=== PATIENT | female | born 1950 | race Caucasian/White ===

== ENCOUNTER → 2019-08-14 09:34 | Outpatient (BNVA) | payer MEDICARE, OTHER, SELFPAY | PROVIDERS: Family Provider Family Medicine; PCP Family Medicine; Visit Provider Internal Medicine Rheumatology | DX: M06.4 Inflammatory polyarthropathy (principal); M19.90 Unspecified osteoarthritis, unspecified site; Z79.899 Other long term (current) drug therapy; Z87.891 Personal history of nicotine dependence; M79.7 Fibromyalgia; J44.9 Chronic obstructive pulmonary disease, unspecified; I10 Essential (primary) hypertension | CPT/HCPCS: 36415; 80053; 85007; 85027; 85651; 86140; 99214 ==

== ENCOUNTER → 2019-11-14 11:09 | Outpatient (BNVA) | payer MEDICARE, OTHER, SELFPAY | PROVIDERS: Family Provider Family Medicine; PCP Family Medicine; Visit Provider Internal Medicine Rheumatology | DX: Z79.899 Other long term (current) drug therapy (principal); M06.4 Inflammatory polyarthropathy; Z11.1 Encounter for screening for respiratory tuberculosis; M79.7 Fibromyalgia; J44.9 Chronic obstructive pulmonary disease, unspecified; Z87.891 Personal history of nicotine dependence; Z90.2 Acquired absence of lung [part of]; Z85.118 Personal history of other malignant neoplasm of bronchus and lung | CPT/HCPCS: 36415; 80076; 82306; 82565; 85025; 85651; 86140; 86431; 86480; 99215; G0463 ==

== ENCOUNTER 2019-12-03 13:24 | Outpatient (CLI) | payer MEDICARE, OTHER, SELFPAY ==
--- NOTE | 2019-12-03 13:40 | XR_ITS ---
WS: [id number] XR chest 2V* [id number] REASON FOR EXAM: Inflammatory arthritis FINDINGS: Interstitial reaction throughout the right lung with decreased widening of the right lung a nd scattered calcification along the right upper lung. There is thickening of the pleura in the right apex. No masses are identified. There is marked elevation of the right hemidiaphragm. The left lung is hyper aerated. There is postop changes off the right hilum. XR/XR chest 2V* [id number] IMPRESSION: Postop changes and decreased volume of the right lung Calcification throughout the right upper lung with thickening of the pleura in the apex. Chronic obstructive pulmonary disease of the left lung.
--- NOTE | 2019-12-03 13:40 | XR_ITS ---
WS: [id number] XR hand LT min 3V* [id number] REASON FOR EXAM: Inflammatory arthritis FINDINGS: Soft tissue swelling of the interphalangeal joints of the second, third and fourth phalange s. Mild soft tissue swelling of the hand. There is no fractures of the phalanges, metacarpals, or carpals. XR/XR hand LT min 3V* [id number] IMPRESSION: Soft tissue swelling of the second, third, fourth intraphalangeal joints.
--- NOTE | 2019-12-03 13:40 | XR_ITS ---
WS: [id number] XR foot RT min 3V* [id number] REASON FOR EXAM: Inflammatory arthritis FINDINGS: Hammertoe changes of the third, fourth, fifth phalanges. The remaining phalanges, metatarsals, tarsals were normal. The calcaneal spur is seen. XR/XR foot RT min 3V* [id number] IMPRESSION: Calcaneal spur. Hammertoe changes third, fourth, fifth distal phalangeal joints.
--- NOTE | 2019-12-03 13:40 | XR_ITS ---
WS: [id number] XR foot LT min 3V* [id number] REASON FOR EXAM: Inflammatory arthritis FINDINGS: There is evidence of reabsorptive and destructive changes across Lisfranc joint. This was n ot noted on October 21, 2015. These are consistent with hammertoe deformities. Deformity of the distal interphalangeal joints. Calcaneal spur is seen. There is spurring off the cuneiforms. XR/XR foot LT min 3V* [id number] IMPRESSION: Inflammatory arthritis across Lisfranc's joint. Hammertoe changes of the phalanges. Calcaneal spur.
--- NOTE | 2019-12-03 13:40 | XR_ITS ---
WS: [id number] XR hand RT min 3V* [id number] REASON FOR EXAM: Inflammatory arthritis FINDINGS: There is evidence of swelling of the middle interphalangeal joints. The remaining phalanges metacarpals and carpals were normal. No fractures or other dyscrasias. XR/XR hand RT min 3V* [id number] IMPRESSION: Joint inflammatory changes middle interphalangeal joints second through fourth phalanx.
== END 2019-12-03 13:25 | disposition home or self-care (01) ==
LOC: RAD 13:32
PROVIDERS: PCP Family Medicine; Visit Provider Internal Medicine Rheumatology
DX: M19.90 Unspecified osteoarthritis, unspecified site (principal); M19.072 Primary osteoarthritis, left ankle and foot; M20.42 Other hammer toe(s) (acquired), left foot; M20.41 Other hammer toe(s) (acquired), right foot; M77.32 Calcaneal spur, left foot; M77.31 Calcaneal spur, right foot; J44.9 Chronic obstructive pulmonary disease, unspecified
CPT/HCPCS: 71046; 73130; 73630

== ENCOUNTER → 2020-02-14 09:23 | Outpatient (BNVA) | payer MEDICARE, OTHER, SELFPAY | PROVIDERS: Family Provider Family Medicine; PCP Family Medicine; Visit Provider Internal Medicine Rheumatology | DX: M06.041 Rheumatoid arthritis without rheumatoid factor, right hand (principal); Z79.899 Other long term (current) drug therapy; M06.042 Rheumatoid arthritis without rheumatoid factor, left hand; C34.91 Malignant neoplasm of unspecified part of right bronchus or lung; J44.9 Chronic obstructive pulmonary disease, unspecified; Z87.891 Personal history of nicotine dependence; Z79.52 Long term (current) use of systemic steroids | CPT/HCPCS: 36415; 80076; 82565; 85025; 85651; 86140; 99214 ==

== ENCOUNTER 2020-05-08 15:36 | Outpatient (CLI) | payer MEDICARE, OTHER, SELFPAY ==
--- NOTE | 2020-05-08 15:45 | USCV_ITS ---
Zoya Cunningham Age: 70 Gender: F : 1950 Exam Date: 05/08/2020 16:10 Ordering Phys: Jericho Steel MD ([email or web address]) Technologist: Judi Avila Exam Location: [facility] – [place] Indication: / SOB BP: 138 / 74 HR: 72 Rhythm: Sinus Technical Quality: Technically difficult study MEASUREMENTS (Male / Female) Normal Values 2D ECHO LV Diastolic Diameter PLAX 4.0 cm 4.2 - 5.9 / 3.9 - 5.3 cm LV Systolic Diameter PLAX 3.1 cm LV Chamber Size 3.4 cm IVS Diastolic Thickness 1.1 cm 0.6 - 1.0 / 0.6 - 0.9 cm IVS Systolic Thickness 1.5 cm LVPW Diastolic Thickness 0.9 cm 0.6 - 1.0 / 0.6 - 0.9 cm LVPW Systolic Thickness 1.4 cm RV Chamber Size 2.4 cm LVOT Diameter 2.0 cm LV Ejection Fraction 2D Teich 48.5 % LV Ejection Fraction MOD 2C 57.5 % LV Ejection Fraction 2C AL 57.1 % LA Diameter 2.7 cm LA Width 2.3 cm LA Height 3.6 cm RA Width 2.5 cm RA Height 3.2 cm Aorta at Sinotubular Diameter 2.1 cm M-MODE LV Diastolic Diameter MM 5.3 cm 4.2 - 5.9 / 3.9 - 5.3 cm LV Systolic Diameter MM 4.0 cm LV Ejection Fraction MM Teich 47.8 % IVS Diastolic Thickness MM 1.3 cm 0.6 - 1.0 / 0.6 - 0.9 cm IVS Systolic Thickness MM 1.3 cm LVPW Diastolic Thickness MM 1.5 cm 0.6 - 1.0 / 0.6 - 0.9 cm LVPW Systolic Thickness MM 1.6 cm Aortic Annulus Diameter 2.9 cm LA Ao Ratio MM 1.2 MV E Point Septal Separation 0.7 cm DOPPLER AV Peak Velocity 254.3 cm/s LVOT Peak Velocity 113.0 cm/s AV Area Cont Eq vti 1.5 cm squared AV Area Cont Eq pk 1.4 cm squared MV Area PHT 5.0 cm squared Mitral E to A Ratio 0.8 MV E' Velocity 49.5 cm/s Mitral E to MV E' Ratio 7.7 Mitral E to LV E' Lateral Ratio 7.1 Mitral E to LV E' Septal Ratio 8.3 TV Peak E Velocity 41.0 cm/s Right Atrial Pressure 15.0 mmHg FINDINGS Left Ventricle Normal left ventricular cavity size. Normal left ventricular systolic function. No regional wall motion abnormalities. Left ventricular ejection fraction is estimated at 55 %. Grade I/IV diastolic dysfunction (abnormal relaxation filling pattern), normal to mildly elevated filling pressures. Right Ventricle The right ventricle is normal in size and function. RVSP could not be calculated due to incomplete tricuspid regurgitation velocity profile. Right Atrium The right atrium is normal in size. Left Atrium The left atrium is normal in size. Mitral Valve Moderately thickened mitral valve. Moderate mitral annular calcification. No mitral valve stenosis. Mild mitral valve regurgitation. Aortic Valve Moderate aortic valve calcification. Moderate aortic valve stenosis, mean gradient 13.7 mmHg, HORTENSIA 1.5 cm squared. Tricuspid Valve Structurally normal tricuspid valve without significant stenosis or regurgitation. Pulmonic Valve Structurally normal pulmonic valve without significant stenosis. There is no pulmonic regurgitation. Pericardium Normal pericardium without effusion. Aorta Normal ascending aorta dimension. CONCLUSIONS 1-Normal left ventricular cavity size. Normal left ventricular systolic function. No regional wall motion abnormalities. Left ventricular ejection fraction is estimated at 55 %. Grade I/IV diastolic dysfunction (abnormal relaxation filling pattern), normal to mildly elevated filling pressures. 2-Moderately thickened mitral valve. Moderate mitral annular calcification. No mitral valve stenosis. Mild mitral valve regurgitation. 3-Moderate aortic valve calcification. Moderate aortic valve stenosis, mean gradient 13.7 mmHg, HORTENSIA 1.5 cm squared. 4-There is no pericardial effusion. 5-The right ventricle is normal in size and function. RVSP could not be calculated due to incomplete tricuspid regurgitation velocity profile. 6-There is no pericardial effusion. 7-Right atrial pressure is around 5 mm of mercury. 8-When compared to the prior echocardiogram dated January 24, 2019 there is no significant change. Gisela Golden MD (Electronically Signed) Final Date: 08 May 2020 20:17 S
== END 2020-05-08 15:37 | disposition home or self-care (01) ==
LOC: RAD 15:38
PROVIDERS: PCP Family Medicine; Visit Provider Internal Medicine Cardiovascular Disease
DX: R06.02 Shortness of breath (principal); I08.0 Rheumatic disorders of both mitral and aortic valves
CPT/HCPCS: 93306

== ENCOUNTER → 2020-05-21 08:55 | Outpatient (BNVA) | payer MEDICARE, OTHER, SELFPAY | PROVIDERS: PCP Family Medicine; Visit Provider Internal Medicine Rheumatology | DX: M06.041 Rheumatoid arthritis without rheumatoid factor, right hand (principal); M06.042 Rheumatoid arthritis without rheumatoid factor, left hand; M06.4 Inflammatory polyarthropathy; M79.7 Fibromyalgia; I10 Essential (primary) hypertension; J44.9 Chronic obstructive pulmonary disease, unspecified; E03.9 Hypothyroidism, unspecified; Z87.891 Personal history of nicotine dependence; Z79.899 Other long term (current) drug therapy | CPT/HCPCS: 99214 ==

== ENCOUNTER → 2020-07-09 08:52 | Outpatient (BNVA) | payer MEDICARE, OTHER, SELFPAY | PROVIDERS: PCP Family Medicine; Visit Provider Podiatrist Foot & Ankle Surgery | DX: M21.962 Unspecified acquired deformity of left lower leg (principal); M19.072 Primary osteoarthritis, left ankle and foot; M20.42 Other hammer toe(s) (acquired), left foot; M21.42 Flat foot [pes planus] (acquired), left foot | CPT/HCPCS: 73630 ==

== ENCOUNTER → 2020-09-16 08:49 | Outpatient (BNVA) | payer MEDICARE, OTHER, SELFPAY | PROVIDERS: PCP Family Medicine; Visit Provider Internal Medicine Rheumatology | DX: M06.4 Inflammatory polyarthropathy (principal); M06.041 Rheumatoid arthritis without rheumatoid factor, right hand; M06.042 Rheumatoid arthritis without rheumatoid factor, left hand; M79.7 Fibromyalgia; J43.9 Emphysema, unspecified; Z79.899 Other long term (current) drug therapy; Z85.118 Personal history of other malignant neoplasm of bronchus and lung; Z90.2 Acquired absence of lung [part of]; Z87.891 Personal history of nicotine dependence | CPT/HCPCS: 99214 ==

== ENCOUNTER → 2020-10-21 11:05 | Outpatient (BNVA) | payer MEDICARE, OTHER, SELFPAY | PROVIDERS: PCP Family Medicine; Visit Provider Internal Medicine Cardiovascular Disease | DX: R07.89 Other chest pain (principal); I77.9 Disorder of arteries and arterioles, unspecified; R09.89 Other specified symptoms and signs involving the circulatory and respiratory systems; I35.0 Nonrheumatic aortic (valve) stenosis; J43.9 Emphysema, unspecified; C34.91 Malignant neoplasm of unspecified part of right bronchus or lung; I48.11 Longstanding persistent atrial fibrillation; I05.9 Rheumatic mitral valve disease, unspecified; E78.2 Mixed hyperlipidemia | CPT/HCPCS: 80162 ==

== ENCOUNTER 2020-11-19 14:38 | Outpatient (CLI) | payer MEDICARE, OTHER, SELFPAY ==
--- NOTE | 2020-11-19 15:00 | USCV_ITS ---
Zoya Cunningham Age: 70 Gender: F : 1950 Exam Date: 11/19/2020 14:57 Ordering Phys: Jericho Steel MD ([email or web address]) Technologist: Georgie Pablo Exam Location: [facility] – [place] Indication: DISORDER OF ARTERIES AND ARTERIOLES Risk Factors: Previous Vascular Surgery: Right Brachial BP: / Left Brachial BP: / Right Left Velocity (cm/s) Spectral Plaque Velocity (cm/s) Spectral Plaque Syst/Diast Broadening Syst/Diast Broadening 71.70/ 20.90 Prox CCA 74.70 / 19.20 53.70/ 17.00 Mid CCA 70.10 / 18.80 43.50/ 11.70 Distal CCA 58.10 / 20.50 37.30/ 11.70 Prox ICA 47.50 / 18.70 33.40/ 14.00 Mid ICA 73.70 / 29.00 49.00/ 21.50 Distal ICA 39.80 / 16.90 55.20 ECA 41.70 0.91 ICA/CCA 1.05 Antegrade Vertebral Antegrade 35.70/ 14.00 cm/s 31.80/ 11.40 cm/s Tri Subclavian Tri 92.40 82.70 FINDINGS Mmild to moderate scattered plaques bilaterally at the bifurcations and proximal internal carotid arteries. Intimal thickening in the common carotid arteries bilaterally. Antegrade flow in the vertebral arteries bilaterally. Normal Doppler flow velocities in the external carotid arteries bilaterally. CONCLUSIONS Mild to moderate scattered plaques bilaterally at the bifurcations and proximal internal carotid arteries causing less than 50% stenosis. Minimal intimal thickening in the common carotid arteries bilaterally. No significant stenosis, based on the above findings Dr Jericho Steel MD [facility] (Electronically Signed) Final Date: 20 Nov 2020 16:52 S
== END 2020-11-19 14:39 | disposition home or self-care (01) ==
LOC: US 14:42
PROVIDERS: PCP Family Medicine; Visit Provider Internal Medicine Cardiovascular Disease
DX: I65.23 Occlusion and stenosis of bilateral carotid arteries (principal); I77.9 Disorder of arteries and arterioles, unspecified; R09.89 Other specified symptoms and signs involving the circulatory and respiratory systems
CPT/HCPCS: 93880

== ENCOUNTER → 2020-12-17 13:14 | Outpatient (BNVA) | payer MEDICARE, OTHER, SELFPAY | PROVIDERS: PCP Family Medicine; Visit Provider Internal Medicine Cardiovascular Disease | DX: Z79.899 Other long term (current) drug therapy (principal); Z79.01 Long term (current) use of anticoagulants | CPT/HCPCS: 85610 ==

== ENCOUNTER → 2020-12-24 08:59 | Outpatient (BNVA) | payer MEDICARE, OTHER, SELFPAY | PROVIDERS: PCP Family Medicine; Visit Provider Internal Medicine Cardiovascular Disease | DX: I48.11 Longstanding persistent atrial fibrillation (principal) | CPT/HCPCS: 85610 ==

== ENCOUNTER → 2021-01-02 08:50 | Outpatient (BNVA) | payer MEDICARE, OTHER, SELFPAY | PROVIDERS: PCP Family Medicine; Visit Provider Internal Medicine Cardiovascular Disease | DX: I48.11 Longstanding persistent atrial fibrillation (principal); I49.9 Cardiac arrhythmia, unspecified | CPT/HCPCS: 85610 ==

== ENCOUNTER → 2021-01-06 13:08 | Outpatient (BNVA) | payer MEDICARE, OTHER, SELFPAY | PROVIDERS: PCP Family Medicine; Visit Provider Internal Medicine Cardiovascular Disease | DX: I35.0 Nonrheumatic aortic (valve) stenosis (principal) | CPT/HCPCS: 85610 ==

== ENCOUNTER → 2021-01-26 10:45 | Outpatient (BNVA) | payer MEDICARE, OTHER, SELFPAY | PROVIDERS: PCP Family Medicine; Visit Provider Internal Medicine Cardiovascular Disease | DX: Z79.899 Other long term (current) drug therapy (principal) | CPT/HCPCS: 85610 ==

== ENCOUNTER → 2021-02-02 10:51 | Outpatient (BNVA) | payer MEDICARE, OTHER, SELFPAY | PROVIDERS: PCP Family Medicine; Visit Provider Internal Medicine Cardiovascular Disease | DX: I48.11 Longstanding persistent atrial fibrillation (principal); Z79.899 Other long term (current) drug therapy; Z79.01 Long term (current) use of anticoagulants | CPT/HCPCS: 80076; 85610 ==

== ENCOUNTER → 2021-02-09 11:58 | Outpatient (BNVA) | payer MEDICARE, OTHER, SELFPAY | PROVIDERS: PCP Family Medicine; Visit Provider Internal Medicine Cardiovascular Disease | DX: Z79.899 Other long term (current) drug therapy (principal) | CPT/HCPCS: 85610 ==

== ENCOUNTER → 2021-02-16 10:30 | Outpatient (BNVA) | payer MEDICARE, OTHER, SELFPAY | PROVIDERS: PCP Family Medicine; Visit Provider Internal Medicine Cardiovascular Disease | DX: Z79.899 Other long term (current) drug therapy (principal); I48.11 Longstanding persistent atrial fibrillation | CPT/HCPCS: 85610 ==

== ENCOUNTER → 2021-03-02 10:27 | Outpatient (BNVA) | payer MEDICARE, OTHER, SELFPAY | PROVIDERS: PCP Family Medicine; Visit Provider Internal Medicine Cardiovascular Disease | DX: I35.0 Nonrheumatic aortic (valve) stenosis (principal) | CPT/HCPCS: 85610 ==

== ENCOUNTER → 2021-03-10 10:52 | Outpatient (BNVA) | payer MEDICARE, OTHER, SELFPAY | PROVIDERS: PCP Family Medicine; Visit Provider Internal Medicine Cardiovascular Disease | DX: Z79.899 Other long term (current) drug therapy (principal); I48.11 Longstanding persistent atrial fibrillation | CPT/HCPCS: 85610 ==

== ENCOUNTER → 2021-03-16 11:33 | Outpatient (BNVA) | payer MEDICARE, OTHER, SELFPAY | PROVIDERS: PCP Family Medicine; Visit Provider Internal Medicine Cardiovascular Disease | DX: I35.0 Nonrheumatic aortic (valve) stenosis (principal) | CPT/HCPCS: 85610 ==

== ENCOUNTER → 2021-03-25 10:05 | Outpatient (BNVA) | payer MEDICARE, OTHER, SELFPAY | PROVIDERS: PCP Family Medicine; Visit Provider Internal Medicine Cardiovascular Disease | DX: Z79.899 Other long term (current) drug therapy (principal); I48.11 Longstanding persistent atrial fibrillation | CPT/HCPCS: 85610 ==

== ENCOUNTER → 2021-04-20 09:35 | Outpatient (BNVA) | payer MEDICARE, OTHER, SELFPAY | PROVIDERS: PCP Family Medicine; Visit Provider Internal Medicine Cardiovascular Disease | DX: I35.0 Nonrheumatic aortic (valve) stenosis (principal) | CPT/HCPCS: 85610 ==

== ENCOUNTER → 2021-04-22 13:02 | Outpatient (BNVA) | payer MEDICARE, OTHER, SELFPAY | PROVIDERS: PCP Family Medicine; Visit Provider Internal Medicine Rheumatology | DX: M15.9 Polyosteoarthritis, unspecified (principal); Z79.899 Other long term (current) drug therapy; J44.9 Chronic obstructive pulmonary disease, unspecified; I35.0 Nonrheumatic aortic (valve) stenosis; I34.1 Nonrheumatic mitral (valve) prolapse; M79.7 Fibromyalgia; G47.33 Obstructive sleep apnea (adult) (pediatric); F31.9 Bipolar disorder, unspecified; I48.0 Paroxysmal atrial fibrillation; Z79.01 Long term (current) use of anticoagulants; Z85.118 Personal history of other malignant neoplasm of bronchus and lung; Z90.2 Acquired absence of lung [part of]; Z92.21 Personal history of antineoplastic chemotherapy; Z71.89 Other specified counseling; Z87.891 Personal history of nicotine dependence | CPT/HCPCS: 99214 ==

== ENCOUNTER → 2021-07-16 13:31 | Outpatient (BNVA) | payer MEDICARE, OTHER, SELFPAY | PROVIDERS: PCP Family Medicine; Visit Provider Internal Medicine Cardiovascular Disease | DX: I35.0 Nonrheumatic aortic (valve) stenosis (principal) | CPT/HCPCS: 85610 ==

== ENCOUNTER → 2021-07-21 10:26 | Outpatient (BNVA) | payer MEDICARE, OTHER, SELFPAY | PROVIDERS: PCP Family Medicine; Visit Provider Internal Medicine Rheumatology | DX: M06.041 Rheumatoid arthritis without rheumatoid factor, right hand (principal); M06.042 Rheumatoid arthritis without rheumatoid factor, left hand; Z79.899 Other long term (current) drug therapy; J43.9 Emphysema, unspecified | CPT/HCPCS: 80076; 82565; 85025; 86140 ==

== ENCOUNTER → 2021-08-20 12:43 | Outpatient (BNVA) | payer MEDICARE, OTHER, SELFPAY | PROVIDERS: PCP Family Medicine; Visit Provider Internal Medicine Rheumatology | DX: M06.041 Rheumatoid arthritis without rheumatoid factor, right hand (principal); M06.042 Rheumatoid arthritis without rheumatoid factor, left hand; Z79.899 Other long term (current) drug therapy; M79.7 Fibromyalgia; F31.9 Bipolar disorder, unspecified; G47.33 Obstructive sleep apnea (adult) (pediatric); C34.91 Malignant neoplasm of unspecified part of right bronchus or lung; J44.9 Chronic obstructive pulmonary disease, unspecified; Z71.89 Other specified counseling | CPT/HCPCS: 99214 ==

== ENCOUNTER 2021-11-11 11:23 | Outpatient (CLI) | payer MEDICARE, OTHER, SELFPAY ==
[2021-11-11 13:20] LABS: INR 1.25 (0.8-1.2)
== END 2021-11-11 11:24 | disposition home or self-care (01) ==
LOC: LAB 11:33
PROVIDERS: PCP Family Medicine; Visit Provider Internal Medicine Cardiovascular Disease
DX: I48.11 Longstanding persistent atrial fibrillation (principal)
CPT/HCPCS: 36415; 85610

== ENCOUNTER → 2021-11-13 13:43 | Outpatient (BNVA) | payer MEDICARE, OTHER, SELFPAY | PROVIDERS: PCP Family Medicine; Visit Provider Internal Medicine Cardiovascular Disease | DX: Z79.01 Long term (current) use of anticoagulants (principal) ==

== ENCOUNTER 2021-11-16 10:40 | Outpatient (CLI) | payer MEDICARE, OTHER, SELFPAY | END 2021-11-16 10:41 | disposition home or self-care (01) | LOC: LAB 10:43 | PROVIDERS: PCP Family Medicine; Visit Provider Internal Medicine Cardiovascular Disease | DX: I48.11 Longstanding persistent atrial fibrillation (principal) | CPT/HCPCS: 36415; 85610 ==

== ENCOUNTER 2021-11-25 11:26 | Outpatient (CLI) | payer MEDICARE, OTHER, SELFPAY ==
[2021-11-25 13:06] LABS: INR 1.67 (0.8-1.2)
== END 2021-11-25 11:27 | disposition home or self-care (01) ==
LOC: LAB 11:31
PROVIDERS: PCP Family Medicine; Visit Provider Internal Medicine Cardiovascular Disease
DX: I48.11 Longstanding persistent atrial fibrillation (principal); I10 Essential (primary) hypertension; Z79.01 Long term (current) use of anticoagulants
CPT/HCPCS: 85610

== ENCOUNTER → 2021-11-27 13:07 | Outpatient (BNVA) | payer MEDICARE, OTHER, SELFPAY | PROVIDERS: PCP Family Medicine; Visit Provider Internal Medicine | DX: Z79.01 Long term (current) use of anticoagulants (principal) ==

== ENCOUNTER 2021-12-02 10:15 | Outpatient (CLI) | payer MEDICARE, OTHER, SELFPAY ==
[2021-12-02 11:32] LABS: INR 1.78 (0.83-1.21); Prothrombin Time (Patient) 21.1 Seconds (12.0-15.1)
== END 2021-12-02 10:16 | disposition home or self-care (01) ==
LOC: LAB 10:17
PROVIDERS: PCP Family Medicine; Visit Provider Internal Medicine Cardiovascular Disease
DX: I48.11 Longstanding persistent atrial fibrillation (principal); R58 Hemorrhage, not elsewhere classified
CPT/HCPCS: 85610

== ENCOUNTER → 2021-12-04 10:08 | Outpatient (BNVA) | payer MEDICARE, OTHER, SELFPAY | PROVIDERS: PCP Family Medicine; Visit Provider Internal Medicine Cardiovascular Disease | DX: Z79.01 Long term (current) use of anticoagulants (principal) ==

== ENCOUNTER 2021-12-09 09:36 | Outpatient (CLI) | payer MEDICARE, OTHER, SELFPAY ==
[2021-12-09 12:39] LABS: INR 1.88 (0.8-1.2)
== END 2021-12-09 09:37 | disposition home or self-care (01) ==
LOC: LAB 09:38
PROVIDERS: PCP Family Medicine; Visit Provider Internal Medicine Cardiovascular Disease
DX: I48.11 Longstanding persistent atrial fibrillation (principal)
CPT/HCPCS: 85610

== ENCOUNTER → 2021-12-11 09:10 | Outpatient (BNVA) | payer MEDICARE, OTHER, SELFPAY | PROVIDERS: PCP Family Medicine; Visit Provider Internal Medicine Cardiovascular Disease | DX: Z79.01 Long term (current) use of anticoagulants (principal) ==

== ENCOUNTER 2021-12-16 09:31 | Outpatient (CLI) | payer MEDICARE, OTHER, SELFPAY | END 2021-12-16 09:32 | disposition home or self-care (01) | PROVIDERS: PCP Family Medicine; Visit Provider Internal Medicine Cardiovascular Disease | DX: I48.11 Longstanding persistent atrial fibrillation (principal) | CPT/HCPCS: 36415; 85610 ==

== ENCOUNTER → 2021-12-22 10:36 | Outpatient (BNVA) | payer MEDICARE, OTHER, SELFPAY | PROVIDERS: PCP Family Medicine; Visit Provider Internal Medicine Cardiovascular Disease | DX: I35.0 Nonrheumatic aortic (valve) stenosis (principal); R09.89 Other specified symptoms and signs involving the circulatory and respiratory systems; I48.11 Longstanding persistent atrial fibrillation; Z79.01 Long term (current) use of anticoagulants; E78.2 Mixed hyperlipidemia; I10 Essential (primary) hypertension; J43.9 Emphysema, unspecified | CPT/HCPCS: 99214 ==

== ENCOUNTER → 2021-12-29 10:21 | Outpatient (BNVA) | payer MEDICARE, OTHER, SELFPAY | PROVIDERS: PCP Family Medicine | DX: Z79.01 Long term (current) use of anticoagulants (principal) | CPT/HCPCS: 85610 ==

== ENCOUNTER → 2022-01-05 10:32 | Outpatient (BNVA) | payer MEDICARE, OTHER, SELFPAY | PROVIDERS: PCP Family Medicine; Visit Provider Internal Medicine Cardiovascular Disease | DX: Z79.01 Long term (current) use of anticoagulants (principal) | CPT/HCPCS: 85610 ==

== ENCOUNTER → 2022-01-25 12:51 | Outpatient (BNVA) | payer MEDICARE, OTHER, SELFPAY | PROVIDERS: PCP Family Medicine; Visit Provider Internal Medicine Rheumatology | DX: M15.9 Polyosteoarthritis, unspecified (principal); C34.91 Malignant neoplasm of unspecified part of right bronchus or lung; Z79.899 Other long term (current) drug therapy; M79.7 Fibromyalgia; F31.9 Bipolar disorder, unspecified; G47.33 Obstructive sleep apnea (adult) (pediatric); J44.9 Chronic obstructive pulmonary disease, unspecified; E03.9 Hypothyroidism, unspecified; G62.9 Polyneuropathy, unspecified; I10 Essential (primary) hypertension; I34.1 Nonrheumatic mitral (valve) prolapse; I35.0 Nonrheumatic aortic (valve) stenosis; I48.0 Paroxysmal atrial fibrillation; Z79.01 Long term (current) use of anticoagulants; Z90.2 Acquired absence of lung [part of]; Z87.891 Personal history of nicotine dependence; Z71.89 Other specified counseling | CPT/HCPCS: 80076; 82565; 85025; 86140; 99214 ==

== ENCOUNTER 2022-02-07 12:13 | Emergency (ER) | payer MEDICARE, OTHER, SELFPAY ==
[2022-02-07] VITALS (7 sets, daily range): BP systolic 95–141; BP diastolic 60–86; PULSE 75–85; RESP 14–21; TEMP 36.9; O2SAT 95–98; BMI 24.6
--- NOTE | 2022-02-07 12:25 | W.ED.GENADLT ---
HPI - General Adult General: Chief complaint: General Medical Stated complaint: WEAKNESS Time Seen by Provider: 02/07/22 12:14 History of Present Illness: Patient is a 72-year-old female with a history of atrial fibrillation on digoxin, aortic stenosis, COPD on 2 L oxygen at home fibromyalgia hypertension, GERD lipidemia presenting to the emergency room with concerns of lightheadedness and near syncope for the last 2 days. Earlier today around 11:00, patient was slowing standing up when she suddenly felt very lightheaded and almost passed out. EMS was called, patient was brought to the emergency room. Patient denies any associated chest pain, shortness breath or palpitation prior to the episode and lightheadedness. Patient has had similar episodes yesterday. At home. Patient reports ongoing nonproductive cough. Patient denies any fever/chills, diarrhea, melena/hematochezia. Patient has no complaints. She denies any melena or hematochezia. Patient denies any recent dehydration, decreased p.o. intake, or exposure to the sun. Onset:2 days ago Duration:2 days Location:home Severity:moderate Associated symptoms: Deny chest pain, dyspnea, nausea, rash, palpitations or vomiting Review of Systems Const: Denies: fever(s) or chills Eyes: Denies: change in vision ENMT: Denies: mouth pain Card: Denies: chest pain or palpitations Resp: Denies: dyspnea or non-productive cough GI: Denies: abdominal pain, nausea, vomiting or diarrhea : Denies: dysuria Musc: Denies: extremity pain Skin/Breast: Denies: rash or new lesions Neuro: Reports: other (+light-headedness); Denies: weakness in extremities Psych: Reports: other (Normal mood) Michel/Lymph: Denies: easy bruising PFSH ED PFSH: Medical History Adenocarcinoma of right lung, 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, status post right middle and upper lobectomy in April 2008, -treated with adjuvant chemotherapy, four cycles of carboplatin and Taxol completed in August 2008 Aortic valve stenosis Arrhythmia Atrial fibrillation Bipolar 2 disorder Chronic steroid use COPD (chronic obstructive pulmonary disease) COPD (chronic obstructive pulmonary disease) Dementia in other diseases classified elsewhere without behavioral disturbance Encounter for immunization Fibromyalgia Generalized anxiety disorder Greater trochanteric bursitis of both hips High risk medication use Hyperlipemia Hypertension Immunization counseling Inflammatory arthritis Insomnia Mitral valve disease Near syncope Osteoarthritis of knees, bilateral Peripheral neuropathy Psychiatric care Pulmonary fibrosis Seronegative rheumatoid arthritis of both hands Valvular heart disease Surgical History H/O breast biopsy H/O: hysterectomy History of lung surgery Family History Mother CAD (coronary artery disease) Cancer Stroke Sister Diabetes Father Lung disease Denies family history of Clotting disorder Dementia Chronic kidney disease (CKD) Suicide Anesthesia complication Bleeding disorder Social History Smoking and tobacco status: former smoker Alcohol intake: current History of recent travel: No Physical Exam Const: COMMON NORMALS: alert HENMT: COMMON NORMALS: atraumatic HEAD & SCALP: atraumatic MOUTH: moist mucous membranes not abnormal Eye: COMMON NORMALS: EOMs intact bilaterally and conjunctivae normal CONJUNCTIVA: Yes conjunctivae normal Neck/C-Spine: COMMON NORMALS: full ROM and supple Resp: COMMON NORMALS: normal respiratory effort and clear to auscultation bilaterally AUSCULTATION: clear to auscultation bilaterally Cardio: COMMON NORMALS: regular rate RATE: regular rate OTHER: 2+ radial pulses b/l GI: COMMON NORMALS: Soft to palpation and non-tender PALPATION: Yes Soft to palpation OTHER: No focal TTP. NO guarding rebound, guarding, rigidity. No CVA tenderness to percussion. Neg Courteny/Neg McBurney's point tenderness, no suprabupic tenderness to palpation. Extremity: COMMON NORMALS: full ROM Neuro: SENSORIUM/ORIENTATION: Yes alert MOTOR EXAM: No Abnormal motor strength present and Other motor observations present (no focal motor deficits) OTHER: Mental status? Awake, alert, and oriented to self, year, month, location, and situation.? Following simple axial and appendicular commands.? Has appropriate fund of knowledge, comprehension, and insight.? Able to recall and understands pertinent aspects of medical history and current treatment status.? ? Language? Speech is fluent without word-finding difficulties.? Intact naming, expression, bilingual receptionist, and repetition.? ? Cranial nerves? 2,3,4,6: PERRL, EOMI with no nystagmus. 5: Intact sensation to light touch, symmetric? 7: Smile symmetrical, no facial droop.? 8: Hearing grossly intact.? 9,10: Normal palate movement.? 11: Normal strength in trapezius bilaterally 12: Tongue protrudes midline.? ? Motor examination? Normal bulk & tone. Strength as follows (R/L): Delts (5/5), Biceps (5/5), Triceps (5/5), Wrist ext (5/5), hip flexors (5/5), plantarflexors (5/5), dorsiflexors (5/5). Sensation? Light Touch: Grossly intact and equal in upper and lower extremities bilaterally? Romberg: Negative.? Distal joint position sense intact ? Coordination? Bnrcwo-lk-zjkg-finger movements intact without dysmetria or past-pointing.? Rapid fingertaps: preserved amplitude without decriment.? No tremor, myoclonus or truncal ataxia.? ? Gait/stance? Steady, normal narrow base gait with appropriate arm swing and turning.? Tandem gait without hesitation or loss of balance. Psych: COMMON NORMALS: speech normal SPEECH: Yes normal speech MOOD & AFFECT: Yes euthymic mood Course Vital Signs: Vital signs: Vital Signs Temperature 98.5 F 02/07/22 12:19 Pulse Rate 75 02/07/22 16:54 Respiratory Rate 21 H 02/07/22 16:54 Blood Pressure 135/75 02/07/22 16:54 Pulse Oximetry 95 02/07/22 16:54 Oxygen Delivery Me thod 02/07/22 15:49 Oxygen Flow Rate 1 02/07/22 15:49 [facility] - General Adult Medical Decision Making Patient is a 72-year-old female with a history of atrial fibrillation on digoxin, aortic stenosis, COPD on 2 L oxygen at home fibromyalgia hypertension, GERD lipidemia presenting to the emergency room with concerns of lightheadedness and near syncope for the last 2 days. On physical exam, patient is hemodynamically stable. Neuro exam is intact. Troponin x2 with delta less than 5. EKG is nonischemic. Patient no complaints of chest pain. Patient received IVF reports feeling proved. Patient has positive orthostatics today. Patient is able to ambulate and tolerate p.o. Because patient has an echo that is due tomorrow, we will order the echo in the emergency room. We reviewed the echo with Dr. Steel as well as blood work. Dr. Steel does not think that this is ACS related at this time. CT head negative for any acute findings. On reassessment, patient denies any syncope or near syncope episodes in the ER. Telemetry without any dysrhythmia. Patient has been able to tolerate PO and ambulate in the ER without issues. Delta in troponins <5. I performed shared decision-making with patient regarding admission versus discharge today, and patient prefers to be discharged. I have discussed given patient's risk factors that she would better off admitted to the hospital. However, patient tells me she to go home with close follow up with Dr. Steel. I explained the risks of leaving the hospital today including lethal arrythemia, VT, strokes and even . Patient verbalizes understanding of these discussed risk and elect for the alternative of following up earlier next week for evaluation by Cardiology. Patient verbalizes understanding to return for any worsening symptoms including chest pain, dyspnea, fatigue, arm pain/jaw pain/back pain or any new or concerning issues. Hemoglobin of 9.1 which is consistent with baseline. Patient is currently HDS, ambulated without any difficulties I have given patient follow up with our case management social worker to be seen by our outpatient by Dr Steel for recent echo and light-headedness. Patient aware of a call from our case management social worker to schedule for appointment(s) and verbalizes understanding of the importance of following up. Disposition: Discharge. Patient counseled regarding diagnostic impression, treatment plan. Patient given ED strict return precautions to return for continuation, worsening, or development of new symptoms. Instructed to f/u w/ PCP and Cardiology regarding symptoms today. Patient verbalized understanding. Lab Data : 02/07/22 12:50 02/07/22 12:50 Radiology Impressions Chest X-Ray 02/07/22 12:24 IMPRESSION: Chronic scarring in the right lung which is hypoaerated in relation to the left associated with a mild rightward mediastinal shift. These findings are unchanged from the prior CT scan. Head CT 02/07/22 12:24 IMPRESSION: No acute intracranial abnormality. Laboratory Results WBC 5.4 10^3/uL (4.0-10.0) 02/07/22 12:50 RBC 3.97 10^6/uL (4.1-5.3) L 02/07/22 12:50 Hgb 13.5 g/dL (11.5-15.3) 02/07/22 12:50 Hct 42.9 % (37.0-47.0) 02/07/22 12:50 MCV 108.1 fl (81-99) H 02/07/22 12:50 MCH 34.0 pg (28.0-34.0) 02/07/22 12:50 MCHC 31.5 g/dL (30.0-36.0) 02/07/22 12:50 RDW 12.7 % (12.1-15.1) 02/07/22 12:50 Plt Count 183 10^3/cmm (130-400) 02/07/22 12:50 MPV 10.2 fL (7.4-10.4) 02/07/22 12:50 Neut % (Auto) 56.3 % 02/07/22 12:50 Lymph % (Auto) 27.8 % 02/07/22 12:50 Jerauld % (Auto) 13.2 % 02/07/22 12:50 Eos % (Auto) 1.9 % 02/07/22 12:50 Baso % (Auto) 0.4 % 02/07/22 12:50 Neut # (Auto) 3.04 10^3/uL (1.8-7.7) 02/07/22 12:50 Lymph # (Auto) 1.5 10^3/uL (0.8-4.8) 02/07/22 12:50 Jerauld # (Auto) 0.7 10^3/uL (0.2-0.9) 02/07/22 12:50 Eos # (Auto) 0.1 10^3/uL (0.0-0.8) 02/07/22 12:50 Baso # (Auto) 0.0 10^3/uL (0.0-0.1) 02/07/22 12:50 Nucleated RBC % (auto) 0 % 02/07/22 12:50 Nucleated RBCs # 0.0 /100WBC 02/07/22 12:50 D-Dimer <= 0.27 ug/mIFEU (0-0.59) 02/07/22 12:50 Sodium 143 mmol/L (136-145) 02/07/22 12:50 Potassium 4.6 mmol/L (3.5-5.1) 02/07/22 12:50 Chloride 102 mmol/L (98-107) 02/07/22 12:50 Carbon Dioxide 33 mmol/L (22-29) H 02/07/22 12:50 Anion Gap 12.6 (5-19) 02/07/22 12:50 BUN 12 mg/dL (8-23) 02/07/22 12:50 Creatinine 0.7 mg/dL (0.5-0.9) 02/07/22 12:50 GFR Calculation Not Reportable 02/07/22 12:50 Glucose 92 mg/dL (65-115) 02/07/22 12:50 POC Glucose 93 mg/dL (70-110) 02/07/22 12:45 Calculated Osmolality 295 mOsm/kg (285-295) 02/07/22 12:50 Calcium 9.3 mg/dL (8.5-10.5) 02/07/22 12:50 Total Bilirubin 0.2 mg/dL (0.15-1.2) 02/07/22 12:50 AST 16 U/L (0-32) 02/07/22 12:50 ALT 26 U/L (0-33) 02/07/22 12:50 Alkaline Phosphatase 86 IU/L (35-105) 02/07/22 12:50 Troponin T Baseline 8 ng/L (0-10) 02/07/22 12:50 Troponin T 120 Minute 7.27 ng/L (0-10) 02/07/22 15:00 Delta Troponin T -0.73 ABS# (0-10) L 02/07/22 15:00 NT-Pro-B Natriuret Pep 604 pg/mL (0-125) H 02/07/22 12:50 Total Protein 6.0 g/dL (6.6-8.7) L 02/07/22 12:50 Albumin 3.8 g/dL (3.5-5.2) 02/07/22 12:50 Globulin 2.2 g/dL (1.3-4.6) 02/07/22 12:50 Lipase 32 U/L (13-60) 02/07/22 12:50 TSH 1.94 uIU/mL (0.27-4.20) 02/07/22 12:50 Free T4 1.39 ng/dL (0.82-1.77) 02/07/22 12:50 Urine Color Yellow (Yellow) 02/07/22 14:30 Urine Appearance Clear (CLEAR) 02/07/22 14:30 Urine pH 6 (5-7) 02/07/22 14:30 Ur Specific [place] 1.010 (1.005-1.030) 02/07/22 14:30 Urine Protein Neg (Negative) 02/07/22 14:30 Urine Glucose (UA) Norm (Normal) 02/07/22 14:30 Urine Ketones Negative (Negative) 02/07/22 14:30 Urine Blood Neg (Negative) 02/07/22 14:30 Urine Nitrate Negative (Negative) 02/07/22 14:30 Urine Bilirubin Neg (Negative) 02/07/22 14:30 Urine Urobilinogen Norm mg/dL (Negative) 02/07/22 14:30 Ur Leukocyte Esterase Negative (Negative) 02/07/22 14:30 Coronavirus 229E (PCR) Not detected (NOT DETECT) 02/07/22 12:50 SARS-CoV-2 (PCR) Not detected (NOT DETECT) 02/07/22 12:50 Imaging Data Other Imaging: Radiologist's impression: [place] [address] CT Scan Report Signed Patient: Zoya Cunningham Unit #: [id number] : 1950 Age/Sex: 72 / F ADM Date: 02/07/22 Loc: ER Room/Bed: Attending Dr: Ordering Provider/Ordering MD: Mauri Delcid MD Date of Service: 02/07/22 Procedure(s): CT head wo con* [id number] Accession Number(s): [id number] Report Number: [id number] PROCEDURE INFORMATION: Exam: CT Head Without Contrast Exam date and time: 02/07/2022 12:57 PM Age: 72 years old Clinical indication: Dizziness; Additional info: Light-headedness TECHNIQUE: Imaging protocol: Computed tomography of the head without contrast. Radiation optimization: All CT scans at this facility use at least one of these dose optimization techniques: automated exposure control; mA and/or kV adjustment per patient size (includes targeted exams where dose is matched to clinical indication); or iterative reconstruction. COMPARISON: No relevant prior studies available. RADIATION DOSE METRICS: Total DLP (mGy-cm): 944.98 FINDINGS: Brain: Normal. No hemorrhage. Unremarkable white matter. No mass effect. Cerebral ventricles: No ventriculomegaly. Paranasal sinuses: Visualized sinuses are unremarkable. No fluid levels. Mastoid air cells: Visualized mastoid air cells are well aerated. Bones/joints: Unremarkable. No acute fracture. Soft tissues: Unremarkable. CT/CT head wo con* [id number] IMPRESSION: No acute intracranial abnormality. ? Dictated By: Chel Roblero MD Signed By: Chel Roblero MD Signed Date/Time: 02/07/22 1330 DD/ [address] [address] XRay Report Signed Patient: Zoya Cunningham Unit #: [id number] : 1950 Age/Sex: 72 / F ADM Date: 02/07/22 Loc: ER Room/Bed: Attending Dr: Ordering Provider/Ordering MD: Mauri Delcid MD Date of Service: 02/07/22 Procedure(s): XR chest 1V portable [id number] Accession Number(s): [id number] Report Number: [id number] PROCEDURE INFORMATION: Exam: XR Chest Exam date and time: 02/07/2022 1:12 PM Age: 72 years old Clinical indication: Pain; Chest pressure; Additional info: Chest pain TECHNIQUE: Imaging protocol: Radiologic exam of the chest. Views: 1 view. COMPARISON: CT chest wo con [id number] 05/09/2020 9:48 AM FINDINGS: Lungs: Chronic scarring in the right lung which is hypoaerated in relation to the left associated with a mild rightward mediastinal shift. These findings are unchanged from the prior CT scan. Pleural spaces: Costophrenic angles are somewhat obscured and small pleural effusions cannot be excluded. Heart/Mediastinum: There are calcified mediastinal and perihilar lymph nodes consistent with prior granulomatous exposure. Diaphragm: Mild elevation of the right hemidiaphragm. Bones/joints: Unremarkable. XR/XR chest 1V portable [id number] IMPRESSION: Chronic scarring in the right lung which is hypoaerated in relation to the left associated with a mild rightward mediastinal shift. These findings are unchanged from the prior CT scan. ? Dictated By: Chel Roblero MD Signed By: Chel Roblero MD Signed Date/Time: 02/07/22 1455 DD/ 1312 Discharge Plan Discharge Patient Disposition: Home Clinical Impression: Light headedness, Near syncope Condition: Stable Prescriptions: No Action cyanocobalamin (vitamin B-12) 2,500 mcg tablet 2,500 mcg PO DAILY fluticasone propion-salmeterol [Advair Diskus] 250-50 mcg/dose blister with device 1 inh INHALATION BID ferrous sulfate 324 mg (65 mg iron) tablet,delayed release (DR/EC) 324 mg PO DAILY ascorbic acid (vitamin C) 1,000 mg tablet 1,000 mg PO DAILY (DME) oxygen-air delivery systems Device See Rx Instructions .ROUTE .MEDSUPPLY Qty: 1 Rx Instructions: As directed 3 liters (DME) Articulating AFO See Rx Instructions .Route .MEDSUPPLY Qty: 1 0RF Rx Instructions: As directed tramadol 50 mg tablet 50 mg PO BID PRN (Reason: pain, moderate-severe) Qty: 60 2RF methocarbamol 500 mg tablet 500 mg PO TID PRN (Reason: muscle pain) fexofenadine 180 mg tablet 180 mg PO DAILY montelukast 10 mg tablet 10 mg PO DAILY gabapentin 600 mg tablet 600 mg PO TID Qty: 90 3RF omeprazole 40 mg capsule,delayed release(DR/EC) 40 mg PO DAILY Qty: 90 1RF sulfasalazine 500 mg tablet 1 g PO BID Qty: 120 3RF bmbtejilxi-hjwchblrvznwe-ppnm 50-325-40 mg tablet 1 tab PO Q4H PRN (Reason: migraine) cholecalciferol (vitamin D3) 250 mcg (10,000 unit) capsule 250 mcg PO DAILY donepezil 10 mg tablet 10 mg PO DAILY Qty: 90 1RF Rx Instructions: at bedtime memantine [Namenda XR] 28 mg capsule,sprinkle,ER 24hr 28 mg PO DAILY Qty: 90 1RF warfarin 7.5 mg tablet 7 mg PO DAILY Protocol: Dose Management Condition: Tuesday Dose/Route: 6 mg Instruction: 1 x 6 mg tablet Condition: Tuesday Dose/Route: 6 mg Instruction: 1 x 6 mg tablet Condition: Tuesday Dose/Route: 6 mg Instruction: 1 x 6 mg tablet Condition: Tuesday Dose/Route: 6 mg Instruction: 1 x 6 mg tablet Condition: Dose/Route: 6 mg Instruction: 1 x 6 mg tablet Condition: Tuesday Dose/Route: 6 mg Instruction: 1 x 6 mg tablet Condition: Tuesday Dose/Route: 6 mg Instruction: 1 x 6 mg tablet Protocol Text: Adjustment Start Date: Tuesday01/05/22 INR Value: 23.8 Seconds INR Date: 01/05/22 Recheck Date: 02/02/22 warfarin 2 mg tablet 2 mg PO DAILY Qty: 90 2RF Protocol: Dose Management Condition: Tuesday Dose/Route: 6 mg Instruction: 1 x 6 mg tablet Condition: Tuesday Dose/Route: 6 mg Instruction: 1 x 6 mg tablet Condition: Tuesday Dose/Route: 6 mg Instruction: 1 x 6 mg tablet Condition: Tuesday Dose/Route: 6 mg Instruction: 1 x 6 mg tablet Condition: Dose/Route: 6 mg Instruction: 1 x 6 mg tablet Condition: Tuesday Dose/Route: 6 mg Instruction: 1 x 6 mg tablet Condition: Tuesday Dose/Route: 6 mg Instruction: 1 x 6 mg tablet Protocol Text: Adjustment Start Date: Tuesday01/05/22 INR Value: 23.8 Seconds INR Date: 01/05/22 Recheck Date: 02/02/22 Rx Instructions: per protocol prazosin 1 mg capsule See Rx Instructions .ROUTE .COMPLEX Qty: 180 0RF Dose Instruction: TAKE 1 TO 2 CAPSULES AT BEDTIME MAY INCREASE TO 2 CAPSULES IF NEEDED AFTER 3 DAYS Rx Instructions: TAKE 1 TO 2 CAPSULES AT BEDTIME MAY INCREASE TO 2 CAPSULES IF NEEDED AFTER 3 DAYS warfarin 6 mg tablet 6 mg PO DAILY Qty: 90 0RF Protocol: Dose Management Condition: Tuesday Dose/Route: 6 mg Instruction: 1 x 6 mg tablet Condition: Tuesday Dose/Route: 6 mg Instruction: 1 x 6 mg tablet Condition: Tuesday Dose/Route: 6 mg Instruction: 1 x 6 mg tablet Condition: Tuesday Dose/Route: 6 mg Instruction: 1 x 6 mg tablet Condition: Dose/Route: 6 mg Instruction: 1 x 6 mg tablet Condition: Tuesday Dose/Route: 6 mg Instruction: 1 x 6 mg tablet Condition: Tuesday Dose/Route: 6 mg Instruction: 1 x 6 mg tablet Protocol Text: Adjustment Start Date: Tuesday01/05/22 INR Value: 23.8 Seconds INR Date: 01/05/22 Recheck Date: 02/02/22 lorazepam 1 mg tablet 1 mg PO TID PRN (Reason: anxiety and insomnia) Qty: 90 2RF Rx Instructions: 1 tab during day and 1-2 at bedtime prednisone 20 mg tablet See Rx Instructions PO .COMPLEX PRN (Reason: joint pain flare) Qty: 30 1RF Rx Instructions: take 1 tab daily for 5-7 days as needed for arthritis flare PO PRN; warfarin 4 mg tablet See Rx Instructions .ROUTE .COMPLEX Qty: 90 6RF Protocol: Dose Management Condition: Tuesday Dose/Route: 6 mg Instruction: 1 x 6 mg tablet Condition: Tuesday Dose/Route: 6 mg Instruction: 1 x 6 mg tablet Condition: Tuesday Dose/Route: 6 mg Instruction: 1 x 6 mg tablet Condition: Tuesday Dose/Route: 6 mg Instruction: 1 x 6 mg tablet Condition: Dose/Route: 6 mg Instruction: 1 x 6 mg tablet Condition: Tuesday Dose/Route: 6 mg Instruction: 1 x 6 mg tablet Condition: Tuesday Dose/Route: 6 mg Instruction: 1 x 6 mg tablet Protocol Text: Adjustment Start Date: Tuesday01/05/22 INR Value: 23.8 Seconds INR Date: 01/05/22 Recheck Date: 02/02/22 Dose Instruction: TAKE 1 TABLET BY MOUTH DAILY DIRECTED Rx Instructions: TAKE 1 TABLET BY MOUTH DAILY DIRECTED Humira Pen 40 mg/0.8 mL pen injector kit 40 mg SUBCUT Q14D Qty: 2 3RF lamotrigine 200 mg tablet See Rx Instructions .ROUTE .COMPLEX Qty: 180 0RF Dose Instruction: TAKE 1 TABLET BY MOUTH TWICE DAILY Rx Instructions: TAKE 1 TABLET BY MOUTH TWICE DAILY levothyroxine 50 mcg tablet 50 mcg PO DAILY Rx Instructions: take with 200 mcg once daily levothyroxine 200 mcg tablet 200 mcg PO DAILY albuterol sulfate 90 mcg/actuation Hfa Aerosol Inhaler 2 puff INHALATION QID PRN (Reason: Shortness Of Breath) simvastatin 80 mg tablet 40 mg PO BEDTIME trazodone 150 mg tablet 300 mg PO BEDTIME Rx Instructions: 2 caps at bedtime digoxin 125 mcg (0.125 mg) tablet 0.125 mcg PO DAILY duloxetine 60 mg capsule,delayed release(DR/EC) 60 mg PO DAILY Lunesta 3 mg tablet 3 mg PO BEDTIME PRN (Reason: insomnia) Discharge Orders: Discharge ED (Routine); Ordered 02/07/22 Ordered By: Mauri Delcid Referrals: Willie Mahmood [Primary Care Provider] - Discharge Diet: Advance as tolerated Discharge Activity: Increase activity as tolerated Patient Instructions: Lightheadedness (ED) Activity Restrictions/Additional Instructions: Please come back to the emergency room for any more breakthrough episodes of passing out. Come back if any weakness in her arms, drooling, difficulty speaking, any neurological symptoms, chest pain/shortness of breath/palpitation or any new or concerning issues. Please do not swim, bathe, operate heavy machinery or drive a vehicle unattended. Our case management social worker will have you follow-up with Dr. Steel in the next few days. You would be expected to have a phone call with our case management social worker who will put you on the schedule. You can expect a call from us in the next 2-3 days. If you don't hear from us, call us back in the emergency room at [phone]. Coding Level of Care Code ED Pony Edger for Sofy Meng Exam Comprehensive
--- NOTE | 2022-02-07 12:39 | ECG_ITS ---
[facility] Test Date: 2022-02-07 Pat Name: Zoya Cunningham Department: Room: Gender: Female [employer]: : 1950 Requested By: Mauri Delcid Order Number: [id number] Manisha MD: Jericho Steel M.D. Measurements Intervals [place] Rate: 76 P: 35 MA: 203 QRS: 13 QRSD: 95 T: 45 QT: 348 QTc: 392 Interpretive Statements SINUS RHYTHM POSSIBLE LEFT ATRIAL ENLARGEMENT [-0.1mV P WAVE IN V1/V2] NONSPECIFIC T-WAVE ABNORMALITY INTERPRETATION BASED ON A DEFAULT AGE OF 40 YEARS Compared to ECG 10/06/2017 18:28:28 Sinus arrhythmia no longer present T-wave abnormality still present Electronically Signed On 02-07-2022 19:04:36 CDT by Jericho Steel M.D. [id number]
[2022-02-07 12:47] LABS: Glucose Point of Care 93 mg/dL (70-110)
[2022-02-07] MEDS: sodium chloride 0.9% 1,000 ML 999 ML IV (12:49)
[2022-02-07 13:01] LABS: Basophils % 0.4 %; Eosinophils # 0.1 10^3/uL (0.0-0.8); Eosinophils % 1.9 %; Hematocrit 42.9 % (37.0-47.0); Hemoglobin 13.5 g/dL (11.5-15.3); Lymphocytes # 1.5 10^3/uL (0.8-4.8); Lymphocytes % 27.8 %; Mean Corpuscular HGB Conc 31.5 g/dL (30.0-36.0); Mean Corpuscular Volume 108.1 fl (81-99); Mean Platelet Volume 10.2 fL (7.4-10.4); Monocytes # 0.7 10^3/uL (0.2-0.9); Monocytes % 13.2 %; Neutrophils # 3.04 10^3/uL (1.8-7.7); Neutrophils % 56.3 %; Nucleated Red Blood Cells % 0 %; Platelet Count 183 10^3/cmm (130-400); Red Blood Count 3.97 10^6/uL (4.1-5.3); Red Cell Distribution Width 12.7 % (12.1-15.1); White Blood Count 5.4 10^3/uL (4.0-10.0)
[2022-02-07 13:27] LABS: D Dimer <= 0.27 ug/mIFEU (0-0.59)
[2022-02-07 13:39] LABS: Troponin(5th) Baseline 8 ng/L (0-10)
[2022-02-07 13:43] LABS: Alanine Aminotransferase 26 U/L (0-33); Albumin Level 3.8 g/dL (3.5-5.2); Alkaline Phosphatase 86 IU/L (35-105); Anion Gap 12.6 (5-19); Aspartate Amino Transferase 16 U/L (0-32); Blood Urea Nitrogen 12 mg/dL (8-23); Calcium 9.3 mg/dL (8.5-10.5); Carbon Dioxide 33 mmol/L (22-29); Chloride 102 mmol/L (98-107); Free T4 Free Thyroxine 1.39 ng/dL (0.82-1.77); Globulin 2.2 g/dL (1.3-4.6); Glucose 92 mg/dL (65-115); Lipase 32 U/L (13-60); NT Pro B Type Natriuretic Pept 604 pg/mL (0-125); Osmolality Calculated 295 mOsm/kg (285-295); Potassium 4.6 mmol/L (3.5-5.1); Sodium 143 mmol/L (136-145); Thyroid Stimulating Hormone 1.94 uIU/mL (0.27-4.20); Total Bilirubin 0.2 mg/dL (0.15-1.2)
--- NOTE | 2022-02-07 13:51 | USCV_ITS ---
Zoya Cunningham Age: 72 Gender: F : 1950 Exam Date: 02/07/2022 13:57 Ordering Phys: Mauri Delcid MD Technologist: Nathaly Braga Exam Location: [facility] [place] Indication: Aortic Stenosis BP: 128 / 77 HR: 80 Rhythm: Sinus Technical Quality: Adequate MEASUREMENTS (Male / Female) Normal Values 2D ECHO LV Diastolic Diameter PLAX 3.7 cm 4.2 - 5.9 / 3.9 - 5.3 cm LV Systolic Diameter PLAX 2.1 cm LV Chamber Size 3.2 cm IVS Diastolic Thickness 1.0 cm 0.6 - 1.0 / 0.6 - 0.9 cm IVS Systolic Thickness 1.6 cm LVPW Diastolic Thickness 1.3 cm 0.6 - 1.0 / 0.6 - 0.9 cm LVPW Systolic Thickness 1.8 cm RV Chamber Size 2.1 cm LVOT Diameter 2.0 cm LV Ejection Fraction 2D Teich 75.9 % LV Ejection Fraction MOD 2C 36.6 % LV Ejection Fraction 2C AL 36.6 % LA Diameter 3.0 cm LA Width 3.5 cm LA Height 4.7 cm RA Width 3.6 cm RA Height 3.6 cm IVC Diameter 2.1 cm M-MODE Aortic Annulus Diameter 3.4 cm LA Ao Ratio MM 0.8 MV E Point Septal Separation 0.6 cm DOPPLER AV Peak Velocity 241.3 cm/s LVOT Peak Velocity 83.7 cm/s AV Area Cont Eq vti 1.1 cm squared AV Area Cont Eq pk 1.1 cm squared MV Area PHT 5.5 cm squared Mitral E to A Ratio 0.9 MV E' Velocity 39.0 cm/s Mitral E to MV E' Ratio 7.2 Mitral E to LV E' Lateral Ratio 7.2 Mitral E to LV E' Septal Ratio 7.3 TR Peak Velocity 196.2 cm/s TR Peak Gradient 15.4 mmHg TR Mean Velocity 139.9 cm/s TR Mean Gradient 9.3 mmHg TR Velocity Time Integral 60.2 cm TV Peak E Velocity 82.0 cm/s Right Atrial Pressure 3.0 mmHg Pulmonary Artery Systolic Pressu 18.4 mmHg PV Peak Velocity 79.7 cm/s RV Acceleration Time 0.2 s RV Ejection Time 0.4 s RV AcT/ET 0.6 FINDINGS Left Ventricle Normal left ventricular size and systolic function, EF 55%. Mild left ventricular hypertrophy. Relative hypokinesia of the septum. Grade I/IV diastolic dysfunction (abnormal relaxation filling pattern), normal to mildly elevated filling pressures. Right Ventricle The right ventricle is normal in size and function. Right Atrium The right atrium is normal in size. Left Atrium Mildly increased left atrial size. Mitral Valve Mild mitral valve regurgitation. Aortic Valve Thickened aortic valve.[id number] aortic valve regurgitation. Moderate aortic valve stenosis, mean gradient 12.9 mmHg, HORTENSIA 1.1 cm squared. Tricuspid Valve Trace tricuspid valve regurgitation. Pulmonic Valve No gross abnormalities noted Pericardium Normal pericardium without effusion. Aorta Normal ascending aorta dimension. IVC upper limit of normal size CONCLUSIONS Normal left ventricular size and systolic function, EF 55%. Mild left ventricular hypertrophy. Relative hypokinesia of the septum. Grade I/IV diastolic dysfunction (abnormal relaxation filling pattern), normal to mildly elevated filling pressures. Mildly increased left atrial size. Moderate aortic valve stenosis, mean gradient 12.9 mmHg, HORTENSIA 1.1 cm squared. [id number] aortic valve regurgitation. Mild mitral valve regurgitation. Trace tricuspid valve regurgitation. Mildly increased left atrial size. There is no pericardial effusion. There are no intracardiac masses. No previous study is available for comparison. IVC of normal size Compared to the study from 05/08/2020, there may not be significant change Dr Jericho Steel MD FAC (Electronically Signed) Final Date: 07 February 2022 15:37 S
[2022-02-07 14:45] LABS: Add Urine Microscopic? NO; Charge for UA Resulting for Rev
[2022-02-07 15:08] LABS: Bilirubin Urine Neg (Negative); Blood Urine Neg (Negative); Glucose Urine UA Norm (Normal); Ketones Urine Negative (Negative); Leukocyte Esterase Urine Negative (Negative); Nitrate Urine Negative (Negative); Protein Urine Neg (Negative); Urine Appearance Clear (CLEAR); Urine Color Yellow (Yellow); Urobilinogen Urine Norm (Negative); pH Urine 6 (5-7)
[2022-02-07 15:28] LABS: Troponin 5 2HR 7.27 ng/L (0-10)
[2022-02-07 15:32] LABS: Troponin 5 2HR Delta -0.73 ABS# (0-10)
--- NOTE | 2022-02-07 15:45 | ECG_ITS ---
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 Measurements Intervals [place] Rate: 73 P: 48 ID: [id number] QRS: 18 QRSD: 97 T: 31 QT: 369 QTc: 409 Interpretive Statements SINUS RHYTHM WITH FIRST DEGREE AV BLOCK POSSIBLE LEFT ATRIAL ENLARGEMENT [-0.1mV P-WAVE IN V1/V2] NONSPECIFIC T-WAVE ABNORMALITY Compared to ECG 02/07/2022 12:39:26 First degree AV block now present T-wave abnormality still present Electronically Signed On 02-07-2022 19:10:45 CDT by Jericho Steel M.D. [id number]
[2022-02-07 16:35] LABS: Adenovirus Not Detected (NOT DETECT); Chlamydia Pneumoniae Not Detected (NOT DETECT); Coronavirus 229E,HKU1,NL63,OC4 Not Detected (NOT DETECT); Human Metapneumovirus Not Detected (NOT DETECT); Human Rhinovirus/Enterovirus Not Detected (NOT DETECT); Influenza A Not Detected (NOT DETECT); Influenza A H1 Not Detected (NOT DETECT); Influenza A H1-2009 Not Detected (NOT DETECT); Influenza A H3 Not Detected (NOT DETECT); Influenza B Not Detected (NOT DETECT); Mycoplasma Pneumoniae Not Detected (NOT DETECT); Parainfluenza Virus Type 1 Not Detected (NOT DETECT); Parainfluenza Virus Type 2 Not Detected (NOT DETECT); Parainfluenza Virus Type 3 Not Detected (NOT DETECT); Parainfluenza Virus Type 4 Not Detected (NOT DETECT); Respiratory Syncytial Virus A Not Detected (NOT DETECT); Respiratory Syncytial Virus B Not Detected (NOT DETECT); SARS-COV-2 Not Detected (NOT DETECT)
--- NOTE | 2022-02-10 08:30 | DCPLANNER ---
Addendum entered by Abril Varghese 02/26/22 10:10: Patient had a follow up appointment scheduled for 02.25.[address] Maceky at [facility] - patient did attend appointment. Addendum entered by Abril Varghese 02/12/22 13:18: Patient has a follow up appointment scheduled for February at 12:[address] Mackey at [facility]. Clinic will call patient with appointment information. Original Note: secondary market manager had message to schedule a follow up appointment for patient with cardiology. secondary market manager sent patients information to the front office staff at [facility]. Patients information will be printed and reviewed. Clinic will call patient with appointment information.
== END 2022-02-07 16:56 | disposition home or self-care (01) ==
PROVIDERS: Emergency Provider Emergency Medicine; PCP Family Medicine
DX: R42 Dizziness and giddiness (principal); R55 Syncope and collapse; Z79.01 Long term (current) use of anticoagulants; Z87.891 Personal history of nicotine dependence; Z85.118 Personal history of other malignant neoplasm of bronchus and lung; J44.9 Chronic obstructive pulmonary disease, unspecified; F03.90 Unspecified dementia, unspecified severity, without behavioral disturbance, psychotic disturbance, mood disturbance, and anxiety; E78.5 Hyperlipidemia, unspecified; Z99.81 Dependence on supplemental oxygen; Z20.822 Contact with and (suspected) exposure to COVID-19
CPT/HCPCS: 36416; 70450; 71045; 80053; 81003; 82962; 83690; 83880; 84439; 84443; 84484; 85025; 85378; 87635; 93005; 93306; 96360; 99285; J7030

== ENCOUNTER → 2022-02-25 12:35 | Outpatient (BNVA) | payer MEDICARE, OTHER, SELFPAY | PROVIDERS: PCP Family Medicine; Visit Provider Internal Medicine Cardiovascular Disease | DX: R09.89 Other specified symptoms and signs involving the circulatory and respiratory systems (principal); F41.1 Generalized anxiety disorder; I35.0 Nonrheumatic aortic (valve) stenosis; J43.9 Emphysema, unspecified; C34.91 Malignant neoplasm of unspecified part of right bronchus or lung; F02.80 Dementia in other diseases classified elsewhere, unspecified severity, without behavioral disturbance, psychotic disturbance, mood disturbance, and anxiety; F31.81 Bipolar II disorder; I48.11 Longstanding persistent atrial fibrillation; E78.2 Mixed hyperlipidemia; I10 Essential (primary) hypertension; Z79.01 Long term (current) use of anticoagulants; Z87.891 Personal history of nicotine dependence | CPT/HCPCS: 85610; 99213; 99214 ==

== ENCOUNTER → 2022-03-04 14:41 | Outpatient (BNVA) | payer MEDICARE, OTHER, SELFPAY | PROVIDERS: PCP Family Medicine; Visit Provider Internal Medicine Cardiovascular Disease | DX: I48.11 Longstanding persistent atrial fibrillation (principal) | CPT/HCPCS: 85610 ==

== ENCOUNTER → 2022-03-09 12:31 | Outpatient (BNVA) | payer MEDICARE, OTHER, SELFPAY | PROVIDERS: PCP Family Medicine; Visit Provider Student in an Organized Health Care Education/Training Program | DX: S92.351A Displaced fracture of fifth metatarsal bone, right foot, initial encounter for closed fracture (principal); W23.0XXA Caught, crushed, jammed, or pinched between moving objects, initial encounter | CPT/HCPCS: 73630; 99203 ==

== ENCOUNTER → 2022-03-11 13:57 | Outpatient (BNVA) | payer MEDICARE, OTHER, SELFPAY | PROVIDERS: PCP Family Medicine; Visit Provider Internal Medicine Cardiovascular Disease | DX: I48.11 Longstanding persistent atrial fibrillation (principal) | CPT/HCPCS: 85610 ==

== ENCOUNTER → 2022-04-06 09:38 | Outpatient (BNVA) | payer MEDICARE, OTHER, SELFPAY | PROVIDERS: PCP Family Medicine; Visit Provider Student in an Organized Health Care Education/Training Program | DX: X58.XXXA Exposure to other specified factors, initial encounter (principal); S92.351A Displaced fracture of fifth metatarsal bone, right foot, initial encounter for closed fracture; I48.11 Longstanding persistent atrial fibrillation | CPT/HCPCS: 73630; 85610; 99213 ==

== ENCOUNTER → 2022-05-04 10:16 | Outpatient (BNVA) | payer MEDICARE, OTHER, SELFPAY | PROVIDERS: PCP Family Medicine; Visit Provider Internal Medicine Cardiovascular Disease | DX: I48.91 Unspecified atrial fibrillation (principal); Z79.01 Long term (current) use of anticoagulants | CPT/HCPCS: 85610 ==

== ENCOUNTER 2022-05-11 05:42 | Emergency (ER) | payer MEDICARE, OTHER, SELFPAY ==
[2022-05-11 05:48] VITALS: BP 128/87; PULSE 119; RESP 19; TEMP 36.7; O2SAT 96; BMI 24.0
--- NOTE | 2022-05-11 05:55 | ECG_ITS ---
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 Measurements Intervals [place] Rate: 124 P: 54 IA: 175 QRS: 46 QRSD: 92 T: 58 QT: 417 QTc: 600 Interpretive Statements SINUS TACHYCARDIA WITH OCCASIONAL VENTRICULAR PREMATURE COMPLEXES NONSPECIFIC ST & T-WAVE ABNORMALITY ABNORMAL RHYTHM ECG INTERPRETATION BASED ON A DEFAULT AGE OF 40 YEARS Compared to ECG 02/07/2022 15:45:28 Ventricular premature complex(es) now present Sinus rhythm no longer present First degree AV block no longer present T-wave abnormality still present Electronically Signed On 05-11-2022 20:57:49 SALES COACH by Jericho Steel M.D. [id number]
--- NOTE | 2022-05-11 05:55 | XRR_ITS ---
PROCEDURE INFORMATION: Exam: XR Chest Exam date and time: 05/11/2022 7:11 AM Age: 72 years old Clinical indication: Shortness of breath; Additional info: SOB TECHNIQUE: Imaging protocol: Radiologic exam of the chest. Views: 1 view. COMPARISON: CR (CHEST, ) 02/07/2022 1:12 PM FINDINGS: Lungs: Unchanged small right lung volumes with right apical pleural thickening and right superior hilar retraction. Unchanged elevated right hemidiaphragm. Unchanged coarse right lung interstitial opacities. Unchanged hyperinflation of the left lung. Age-related interstitial prominence is seen in the left lung. No left lung confluent interstitial airspace opacities. Pleural spaces: Unchanged blunting of the costophrenic angles. Small chronic pleural effusions cannot be excluded. No pneumothorax. Heart/Mediastinum: The heart size is normal. Unchanged shift of the mediastinum towards the right with right word tracheal deviation. Unchanged calcified right suprahilar lymph nodes. Unchanged surgical clips are seen in the right hilar region. Recommend correlation with clinical history. Bones/joints: No acute osseous abnormalities seen. XR/XR chest 1V portable [id number] IMPRESSION: No significant change in correlation with the prior chest radiograph dated February 07, 2022 - as noted above.
[2022-05-11 06:03] LABS: Basophils # 0.1 10^3/uL (0.0-0.1); Basophils % 0.6 %; Eosinophils # 0.2 10^3/uL (0.0-0.8); Eosinophils % 1.8 %; Hemoglobin 13.1 g/dL (11.5-15.3); Lymphocytes # 1.2 10^3/uL (0.8-4.8); Lymphocytes % 13.9 %; Mean Corpuscular Hemoglobin 32.8 pg (28.0-34.0); Mean Corpuscular Volume 102.5 fl (81-99); Mean Platelet Volume 9.8 fL (7.4-10.4); Monocytes % 10.8 %; Neutrophils # 6.46 10^3/uL (1.8-7.7); Neutrophils % 72.7 %; Nucleated Red Blood Cells % 0 %; Platelet Count 239 10^3/cmm (130-400); Red Cell Distribution Width 12.5 % (12.1-15.1); White Blood Count 8.9 10^3/uL (4.0-10.0)
--- NOTE | 2022-05-11 06:03 | ED_ITS ---
Documented by User: Dilip Molina MD 05/11/22 06:09 HPI - General Adult General: Chief complaint: General Medical Stated complaint: Heart Racing Time Seen by Provider: 05/11/22 05:45 Source: patient Mode of arrival: ambulatory Limitations: no limitations History of Present Illness: 72-year-old states that over the last 4 days she has been having a cough along with increasing shortness of breath she states she is also been having palpitations with a heart rate in the 1 teens she states she went and saw [facility] yesterday she is also had eye redness she states that they really only evaluated her eye she states it did not evaluate her shortness of breath states that overnight that her palpitations had worsened along with her dyspnea states her dyspnea is much worse with exertion she denies any cough or fever Associated symptoms: Reports dyspnea and palpitations; Deny headache(s), nausea, rash or vomiting Review of Systems Const: Denies: fever(s), chills, body aches or change in appetite Eyes: Denies: blurry vision or eye discomfort ENMT: Denies: throat pain or dental pain Card: Reports: palpitations Resp: Reports: dyspnea GI: Denies: abdominal pain, nausea, vomiting or diarrhea : Denies: dysuria Musc: Denies: neck pain or back pain Skin/Breast: Denies: rash Neuro: Denies: headache(s) Psych: Denies: depression Michel/Lymph: Denies: easy bruising All/Imm: Denies: urticaria PFSH ED PFSH: Medical History Adenocarcinoma of right lung, 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, s tatus post right middle and upper lobectomy in April 2008, -treated with adjuvant chemotherapy, four cycles of carboplatin and Taxol completed in August 2008 Aortic valve stenosis Arrhythmia Atrial fibrillation Bipolar 2 disorder Chronic steroid use Chronic use of benzodiazepine for therapeutic purpose COPD (chronic obstructive pulmonary disease) COPD (chronic obstructive pulmonary disease) Dementia in other diseases classified elsewhere without behavioral disturbance Encounter for immunization Fibromyalgia Fracture of fifth metatarsal bone of right foot Generalized anxiety disorder Greater trochanteric bursitis of both hips High risk medication use Hyperlipemia Hypertension Immunization counseling Inflammatory arthritis Insomnia Mitral valve disease Near syncope Osteoarthritis of knees, bilateral Peripheral neuropathy Psychiatric care Pulmonary fibrosis Seronegative rheumatoid arthritis of both hands Valvular heart disease Warfarin anticoagulation Surgical History H/O breast biopsy H/O: hysterectomy History of lung surgery Family History Mother CAD (coronary artery disease) Cancer Stroke Sister Diabetes Father Lung disease Denies family history of Clotting disorder Dementia Chronic kidney disease (CKD) Suicide Anesthesia complication Bleeding disorder Social History Smoking and tobacco status: former smoker Alcohol intake: current History of recent travel: No Physical Exam Const: COMMON NORMALS: patient oriented x3 and healthy appearing HENMT: COMMON NORMALS: normocephalic and atraumatic HEAD & SCALP: normocephalic and atraumatic Eye: COMMON NORMALS: Equal, round and reactive pupils present and EOMs intact bilaterally PUPIL: Yes Equal, round and reactive pupils present OTHER: Conjunctivitis to right eye Neck/C-Spine: COMMON NORMALS: full ROM and supple Chest: COMMONS NORMALS: normal inspection of the chest and normal palpation of entire chest wall Resp: COMMON NORMALS: No retractions, No use of accessory muscles and clear to auscultation bilaterally AUSCULTATION: clear to auscultation bilaterally Cardio: COMMON NORMALS: regular rhythm and No murmurs present (Cardio) RATE: tachycardic RHYTHM: regular rhythm GI: COMMON NORMALS: Normal to inspection, nondistended, normoactive bowel sounds present, Soft to palpation, non-tender and no masses PALPATION: Yes Soft to palpation Extremity: COMMON NORMALS: normal to inspection and full ROM Neuro: COMMON NORMALS: patient oriented x3, moves all extremities and no focal motor deficits Psych: COMMON NORMALS: mental status grossly normal, Normal thought process present and cooperative THOUGHT PROCESS: Normal thought process present Skin: COMMON NORMALS: no rashes or lesions noted and no wounds GENERAL SKIN EXAM: no rashes or lesions noted Course Vital Signs: Vital signs: Vital Signs Temperature 98.1 F 05/11/22 05:48 Pulse Rate 79 05/11/22 07:33 Respiratory Rate 16 05/11/22 06:47 Blood Pressure 118/73 05/11/22 07:33 Pulse Oximetry 89 L 05/11/22 07:49 Oxygen Delivery Me thod 11/08/22 07:33 Oxygen Flow Rate 4 05/11/22 07:49 MDM - General Adult Lab Data : 05/11/22 05:56 05/11/22 05:56 Radiology Impressions Chest X-Ray 05/11/22 05:55 IMPRESSION: No significant change in correlation with the prior chest radiograph dated February 07, 2022 - as noted above. Laboratory Results WBC 8.9 10^3/uL (4.0-10.0) 05/11/22 05:56 RBC 4.00 10^6/uL (4.1-5.3) L 05/11/22 05:56 Hgb 13.1 g/dL (11.5-15.3) 05/11/22 05:56 Hct 41.0 % (37.0-47.0) 05/11/22 05:56 MCV 102.5 fl (81-99) H 05/11/22 05:56 MCH 32.8 pg (28.0-34.0) 05/11/22 05:56 MCHC 32.0 g/dL (30.0-36.0) 05/11/22 05:56 RDW 12.5 % (12.1-15.1) 05/11/22 05:56 Plt Count 239 10^3/cmm (130-400) 05/11/22 05:56 MPV 9.8 fL (7.4-10.4) 05/11/22 05:56 Neut % (Auto) 72.7 % 05/11/22 05:56 Lymph % (Auto) 13.9 % 05/11/22 05:56 [place] % (Auto) 10.8 % 05/11/22 05:56 Eos % (Auto) 1.8 % 05/11/22 05:56 Baso % (Auto) 0.6 % 05/11/22 05:56 Neut # (Auto) 6.46 10^3/uL (1.8-7.7) 05/11/22 05:56 Lymph # (Auto) 1.2 10^3/uL (0.8-4.8) 05/11/22 05:56 [place] # (Auto) 1.0 10^3/uL (0.2-0.9) H 05/11/22 05:56 Eos # (Auto) 0.2 10^3/uL (0.0-0.8) 05/11/22 05:56 Baso # (Auto) 0.1 10^3/uL (0.0-0.1) 05/11/22 05:56 Nucleated RBC % (auto) 0 % 05/11/22 05:56 Nucleated RBCs # 0.0 /100WBC 05/11/22 05:56 PT 24.00 SECONDS (12.1-14.9) H 05/11/22 05:56 INR 2.12 (0.8-1.2) H 05/11/22 05:56 D-Dimer 0.43 ug/mIFEU (0-0.59) 05/11/22 05:56 Sodium 134 mmol/L (136-145) L 05/11/22 05:56 Potassium 3.6 mmol/L (3.5-5.1) 05/11/22 05:56 Chloride 95 mmol/L (98-107) L 05/11/22 05:56 Carbon Dioxide 27 mmol/L (22-29) 05/11/22 05:56 Anion Gap 15.6 (5-19) 05/11/22 05:56 BUN 7 mg/dL (8-23) L 05/11/22 05:56 Creatinine 0.6 mg/dL (0.5-0.9) 05/11/22 05:56 GFR Calculation Not Reportable 05/11/22 05:56 Glucose 130 mg/dL (65-115) H 05/11/22 05:56 Calculated Osmolality 278 mOsm/kg (285-295) L 05/11/22 05:56 Calcium 9.7 mg/dL (8.5-10.5) 05/11/22 05:56 Total Bilirubin 0.2 mg/dL (0.15-1.2) 05/11/22 05:56 AST 11 U/L (0-32) 05/11/22 05:56 ALT 18 U/L (0-33) 05/11/22 05:56 Alkaline Phosphatase 109 U/L (35-105) H 05/11/22 05:56 Troponin T Baseline 8 ng/L (0-10) 05/11/22 05:56 NT-Pro-B Natriuret Pep 808 pg/mL (0-125) H 05/11/22 05:56 Total Protein 7.3 g/dL (6.6-8.7) 05/11/22 05:56 Albumin 3.6 g/dL (3.5-5.2) 05/11/22 05:56 Globulin 3.7 g/dL (1.3-4.6) 05/11/22 05:56 Digoxin 0.3 ng/mL (0.6-1.2) L 05/11/22 05:56 Influenza Type A Ag negative (Negative) 05/11/22 06:09 Influenza Type B Ag negative (Negative) 05/11/22 06:09 SARS-CoV-2 Ag (Rapid) negative (Negative) 05/11/22 06:09 EKG Data EKG 1: I personally reviewed and interpreted this EKG as follows: EKG interpretation date: 05/11/22 EKG interpretation time: 05:50 Computer generated interpretation: Chest X-Ray 05/11/22 05:55 IMPRESSION: No significant change in correlation with the prior chest radiograph dated February 07, 2022 - as noted above. Discharge Plan Discharge Patient Disposition: Home Clinical Impression: Hx of cancer of lung, Atrial fibrillation, COPD (chronic obstructive pulmonary disease), Aortic valve stenosis, Warfarin anticoagulation Condition: Stable Prescriptions: New prednisone 20 mg tablet 20 mg PO TID Qty: 15 0RF Rx Instructions: 1 p.o. 3 times daily x3 days, 1 p.o. twice daily x2 days, 1 p.o. daily x2 days Advair Diskus 500-50 mcg/dose blister with device 1 inh inhalation BID Qty: 60 0RF No Action cyanocobalamin (vitamin B-12) 2,500 mcg tablet 2,500 mcg PO DAILY fluticasone propion-salmeterol [Advair Diskus] 250-50 mcg/dose blister with device 1 inh INHALATION BID ferrous sulfate 324 mg (65 mg iron) tablet,delayed release (DR/EC) 324 mg PO DAILY ascorbic acid (vitamin C) 1,000 mg tablet 1,000 mg PO DAILY (DME) oxygen-air delivery systems Device See Rx Instructions .ROUTE .MEDSUPPLY Qty: 1 Rx Instructions: As directed 3 liters (DME) Articulating AFO See Rx Instructions .Route .MEDSUPPLY Qty: 1 0RF Rx Instructions: As directed methocarbamol 500 mg tablet 500 mg PO TID PRN (Reason: muscle pain) fexofenadine 180 mg tablet 180 mg PO DAILY montelukast 10 mg tablet 10 mg PO DAILY gabapentin 600 mg tablet 600 mg PO TID Qty: 90 3RF omeprazole 40 mg capsule,delayed release(DR/EC) 40 mg PO DAILY Qty: 90 1RF sulfasalazine 500 mg tablet 1 g PO BID Qty: 120 3RF [id number]-ljrg 50-325-40 mg tablet 1 tab PO Q4H PRN (Reason: migraine) cholecalciferol (vitamin D3) 250 mcg (10,000 unit) capsule 250 mcg PO DAILY warfarin 7.5 mg tablet 7 mg PO DAILY Protocol: Dose Management Condition: Tuesday Dose/Route: 5 mg Instruction: 2.5 x 2 mg tablets Condition: Tuesday Dose/Route: 5 mg Instruction: 2.5 x 2 mg tablets Condition: Tuesday Dose/Route: 5 mg Instruction: 2.5 x 2 mg tablets Condition: Tuesday Dose/Route: 5 mg Instruction: 2.5 x 2 mg tablets Condition: Dose/Route: 5 mg Instruction: 2.5 x 2 mg tablets Condition: Tuesday Dose/Route: 5 mg Instruction: 2.5 x 2 mg tablets Condition: Tuesday Dose/Route: 5 mg Instruction: 2.5 x 2 mg tablets Protocol Text: Adjustment Start Date: Tuesday05/04/22 INR Value: 18.4 Seconds INR Date: 05/04/22 Recheck Date: 05/11/22 prazosin 1 mg capsule 1 mg PO .at bedtime PRN (Reason: nightmares) Qty: 90 0RF memantine [Namenda XR] 28 mg capsule,sprinkle,ER 24hr 28 mg PO DAILY Qty: 90 1RF eszopiclone [Lunesta] 3 mg tablet 3 mg PO BEDTIME PRN (Reason: insomnia) Qty: 30 3RF trazodone 150 mg tablet 300 mg PO BEDTIME Qty: 180 0RF Rx Instructions: 2 caps at bedtime lorazepam 1 mg tablet 1 mg PO TID PRN (Reason: anxiety and insomnia) Qty: 90 2RF Rx Instructions: 1 tab during day and 1-2 at bedtime donepezil 10 mg tablet 10 mg PO DAILY Qty: 90 1RF Rx Instructions: at bedtime duloxetine [Cymbalta] 30 mg capsule,delayed release(DR/EC) 30 mg PO .every AM 90 Days Qty: 90 0RF warfarin 2 mg tablet 2 mg PO DAILY Qty: 90 2RF Protocol: Dose Management Condition: Tuesday Dose/Route: 5 mg Instruction: 2.5 x 2 mg tablets Condition: Tuesday Dose/Route: 5 mg Instruction: 2.5 x 2 mg tablets Condition: Tuesday Dose/Route: 5 mg Instruction: 2.5 x 2 mg tablets Condition: Tuesday Dose/Route: 5 mg Instruction: 2.5 x 2 mg tablets Condition: Dose/Route: 5 mg Instruction: 2.5 x 2 mg tablets Condition: Tuesday Dose/Route: 5 mg Instruction: 2.5 x 2 mg tablets Condition: Tuesday Dose/Route: 5 mg Instruction: 2.5 x 2 mg tablets Protocol Text: Adjustment Start Date: Tuesday05/04/22 INR Value: 18.4 Seconds INR Date: 05/04/22 Recheck Date: 05/11/22 Rx Instructions: per protocol warfarin 6 mg tablet 6 mg PO DAILY Qty: 90 0RF Protocol: Dose Management Condition: Tuesday Dose/Route: 5 mg Instruction: 2.5 x 2 mg tablets Condition: Tuesday Dose/Route: 5 mg Instruction: 2.5 x 2 mg tablets Condition: Tuesday Dose/Route: 5 mg Instruction: 2.5 x 2 mg tablets Condition: Tuesday Dose/Route: 5 mg Instruction: 2.5 x 2 mg tablets Condition: Dose/Route: 5 mg Instruction: 2.5 x 2 mg tablets Condition: Tuesday Dose/Route: 5 mg Instruction: 2.5 x 2 mg tablets Condition: Tuesday Dose/Route: 5 mg Instruction: 2.5 x 2 mg tablets Protocol Text: Adjustment Start Date: Tuesday05/04/22 INR Value: 18.4 Seconds INR Date: 05/04/22 Recheck Date: 05/11/22 warfarin 4 mg tablet See Rx Instructions .ROUTE .COMPLEX Qty: 90 6RF Protocol: Dose Management Condition: Tuesday Dose/Route: 5 mg Instruction: 2.5 x 2 mg tablets Condition: Tuesday Dose/Route: 5 mg Instruction: 2.5 x 2 mg tablets Condition: Tuesday Dose/Route: 5 mg Instruction: 2.5 x 2 mg tablets Condition: Tuesday Dose/Route: 5 mg Instruction: 2.5 x 2 mg tablets Condition: Dose/Route: 5 mg Instruction: 2.5 x 2 mg tablets Condition: Tuesday Dose/Route: 5 mg Instruction: 2.5 x 2 mg tablets Condition: Tuesday Dose/Route: 5 mg Instruction: 2.5 x 2 mg tablets Protocol Text: Adjustment Start Date: Tuesday05/04/22 INR Value: 18.4 Seconds INR Date: 05/04/22 Recheck Date: 05/11/22 Dose Instruction: TAKE 1 TABLET BY MOUTH DAILY DIRECTED Rx Instructions: TAKE 1 TABLET BY MOUTH DAILY DIRECTED tramadol 50 mg tablet 50 mg PO BID PRN (Reason: pain, moderate-severe) Qty: 60 2RF metoprolol tartrate 25 mg tablet 12.5 mg PO BID Qty: 90 3RF prednisone 20 mg tablet See Rx Instructions PO .COMPLEX PRN (Reason: joint pain flare) Qty: 30 1RF Rx Instructions: take 1 tab daily for 5-7 days as needed for arthritis flare PO PRN; Humira Pen 40 mg/0.8 mL pen injector kit See Rx Instructions .ROUTE .COMPLEX Qty: 2 3RF Dose Instruction: inject 40mg (0.8ml) SUBCUTANEOUSLY every 14 DAYS Rx Instructions: inject 40mg (0.8ml) SUBCUTANEOUSLY every 14 DAYS lamotrigine 200 mg tablet See Rx Instructions .ROUTE .COMPLEX Qty: 180 0RF Dose Instruction: TAKE 1 TABLET BY MOUTH TWICE DAILY Rx Instructions: TAKE 1 TABLET BY MOUTH TWICE DAILY levothyroxine 50 mcg tablet 50 mcg PO DAILY Rx Instructions: take with 200 mcg once daily levothyroxine 200 mcg tablet 200 mcg PO DAILY albuterol sulfate 90 mcg/actuation Hfa Aerosol Inhaler 2 puff INHALATION QID PRN (Reason: Shortness Of Breath) simvastatin 80 mg tablet 40 mg PO BEDTIME digoxin 125 mcg (0.125 mg) tablet 0.125 mcg PO DAILY Discharge Orders: Discharge ED (Routine); Ordered 05/11/22 Ordered By: Jd Chandler Referrals: Willie Mahmood [Primary Care Provider] - Discharge Diet: Usual diet Discharge Activity: Increase activity as tolerated Patient Instructions: Opioid Safety, Pain Management Activity Restrictions/Additional Instructions: Follow-up with your senior maintenance mechanic as soon as you are able. Increase your oxygen to 4 L/min when active and keep at 2 L/min when resting. 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, status post right middle and upper lobectomy in April 2008, -treated with adjuvant chemotherapy, four cycles of carboplatin and Taxol completed in August 2008 Aortic valve stenosis Arrhythmia Atrial fibrillation Bipolar 2 disorder Chronic steroid use Chronic use of benzodiazepine for therapeutic purpose COPD (chronic obstructive pulmonary disease) COPD (chronic obstructive pulmonary disease) Dementia in other diseases classified elsewhere without behavioral disturbance Encounter for immunization Fibromyalgia Fracture of fifth metatarsal bone of right foot Generalized anxiety disorder Greater trochanteric bursitis of both hips High risk medication use Hyperlipemia Hypertension Immunization counseling Inflammatory arthritis Insomnia Mitral valve disease Near syncope Osteoarthritis of knees, bilateral Peripheral neuropathy Psychiatric care Pulmonary fibrosis Seronegative rheumatoid arthritis of both hands Valvular heart disease Warfarin anticoagulation Surgical History H/O breast biopsy H/O: hysterectomy History of lung surgery Family History Mother CAD (coronary artery disease) Cancer Stroke Sister Diabetes Father Lung disease Denies family history of Clotting disorder Dementia Chronic kidney disease (CKD) Suicide Anesthesia complication Bleeding disorder Social History Smoking and tobacco status: former smoker Alcohol intake: current History of recent travel: No Course Vital Signs: Vital signs: Vital Signs Temperature 98.1 F 05/11/22 05:48 Pulse Rate 79 05/11/22 07:33 Respiratory Rate 16 05/11/22 06:47 Blood Pressure 118/73 05/11/22 07:33 Pulse Oximetry 89 L 05/11/22 07:49 Oxygen Delivery Me thod 05/11/22 07:33 Oxygen Flow Rate 4 05/11/22 07:49 MDM - General Adult Medical Decision Making Care assumed at change of shift from Dr. Molina. Chest x-ray appears to have increased fibrosis on the right lung compared to the left. We will put the patient on prednisone taper orally increase her oxygen to 4 L/min when active as indicated by her home O2 eval in the emergency room today. Her dig levels a little bit low we will have her increase her digoxin to 0.25 on Wednesdays and Fridays. Finally increase her Advair to 251 puff twice daily follow-up with a senior maintenance mechanic as soon as she is able. Medical Records I reviewed the patient's medical records. Lab Data I reviewed the patient's lab results. : 05/11/22 05:56 05/11/22 05:56 Radiology Impressions Chest X-Ray 05/11/22 05:55 IMPRESSION: No significant change in correlation with the prior chest radiograph dated February 07, 2022 - as noted above. Laboratory Results WBC 8.9 10^3/uL (4.0-10.0) 05/11/22 05:56 RBC 4.00 10^6/uL (4.1-5.3) L 05/11/22 05:56 Hgb 13.1 g/dL (11.5-15.3) 05/11/22 05:56 Hct 41.0 % (37.0-47.0) 05/11/22 05:56 MCV 102.5 fl (81-99) H 05/11/22 05:56 MCH 32.8 pg (28.0-34.0) 05/11/22 05:56 MCHC 32.0 g/dL (30.0-36.0) 05/11/22 05:56 RDW 12.5 % (12.1-15.1) 05/11/22 05:56 Plt Count 239 10^3/cmm (130-400) 05/11/22 05:56 MPV 9.8 fL (7.4-10.4) 05/11/22 05:56 Neut % (Auto) 72.7 % 05/11/22 05:56 Lymph % (Auto) 13.9 % 05/11/22 05:56 [place] % (Auto) 10.8 % 05/11/22 05:56 Eos % (Auto) 1.8 % 05/11/22 05:56 Baso % (Auto) 0.6 % 05/11/22 05:56 Neut # (Auto) 6.46 10^3/uL (1.8-7.7) 05/11/22 05:56 Lymph # (Auto) 1.2 10^3/uL (0.8-4.8) 05/11/22 05:56 [place] # (Auto) 1.0 10^3/uL (0.2-0.9) H 05/11/22 05:56 Eos # (Auto) 0.2 10^3/uL (0.0-0.8) 05/11/22 05:56 Baso # (Auto) 0.1 10^3/uL (0.0-0.1) 05/11/22 05:56 Nucleated RBC % (auto) 0 % 05/11/22 05:56 Nucleated RBCs # 0.0 /100WBC 05/11/22 05:56 PT 24.00 SECONDS (12.1-14.9) H 05/11/22 05:56 INR 2.12 (0.8-1.2) H 05/11/22 05:56 D-Dimer 0.43 ug/mIFEU (0-0.59) 05/11/22 05:56 Sodium 134 mmol/L (136-145) L 05/11/22 05:56 Potassium 3.6 mmol/L (3.5-5.1) 05/11/22 05:56 Chloride 95 mmol/L (98-107) L 05/11/22 05:56 Carbon Dioxide 27 mmol/L (22-29) 05/11/22 05:56 Anion Gap 15.6 (5-19) 05/11/22 05:56 BUN 7 mg/dL (8-23) L 05/11/22 05:56 Creatinine 0.6 mg/dL (0.5-0.9) 05/11/22 05:56 GFR Calculation Not Reportable 05/11/22 05:56 Glucose 130 mg/dL (65-115) H 05/11/22 05:56 Calculated Osmolality 278 mOsm/kg (285-295) L 05/11/22 05:56 Calcium 9.7 mg/dL (8.5-10.5) 05/11/22 05:56 Total Bilirubin 0.2 mg/dL (0.15-1.2) 05/11/22 05:56 AST 11 U/L (0-32) 05/11/22 05:56 ALT 18 U/L (0-33) 05/11/22 05:56 Alkaline Phosphatase 109 U/L (35-105) H 05/11/22 05:56 Troponin T Baseline 8 ng/L (0-10) 05/11/22 05:56 NT-Pro-B Natriuret Pep 808 pg/mL (0-125) H 05/11/22 05:56 Total Protein 7.3 g/dL (6.6-8.7) 05/11/22 05:56 Albumin 3.6 g/dL (3.5-5.2) 05/11/22 05:56 Globulin 3.7 g/dL (1.3-4.6) 05/11/22 05:56 Digoxin 0.3 ng/mL (0.6-1.2) L 05/11/22 05:56 Influenza Type A Ag negative (Negative) 05/11/22 06:09 Influenza Type B Ag negative (Negative) 05/11/22 06:09 SARS-CoV-2 Ag (Rapid) negative (Negative) 05/11/22 06:09 EKG Data EKG 1: Computer generated interpretation: Chest X-Ray 05/11/22 05:55 IMPRESSION: No significant change in correlation with the prior chest radiograph dated February 07, 2022 - as noted above. Discharge Plan Discharge Patient Disposition: Home Clinical Impression: Hx of cancer of lung, Atrial fibrillation, COPD (chronic obstructive pulmonary disease), Aortic valve stenosis, Warfarin anticoagulation Condition: Stable Prescriptions: New prednisone 20 mg tablet 20 mg PO TID Qty: 15 0RF Rx Instructions: 1 p.o. 3 times daily x3 days, 1 p.o. twice daily x2 days, 1 p.o. daily x2 days Advair Diskus 500-50 mcg/dose blister with device 1 inh inhalation BID Qty: 60 0RF No Action cyanocobalamin (vitamin B-12) 2,500 mcg tablet 2,500 mcg PO DAILY fluticasone propion-salmeterol [Advair Diskus] 250-50 mcg/dose blister with device 1 inh INHALATION BID ferrous sulfate 324 mg (65 mg iron) tablet,delayed release (DR/EC) 324 mg PO DAILY ascorbic acid (vitamin C) 1,000 mg tablet 1,000 mg PO DAILY (DME) oxygen-air delivery systems Device See Rx Instructions .ROUTE .MEDSUPPLY Qty: 1 Rx Instructions: As directed 3 liters (DME) Articulating AFO See Rx Instructions .Route .MEDSUPPLY Qty: 1 0RF Rx Instructions: As directed methocarbamol 500 mg tablet 500 mg PO TID PRN (Reason: muscle pain) fexofenadine 180 mg tablet 180 mg PO DAILY montelukast 10 mg tablet 10 mg PO DAILY gabapentin 600 mg tablet 600 mg PO TID Qty: 90 3RF omeprazole 40 mg capsule,delayed release(DR/EC) 40 mg PO DAILY Qty: 90 1RF sulfasalazine 500 mg tablet 1 g PO BID Qty: 120 3RF [id number]-ygcr 50-325-40 mg tablet 1 tab PO Q4H PRN (Reason: migraine) cholecalciferol (vitamin D3) 250 mcg (10,000 unit) capsule 250 mcg PO DAILY warfarin 7.5 mg tablet 7 mg PO DAILY Protocol: Dose Management Condition: Tuesday Dose/Route: 5 mg Instruction: 2.5 x 2 mg tablets Condition: Tuesday Dose/Route: 5 mg Instruction: 2.5 x 2 mg tablets Condition: Tuesday Dose/Route: 5 mg Instruction: 2.5 x 2 mg tablets Condition: Tuesday Dose/Route: 5 mg Instruction: 2.5 x 2 mg tablets Condition: Dose/Route: 5 mg Instruction: 2.5 x 2 mg tablets Condition: Tuesday Dose/Route: 5 mg Instruction: 2.5 x 2 mg tablets Condition: Tuesday Dose/Route: 5 mg Instruction: 2.5 x 2 mg tablets Protocol Text: Adjustment Start Date: Tuesday05/04/22 INR Value: 18.4 Seconds INR Date: 05/04/22 Recheck Date: 05/11/22 prazosin 1 mg capsule 1 mg PO .at bedtime PRN (Reason: nightmares) Qty: 90 0RF memantine [Namenda XR] 28 mg capsule,sprinkle,ER 24hr 28 mg PO DAILY Qty: 90 1RF eszopiclone [Lunesta] 3 mg tablet 3 mg PO BEDTIME PRN (Reason: insomnia) Qty: 30 3RF trazodone 150 mg tablet 300 mg PO BEDTIME Qty: 180 0RF Rx Instructions: 2 caps at bedtime lorazepam 1 mg tablet 1 mg PO TID PRN (Reason: anxiety and insomnia) Qty: 90 2RF Rx Instructions: 1 tab during day and 1-2 at bedtime donepezil 10 mg tablet 10 mg PO DAILY Qty: 90 1RF Rx Instructions: at bedtime duloxetine [Cymbalta] 30 mg capsule,delayed release(DR/EC) 30 mg PO .every AM 90 Days Qty: 90 0RF warfarin 2 mg tablet 2 mg PO DAILY Qty: 90 2RF Protocol: Dose Management Condition: Tuesday Dose/Route: 5 mg Instruction: 2.5 x 2 mg tablets Condition: Tuesday Dose/Route: 5 mg Instruction: 2.5 x 2 mg tablets Condition: Tuesday Dose/Route: 5 mg Instruction: 2.5 x 2 mg tablets Condition: Tuesday Dose/Route: 5 mg Instruction: 2.5 x 2 mg tablets Condition: Dose/Route: 5 mg Instruction: 2.5 x 2 mg tablets Condition: Tuesday Dose/Route: 5 mg Instruction: 2.5 x 2 mg tablets Condition: Tuesday Dose/Route: 5 mg Instruction: 2.5 x 2 mg tablets Protocol Text: Adjustment Start Date: Tuesday05/04/22 INR Value: 18.4 Seconds INR Date: 05/04/22 Recheck Date: 05/11/22 Rx Instructions: per protocol warfarin 6 mg tablet 6 mg PO DAILY Qty: 90 0RF Protocol: Dose Management Condition: Tuesday Dose/Route: 5 mg Instruction: 2.5 x 2 mg tablets Condition: Tuesday Dose/Route: 5 mg Instruction: 2.5 x 2 mg tablets Condition: Tuesday Dose/Route: 5 mg Instruction: 2.5 x 2 mg tablets Condition: Tuesday Dose/Route: 5 mg Instruction: 2.5 x 2 mg tablets Condition: Dose/Route: 5 mg Instruction: 2.5 x 2 mg tablets Condition: Tuesday Dose/Route: 5 mg Instruction: 2.5 x 2 mg tablets Condition: Tuesday Dose/Route: 5 mg Instruction: 2.5 x 2 mg tablets Protocol Text: Adjustment Start Date: Tuesday05/04/22 INR Value: 18.4 Seconds INR Date: 05/04/22 Recheck Date: 05/11/22 warfarin 4 mg tablet See Rx Instructions .ROUTE .COMPLEX Qty: 90 6RF Protocol: Dose Management Condition: Tuesday Dose/Route: 5 mg Instruction: 2.5 x 2 mg tablets Condition: Tuesday Dose/Route: 5 mg Instruction: 2.5 x 2 mg tablets Condition: Tuesday Dose/Route: 5 mg Instruction: 2.5 x 2 mg tablets Condition: Tuesday Dose/Route: 5 mg Instruction: 2.5 x 2 mg tablets Condition: Dose/Route: 5 mg Instruction: 2.5 x 2 mg tablets Condition: Tuesday Dose/Route: 5 mg Instruction: 2.5 x 2 mg tablets Condition: Tuesday Dose/Route: 5 mg Instruction: 2.5 x 2 mg tablets Protocol Text: Adjustment Start Date: Tuesday05/04/22 INR Value: 18.4 Seconds INR Date: 05/04/22 Recheck Date: 05/11/22 Dose Instruction: TAKE 1 TABLET BY MOUTH DAILY DIRECTED Rx Instructions: TAKE 1 TABLET BY MOUTH DAILY DIRECTED tramadol 50 mg tablet 50 mg PO BID PRN (Reason: pain, moderate-severe) Qty: 60 2RF metoprolol tartrate 25 mg tablet 12.5 mg PO BID Qty: 90 3RF prednisone 20 mg tablet See Rx Instructions PO .COMPLEX PRN (Reason: joint pain flare) Qty: 30 1RF Rx Instructions: take 1 tab daily for 5-7 days as needed for arthritis flare PO PRN; Humira Pen 40 mg/0.8 mL pen injector kit See Rx Instructions .ROUTE .COMPLEX Qty: 2 3RF Dose Instruction: inject 40mg (0.8ml) SUBCUTANEOUSLY every 14 DAYS Rx Instructions: inject 40mg (0.8ml) SUBCUTANEOUSLY every 14 DAYS lamotrigine 200 mg tablet See Rx Instructions .ROUTE .COMPLEX Qty: 180 0RF Dose Instruction: TAKE 1 TABLET BY MOUTH TWICE DAILY Rx Instructions: TAKE 1 TABLET BY MOUTH TWICE DAILY levothyroxine 50 mcg tablet 50 mcg PO DAILY Rx Instructions: take with 200 mcg once daily levothyroxine 200 mcg tablet 200 mcg PO DAILY albuterol sulfate 90 mcg/actuation Hfa Aerosol Inhaler 2 puff INHALATION QID PRN (Reason: Shortness Of Breath) simvastatin 80 mg tablet 40 mg PO BEDTIME digoxin 125 mcg (0.125 mg) tablet 0.125 mcg PO DAILY Discharge Orders: Discharge ED (Routine); Ordered 05/11/22 Ordered By: Jd Chandler Referrals: Willie Mahmood [Primary Care Provider] - Discharge Diet: Usual diet Discharge Activity: Increase activity as tolerated Patient Instructions: Opioid Safety, Pain Management Activity Restrictions/Additional Instructions: Follow-up with your senior maintenance mechanic as soon as you are able. Increase your oxygen to 4 L/min when active and keep at 2 L/min when resting. 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
[2022-05-11 06:22] LABS: Troponin(5th) Baseline 8 ng/L (0-10)
[2022-05-11 06:28] VITALS: BP 99/74; PULSE 110; RESP 16; O2SAT 94
[2022-05-11 06:29] LABS: Alanine Aminotransferase 18 U/L (0-33); Albumin Level 3.6 g/dL (3.5-5.2); Alkaline Phosphatase 109 U/L (35-105); Anion Gap 15.6 (5-19); Aspartate Amino Transferase 11 U/L (0-32); Blood Urea Nitrogen 7 mg/dL (8-23); Calcium 9.7 mg/dL (8.5-10.5); Carbon Dioxide 27 mmol/L (22-29); Chloride 95 mmol/L (98-107); Globulin 3.7 g/dL (1.3-4.6); Glucose 130 mg/dL (65-115); Osmolality Calculated 278 mOsm/kg (285-295); Potassium 3.6 mmol/L (3.5-5.1); Sodium 134 mmol/L (136-145); Total Bilirubin 0.2 mg/dL (0.15-1.2); Total Protein 7.3 g/dL (6.6-8.7)
[2022-05-11 06:30] LABS: Influenza A by IFA negative (Negative); Influenza B by IFA negative (Negative); SARS Covid-2 Antigen negative (Negative)
[2022-05-11 06:30] LABS: NT Pro B Type Natriuretic Pept 808 pg/mL (0-125)
[2022-05-11 06:31] LABS: INR 2.12 (0.8-1.2)
[2022-05-11 06:34] LABS: D Dimer 0.43 ug/mIFEU (0-0.59)
[2022-05-11 06:47] VITALS: BP 99/67; PULSE 77; RESP 16; O2SAT 94
[2022-05-11 07:29] LABS: Digoxin 0.3 ng/mL (0.6-1.2)
[2022-05-11 07:33] VITALS: BP 118/73; PULSE 79; O2SAT 95
[2022-05-11 07:49] VITALS: O2SAT 89
[2022-05-11 08:15] VITALS: BP 106/74; PULSE 80; O2SAT 97
[2022-05-11 08:26] LABS: Troponin 5 2HR 6.57 ng/L (0-10)
[2022-05-11 08:37] LABS: Troponin 5 2HR Delta -1.43 ABS# (0-10)
== END 2022-05-11 08:16 | disposition home or self-care (01) ==
PROVIDERS: Emergency Medicine; Emergency Provider Family Medicine; PCP Family Medicine
DX: J44.9 Chronic obstructive pulmonary disease, unspecified (principal); I48.91 Unspecified atrial fibrillation; I35.0 Nonrheumatic aortic (valve) stenosis; Z85.118 Personal history of other malignant neoplasm of bronchus and lung; Z79.01 Long term (current) use of anticoagulants; Z20.822 Contact with and (suspected) exposure to COVID-19; Z87.891 Personal history of nicotine dependence; F03.90 Unspecified dementia, unspecified severity, without behavioral disturbance, psychotic disturbance, mood disturbance, and anxiety; E78.5 Hyperlipidemia, unspecified; I10 Essential (primary) hypertension
CPT/HCPCS: 71045; 80053; 80162; 83880; 84484; 85025; 85378; 85610; 87426; 87804; 93005; 99285

== ENCOUNTER → 2022-05-19 12:38 | Outpatient (BNVA) | payer MEDICARE, OTHER, SELFPAY | PROVIDERS: PCP Family Medicine; Visit Provider Internal Medicine Rheumatology | DX: I48.91 Unspecified atrial fibrillation (principal); Z79.01 Long term (current) use of anticoagulants; Z92.21 Personal history of antineoplastic chemotherapy; Z90.2 Acquired absence of lung [part of]; Z85.118 Personal history of other malignant neoplasm of bronchus and lung; M79.7 Fibromyalgia; J44.9 Chronic obstructive pulmonary disease, unspecified; I48.0 Paroxysmal atrial fibrillation; I35.0 Nonrheumatic aortic (valve) stenosis; I34.1 Nonrheumatic mitral (valve) prolapse; I10 Essential (primary) hypertension; G62.9 Polyneuropathy, unspecified; G47.33 Obstructive sleep apnea (adult) (pediatric); F31.9 Bipolar disorder, unspecified; E03.9 Hypothyroidism, unspecified | CPT/HCPCS: 85610; 99214 ==

== ENCOUNTER → 2022-05-31 09:48 | Outpatient (BNVA) | payer MEDICARE, OTHER, SELFPAY | PROVIDERS: PCP Family Medicine; Visit Provider Internal Medicine Cardiovascular Disease | DX: I48.91 Unspecified atrial fibrillation (principal); Z79.01 Long term (current) use of anticoagulants | CPT/HCPCS: 85610 ==

== ENCOUNTER → 2022-06-15 11:21 | Outpatient (BNVA) | payer MEDICARE, OTHER, SELFPAY | PROVIDERS: PCP Family Medicine | DX: I48.91 Unspecified atrial fibrillation (principal); Z79.01 Long term (current) use of anticoagulants | CPT/HCPCS: 85610 ==

== ENCOUNTER → 2022-06-29 11:01 | Outpatient (BNVA) | payer MEDICARE, OTHER, SELFPAY | PROVIDERS: PCP Family Medicine; Visit Provider Internal Medicine Cardiovascular Disease | DX: I48.91 Unspecified atrial fibrillation (principal); Z79.01 Long term (current) use of anticoagulants; I35.0 Nonrheumatic aortic (valve) stenosis; J44.9 Chronic obstructive pulmonary disease, unspecified; E78.2 Mixed hyperlipidemia; I05.9 Rheumatic mitral valve disease, unspecified; Z87.891 Personal history of nicotine dependence | CPT/HCPCS: 85610; 99214 ==

== ENCOUNTER → 2022-07-27 12:45 | Outpatient (BNVA) | payer MEDICARE, OTHER, SELFPAY | PROVIDERS: PCP Family Medicine; Visit Provider Internal Medicine Cardiovascular Disease | DX: I48.91 Unspecified atrial fibrillation (principal) | CPT/HCPCS: 85610 ==

== ENCOUNTER → 2022-08-26 11:52 | Outpatient (BNVA) | payer MEDICARE, OTHER, SELFPAY | PROVIDERS: PCP Family Medicine; Visit Provider Internal Medicine Rheumatology | DX: M06.041 Rheumatoid arthritis without rheumatoid factor, right hand (principal); M06.042 Rheumatoid arthritis without rheumatoid factor, left hand; Z79.899 Other long term (current) drug therapy; M54.2 Cervicalgia; Z71.89 Other specified counseling; M79.7 Fibromyalgia; J44.9 Chronic obstructive pulmonary disease, unspecified | CPT/HCPCS: 80076; 82565; 85025; 85651; 86140; 99214 ==

== ENCOUNTER → 2022-11-23 10:40 | Outpatient (BNVA) | payer MEDICARE, OTHER, SELFPAY | PROVIDERS: PCP Family Medicine; Visit Provider Podiatrist Foot & Ankle Surgery | DX: M20.42 Other hammer toe(s) (acquired), left foot (principal); M19.072 Primary osteoarthritis, left ankle and foot; M76.822 Posterior tibial tendinitis, left leg; M76.821 Posterior tibial tendinitis, right leg | CPT/HCPCS: 99214 ==

== ENCOUNTER → 2022-11-25 12:46 | Outpatient (BNVA) | payer MEDICARE, OTHER, SELFPAY | PROVIDERS: PCP Family Medicine; Visit Provider Internal Medicine Rheumatology | DX: Z71.89 Other specified counseling (principal); Z79.899 Other long term (current) drug therapy; M06.041 Rheumatoid arthritis without rheumatoid factor, right hand; M06.042 Rheumatoid arthritis without rheumatoid factor, left hand | CPT/HCPCS: 99214 ==

== ENCOUNTER → 2023-01-05 09:41 | Outpatient (BNVA) | payer MEDICARE, OTHER, SELFPAY | PROVIDERS: PCP Family Medicine; Visit Provider Internal Medicine Cardiovascular Disease | DX: I48.91 Unspecified atrial fibrillation (principal); J44.9 Chronic obstructive pulmonary disease, unspecified; I35.0 Nonrheumatic aortic (valve) stenosis; E78.2 Mixed hyperlipidemia; I49.9 Cardiac arrhythmia, unspecified; R07.89 Other chest pain; Z87.891 Personal history of nicotine dependence; Z79.01 Long term (current) use of anticoagulants | CPT/HCPCS: 99214 ==

== ENCOUNTER 2023-01-28 09:22 | Outpatient (CLI) | payer MEDICARE, OTHER, SELFPAY ==
--- NOTE | 2023-01-28 | ECG_ITS ---
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 Interpretive Statements NAME OF STUDY: LEXISCAN SESTAMIBI STRESS TEST INDICATION: Chest Pain, PROCEDURE: At the baseline, the EKG revealed normal sinus rhythm with nonspecific IVCD. Nonspecific ST changes.. The baseline heart was 70 bpm with a blood pressue of 129/94 mm of Hg Lexiscan was infused over a period of 20 seconds. A total of 0.4 milligrams of Lexiscan was infused. The stress phase was continued for a total of 5 minutes. Heart rate at the end of the stress phase was 79 bpm with a blood pressure 152/82 mm of Hg. The EKG at the peak infusion revealed no significant changes. Sestamibi was injected 20 seconds after the Lexiscan infusion. Heart rate at the end of the recovery phase was 70 bpm with a blood pressure of 149/84 mm of Hg. CONCLUSION: 1. No significant EKG changes with the LexiScan infusion 2. No LexiScan induced chest pain or cardiac arrhythmia 3. Normal blood pressure and heart rate response 4. Sestamibi/sestamibi perfusion scan pending; see separate report. Electronically Signed On 01-28-2023 18:46:51 CDT by Jericho Steel M.D. [email or web address]
[2023-01-28 09:39] VITALS: BMI 24.3
--- NOTE | 2023-01-28 09:39 | NMCV_ITS ---
NM jose luis perf SPECT r/s* [id number] Zoya Cunningham Age: 73 Gender: F : 1950 Exam Date: 01/28/2023 10:17 Ordering Phys: Jericho Steel MD ([email or web address]) Technologist: CINDI Houser Exam Location: [facility] Indications: CORONARY ANGIOPLASTY STATUS STRESS TEST Please see separate stress test report in [facility] for full findings IMAGE PROTOCOL Rest/Stress 1 Lexiscan Day Radiopharmaceutical Dose (mCi) Administration Site Administered by Rest: Tc-99m 10.8 IV CINDI Mckeon Sestamibi Stress:Tc-99m 32.4 IV CINDI Mckeon Sestamibi Rest: 28-Jan-2023 60 Discovery 630 Stress: 28-Jan-2023 30 Discovery 630 0.4mg Lexiscan. Images obtained in supine and prone position. SPECT RESULTS Technical Quality: Excellent Raw Data Analysis: Normal Image Corrections: No attenuation or motion correction applied Summed Stress Score: 2 Summed Rest Score: 3 Summed Difference Score: 1 PERFUSION FINDINGS Small area of slightly decreased tracer uptake was noted in the mid inferolateral and mid inferior wall regions. Some reversibility was noted in the mid inferolateral region FUNCTIONAL RESULTS (calculated via Gated SPECT) Stress Image LV EF (%): 56 Stress EDV (mL):114 TID: 1.2 Stress ESV (mL):50 FUNCTIONAL FINDINGS: Segmental wall motion analysis revealing no gross wall motion abnormalities. IMPRESSIONS 1. Myocardial perfusion imaging revealing small area of slightly decreased in uptake in the inferior and inferolateral region with some reversibility in the inferolateral region suggesting myocardial scarring with ischemia in the distribution of the the right coronary artery/circumflex artery. The elevated transient ischemic dilatation ratio may suggest endocardial ischemia. 2. Normal LV ejection fraction of 56%. 3. LV wall motion analysis revealing no gross wall motion abnormalities.. 4. Normal LV volume Compared to the study from 10/07/2017, the overall ischemic burden remains unchanged Dr Jericho Steel MD FAC (Electronically Signed) Final Date: 28 January 2023 14:39 S
[2023-01-28 11:04] VITALS: BP 149/84; PULSE 77
[2023-01-28] MEDS: regadenoson 0.4 Mg/5 ml Syringe IVP (11:05)
== END 2023-01-28 09:23 | disposition home or self-care (01) ==
LOC: CDL 09:23
PROVIDERS: PCP Family Medicine; Visit Provider Internal Medicine Cardiovascular Disease
DX: Z98.61 Coronary angioplasty status (principal); R07.9 Chest pain, unspecified
CPT/HCPCS: 36415; 78452; 93017; 96374; A9500; J2785

== ENCOUNTER → 2023-02-23 10:30 | Outpatient (BNVA) | payer MEDICARE, OTHER, SELFPAY | PROVIDERS: PCP Family Medicine; Visit Provider Podiatrist Foot & Ankle Surgery | DX: M20.42 Other hammer toe(s) (acquired), left foot; M19.072 Primary osteoarthritis, left ankle and foot; M76.822 Posterior tibial tendinitis, left leg; M76.821 Posterior tibial tendinitis, right leg | CPT/HCPCS: 99213 ==

== ENCOUNTER → 2023-03-03 12:45 | Outpatient (BNVA) | payer MEDICARE, OTHER, SELFPAY | PROVIDERS: PCP Family Medicine; Visit Provider Internal Medicine Rheumatology | DX: M06.041 Rheumatoid arthritis without rheumatoid factor, right hand (principal); M06.042 Rheumatoid arthritis without rheumatoid factor, left hand; Z79.899 Other long term (current) drug therapy; M19.90 Unspecified osteoarthritis, unspecified site | CPT/HCPCS: 20600; 36415; 80076; 82565; 85025; 86140; 99214; J1030 ==

== ENCOUNTER 2023-05-03 07:37 | Oncology outpatient (recurring) (ONCR) | payer MEDICARE, OTHER, SELFPAY ==
[2023-05-03 08:23] LABS: Basophils % 0.5 %; Eosinophils # 0.2 10^3/uL (0.0-0.8); Eosinophils % 3.2 %; Hematocrit 39.8 % (36-47); Lymphocytes # 1.3 10^3/uL (0.8-4.8); Lymphocytes % 21.6 %; Mean Corpuscular HGB Conc 31.9 g/dL (30-55); Mean Corpuscular Hemoglobin 32.8 pg (27-33); Mean Corpuscular Volume 102.8 fl (85-98); Mean Platelet Volume 11.5 fL (7.4-10.4); Monocytes # 0.7 10^3/uL (0.2-0.9); Monocytes % 11.8 %; Neutrophils # 3.71 10^3/uL (1.8-7.7); Neutrophils % 62.7 %; Nucleated Red Blood Cells % 0 %; Platelet Count 171 10^3/cmm (157-399); Red Blood Count 3.87 10^6/uL (3.85-5.65); Red Cell Distribution Width 13.6 % (12.1-15.1); White Blood Count 5.92 10^3/uL (3.29-11.43)
[2023-05-03 08:35] LABS: Erythrocyte Sedimentation Rate 18 mm/hr (0-15)
[2023-05-03] MEDS: acetaminophen 325 mg Tablet 650 MG PO (09:11)
[2023-05-03] MEDS: sodium chloride 0.9% 250 ML 75 ML IV (09:11)
[2023-05-03] MEDS: diphenhydrAMINE 50 mg/mL SDV 1mL 25 MG IVP (09:14)
[2023-05-03] MEDS: methylPREDNISolone sod succ 40 mg SDV IVP (09:17)
[2023-05-03 09:23] LABS: Alanine Aminotransferase 20 U/L (0-33); Albumin Level 3.8 g/dL (3.5-5.2); Alkaline Phosphatase 94 U/L (35-105); Aspartate Amino Transferase 17 U/L (0-32); Total Bilirubin 0.2 mg/dL (0.15-1.2); Total Protein 6.8 g/dL (6.6-8.7)
[2023-05-03 10:15] VITALS: BP 133/83; PULSE 69; TEMP 36.8; O2SAT 99
[2023-05-03 10:59] VITALS: BP 138/85; PULSE 75; TEMP 36.8; O2SAT 98
== END 2023-05-03 23:59 | disposition home or self-care (01) ==
PROVIDERS: PCP Family Medicine; Visit Provider Internal Medicine Rheumatology
DX: M06.041 Rheumatoid arthritis without rheumatoid factor, right hand (principal); M06.042 Rheumatoid arthritis without rheumatoid factor, left hand
CPT/HCPCS: 80076; 82565; 85025; 85651; 96375; 96413; J1200; J2920; J3262; J7050

== ENCOUNTER 2023-05-31 09:12 | Oncology outpatient (recurring) (ONCR) | payer MEDICARE, OTHER, SELFPAY ==
[2023-05-31 09:40] VITALS: BP 140/93; PULSE 66; RESP 16; TEMP 36.5; O2SAT 95
[2023-05-31] MEDS: sodium chloride 0.9% 250 ML 75 ML IV (09:53)
[2023-05-31] MEDS: diphenhydrAMINE 50 mg/mL SDV 1mL 25 MG IVP (09:53)
[2023-05-31] MEDS: methylPREDNISolone sod succ 40 mg/mL INJ IVP (09:54)
[2023-05-31] MEDS: acetaminophen 325 mg Tablet 650 MG PO (09:54)
[2023-05-31] MEDS: TOCILIZUMAB IV (10:27)
[2023-05-31] MEDS: SODIUM CHLORIDE 0.9% IV (10:27)
== END 2023-06-02 23:59 | disposition home or self-care (01) ==
LOC: ONCMED 09:12
PROVIDERS: PCP Family Medicine; Visit Provider Internal Medicine Rheumatology
DX: M06.9 Rheumatoid arthritis, unspecified (principal)
CPT/HCPCS: 96375; 96413; J1200; J2920; J3262; J7050

== ENCOUNTER 2023-06-28 09:20 | Oncology outpatient (recurring) (ONCR) | payer MEDICARE, OTHER, SELFPAY ==
[2023-06-28 10:02] LABS: Basophils % 0.4 %; Eosinophils # 0.1 10^3/uL (0.0-0.8); Eosinophils % 1.3 %; Hematocrit 38.8 % (36-47); Lymphocytes # 0.9 10^3/uL (0.8-4.8); Lymphocytes % 16.5 %; Mean Corpuscular Volume 102.9 fl (85-98); Mean Platelet Volume 11.6 fL (7.4-10.4); Monocytes # 0.6 10^3/uL (0.2-0.9); Monocytes % 10.1 %; Neutrophils # 3.96 10^3/uL (1.8-7.7); Neutrophils % 71.5 %; Nucleated Red Blood Cells % 0 %; Platelet Count 104 10^3/cmm (157-399); Red Blood Count 3.77 10^6/uL (3.85-5.65); Red Cell Distribution Width 13.3 % (12.1-15.1); White Blood Count 5.53 10^3/uL (3.29-11.43)
[2023-06-28 10:15] VITALS: BP 122/75; PULSE 68; RESP 18; TEMP 36.6; O2SAT 97
[2023-06-28 10:20] VITALS: BMI 26.7
[2023-06-28] MEDS: diphenhydrAMINE 50 mg/mL SDV 1mL 25 MG IVP (10:26)
[2023-06-28] MEDS: sodium chloride 0.9% 250 ML 75 ML IV (10:27)
[2023-06-28] MEDS: methylPREDNISolone sod succ 40 mg/mL INJ IVP (10:27)
[2023-06-28] MEDS: SODIUM CHLORIDE 0.9% IV (10:32)
[2023-06-28] MEDS: TOCILIZUMAB IV (10:32)
[2023-06-28] MEDS: acetaminophen 325 mg Tablet 650 MG PO (10:35)
[2023-06-28 10:37] LABS: Erythrocyte Sedimentation Rate 40 mm/hr (0-15)
[2023-06-28 11:27] LABS: Alanine Aminotransferase 33 U/L (0-33); Albumin Level 3.6 g/dL (3.5-5.2); Alkaline Phosphatase 83 U/L (35-105); Aspartate Amino Transferase 20 U/L (0-32); Globulin 2.9 g/dL (1.3-4.6); Total Bilirubin 0.3 mg/dL (0.15-1.2); Total Protein 6.5 g/dL (6.6-8.7)
[2023-06-28 11:30] VITALS: BP 154/81; PULSE 75; RESP 18; TEMP 36.6; O2SAT 98
== END 2023-07-03 23:59 | disposition home or self-care (01) ==
PROVIDERS: PCP Family Medicine; Visit Provider Internal Medicine Rheumatology
DX: M19.90 Unspecified osteoarthritis, unspecified site (principal)
CPT/HCPCS: 80076; 82565; 85025; 85651; 96365; 96375; J1200; J2920; J3262; J7050

== ENCOUNTER 2023-07-12 10:24 | Outpatient (CLI) | payer MEDICARE, OTHER, SELFPAY ==
[2023-07-12 10:57] LABS: Basophils % 0.5 %; Eosinophils # 0.1 10^3/uL (0.0-0.8); Eosinophils % 2.1 %; Hematocrit 42.8 % (36-47); Lymphocytes # 1.3 10^3/uL (0.8-4.8); Lymphocytes % 30.7 %; Mean Corpuscular HGB Conc 32.2 g/dL (30-55); Mean Corpuscular Hemoglobin 34.3 pg (27-33); Mean Corpuscular Volume 106.5 fl (85-98); Mean Platelet Volume 10.4 fL (7.4-10.4); Monocytes # 0.5 10^3/uL (0.2-0.9); Monocytes % 12.5 %; Neutrophils # 2.27 10^3/uL (1.8-7.7); Neutrophils % 53.7 %; Nucleated Red Blood Cells % 0 %; Platelet Count 177 10^3/cmm (157-399); Red Blood Count 4.02 10^6/uL (3.85-5.65); Red Cell Distribution Width 13.1 % (12.1-15.1); White Blood Count 4.23 10^3/uL (3.29-11.43)
== END 2023-07-12 10:25 | disposition home or self-care (01) ==
LOC: LAB 10:25
PROVIDERS: PCP Family Medicine; Visit Provider Internal Medicine Rheumatology
DX: Z79.899 Other long term (current) drug therapy (principal)
CPT/HCPCS: 36415; 85025

== ENCOUNTER → 2023-07-14 14:48 | Outpatient (BNVA) | payer MEDICARE, OTHER, SELFPAY | PROVIDERS: PCP Family Medicine; Visit Provider Internal Medicine Cardiovascular Disease | DX: I48.21 Permanent atrial fibrillation (principal); I10 Essential (primary) hypertension; I05.9 Rheumatic mitral valve disease, unspecified; E78.2 Mixed hyperlipidemia; I35.0 Nonrheumatic aortic (valve) stenosis; Z87.891 Personal history of nicotine dependence; Z79.01 Long term (current) use of anticoagulants | CPT/HCPCS: 99214 ==

== ENCOUNTER 2023-07-19 10:54 | Outpatient (CLI) | payer MEDICARE, OTHER, SELFPAY ==
[2023-07-19 11:19] LABS: Basophils % 0.3 %; Eosinophils # 0.1 10^3/uL (0.0-0.8); Eosinophils % 2.6 %; Hematocrit 40.5 % (36-47); Lymphocytes # 1.2 10^3/uL (0.8-4.8); Lymphocytes % 29.7 %; Mean Corpuscular HGB Conc 32.1 g/dL (30-55); Mean Corpuscular Hemoglobin 33.7 pg (27-33); Mean Corpuscular Volume 104.9 fl (85-98); Mean Platelet Volume 11.7 fL (7.4-10.4); Monocytes # 0.5 10^3/uL (0.2-0.9); Monocytes % 11.6 %; Neutrophils # 2.15 10^3/uL (1.8-7.7); Neutrophils % 55.5 %; Nucleated Red Blood Cells % 0 %; Platelet Count 118 10^3/cmm (157-399); Red Blood Count 3.86 10^6/uL (3.85-5.65); Red Cell Distribution Width 12.6 % (12.1-15.1); White Blood Count 3.87 10^3/uL (3.29-11.43)
== END 2023-07-19 10:55 | disposition home or self-care (01) ==
PROVIDERS: PCP Family Medicine; Visit Provider Internal Medicine Rheumatology
DX: Z79.899 Other long term (current) drug therapy (principal); M06.041 Rheumatoid arthritis without rheumatoid factor, right hand; M06.042 Rheumatoid arthritis without rheumatoid factor, left hand
CPT/HCPCS: 36415; 85025

== ENCOUNTER 2023-08-09 12:47 | Outpatient (CLI) | payer MEDICARE, OTHER, SELFPAY ==
[2023-08-09 13:20] LABS: Basophils % 0.8 %; Eosinophils # 0.1 10^3/uL (0.0-0.8); Eosinophils % 2.8 %; Hematocrit 40.7 % (36-47); Lymphocytes # 1.4 10^3/uL (0.8-4.8); Lymphocytes % 28.5 %; Mean Corpuscular HGB Conc 32.2 g/dL (30-55); Mean Corpuscular Hemoglobin 33.9 pg (27-33); Mean Corpuscular Volume 105.2 fl (85-98); Mean Platelet Volume 11.3 fL (7.4-10.4); Monocytes # 0.5 10^3/uL (0.2-0.9); Monocytes % 10.6 %; Neutrophils # 2.86 10^3/uL (1.8-7.7); Neutrophils % 57.1 %; Nucleated Red Blood Cells % 0 %; Platelet Count 165 10^3/cmm (157-399); Red Blood Count 3.87 10^6/uL (3.85-5.65); Red Cell Distribution Width 12.3 % (12.1-15.1); White Blood Count 5.01 10^3/uL (3.29-11.43)
== END 2023-08-09 12:48 | disposition home or self-care (01) ==
LOC: LAB 12:50
PROVIDERS: PCP Family Medicine; Visit Provider Internal Medicine Rheumatology
DX: D69.6 Thrombocytopenia, unspecified (principal)
CPT/HCPCS: 36415; 85025

== ENCOUNTER → 2023-09-01 09:13 | Outpatient (BNVA) | payer MEDICARE, OTHER, SELFPAY | PROVIDERS: PCP Family Medicine; Visit Provider Internal Medicine Rheumatology | DX: M06.041 Rheumatoid arthritis without rheumatoid factor, right hand (principal); M06.042 Rheumatoid arthritis without rheumatoid factor, left hand; Z79.899 Other long term (current) drug therapy; Z71.89 Other specified counseling | CPT/HCPCS: 99214 ==

== ENCOUNTER 2023-11-01 13:30 | Oncology outpatient (recurring) (ONCR) | payer MEDICARE, OTHER, SELFPAY ==
[2023-10-04] MEDS: acetaminophen 325 mg Tablet 650 MG PO (10:21)
[2023-10-04] MEDS: diphenhydrAMINE 50 mg/mL SDV 1mL 25 MG IVP (10:24)
[2023-10-04] MEDS: sodium chloride 0.9% 250 ML 75 ML IV (10:24)
[2023-10-04] MEDS: methylPREDNISolone sod succ 40 mg/mL INJ IVP (10:25)
[2023-10-04] MEDS: SODIUM CHLORIDE 0.9% IV (11:01)
[2023-10-04] MEDS: TOCILIZUMAB IV (11:01)
[2023-10-04 11:59] VITALS: BP 167/86; PULSE 81; RESP 16; TEMP 36.7; O2SAT 98
[2023-11-01 13:12] LABS: Basophils % 0.2 %; Eosinophils # 0.1 10^3/uL (0.0-0.8); Eosinophils % 0.8 %; Lymphocytes % 5.9 %; Mean Corpuscular HGB Conc 31.8 g/dL (30-55); Mean Corpuscular Hemoglobin 33.5 pg (27-33); Mean Corpuscular Volume 105.5 fl (85-98); Mean Platelet Volume 11.3 fL (7.4-10.4); Monocytes # 0.9 10^3/uL (0.2-0.9); Monocytes % 5.4 %; Neutrophils # 14.72 10^3/uL (1.8-7.7); Neutrophils % 87.2 %; Nucleated Red Blood Cells % 0 %; Platelet Count 141 10^3/cmm (157-399); Red Blood Count 3.79 10^6/uL (3.85-5.65); Red Cell Distribution Width 14.6 % (12.1-15.1); White Blood Count 16.87 10^3/uL (3.29-11.43)
[2023-11-01 13:13] VITALS: BP 130/84; PULSE 72; RESP 18; TEMP 36.6; O2SAT 92
[2023-11-01 13:26] LABS: Erythrocyte Sedimentation Rate 2 mm/hr (0-15)
[2023-11-01] MEDS: sodium chloride 0.9% 250 ML 75 ML IV (13:29)
[2023-11-01 13:30] LABS: Alanine Aminotransferase 17 U/L (0-33); Albumin Level 3.6 g/dL (3.5-5.2); Alkaline Phosphatase 90 U/L (35-105); Aspartate Amino Transferase 17 U/L (0-32); Globulin 2.4 g/dL (1.3-4.6); Total Bilirubin 0.2 mg/dL (0.15-1.2)
[2023-11-01] MEDS: methylPREDNISolone sod succ 40 mg/mL INJ IVP (13:31)
[2023-11-01] MEDS: acetaminophen 325 mg Tablet 650 MG PO (13:32)
[2023-11-01] MEDS: diphenhydrAMINE 50 mg/mL SDV 1mL 25 MG IVP (13:34)
[2023-11-01] MEDS: SODIUM CHLORIDE 0.9% IV (13:44)
[2023-11-01] MEDS: TOCILIZUMAB IV (13:44)
[2023-11-01 14:22] VITALS: BP 122/84; PULSE 109; RESP 17; TEMP 36.6
== END 2023-11-01 23:59 | disposition home or self-care (01) ==
PROVIDERS: PCP Family Medicine; Visit Provider Internal Medicine Rheumatology
DX: Z53.9 Procedure and treatment not carried out, unspecified reason (principal); M13.80 Other specified arthritis, unspecified site
CPT/HCPCS: 80076; 82565; 85025; 85651; 96365; 96375; J1200; J2919; J3262; J7050

== ENCOUNTER 2023-11-29 13:08 | Oncology outpatient (recurring) (ONCR) | payer MEDICARE, OTHER, SELFPAY ==
[2023-11-29 13:30] VITALS: BP 120/83; PULSE 92; RESP 16; TEMP 36.8; O2SAT 97
[2023-11-29] MEDS: sodium chloride 0.9% 250 ML 75 ML IV (13:41)
[2023-11-29] MEDS: acetaminophen 325 mg Tablet 650 MG PO (13:42)
[2023-11-29] MEDS: diphenhydrAMINE 50 mg/mL SDV 1mL 25 MG IVP (13:42)
[2023-11-29] MEDS: methylPREDNISolone sod succ 40 mg/mL INJ IVP (13:43)
[2023-11-29] MEDS: TOCILIZUMAB IV (14:09)
[2023-11-29] MEDS: SODIUM CHLORIDE 0.9% IV (14:09)
[2023-11-29 15:04] VITALS: BP 138/93; PULSE 105; RESP 17; TEMP 36.8; O2SAT 97
== END 2023-12-02 23:59 | disposition home or self-care (01) ==
PROVIDERS: PCP Family Medicine; Visit Provider Internal Medicine Rheumatology
DX: M13.80 Other specified arthritis, unspecified site (principal); Z79.899 Other long term (current) drug therapy; Z79.620 Long term (current) use of immunosuppressive biologic
CPT/HCPCS: 96375; 96413; J1200; J2919; J3262; J7050

== ENCOUNTER 2023-12-05 09:42 | Outpatient (CLI) | payer MEDICARE, OTHER, SELFPAY ==
--- NOTE | 2023-12-05 10:15 | USCV_ITS ---
Zoya Cunningham Age: 73 Gender: F : 1950 Exam Date: 12/05/2023 10:21 Ordering Phys: Jericho Steel MD ([email or web address]) Technologist: EMMA Exam Location: [facility] [place] Indication: AORTIC STENOSIS BP: 117 / 60 HR: 95 Rhythm: Atrial fibrillation Technical Quality: Suboptimal MEASUREMENTS (Male / Female) Normal Values 2D ECHO LV Diastolic Diameter PLAX 4.0 cm 4.2 - 5.9 / 3.9 - 5.3 cm IVS Diastolic Thickness 1.5 cm 0.6 - 1.0 / 0.6 - 0.9 cm IVS Systolic Thickness 1.7 cm LVPW Diastolic Thickness 2.2 cm 0.6 - 1.0 / 0.6 - 0.9 cm LVPW Systolic Thickness 2.7 cm LVOT Diameter 2.0 cm LV Ejection Fraction 2D Teich 66.3 % LV Ejection Fraction MOD 2C 69.9 % LV Ejection Fraction 2C AL 71.2 % LA Diameter 2.9 cm RA Systolic Volume 4C AL 12.5 ml RA Systolic Volume 4C MOD 11.6 ml LA Sys Volume AL 30.4 cm cubed LA Sys Volume Index AL 15.6 cm cubed/m squared Aorta at Sinotubular Diameter 1.9 cm IVC Diameter 1.6 cm DOPPLER AV Peak Velocity 224.3 cm/s LVOT Peak Velocity 91.0 cm/s AV Area Cont Eq vti 1.3 cm squared AV Area Cont Eq pk 1.2 cm squared MV Peak Velocity 143.0 cm/s MV Area PHT 7.0 cm squared Mitral E to A Ratio 76.6 TR Peak Velocity 208.0 cm/s TR Peak Gradient 17.3 mmHg TR Mean Velocity 164.0 cm/s TR Mean Gradient 11.5 mmHg TR Velocity Time Integral 66.5 cm TV Peak E Velocity 67.0 cm/s Right Atrial Pressure 3.0 mmHg Pulmonary Artery Systolic Pressu 20.3 mmHg FINDINGS Left Ventricle Normal left ventricular size and systolic function, EF 69%. Mild concentric left ventricular hypertrophy.abnormal septal motion consistent with conduction abnormality. Right Ventricle The right ventricle is normal in size and function. Right Atrium The right atrium is normal in size. Left Atrium Mildly increased left atrial size. Mitral Valve No gross abnormalities noted Aortic Valve Moderate aortic valve stenosis with a valve area of 1.28 cm squared.trace to mild aortic valve regurgitation. Tricuspid Valve Trace tricuspid valve regurgitation. Pulmonic Valve Pulmonic valve not well visualized. Pericardium Normal pericardium without effusion. Aorta Normal aortic annulus size. IVC The inferior vena cava appears normal. CONCLUSIONS Normal left ventricular size and systolic function, EF 69%. Mild concentric left ventricular hypertrophy. Abnormal septal motion consistent with conduction abnormality. Mildly increased left atrial size. Moderate aortic valve stenosis with a valve area of 1.28 cm squared. Trace to mild aortic valve regurgitation. Trace tricuspid valve regurgitation. Estimated pulmonary artery peak systolic pressure within normal limits There is no pericardial effusion. There are no intracardiac masses. Compared to the study from 02/07/2022, there may not be a significant change Dr Jericho Steel MD FACC (Electronically Signed) Final Date: 05 December 2023 20:10 S
== END 2023-12-05 09:43 | disposition home or self-care (01) ==
LOC: RAD 09:42
PROVIDERS: PCP Family Medicine; Visit Provider Internal Medicine Cardiovascular Disease
DX: R06.09 Other forms of dyspnea (principal); I35.0 Nonrheumatic aortic (valve) stenosis
CPT/HCPCS: 93306

== ENCOUNTER 2023-12-27 12:58 | Oncology outpatient (recurring) (ONCR) | payer MEDICARE, OTHER, SELFPAY ==
[2023-12-27 13:32] VITALS: BP 124/82; PULSE 76; RESP 16; TEMP 36.3; O2SAT 96
[2023-12-27] MEDS: acetaminophen 325 mg Tablet 650 MG PO (13:58)
[2023-12-27] MEDS: sodium chloride 0.9% 250 ML 75 ML IV (13:58)
[2023-12-27] MEDS: diphenhydrAMINE 50 mg/mL SDV 1mL 25 MG IVP (14:03)
[2023-12-27] MEDS: methylPREDNISolone sod succ 40 mg/mL INJ IVP (14:11)
[2023-12-27] MEDS: SODIUM CHLORIDE 0.9% IV (14:24)
[2023-12-27] MEDS: TOCILIZUMAB IV (14:24)
[2023-12-27 15:43] VITALS: BP 165/93; PULSE 65; RESP 17; TEMP 36.8; O2SAT 96
== END 2024-01-01 23:59 | disposition home or self-care (01) ==
PROVIDERS: PCP Family Medicine; Visit Provider Internal Medicine Rheumatology
DX: M06.9 Rheumatoid arthritis, unspecified (principal); Z79.69 Long term (current) use of other immunomodulators and immunosuppressants
CPT/HCPCS: 96375; 96413; J1200; J2919; J3262; J7050

== ENCOUNTER → 2024-01-16 15:28 | Outpatient (BNVA) | payer MEDICARE, OTHER, SELFPAY | PROVIDERS: PCP Family Medicine; Visit Provider Internal Medicine Cardiovascular Disease | DX: I48.21 Permanent atrial fibrillation (principal); I35.0 Nonrheumatic aortic (valve) stenosis; I10 Essential (primary) hypertension; E78.2 Mixed hyperlipidemia; Z79.01 Long term (current) use of anticoagulants | CPT/HCPCS: 99214 ==

== ENCOUNTER 2024-01-24 13:22 | Oncology outpatient (recurring) (ONCR) | payer MEDICARE, OTHER, SELFPAY ==
[2024-01-24 13:31] VITALS: BP 143/75; PULSE 74; RESP 18; TEMP 36.5; O2SAT 94
[2024-01-24] MEDS: sodium chloride 0.9% 250 ML 75 ML IV (14:04)
[2024-01-24] MEDS: acetaminophen 325 mg Tablet 650 MG PO (14:05)
[2024-01-24] MEDS: diphenhydrAMINE 50 mg/mL SDV 1mL 25 MG IVP (14:05)
[2024-01-24 14:06] LABS: Basophils % 0.4 %; Eosinophils # 0.3 10^3/uL (0.0-0.8); Eosinophils % 4.2 %; Hematocrit 36.9 % (36-47); Lymphocytes # 1.2 10^3/uL (0.8-4.8); Lymphocytes % 17.9 %; Mean Corpuscular HGB Conc 32.5 g/dL (30-55); Mean Corpuscular Volume 104.5 fl (85-98); Mean Platelet Volume 11.8 fL (7.4-10.4); Monocytes # 0.6 10^3/uL (0.2-0.9); Monocytes % 9.3 %; Neutrophils # 4.67 10^3/uL (1.8-7.7); Neutrophils % 67.9 %; Nucleated Red Blood Cells % 0 %; Platelet Count 124 10^3/cmm (157-399); Red Blood Count 3.53 10^6/uL (3.85-5.65); Red Cell Distribution Width 12.6 % (12.1-15.1); White Blood Count 6.88 10^3/uL (3.29-11.43)
[2024-01-24] MEDS: methylPREDNISolone sod succ 40 mg/mL INJ IVP (14:06)
[2024-01-24 14:17] LABS: Alanine Aminotransferase 20 U/L (0-33); Albumin Level 4.2 g/dL (3.5-5.2); Alkaline Phosphatase 73 U/L (35-105); C Reactive Protein 43.6 mg/L (0.0-4.9); Globulin 2.6 g/dL (1.3-4.6); Total Bilirubin 0.2 mg/dL (0.15-1.2); Total Protein 6.8 g/dL (6.6-8.7)
[2024-01-24 14:30] LABS: Aspartate Amino Transferase 20 U/L (0-32)
[2024-01-24] MEDS: SODIUM CHLORIDE 0.9% IV (14:39)
[2024-01-24] MEDS: TOCILIZUMAB IV (14:39)
[2024-01-24 14:49] LABS: Erythrocyte Sedimentation Rate 8 mm/hr (0-15)
[2024-01-24 15:50] VITALS: BP 145/80; PULSE 72; RESP 18; TEMP 36.6; O2SAT 94
== END 2024-02-01 23:59 | disposition home or self-care (01) ==
PROVIDERS: PCP Family Medicine; Visit Provider Internal Medicine Rheumatology
DX: M13.80 Other specified arthritis, unspecified site (principal); Z51.12 Encounter for antineoplastic immunotherapy; Z79.899 Other long term (current) drug therapy
CPT/HCPCS: 80076; 85025; 85651; 86140; 96365; J1200; J2919; J3262; J7050

== ENCOUNTER → 2024-01-31 12:48 | Outpatient (BNVA) | payer MEDICARE, OTHER, SELFPAY | PROVIDERS: PCP Family Medicine; Visit Provider Internal Medicine Rheumatology | DX: M06.041 Rheumatoid arthritis without rheumatoid factor, right hand (principal); M06.042 Rheumatoid arthritis without rheumatoid factor, left hand; Z79.899 Other long term (current) drug therapy; Z71.85 Encounter for immunization safety counseling; M79.7 Fibromyalgia; J44.9 Chronic obstructive pulmonary disease, unspecified; Z72.0 Tobacco use | CPT/HCPCS: 99214 ==

== ENCOUNTER 2024-02-21 08:43 | Oncology outpatient (recurring) (ONCR) | payer MEDICARE, OTHER, SELFPAY ==
[2024-02-21] VITALS (9 sets, daily range): BP systolic 132–149; BP diastolic 76–83; PULSE 69–82; RESP 16; TEMP 36.3–37.1; O2SAT 95–99
[2024-02-21] MEDS: acetaminophen 325 mg Tablet 650 MG PO (09:47)
[2024-02-21] MEDS: sodium chloride 0.9% 250 ML 75 ML IV (09:47)
[2024-02-21] MEDS: diphenhydrAMINE 50 mg/mL SDV 1mL 25 MG IVP (09:48)
[2024-02-21] MEDS: methylPREDNISolone sod succ 40 mg/mL INJ IVP (09:49)
[2024-02-21] MEDS: infliximab-abda 400 MG in sodium chloride 0.9% 250 ML 10 MG IV (10:20)
== END 2024-03-03 23:59 | disposition home or self-care (01) ==
PROVIDERS: PCP Family Medicine; Visit Provider Internal Medicine Rheumatology
DX: M06.042 Rheumatoid arthritis without rheumatoid factor, left hand (principal); M06.041 Rheumatoid arthritis without rheumatoid factor, right hand; Z79.620 Long term (current) use of immunosuppressive biologic
CPT/HCPCS: 96375; 96413; 96415; A4222; J1200; J2919; J7050; Q5104

== ENCOUNTER 2024-03-07 08:39 | Oncology outpatient (recurring) (ONCR) | payer MEDICARE, OTHER, SELFPAY ==
[2024-03-07] VITALS (7 sets, daily range): BP systolic 158–193; BP diastolic 80–92; PULSE 62–73; RESP 16–17; TEMP 36.1–36.3; O2SAT 95–97
[2024-03-07 10:01] LABS: Basophils % 0.7 %; Eosinophils # 0.2 10^3/uL (0.0-0.8); Eosinophils % 3.9 %; Hematocrit 37.4 % (36-47); Lymphocytes # 1.1 10^3/uL (0.8-4.8); Lymphocytes % 25.6 %; Mean Corpuscular HGB Conc 32.1 g/dL (30-55); Mean Corpuscular Hemoglobin 34.3 pg (27-33); Mean Corpuscular Volume 106.9 fl (85-98); Monocytes # 0.5 10^3/uL (0.2-0.9); Monocytes % 10.6 %; Neutrophils # 2.55 10^3/uL (1.8-7.7); Nucleated Red Blood Cells % 0 %; Platelet Count 141 10^3/cmm (157-399); Red Cell Distribution Width 13.3 % (12.1-15.1); White Blood Count 4.33 10^3/uL (3.29-11.43)
[2024-03-07 10:02] LABS: Erythrocyte Sedimentation Rate < 1 mm/hr (0-15)
[2024-03-07] MEDS: acetaminophen 325 mg Tablet 650 MG PO (10:02)
[2024-03-07] MEDS: sodium chloride 0.9% 250 ML 75 ML IV (10:03)
[2024-03-07] MEDS: methylPREDNISolone sod succ 40 mg/mL INJ IVP (10:03)
[2024-03-07] MEDS: diphenhydrAMINE 50 mg/mL SDV 1mL 25 MG IVP (10:10)
[2024-03-07 10:22] LABS: Alanine Aminotransferase 20 U/L (0-33); Albumin Level 4.2 g/dL (3.5-5.2); Alkaline Phosphatase 68 U/L (35-105); Aspartate Amino Transferase 19 U/L (0-32); Globulin 2.3 g/dL (1.3-4.6); Total Bilirubin 0.2 mg/dL (0.15-1.2); Total Protein 6.5 g/dL (6.6-8.7)
[2024-03-07] MEDS: infliximab-abda 400 MG in sodium chloride 0.9% 250 ML 10 MG IV (10:38)
== END 2024-04-02 23:59 | disposition home or self-care (01) ==
PROVIDERS: PCP Family Medicine; Visit Provider Internal Medicine Rheumatology
DX: M06.042 Rheumatoid arthritis without rheumatoid factor, left hand; M06.041 Rheumatoid arthritis without rheumatoid factor, right hand; Z79.899 Other long term (current) drug therapy
CPT/HCPCS: 80076; 82565; 85025; 85651; 86140; 96375; 96413; 96415; A4222; J1200; J2919; J7050; Q5104

== ENCOUNTER 2024-04-17 13:00 | Oncology outpatient (recurring) (ONCR) | payer MEDICARE, OTHER, SELFPAY ==
--- NOTE | 2024-04-03 10:07 | PC.NURSE ---
Patient scheduled today for Infliximab infusion. Patient answered yes to UTI symptoms on RHEO Infusion checklist. Patient stated she has been experiencing burning with urination and urinary frequency since her last infusion on 03/07/24. Patient denied fever, chills, and antibiotics. This nurse contacted Dr. Taylor at 0930 regarding continuing with infusion today. Dr. Tayolr said to hold Infliximab infusion for 10 days and ordered 7 day course of antibiotics. Patient educated per Dr. Taylor to follow up with primary care provider if symptoms continue. Patient verbalized understanding.
[2024-04-17] VITALS (8 sets, daily range): BP systolic 133–169; BP diastolic 72–98; PULSE 64–76; RESP 16–18; TEMP 36.4–36.9; O2SAT 96–99
[2024-04-17] MEDS: acetaminophen 325 mg Tablet 650 MG PO (14:01)
[2024-04-17] MEDS: sodium chloride 0.9% 250 ML 45 ML IV (14:01)
[2024-04-17] MEDS: methylPREDNISolone sod succ 40 mg/mL INJ IVP (14:04)
[2024-04-17] MEDS: diphenhydrAMINE 50 mg/mL SDV 1mL 25 MG IVP (14:06)
[2024-04-17] MEDS: infliximab-abda 400 MG in sodium chloride 0.9% 250 ML 10 MG IV (14:32)
== END 2024-05-03 23:59 | disposition home or self-care (01) ==
PROVIDERS: PCP Family Medicine; Visit Provider Internal Medicine Rheumatology
DX: Z53.9 Procedure and treatment not carried out, unspecified reason (principal); M06.041 Rheumatoid arthritis without rheumatoid factor, right hand; M06.042 Rheumatoid arthritis without rheumatoid factor, left hand; Z79.899 Other long term (current) drug therapy
CPT/HCPCS: 96375; 96413; 96415; A4222; J1200; J2919; J7050; Q5104

== ENCOUNTER → 2024-04-30 10:08 | Outpatient (BNVA) | payer MEDICARE, OTHER, SELFPAY | PROVIDERS: PCP Family Medicine; Visit Provider Nurse Practitioner Family | DX: D48.5 Neoplasm of uncertain behavior of skin (principal); L72.0 Epidermal cyst; L57.0 Actinic keratosis; L82.0 Inflamed seborrheic keratosis; L57.8 Other skin changes due to chronic exposure to nonionizing radiation; D22.5 Melanocytic nevi of trunk; Z85.828 Personal history of other malignant neoplasm of skin | CPT/HCPCS: 11104; 11105; 17000; 17110; 99213 ==

== ENCOUNTER → 2024-05-14 15:09 | Outpatient (BNVA) | payer MEDICARE, OTHER, SELFPAY | PROVIDERS: PCP Family Medicine; Visit Provider Nurse Practitioner Family | DX: D48.5 Neoplasm of uncertain behavior of skin (principal) | CPT/HCPCS: 11104; 11105 ==

== ENCOUNTER 2024-06-05 07:39 | Oncology outpatient (recurring) (ONCR) | payer MEDICARE, OTHER, SELFPAY ==
[2024-06-05] VITALS (8 sets, daily range): BP systolic 120–150; BP diastolic 79–90; PULSE 92–106; RESP 16–18; TEMP 36.3–36.7; O2SAT 92–95
[2024-06-05 08:32] LABS: Basophils % 0.4 %; Eosinophils # 0.1 10^3/uL (0.0-0.8); Eosinophils % 1.8 %; Hematocrit 41.6 % (36-47); Lymphocytes % 19.2 %; Mean Corpuscular Hemoglobin 32.1 pg (27-33); Mean Corpuscular Volume 103.5 fl (85-98); Mean Platelet Volume 10.8 fL (7.4-10.4); Monocytes # 0.6 10^3/uL (0.2-0.9); Neutrophils # 3.32 10^3/uL (1.8-7.7); Neutrophils % 66.2 %; Nucleated Red Blood Cells % 0 %; Platelet Count 150 10^3/cmm (157-399); Red Blood Count 4.02 10^6/uL (3.85-5.65); Red Cell Distribution Width 13.3 % (12.1-15.1); White Blood Count 5.01 10^3/uL (3.29-11.43)
[2024-06-05] MEDS: methylPREDNISolone sod succ 40 mg/mL INJ IVP (08:37)
[2024-06-05] MEDS: diphenhydrAMINE 50 mg/mL SDV 1mL 25 MG IVP (08:37)
[2024-06-05] MEDS: acetaminophen 325 mg Tablet 650 MG PO (08:37)
[2024-06-05 08:48] LABS: Alanine Aminotransferase 18 U/L (0-33); Albumin Level 4.2 g/dL (3.5-5.2); Alkaline Phosphatase 80 U/L (35-105); Aspartate Amino Transferase 18 U/L (0-32); Globulin 2.7 g/dL (1.3-4.6); Total Bilirubin 0.2 mg/dL (0.15-1.2); Total Protein 6.9 g/dL (6.6-8.7)
[2024-06-05 08:49] LABS: Erythrocyte Sedimentation Rate 3 mm/hr (0-15)
[2024-06-05] MEDS: infliximab-abda 400 MG in sodium chloride 0.9% 250 ML 10 MG IV (09:14)
== END 2024-07-03 23:59 | disposition home or self-care (01) ==
PROVIDERS: PCP Family Medicine; Visit Provider Internal Medicine Rheumatology
DX: M06.042 Rheumatoid arthritis without rheumatoid factor, left hand; Z79.899 Other long term (current) drug therapy; Z71.89 Other specified counseling; M06.041 Rheumatoid arthritis without rheumatoid factor, right hand; J44.9 Chronic obstructive pulmonary disease, unspecified; M79.7 Fibromyalgia
CPT/HCPCS: 20600; 80076; 82565; 85025; 85651; 86140; 96375; 96413; 96415; 99214; J1010; J1200; J2919; J7050; Q5104

== ENCOUNTER 2024-07-06 16:45 | Emergency (ER) | payer MEDICARE, OTHER, SELFPAY ==
--- NOTE | 2024-07-06 16:48 | XRR_ITS ---
PROCEDURE INFORMATION: Exam: XR Chest Exam date and time: 07/06/2024 5:03 PM Age: 74 years old Clinical indication: Pain; Chest pressure; Additional info: Chest pain TECHNIQUE: Imaging protocol: Radiologic exam of the chest. Views: 1 view. COMPARISON: CR XR chest 1V portable [id number] 05/11/2022 7:11 AM FINDINGS: Lungs: Right lung chronic appearing volume loss with interstitial fibrosis and pleural thickening. Pleural spaces: See Lungs finding. Heart/Mediastinum: calcified mediastinal and right hilar lymph nodes appear chronic and benign. Vasculature: Aortic atherosclerotic calcifications. Bones/joints: Unremarkable. XR/XR chest 1V portable [id number] IMPRESSION: 1. Right lung chronic appearing volume loss with interstitial fibrosis and pleural thickening. 2. Calcified mediastinal and right hilar lymph nodes appear chronic and benign. 3. Aortic atherosclerotic calcifications.
--- NOTE | 2024-07-06 16:53 | ED_ITS ---
HPI - Chest Pain 2 General: Chief Complaint: Chest Pain Stated Complaint: chest pain Time Seen by Provider: 07/06/24 16:47 History of Present Illness: 74-year-old female with a history of chr onic pain syndrome on oxycodone, hypertension, hyperlipidemia, chronic hypoxemic respiratory failure on 2 L nasal cannula at all time, lung cancer in remission, and she says she had a heart attack in the past remotely but did not have any stents at the time who presents the emergency room by ambulance with chest pain. Says it came on suddenly. She took some aspirin and had a nitro in the ambulance. Patient has a history of lung cancer. She has chronic hypoxemic respiratory failure and is on 2 L nasal cannula at all times. Related Data Home Medications Medication Instructions Recorded Confirmed ascorbic acid (vitamin C) 1,000 mg 1,000 mg PO DAILY 07/11/19 06/05/24 tablet cyanocobalamin (vitamin B-12) 2,500 mcg PO DAILY 07/11/19 06/05/24 2,500 mcg tablet ferrous sulfate 324 mg (65 mg 324 mg PO DAILY 07/11/19 06/05/24 iron) tablet,delayed release oxygen-air delivery systems ##1 11/14/19 06/05/24 mammpuwiwj-abhdpkzfsoxbg-vbccqepi 1 tab PO Q4H PRN migraine 10/21/20 06/05/24 50 mg-325 mg-40 mg tablet cholecalciferol (vitamin D3) 250 250 mcg PO DAILY 01/07/21 06/05/24 mcg (10,000 unit) capsule montelukast 10 mg tablet 10 mg PO DAILY 01/25/22 06/05/24 methocarbamol 500 mg tablet 750 mg PO TID PRN muscle pain 11/25/22 06/05/24 oxycodone 5 mg capsule 5 mg PO Q6H PRN 07/14/23 06/05/24 acyclovir 800 mg tablet 400 mg PO DAILY 08/25/23 06/05/24 levothyroxine 300 mcg tablet 300 mcg PO DAILY 05/17/24 06/05/24 oxycodone 10 mg tablet 10 mg PO BID PRN 05/17/24 06/05/24 trazodone 300 mg tablet 300 mg PO BEDTIME 05/17/24 06/05/24 Previous Rx's Medication Instructions Recorded metoprolol tartrate 25 mg tablet .5 mg (1/2 x 25 mg) PO BID #90 04/06/22 tabs fluticasone 500 mcg-salmeterol 50 1 inh inhalation BID #60 ea 05/11/22 mcg/dose blistr powdr for inhalation (Advair Diskus) simvastatin 80 mg tablet 40 mg (1/2 x 80 mg) PO BEDTIME #90 02/16/23 tabs apixaban 5 mg tablet (Eliquis) 5 mg PO BID #180 tabs 09/05/23 donepezil 10 mg tablet See Rx Instructions .Route 05/17/24 .COMPLEX #90 tabs duloxetine 60 mg capsule,delayed See Rx Instructions .Route BID 90 05/17/24 release days #180 caps eszopiclone 3 mg tablet (Lunesta) 3 mg PO BEDTIME PRN insomnia #30 05/17/24 tabs lamotrigine 200 mg tablet See Rx Instructions .Route 05/17/24 .COMPLEX #180 tabs lorazepam 1 mg tablet 1 - 2 mg (1 - 2 x 1 mg) PO BID PRN 05/17/24 anxiety and insomnia 30 days #90 tabs memantine 28 mg capsule See Rx Instructions .Route 05/17/24 sprinkle,extended release 24hr .COMPLEX #90 caps prazosin 1 mg capsule 1 mg PO .at bedtime PRN nightmares 05/17/24 #90 caps celecoxib 200 mg capsule (Celebrex) 200 mg PO BID #180 caps 06/05/24 omeprazole 40 mg capsule,delayed 40 mg PO DAILY #90 caps 06/05/24 release prednisone 5 mg tablet 5 mg PO DAILY joint pain #90 tabs 06/05/24 sulfasalazine 500 mg tablet See Rx Instructions .Route 06/05/24 .COMPLEX #360 tabs pregabalin 150 mg capsule (Lyrica) 150 mg PO BID #180 caps 06/07/24 digoxin 125 mcg (0.125 mg) tablet 0.125 mcg (0.001 x 125 mcg (0.125 07/02/24 mg)) PO DIRECTED #120 tabs Allergies Allergy/AdvReac Type Severity Reaction Status Date / Time diclofenac Allergy Intermediate eyes Verified 06/05/24 13:52 swollen and brain fog Tetanus Vaccines and Toxoid AdvReac Severe FEVER,MITRAL Verified 06/05/24 13:52 VALVE PROLAPSE zaleplon AdvReac nightmares Verified 06/05/24 13:52 Review of Systems 2 Narrative: Constitutional symptoms: Negative except as documented in HPI. Skin symptoms: Negative except as documented in HPI. Eye symptoms: Negative except as documented in HPI. ENMT symptoms: Negative except as documented in HPI. Respiratory symptoms: Negative except as documented in HPI. Cardiovascular symptoms: Negative except as documented in HPI. Gastrointestinal symptoms: Negative except as documented in HPI. Genitourinary symptoms: Negative except as documented in HPI. Musculoskeletal symptoms: Negative except as documented in HPI. Neurologic symptoms: Negative except as documented in HPI. Psychiatric symptoms: Negative except as documented in HPI. Endocrine symptoms: Negative except as documented in HPI. 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, status post right middle and upper lobectomy in April 2008, -treated with adjuvant chemotherapy, four cycles of carboplatin and Taxol completed in August 2008 High risk medication use Encounter for immunization Seronegative rheumatoid arthritis of both hands Near syncope Dementia in other diseases classified elsewhere without behavioral disturbance Bipolar 2 disorder Pulmonary fibrosis COPD (chronic obstructive pulmonary disease) Osteoarthritis of knees, bilateral Greater trochanteric bursitis of both hips Inflammatory arthritis Atrial fibrillation Hyperlipemia Valvular heart disease Mitral valve disease Arrhythmia Hypertension Peripheral neuropathy Fibromyalgia Surgical History History of lung surgery H/O: hysterectomy H/O breast biopsy Family History Mother CAD (coronary artery disease) Cancer Stroke Sister Diabetes Father Lung disease Denies family history of Clotting disorder Dementia Chronic kidney disease (CKD) Suicide Anesthesia complication Bleeding disorder Social History (Updated 06/05/24 @ 13:54 by Lisa Sheridan LPN) Smoking and tobacco/nicotine status: former use of tobacco/nicotine Quit status (tobacco/nicotine): has quit using Year quit tobacco: 2003 Alcohol intake: never Substance/Drug Use: never Physical Exam 2 Narrative: EXAM NARRATIVE: General: Alert, no acute distress. Skin: Warm, dry. Head: Normocephalic, atraumatic. Neck: Supple, trachea midline. Eye: Extraocular movements are intact. Ears, nose, mouth and throat: mucosa moist. Cardiovascular: Regular, Normal peripheral perfusion. Respiratory: Lungs are clear to auscultation, respirations are non-labored, breath sounds are equal, Symmetrical chest wall expansion. Gastrointestinal: Soft, Nontender, Non distended Musculoskeletal: Normal ROM, no deformity. Neurological: Alert and oriented, No focal neurological deficit observed. Psychiatric: Cooperative, appropriate mood & affect. Course 2 Vital Signs: Vital signs: Vital Signs Temperature 98.1 F 07/06/24 16:54 Pulse Rate 67 07/06/24 19:19 Respiratory Rate 18 07/06/24 19:19 Blood Pressure 143/87 07/06/24 19:19 Pulse Oximetry 97 07/06/24 19:19 Oxygen Delivery Me thod Nasal Cannula 07/06/24 19:19 Oxygen Flow Rate 2 07/06/24 19:19 MDM - Chest Pain Medical Decision Making Differential diagnosis for patient with chest pain includes but is not limited to and based on the above HPI, review of systems and physical exam: Pneumonia. unstable angina. angina. Acute coronary syndrome / [place]. Pulmonary embolism. Costochondritis / musculoskeletal. Pleurisy. Pericarditis. Esophageal spasm. Pancreatis. Cholecystitis. Orders placed to evaluate differential diagnosis based on the above differential, HPI and physical exam EKG: Time 1655. Rate 74. Normal sinus rhythm, nonspecific T wave abnormalities, no ectopy, first degree AV Block, EP Interpretation. This was reviewed and interpreted by myself the ER physician at 1700. Repeat EKG: Time 1815. Rate 67. Normal sinus rhythm, No ST-T changes, no ectopy, first degree AV Block, EP Interpretation. This was reviewed and interpreted by myself the ER physician at 1820. No significant changes from from EKG done previously today in the emergency room. Serial cardiac markers are negative. Lab Review: Laboratory results were reviewed and interpreted by myself the emergency room physician. No leukocytosis. No anemia. No renal failure. Initial troponin is less than 6. Liver enzymes are normal. Chest x-ray: Right lung with chronic volume loss and interstitial fibrosis. She has a history of lung cancer. No changes from previous. This was reviewed and interpreted by myself the emergency room physician. I also reviewed the radiology report. I reviewed the patient's medical record. Patient is on Eliquis. She is not hypoxemic outside of her home usual oxygen requirements and she is not tachycardic. She will most definitely does not have a pulmonary embolism. Reexamination: Patient remained stable. No increased work of breathing. No altered mental status. No focal motor deficits. Cussed findings with patient. She is comfortable going home. Pain is intermittent and has resolved spontaneously. Assessment and plan: Noncardiac chest pain - Discharged home - Discussed plan with patient. Answered any questions. - Evaluation and treatment of this problem were appropriate in the emergency setting. Lab Data 07/06/24 16:30 07/06/24 16:30 Radiology Impressions Chest X-Ray 07/06/24 16:48 IMPRESSION: 1. Right lung chronic appearing volume loss with interstitial fibrosis and pleural thickening. 2. Calcified mediastinal and right hilar lymph nodes appear chronic and benign. 3. Aortic atherosclerotic calcifications. Laboratory Results WBC 8.25 10^3/uL (3.29-11.43) 07/06/24 16:30 RBC 4.03 10^6/uL (3.85-5.65) 07/06/24 16:30 Hgb 12.80 g/dL (11.27-16.99) 07/06/24 16:30 Hct 40.6 % (36-47) 07/06/24 16:30 MCV 100.7 fl (85-98) H 07/06/24 16:30 MCH 31.8 pg (27-33) 07/06/24 16:30 MCHC 31.5 g/dL (30-55) 07/06/24 16:30 RDW 13.3 % (12.1-15.1) 07/06/24 16:30 Plt Count 196 10^3/cmm (157-399) 07/06/24 16:30 MPV 11.2 fL (7.4-10.4) H 07/06/24 16:30 Neut % (Auto) 76.5 % 07/06/24 16:30 Lymph % (Auto) 16.7 % 07/06/24 16:30 [place] % (Auto) 5.9 % 07/06/24 16:30 Eos % (Auto) 0.2 % 07/06/24 16:30 Baso % (Auto) 0.2 % 07/06/24 16:30 Neut # (Auto) 6.30 10^3/uL (1.8-7.7) 07/06/24 16:30 Lymph # (Auto) 1.4 10^3/uL (0.8-4.8) 07/06/24 16:30 [place] # (Auto) 0.5 10^3/uL (0.2-0.9) 07/06/24 16:30 Eos # (Auto) 0.0 10^3/uL (0.0-0.8) 07/06/24 16:30 Baso # (Auto) 0.0 10^3/uL (0.0-0.1) 07/06/24 16:30 Nucleated RBC % (auto) 0 % 07/06/24 16:30 Nucleated RBCs # 0.0 /100WBC 07/06/24 16:30 Sodium 141 mmol/L (136-145) 07/06/24 16:30 Potassium 5.2 mmol/L (3.5-5.1) H 07/06/24 16:30 Chloride 101 mmol/L (98-107) 07/06/24 16:30 Carbon Dioxide 29 mmol/L (22-29) 07/06/24 16:30 Anion Gap 16.2 (5-19) 07/06/24 16:30 BUN 19 mg/dL (8-23) 07/06/24 16:30 Creatinine 0.6 mg/dL (0.5-0.9) 07/06/24 16:30 GFR Calculation Not Reportable 07/06/24 16:30 Glucose 104 mg/dL (65-115) 07/06/24 16:30 Calculated Osmolality 295 mOsm/kg (285-295) 07/06/24 16:30 Calcium 9.7 mg/dL (8.5-10.5) 07/06/24 16:30 Total Bilirubin 0.3 mg/dL (0.15-1.2) 07/06/24 16:30 AST 24 U/L (0-32) 07/06/24 16:30 ALT 21 U/L (0-33) 07/06/24 16:30 Alkaline Phosphatase 76 U/L (35-105) 07/06/24 16:30 Troponin T Baseline < 6 ng/L (0-10) 07/06/24 16:30 Troponin T 120 Minute 6.00 ng/L (0-10) 07/06/24 18:50 Delta Troponin T 0.33586 ABS# (0-10) 07/06/24 18:50 NT-Pro-B Natriuret Pep 165 pg/mL (0-125) H 07/06/24 16:30 Total Protein 7.2 g/dL (6.6-8.7) 07/06/24 16:30 Albumin 4.3 g/dL (3.5-5.2) 07/06/24 16:30 Globulin 2.9 g/dL (1.3-4.6) 07/06/24 16:30 All radiology interpretation(s) finalized by discharge Discharge Plan Discharge Patient Disposition: Home Clinical Impression: Non-cardiac chest pain Condition: Stable Prescriptions: No Action cyanocobalamin (vitamin B-12) 2,500 mcg tablet 2,500 mcg PO DAILY ferrous sulfate 324 mg (65 mg iron) tablet,delayed release (DR/EC) 324 mg PO DAILY ascorbic acid (vitamin C) 1,000 mg tablet 1,000 mg PO DAILY (DME) oxygen-air delivery systems Device See Rx Instructions .ROUTE .MEDSUPPLY Qty: 1 Rx Instructions: As directed 3 liters montelukast 10 mg tablet 10 mg PO DAILY methocarbamol 500 mg tablet 750 mg PO TID PRN (Reason: muscle pain) qpqnwuvtqi-mfbqrbuuzqzio-scnx 50-325-40 mg tablet 1 tab PO Q4H PRN (Reason: migraine) cholecalciferol (vitamin D3) 250 mcg (10,000 unit) capsule 250 mcg PO DAILY oxycodone 5 mg capsule 5 mg PO Q6H PRN celecoxib [Celebrex] 200 mg capsule 200 mg PO BID Qty: 180 1RF omeprazole 40 mg capsule,delayed release(DR/EC) 40 mg PO DAILY Qty: 90 1RF prednisone 5 mg tablet 5 mg PO DAILY Qty: 90 1RF sulfasalazine 500 mg tablet See Rx Instructions .ROUTE .COMPLEX Qty: 360 1RF Dose Instruction: TAKE 2 TABLETS BY MOUTH TWICE DAILY Rx Instructions: TAKE 2 TABLETS BY MOUTH TWICE DAILY acyclovir 800 mg tablet 400 mg PO DAILY levothyroxine 300 mcg tablet 300 mcg PO DAILY oxycodone 10 mg tablet 10 mg PO BID PRN trazodone 300 mg tablet 300 mg PO BEDTIME donepezil 10 mg tablet See Rx Instructions .ROUTE .COMPLEX Qty: 90 1RF Dose Instruction: TAKE 1 TABLET BY MOUTH DAILY AT BEDTIME Rx Instructions: TAKE 1 TABLET BY MOUTH DAILY AT BEDTIME duloxetine 60 mg capsule,delayed release(DR/EC) See Rx Instructions .ROUTE BID 90 Days Qty: 180 1RF Dose Instruction: TAKE 1 CAPSULE BY MOUTH EVERY MORNING Rx Instructions: TAKE 1 CAPSULE BY MOUTH EVERY MORNING twice a day; eszopiclone [Lunesta] 3 mg tablet 3 mg PO BEDTIME PRN (Reason: insomnia) Qty: 30 5RF lamotrigine 200 mg tablet See Rx Instructions .ROUTE .COMPLEX Qty: 180 1RF Dose Instruction: TAKE 1 TABLET BY MOUTH TWICE DAILY Rx Instructions: TAKE 1 TABLET BY MOUTH TWICE DAILY lorazepam 1 mg tablet 1 - 2 mg PO BID PRN (Reason: anxiety and insomnia) 30 Days Qty: 90 5RF memantine 28 mg capsule,sprinkle,ER 24hr See Rx Instructions .ROUTE .COMPLEX Qty: 90 1RF Dose Instruction: TAKE 1 CAPSULE BY MOUTH DAILY Rx Instructions: TAKE 1 CAPSULE BY MOUTH DAILY prazosin 1 mg capsule 1 mg PO .at bedtime PRN (Reason: nightmares) Qty: 90 1RF metoprolol tartrate 25 mg tablet 12.5 mg PO BID Qty: 90 3RF simvastatin 80 mg tablet 40 mg PO BEDTIME Qty: 90 3RF Eliquis 5 mg tablet 5 mg PO BID Qty: 180 3RF pregabalin [Lyrica] 150 mg capsule 150 mg PO BID Qty: 180 1RF Hold Instructions: Doctor's Order digoxin 125 mcg (0.125 mg) tablet 0.125 mcg PO DIRECTED Qty: 120 3RF Rx Instructions: Take 2 tabs daily on Mon, Wed, Fri; take 1 tab daily all other days Advair Diskus 500-50 mcg/dose blister with device 1 inh inhalation BID Qty: 60 0RF Discharge Orders: Discharge ED (Routine); Ordered 07/06/24 Ordered By: Maria Del Rosario Mane Referrals: Willie Mahmood [Primary Care Provider] - Discharge Diet: Usual diet Discharge Activity: Increase activity as tolerated Patient Instructions: Noncardiac Chest Pain (ED), Opioid Safety, Pain Management Activity Restrictions/Additional Instructions: Thank you for choosing [facility] for your healthcare needs today. Please realize this is an emergency room and that we are providing you with a medical screening exam and this may not be complete and all inclusive of all the testing and or work up that you may need to determine your ailment or severity of your illness. You have been screened and evaluated and felt safe for discharge. Health conditions do change or evolve sometimes and as such it is important that you follow up with your Primary Doctor to be re checked, 3-5 days is a general good time frame for follow up. You are always welcome to return to the ED for re assessment if your symptoms are worsening or you have new concerns Coding Level of Care Code ED Airport Operations Manager for Sofy Meng
[2024-07-06 16:54] VITALS: BP 178/96; PULSE 74; RESP 18; TEMP 36.7; BMI 24.6
--- NOTE | 2024-07-06 16:55 | ECG_ITS ---
[facility] Test Date: 2024-07-06 Pat Name: Zoya Cunningham Department: Room: Gender: Female Child Protective Services Specialist: : 1950 Requested By: Maria Del Rosario Carranza Order Number: [id number] Manisha MD: Jericho Steel M.D. Measurements Intervals [place] Rate: 74 P: 58 WV: 218 QRS: 41 QRSD: 101 T: 48 QT: 363 QTc: 404 Interpretive Statements SINUS RHYTHM WITH FIRST DEGREE AV BLOCK NONSPECIFIC T-WAVE ABNORMALITY Compared to ECG 05/11/2022 05:50:19 First degree AV block now present Sinus tachycardia no longer present Ventricular premature complex(es) no longer present T-wave abnormality still present Electronically Signed On 07-06-2024 21:33:50 SALES CLERK FOOD by Jericho Steel M.D. [email or web address]
[2024-07-06 17:10] LABS: Basophils % 0.2 %; Eosinophils % 0.2 %; Hematocrit 40.6 % (36-47); Lymphocytes # 1.4 10^3/uL (0.8-4.8); Lymphocytes % 16.7 %; Mean Corpuscular HGB Conc 31.5 g/dL (30-55); Mean Corpuscular Hemoglobin 31.8 pg (27-33); Mean Corpuscular Volume 100.7 fl (85-98); Mean Platelet Volume 11.2 fL (7.4-10.4); Monocytes # 0.5 10^3/uL (0.2-0.9); Monocytes % 5.9 %; Neutrophils % 76.5 %; Nucleated Red Blood Cells % 0 %; Platelet Count 196 10^3/cmm (157-399); Red Blood Count 4.03 10^6/uL (3.85-5.65); Red Cell Distribution Width 13.3 % (12.1-15.1); White Blood Count 8.25 10^3/uL (3.29-11.43)
[2024-07-06 17:50] LABS: Alanine Aminotransferase 21 U/L (0-33); Albumin Level 4.3 g/dL (3.5-5.2); Alkaline Phosphatase 76 U/L (35-105); Blood Urea Nitrogen 19 mg/dL (8-23); Calcium 9.7 mg/dL (8.5-10.5); Carbon Dioxide 29 mmol/L (22-29); Chloride 101 mmol/L (98-107); Creatinine Clr Calc Pharmacy 66.9685; Globulin 2.9 g/dL (1.3-4.6); Glucose 104 mg/dL (65-115); NT Pro B Type Natriuretic Pept 165 pg/mL (0-125); Osmolality Calculated 295 mOsm/kg (285-295); Sodium 141 mmol/L (136-145); Total Bilirubin 0.3 mg/dL (0.15-1.2); Total Protein 7.2 g/dL (6.6-8.7)
[2024-07-06 17:51] LABS: Troponin(5th) Baseline < 6 ng/L (0-10)
[2024-07-06 18:03] VITALS: BP 165/91; PULSE 80; RESP 16; O2SAT 96
[2024-07-06 18:09] LABS: Anion Gap 16.2 (5-19); Aspartate Amino Transferase 24 U/L (0-32); Potassium 5.2 mmol/L (3.5-5.1)
--- NOTE | 2024-07-06 18:48 | ECG_ITS ---
[employer] [employer] Test Date: 2024-07-06 Pat Name: Zoya Cunningham Department: Room: Gender: Female Crib Clerk: : 1950 Requested By: Maria Del Rosario Carranza Order Number: [id number] Manisha MD: Jericho Steel M.D. Measurements Intervals [place] Rate: 67 P: 58 PA: 212 QRS: 43 QRSD: 97 T: 42 QT: 373 QTc: 394 Interpretive Statements SINUS RHYTHM WITH FIRST DEGREE AV BLOCK NONSPECIFIC T-WAVE ABNORMALITY Compared to ECG 07/06/2024 16:55:45 No significant changes Electronically Signed On 07-06-2024 21:53:21 COCOA MILLING MACHINE OPERATOR by Jericho Steel M.D. [email or web address]
[2024-07-06 19:19] VITALS: BP 143/87; PULSE 67; RESP 18; O2SAT 97
[2024-07-06 19:37] LABS: Troponin 5 2HR Delta 0.00001 ABS# (0-10)
[2024-07-06 20:12] VITALS: BP 155/82; PULSE 71; RESP 16; O2SAT 95
== END 2024-07-06 20:20 | disposition home or self-care (01) ==
PROVIDERS: Emergency Provider Emergency Medicine; PCP Family Medicine
DX: R07.89 Other chest pain (principal); Z79.01 Long term (current) use of anticoagulants; Z87.891 Personal history of nicotine dependence; Z85.118 Personal history of other malignant neoplasm of bronchus and lung; Z92.21 Personal history of antineoplastic chemotherapy; J44.9 Chronic obstructive pulmonary disease, unspecified; I10 Essential (primary) hypertension; E78.5 Hyperlipidemia, unspecified
CPT/HCPCS: 36415; 71045; 80053; 83880; 84484; 85025; 93005; 99285

== ENCOUNTER 2024-07-17 07:34 | Oncology outpatient (recurring) (ONCR) | payer MEDICARE, OTHER, SELFPAY ==
[2024-07-17] MEDS: acetaminophen 325 mg Tablet 650 MG PO (08:44)
[2024-07-17] MEDS: methylPREDNISolone sod succ 40 mg/mL INJ IVP (08:44)
[2024-07-17] MEDS: sodium chloride 0.9% 250 ML 50 ML IV (08:45)
[2024-07-17] MEDS: diphenhydrAMINE 50 mg/mL SDV 1mL 25 MG IVP (08:48)
[2024-07-17] MEDS: infliximab-abda 400 MG in sodium chloride 0.9% 250 ML 300 MG IV (09:08)
[2024-07-17 10:28] VITALS: BP 157/89; PULSE 82; RESP 16; TEMP 36.5; O2SAT 97
== END 2024-08-03 23:59 | disposition home or self-care (01) ==
PROVIDERS: PCP Family Medicine; Visit Provider Internal Medicine Rheumatology
DX: M06.042 Rheumatoid arthritis without rheumatoid factor, left hand (principal); M06.041 Rheumatoid arthritis without rheumatoid factor, right hand; Z79.620 Long term (current) use of immunosuppressive biologic
CPT/HCPCS: 96375; 96413; A4222; J1200; J2919; J7050; Q5104

== ENCOUNTER → 2024-07-18 09:37 | Outpatient (BNVA) | payer MEDICARE, OTHER, SELFPAY | PROVIDERS: PCP Family Medicine; Visit Provider Nurse Practitioner Family | DX: I48.21 Permanent atrial fibrillation (principal); I35.0 Nonrheumatic aortic (valve) stenosis; I10 Essential (primary) hypertension; E78.2 Mixed hyperlipidemia; R07.9 Chest pain, unspecified; Z87.891 Personal history of nicotine dependence; Z79.01 Long term (current) use of anticoagulants | CPT/HCPCS: 99214 ==

== ENCOUNTER 2024-07-29 12:48 | Inpatient (IN) | payer MEDICARE, OTHER, SELFPAY ==
[2024-07-29] VITALS (8 sets, daily range): BP systolic 113–137; BP diastolic 73–84; PULSE 89–99; RESP 16–24; TEMP 36.8; O2SAT 91–99; BMI 24.7
--- NOTE | 2024-07-29 15:23 | USR_ITS ---
PROCEDURE INFORMATION: Exam: US Abdomen, Limited; Right Upper Quadrant Exam date and time: 07/29/2024 5:03 PM Age: 74 years old Clinical indication: Abdominal pain; Generalized; Additional info: Ruq abd pain; N/v TECHNIQUE: Imaging protocol: Real time ultrasound of the abdomen with image documentation. Limited exam focused on the right upper quadrant. COMPARISON: CT chest wo con [id number] 05/09/2020 9:48 AM FINDINGS: Liver: Normal. No masses. Gallbladder: Normal. No gallstones. There is no gallbladder wall thickening. Biliary ducts: Common bile duct measures 1.2 cm. Pancreas: Visualized pancreas is unremarkable. Right kidney: Mild renal atrophy measuring 9.1 x 4.3 x 4.4 cm with mild hyperechoic parenchyma. No mass. No hydronephrosis. US/US gall bladder [id number] IMPRESSION: 1. Prominent common bile duct measuring 1.2 cm stable from 2019. 2. Mild renal atrophy with medical renal disease.
[2024-07-29 15:48] LABS: Basophils % 0.1 %; Eosinophils % 0.3 %; Hematocrit 45.4 % (36-47); Lymphocytes # 0.5 10^3/uL (0.8-4.8); Lymphocytes % 3.7 %; Mean Corpuscular HGB Conc 31.5 g/dL (30-55); Mean Corpuscular Hemoglobin 33.2 pg (27-33); Mean Corpuscular Volume 105.3 fl (85-98); Mean Platelet Volume 10.2 fL (7.4-10.4); Monocytes # 1.1 10^3/uL (0.2-0.9); Monocytes % 7.6 %; Neutrophils # 12.29 10^3/uL (1.8-7.7); Neutrophils % 87.9 %; Nucleated Red Blood Cells % 0 %; Platelet Count 207 10^3/cmm (157-399); Red Blood Count 4.31 10^6/uL (3.85-5.65); Red Cell Distribution Width 14.1 % (12.1-15.1); White Blood Count 13.99 10^3/uL (3.29-11.43)
[2024-07-29 16:11] LABS: Alanine Aminotransferase 22 U/L (0-33); Albumin Level 4.2 g/dL (3.5-5.2); Alkaline Phosphatase 75 U/L (35-105); Anion Gap 14.1 (5-19); Aspartate Amino Transferase 17 U/L (0-32); Blood Urea Nitrogen 24 mg/dL (8-23); Calcium 8.9 mg/dL (8.5-10.5); Carbon Dioxide 27 mmol/L (22-29); Chloride 102 mmol/L (98-107); Globulin 2.7 g/dL (1.3-4.6); Glucose 118 mg/dL (65-115); Lipase 36 U/L (13-60); Osmolality Calculated 293 mOsm/kg (285-295); Potassium 4.1 mmol/L (3.5-5.1); Sodium 139 mmol/L (136-145); Total Bilirubin 0.4 mg/dL (0.15-1.2); Total Protein 6.9 g/dL (6.6-8.7)
[2024-07-29 19:02] LABS: Bilirubin Urine 1+ (Negative); Blood Urine Negative (Negative); Glucose Urine UA Negative (Normal); Ketones Urine Trace (Negative); Leukocyte Esterase Urine Trace (Negative); Nitrate Urine Negative (Negative); Protein Urine 1+ (Negative); Urine Appearance Cloudy (CLEAR); Urine Color Dark Yellow (Yellow); pH Urine 5.5 (5-7)
[2024-07-29 19:06] LABS: Add Urine Microscopic? YES; Hyaline Casts Urine 2.87 /lpf; Squamous Epithelial Cell Urine 0-5 /hpf (0-5); WBC Urine 0-5 /hpf (0-5)
--- NOTE | 2024-07-29 19:14 | W.ED.ABDPA2 ---
HPI - Abdominal Pain General: Chief Complaint: ER Hold Stated Complaint: v,d, lower abd pain Time Seen by Provider: 07/29/24 18:57 History of Present Illness: 74-year-old female with a history of epigastric pain, vomiting and diarrhea that started at midnight last night. She has not had anything to eat or drink. She feels dry. She has had pain on and off. No blood in the stool or vomitus. No fever. She was here couple of weeks ago with chest discomfort, had some tests, and believes her gallbladder might be the issue. Related Data Home Medications Medication Instructions Recorded Confirmed ascorbic acid (vitamin C) 1,000 mg 1,000 mg PO DAILY 07/11/19 07/18/24 tablet cyanocobalamin (vitamin B-12) 2,500 mcg PO DAILY 07/11/19 07/18/24 2,500 mcg tablet ferrous sulfate 324 mg (65 mg 324 mg PO DAILY 07/11/19 07/18/24 iron) tablet,delayed release oxygen-air delivery systems ##1 11/14/19 07/18/24 umdetyzaxf-srmrlvmnptioa-ybutqkty 1 tab PO Q4H PRN migraine 10/21/20 07/18/24 50 mg-325 mg-40 mg tablet cholecalciferol (vitamin D3) 250 250 mcg PO DAILY 01/07/21 07/18/24 mcg (10,000 unit) capsule montelukast 10 mg tablet 10 mg PO DAILY 01/25/22 07/18/24 methocarbamol 500 mg tablet 750 mg PO TID PRN muscle pain 11/25/22 07/18/24 oxycodone 5 mg capsule 5 mg PO Q6H PRN 07/14/23 07/18/24 acyclovir 800 mg tablet 400 mg PO DAILY 08/25/23 07/18/24 levothyroxine 300 mcg tablet 300 mcg PO DAILY 05/17/24 07/18/24 oxycodone 10 mg tablet 10 mg PO BID PRN 05/17/24 07/18/24 trazodone 300 mg tablet 300 mg PO BEDTIME 05/17/24 07/18/24 Previous Rx's Medication Instructions Recorded metoprolol tartrate 25 mg tablet 12.5 mg (1/2 x 25 mg) PO BID #90 04/06/22 tabs fluticasone 500 mcg-salmeterol 50 1 inh inhalation BID #60 ea 05/11/22 mcg/dose blistr powdr for inhalation (Advair Diskus) simvastatin 80 mg tablet 40 mg (1/2 x 80 mg) PO BEDTIME #90 02/16/23 tabs apixaban 5 mg tablet (Eliquis) 5 mg PO BID #180 tabs 09/05/23 donepezil 10 mg tablet See Rx Instructions .Route 05/17/24 .COMPLEX #90 tabs duloxetine 60 mg capsule,delayed See Rx Instructions .Route BID 90 05/17/24 release days #180 caps eszopiclone 3 mg tablet (Lunesta) 3 mg PO BEDTIME PRN insomnia #30 05/17/24 tabs lamotrigine 200 mg tablet See Rx Instructions .Route 05/17/24 .COMPLEX #180 tabs lorazepam 1 mg tablet 1 - 2 mg (1 - 2 x 1 mg) PO BID PRN 05/17/24 anxiety and insomnia 30 days #90 tabs memantine 28 mg capsule See Rx Instructions .Route 05/17/24 sprinkle,extended release 24hr .COMPLEX #90 caps prazosin 1 mg capsule 1 mg PO .at bedtime PRN nightmares 05/17/24 #90 caps celecoxib 200 mg capsule (Celebrex) 200 mg PO BID #180 caps 06/05/24 omeprazole 40 mg capsule,delayed 40 mg PO DAILY #90 caps 06/05/24 release prednisone 5 mg tablet 5 mg PO DAILY joint pain #90 tabs 06/05/24 sulfasalazine 500 mg tablet See Rx Instructions .Route 06/05/24 .COMPLEX #360 tabs pregabalin 150 mg capsule (Lyrica) 150 mg PO BID #180 caps 06/07/24 digoxin 125 mcg (0.125 mg) tablet 0.125 mcg (0.001 x 125 mcg (0.125 07/02/24 mg)) PO DIRECTED #120 tabs nitroglycerin 0.4 mg sublingual 0.4 mg sublingual Q5M PRN chest 07/18/24 tablet pain #20 tabs Allergies Allergy/AdvReac Type Severity Reaction Status Date / Time Tetanus Vaccines and Toxoid AdvReac Severe FEVER,MITRAL Verified 07/18/24 09:48 [facility] PFS: Medical History Chronic use of benzodiazepine for therapeutic purpose Fracture of fifth metatarsal bone of right foot Warfarin anticoagulation Psychiatric care Generalized anxiety disorder Insomnia Aortic valve stenosis COPD (chronic obstructive pulmonary disease) Chronic steroid use Immunization counseling Adenocarcinoma of right lung, 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, status post right middle and upper lobectomy in April 2008, -treated with adjuvant chemotherapy, four cycles of carboplatin and Taxol completed in August 2008 High risk medication use Encounter for immunization Seronegative rheumatoid arthritis of both hands Near syncope Dementia in other diseases classified elsewhere without behavioral disturbance Bipolar 2 disorder Pulmonary fibrosis COPD (chronic obstructive pulmonary disease) Osteoarthritis of knees, bilateral Greater trochanteric bursitis of both hips Inflammatory arthritis Atrial fibrillation Hyperlipemia Valvular heart disease Mitral valve disease Arrhythmia Hypertension Peripheral neuropathy Fibromyalgia Surgical History History of lung surgery H/O: hysterectomy H/O breast biopsy Family History Mother CAD (coronary artery disease) Cancer Stroke Sister Diabetes Father Lung disease Denies family history of Clotting disorder Dementia Chronic kidney disease (CKD) Suicide Anesthesia complication Bleeding disorder Social History (Updated 06/05/24 @ 13:54 by Lisa Sheridan LPN) Smoking and tobacco/nicotine status: former use of tobacco/nicotine Quit status (tobacco/nicotine): has quit using Year quit tobacco: 2003 Alcohol intake: never Substance/Drug Use: never Physical Exam Const: COMMON NORMALS: no acute distress GENERAL APPEARANCE: cooperative; not ill appearing and not frail appearing HENMT: COMMON NORMALS: normocephalic, atraumatic and Normal external nose present HEAD & SCALP: normocephalic and atraumatic FACE & SINUS: normal facial exam and face symmetric NOSE: Normal external nose present Eye: COMMON NORMALS: Equal, round and reactive pupils present and EOMs intact bilaterally PUPIL: Yes Equal, round and reactive pupils present Neck/C-Spine: GENERAL: Yes trachea midline Chest: CHEST: Yes Symmetrical chest wall rise Resp: COMMON NORMALS: normal respiratory effort, No retractions, No use of accessory muscles and clear to auscultation bilaterally AUSCULTATION: clear to auscultation bilaterally Cardio: COMMON NORMALS: regular rate and regular rhythm RATE: regular rate RHYTHM: regular rhythm GI: COMMON NORMALS: Normal to inspection, nondistended, normoactive bowel sounds present PALPATION: Yes Tenderness to palpation present (GI) (Epigastric) Extremity: COMMON NORMALS: no pedal edema Neuro: NATALIYA COMA SCALE: document GCS findings Nataliya coma scale eye opening: Spontaneous [place] coma scale verbal response: Orientated Nataliya coma scale motor response: Obey commands [place] coma scale total score: 15 SENSORY EXAM: Yes extremities (intact) Psych: COMMON NORMALS: speech normal SPEECH: Yes normal speech Skin: COMMON NORMALS: no rashes or lesions noted GENERAL SKIN EXAM: no rashes or lesions noted Course Vital Signs: Vital signs: Vital Signs Temperature 98.3 F 07/29/24 13:46 Pulse Rate 95 07/29/24 22:59 Respiratory Rate 24 H 07/29/24 22:59 Blood Pressure 131/73 07/29/24 22:59 Pulse Oximetry 91 07/29/24 22:59 Oxygen Delivery Me thod Nasal Cannula 07/29/24 21:04 Oxygen Flow Rate 2 07/29/24 22:59 MDM - Abdominal Pain Medical Decision Making Patient's vitals are stable. She is afebrile. She has no distinct right upper quadrant tenderness. Gallbladder ultrasound shows bile duct dilatation, but this is stable since 2019. There is no gallbladder wall thickening or signs of cholecystitis or ascending cholangitis otherwise. Her bilirubin is normal at 0.4. She does have a white blood cell count of 14. Her lipase is 36. KUB shows nonspecific distended small bowel. CT shows small bowel obstruction without evidence of significant transition point. Gallbladder was also enlarged, but does not appear to have cholecystitis by CT or ultrasound. Spoke with surgery. Recommendations are IV fluids, n.p.o., NG tube and conservative management for now. They will consult. Spoke with hospitalist for admission. She agrees. Lab Data 07/29/24 15:42 07/29/24 15:42 Labs/Radiology: Radiology Impressions Gallbladder Ultrasound 07/29/24 15:23 IMPRESSION: 1. Prominent common bile duct measuring 1.2 cm stable from 2019. 2. Mild renal atrophy with medical renal disease. KUB X-Ray 07/29/24 19:25 IMPRESSION: Nonspecific enlarged small bowel loop of the left central hemiabdomen. Findings may represent early small bowel obstruction in the appropriate clinical setting. Abdomen/Pelvis CT 07/29/24 20:02 IMPRESSION: Findings of small bowel obstruction without evidence of transition point. Query gallbladder hydrops. COMMENTS: Consistent with the [place]'s Incidental Findings Committee white paper (J Am R[employer] Radiol 2017): Any incidental adrenal lesion less than 1 cm is likely benign. No follow-up imaging is recommended for these lesions per consensus recommendations based on imaging criteria. Further lab evaluation could be pursued if warranted based on clinical findings. THIS REPORT CONTAINS FINDINGS THAT MAY BE CRITICAL TO PATIENT CARE. The findings were verbally communicated via telephone conference with RICHARD DWYER at 9:26 PM TRIPLE AIR VALVE TESTER on 07/29/2024. The findings were acknowledged and understood. Laboratory Results WBC 13.99 10^3/uL (3.29-11.43) H 07/29/24 15:42 RBC 4.31 10^6/uL (3.85-5.65) 07/29/24 15:42 Hgb 14.30 g/dL (11.27-16.99) 07/29/24 15:42 Hct 45.4 % (36-47) 07/29/24 15:42 MCV 105.3 fl (85-98) H 07/29/24 15:42 MCH 33.2 pg (27-33) H 07/29/24 15:42 MCHC 31.5 g/dL (30-55) 07/29/24 15:42 RDW 14.1 % (12.1-15.1) 07/29/24 15:42 Plt Count 207 10^3/cmm (157-399) 07/29/24 15:42 MPV 10.2 fL (7.4-10.4) 07/29/24 15:42 Neut % (Auto) 87.9 % 07/29/24 15:42 Lymph % (Auto) 3.7 % 07/29/24 15:42 [place] % (Auto) 7.6 % 07/29/24 15:42 Eos % (Auto) 0.3 % 07/29/24 15:42 Baso % (Auto) 0.1 % 07/29/24 15:42 Neut # (Auto) 12.29 10^3/uL (1.8-7.7) H 07/29/24 15:42 Lymph # (Auto) 0.5 10^3/uL (0.8-4.8) L 07/29/24 15:42 [place] # (Auto) 1.1 10^3/uL (0.2-0.9) H 07/29/24 15:42 Eos # (Auto) 0.0 10^3/uL (0.0-0.8) 07/29/24 15:42 Baso # (Auto) 0.0 10^3/uL (0.0-0.1) 07/29/24 15:42 Nucleated RBC % (auto) 0 % 07/29/24 15:42 Nucleated RBCs # 0.0 /100WBC 07/29/24 15:42 Sodium 139 mmol/L (136-145) 07/29/24 15:42 Potassium 4.1 mmol/L (3.5-5.1) 07/29/24 15:42 Chloride 102 mmol/L (98-107) 07/29/24 15:42 Carbon Dioxide 27 mmol/L (22-29) 07/29/24 15:42 Anion Gap 14.1 (5-19) 07/29/24 15:42 BUN 24 mg/dL (8-23) H 07/29/24 15:42 Creatinine 0.5 mg/dL (0.5-0.9) 07/29/24 15:42 GFR Calculation Not Reportable 07/29/24 15:42 Glucose 118 mg/dL (65-115) H 07/29/24 15:42 Calculated Osmolality 293 mOsm/kg (285-295) 07/29/24 15:42 Calcium 8.9 mg/dL (8.5-10.5) 07/29/24 15:42 Total Bilirubin 0.4 mg/dL (0.15-1.2) 07/29/24 15:42 AST 17 U/L (0-32) 07/29/24 15:42 ALT 22 U/L (0-33) 07/29/24 15:42 Alkaline Phosphatase 75 U/L (35-105) 07/29/24 15:42 Total Protein 6.9 g/dL (6.6-8.7) 07/29/24 15:42 Albumin 4.2 g/dL (3.5-5.2) 07/29/24 15:42 Globulin 2.7 g/dL (1.3-4.6) 07/29/24 15:42 Lipase 36 U/L (13-60) 07/29/24 15:42 Urine Color Dark yellow (Yellow) A 07/29/24 18:54 Urine Appearance Cloudy (CLEAR) A 07/29/24 18:54 Urine pH 5.5 (5-7) 07/29/24 18:54 Ur Specific [place] 1.036 (1.005-1.030) H 07/29/24 18:54 Urine Protein 1+ (Negative) A 07/29/24 18:54 Urine Glucose (UA) Negative (Normal) 07/29/24 18:54 Urine Ketones Trace (Negative) 07/29/24 18:54 Urine Blood Negative (Negative) 07/29/24 18:54 Urine Nitrate Negative (Negative) 07/29/24 18:54 Urine Bilirubin 1+ (Negative) H 07/29/24 18:54 Urine Urobilinogen 1.0 mg/dL (Negative) 07/29/24 18:54 Ur Leukocyte Esterase Trace (Negative) A 07/29/24 18:54 Urine RBC 11-20 /hpf (0-2) H 07/29/24 18:54 Urine WBC 0-5 /hpf (0-5) 07/29/24 18:54 Ur Squamous Epith Cells 0-5 /hpf (0-5) 07/29/24 18:54 Calcium Oxalate Crystal 5-10 /hpf H 07/29/24 18:54 Amorphous Sediment Not Reportable 07/29/24 18:54 Urine Bacteria Trace /hpf (NONE) 07/29/24 18:54 Hyaline Casts 2.87 /lpf 07/29/24 18:54 Urine Mucus 1+ /hpf 07/29/24 18:54 All radiology interpretation(s) finalized by discharge Discharge Plan Discharge Patient Disposition: Home Admit Provider: Flora Tyler Condition: Stable Prescriptions: No Action cyanocobalamin (vitamin B-12) 2,500 mcg tablet 2,500 mcg PO DAILY ferrous sulfate 324 mg (65 mg iron) tablet,delayed release (DR/EC) 324 mg PO DAILY ascorbic acid (vitamin C) 1,000 mg tablet 1,000 mg PO DAILY (DME) oxygen-air delivery systems Device See Rx Instructions .ROUTE .MEDSUPPLY Qty: 1 Rx Instructions: As directed 3 liters montelukast 10 mg tablet 10 mg PO DAILY methocarbamol 500 mg tablet 750 mg PO TID PRN (Reason: muscle pain) bnllkgwfer-nxfjvoisiupbr-mtch 50-325-40 mg tablet 1 tab PO Q4H PRN (Reason: migraine) cholecalciferol (vitamin D3) 250 mcg (10,000 unit) capsule 250 mcg PO DAILY oxycodone 5 mg capsule 5 mg PO Q6H PRN celecoxib [Celebrex] 200 mg capsule 200 mg PO BID Qty: 180 1RF omeprazole 40 mg capsule,delayed release(DR/EC) 40 mg PO DAILY Qty: 90 1RF prednisone 5 mg tablet 5 mg PO DAILY Qty: 90 1RF sulfasalazine 500 mg tablet See Rx Instructions .ROUTE .COMPLEX Qty: 360 1RF Dose Instruction: TAKE 2 TABLETS BY MOUTH TWICE DAILY Rx Instructions: TAKE 2 TABLETS BY MOUTH TWICE DAILY acyclovir 800 mg tablet 400 mg PO DAILY nitroglycerin 0.4 mg tablet, sublingual 0.4 mg sublingual Q5M PRN (Reason: chest pain) Qty: 20 0RF Rx Instructions: do not exceed 3 doses per episode levothyroxine 300 mcg tablet 300 mcg PO DAILY oxycodone 10 mg tablet 10 mg PO BID PRN trazodone 300 mg tablet 300 mg PO BEDTIME donepezil 10 mg tablet See Rx Instructions .ROUTE .COMPLEX Qty: 90 1RF Dose Instruction: TAKE 1 TABLET BY MOUTH DAILY AT BEDTIME Rx Instructions: TAKE 1 TABLET BY MOUTH DAILY AT BEDTIME duloxetine 60 mg capsule,delayed release(DR/EC) See Rx Instructions .ROUTE BID 90 Days Qty: 180 1RF Dose Instruction: TAKE 1 CAPSULE BY MOUTH EVERY MORNING Rx Instructions: TAKE 1 CAPSULE BY MOUTH EVERY MORNING twice a day; eszopiclone [Lunesta] 3 mg tablet 3 mg PO BEDTIME PRN (Reason: insomnia) Qty: 30 5RF lamotrigine 200 mg tablet See Rx Instructions .ROUTE .COMPLEX Qty: 180 1RF Dose Instruction: TAKE 1 TABLET BY MOUTH TWICE DAILY Rx Instructions: TAKE 1 TABLET BY MOUTH TWICE DAILY lorazepam 1 mg tablet 1 - 2 mg PO BID PRN (Reason: anxiety and insomnia) 30 Days Qty: 90 5RF memantine 28 mg capsule,sprinkle,ER 24hr See Rx Instructions .ROUTE .COMPLEX Qty: 90 1RF Dose Instruction: TAKE 1 CAPSULE BY MOUTH DAILY Rx Instructions: TAKE 1 CAPSULE BY MOUTH DAILY prazosin 1 mg capsule 1 mg PO .at bedtime PRN (Reason: nightmares) Qty: 90 1RF metoprolol tartrate 25 mg tablet 12.5 mg PO BID Qty: 90 3RF simvastatin 80 mg tablet 40 mg PO BEDTIME Qty: 90 3RF Eliquis 5 mg tablet 5 mg PO BID Qty: 180 3RF pregabalin [Lyrica] 150 mg capsule 150 mg PO BID Qty: 180 1RF Hold Instructions: Doctor's Order digoxin 125 mcg (0.125 mg) tablet 0.125 mcg PO DIRECTED Qty: 120 3RF Rx Instructions: Take 2 tabs daily on Mon, Wed, Fri; take 1 tab daily all other days Advair Diskus 500-50 mcg/dose blister with device 1 inh inhalation BID Qty: 60 0RF Coding Level of Care Code ED Dimensional Engineer for Sofy Meng
[2024-07-29 19:19] LABS: Bacteria Urine TRACE /hpf; Mucus Urine 1+ /hpf; Specific Gravity, Urine 1.036 (1.005-1.030); UA Slide Review UA Slide Review Perf
--- NOTE | 2024-07-29 19:25 | XRR_ITS ---
PROCEDURE INFORMATION: Exam: XR Abdomen Exam date and time: 07/29/2024 7:36 PM Age: 74 years old Clinical indication: Abdominal pain; Generalized; Patient HX: C/O diffuse abd pain with n/v/d. History of lung cancer. TECHNIQUE: Imaging protocol: Radiologic exam of the abdomen. Views: Frontal supine view of the abdomen. 1 View. COMPARISON: US gall bladder [id number] 07/29/2024 5:03 PM FINDINGS: Gastrointestinal tract: Focal left small bowel loop with prominent valvulae conniventes measuring 3.4 cm. Stool noted throughout the colon. Bones/joints: Moderate degenerative change of the lower lumbar spine. XR/XR KUB portable [id number] IMPRESSION: Nonspecific enlarged small bowel loop of the left central hemiabdomen. Findings may represent early small bowel obstruction in the appropriate clinical setting.
[2024-07-29] MEDS: lidocaine 2% viscous 15 ML, aluminum-mag hydrox-simethicon 30 ML, sucralfate oral liq 1 GM PO (19:27)
[2024-07-29] MEDS: morphine 4 mg/mL SDV 1 mL IVP (19:29)
[2024-07-29] MEDS: ondansetron 2 mg/ML SDV 2 mL 4 MG IVP (19:29)
[2024-07-29] MEDS: sodium chloride 0.9% 500 ML 999 ML IV (19:30)
--- NOTE | 2024-07-29 20:02 | CTR_ITS ---
PROCEDURE INFORMATION: Exam: CT Abdomen And Pelvis With Contrast Exam date and time: 07/29/2024 8:29 PM Age: 74 years old Clinical indication: Nausea and vomiting; Abdominal pain; Generalized; Prior surgery; Surgery date: 6+ months; Surgery type: Hysterectomy; Patient HX: Diffuse abd pain with n/v. Abnormal bowel pattern on kub. ; Additional info: Abd pain, vomiting TECHNIQUE: Imaging protocol: Computed tomography of the abdomen and pelvis with contrast. Radiation optimization: All CT scans at this facility use at least one of these dose optimization techniques: automated exposure control; mA and/or kV adjustment per patient size (includes targeted exams where dose is matched to clinical indication); or iterative reconstruction. Contrast material: OMNI 350; Contrast volume: 100 ml; Contrast route: INTRAVENOUS (IV); COMPARISON: CR (ABDOMEN, ) 07/29/2024 7:36 PM RADIATION DOSE METRICS: Total DLP (mGy-cm): 575.48 FINDINGS: Liver: Hepatic granulomas. Gallbladder and biliary ducts: Enlarged gallbladder measuring 10 cm, possibly hydropic. Common bile duct measures 1 cm. Pancreas: Pancreatic atrophy. Spleen: Splenic granulomas. Adrenal glands: Right adrenal gland nodule measuring 1.5 cm. Left adrenal gland 8 mm nodule. Kidneys and ureters: Multiple hypodense cysts bilaterally. No discrete follow-up is recommended. No hydronephrosis. Stomach and bowel: Colonic diverticulosis without diverticulitis. Proximal jejunal loop measures 3.5 cm (coronal series five, image 33) with normal appearance of the distal jejunal loops. Diffuse small bowel prominence measuring up to 2.7 cm without evidence definitive transition point. Normal appearance of the terminal ileum. Fluid-filled cecum and ascending colon. Appendix: No evidence of appendicitis. Intraperitoneal space: Unremarkable. No free air. No significant fluid collection. Vasculature: Unremarkable. No abdominal aortic aneurysm. Lymph nodes: Unremarkable. No enlarged lymph nodes. Urinary bladder: Unremarkable as visualized. Reproductive: Status post hysterectomy. Bones/joints: Unremarkable. No acute fracture. Soft tissues: Unremarkable. CT/CT abdomen pelvis w con* [id number] IMPRESSION: Findings of small bowel obstruction without evidence of transition point. Query gallbladder hydrops. COMMENTS: Consistent with the [employer] [place] [employer] [employer]'s Incidental Findings Committee white paper (J Am [employer] Radiol 2017): Any incidental adrenal lesion less than 1 cm is likely benign. No follow-up imaging is recommended for these lesions per consensus recommendations based on imaging criteria. Further lab evaluation could be pursued if warranted based on clinical findings. THIS REPORT CONTAINS FINDINGS THAT MAY BE CRITICAL TO PATIENT CARE. The findings were verbally communicated via telephone conference with SHAQUILLE DWYER at 9:26 PM ASSOCIATE PROFESSOR OF ENGLISH on 07/29/2024. The findings were acknowledged and understood.
[2024-07-29] MEDS: iohexol 350 mg/mL 500 mL Btl (per mL) IV (20:31)
--- NOTE | 2024-07-29 22:22 | P.HP_ITS ---
Providers/Chief Complaint 2 Admitting Physician: Dr. 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 who presented to [facility] on 07/29/2024 w/ n/v/diarrhea. The patient states that around midnight of 07/29/2024, she woke up to use the restroom and was having n/v, diarrhea into Tuesday morning. She thought that she was having heart burn. She denies any travel or trying new foods. She tells me that 2 weeks ago, she came to this ED, because she thought that she was having a heart attack. She felt Epigsastric pain and and chest pain like an elephant sitting on her chest. Her trop t was evaluated and it was negative, so she was d/c'ed from the ED to f/u with her primary care. She saw her PCP who had her do an ECHO and a CT abd/pelvis of her abdomen. She states that in this time period, although, she no longer had chest pain, she had epigastric, LUQ, RUQ radiating down to RLQ abdominal pain. This abdominal pain improved whenever she took her medication, until Tuesday at midnight when she started having n/v/diarrhea. She endorses light headedness when she got up this morning, chronic dyspnea, chronic nasal discharge and congestion due to her continuous O2. She endorses increased urinary urgency/freq She denies any f/c, dizziness, syncope, CP, palpitations, SOB, She states that she is scheduled for a nuclear med stress test at 9:45am in the morning of 07/30/2023. In the ED, the patient's vital signs were significant for tachypnea at 24 respirations per minute. She had a slight leukocytosis. A CXR was done that showed no acute lung opacities. A CT abdomen/pelvis was done that showed concerns for a small bowel obstruction, but without evidence of a transition point. Also, there is concern for gallbladder hydrops. The general surgeon on- call was consulted from the ED. An NG tube was placed to low intermittent suction. The patient was given morphine 4 mg IVP x 1, Zofran 4 mg IVP x 1, 1 L NS bolus, and was started on 100 cc/h of NS. Review of Systems 2 Const: Reports: fatigue; Denies: fever(s) or chills Eyes: Denies: change in vision or blurry vision ENMT: Reports: tinnitus (left ear) and nasal discharge (with her continuous O2); Denies: odynophagia or nasal congestion Card: Reports: swelling of feet/ankles (due to sitting in the ED all day. ) and lightheadedness; Denies: chest pain, palpitations or edema Resp: Reports: dyspnea (chronic); Denies: non-productive cough or wheezing GI: Reports: abdominal pain; Denies: nausea, vomiting, diarrhea, hematochezia or melena : Reports: urinary frequency and urinary urgency; Denies: difficulty voiding, dysuria or hematuria Musc: Reports: joint pain (chronic - fibromyalgias) Skin/Breast: Denies: rash or new lesions Neuro: Reports: headache(s); Denies: dizziness Psych: Reports: depression; Denies: suicidal ideation or homicidal ideation Endo: Denies: cold intolerance or heat intolerance Michel/Lymph: Reports: easy bruising; Denies: easy bleeding Medications/Allergies Home Medications Medication Instructions Recorded Confirmed Last Taken Type ascorbic acid (vitamin C) 1,000 mg 1,000 mg PO DAILY 07/11/19 07/18/24 02/07/22 History tablet cyanocobalamin (vitamin B-12) 2,500 mcg PO DAILY 07/11/19 07/18/24 02/07/22 History 2,500 mcg tablet ferrous sulfate 324 mg (65 mg 324 mg PO DAILY 07/11/19 07/18/24 02/07/22 History iron) tablet,delayed release oxygen-air delivery systems ##1 11/14/19 07/18/24 Unknown History elxppfnbiy-wsansvgilnlcj-qrspxisj 1 tab PO Q4H PRN migraine 10/21/20 07/18/24 Unknown History 50 mg-325 mg-40 mg tablet cholecalciferol (vitamin D3) 250 250 mcg PO DAILY 01/07/21 07/18/24 02/07/22 History mcg (10,000 unit) capsule montelukast 10 mg tablet 10 mg PO DAILY 01/25/22 07/18/24 02/07/22 History metoprolol tartrate 25 mg tablet 12.5 mg (1/2 x 25 mg) PO BID #90 04/06/22 07/18/24 Unknown Rx tabs fluticasone 500 mcg-salmeterol 50 1 inh inhalation BID #60 ea 05/11/22 07/18/24 Unknown Rx mcg/dose blistr powdr for inhalation (Advair Diskus) methocarbamol 500 mg tablet 750 mg PO TID PRN muscle pain 11/25/22 07/18/24 Unknown History simvastatin 80 mg tablet 40 mg (1/2 x 80 mg) PO BEDTIME #90 02/16/23 07/18/24 Unknown Rx tabs oxycodone 5 mg capsule 5 mg PO Q6H PRN 07/14/23 07/18/24 Unknown History acyclovir 800 mg tablet 400 mg PO DAILY 08/25/23 07/18/24 Unknown History apixaban 5 mg tablet (Eliquis) 5 mg PO BID #180 tabs 09/05/23 07/18/24 Unknown Rx donepezil 10 mg tablet See Rx Instructions .Route 05/17/24 07/18/24 Unknown Rx .COMPLEX #90 tabs duloxetine 60 mg capsule,delayed See Rx Instructions .Route BID 90 05/17/24 07/18/24 Unknown Rx release days #180 caps eszopiclone 3 mg tablet (Lunesta) 3 mg PO BEDTIME PRN insomnia #30 05/17/24 07/18/24 Unknown Rx tabs lamotrigine 200 mg tablet See Rx Instructions .Route 05/17/24 07/18/24 Unknown Rx .COMPLEX #180 tabs levothyroxine 300 mcg tablet 300 mcg PO DAILY 05/17/24 07/18/24 Unknown History lorazepam 1 mg tablet 1 - 2 mg (1 - 2 x 1 mg) PO BID PRN 05/17/24 07/18/24 Unknown Rx anxiety and insomnia 30 days #90 tabs memantine 28 mg capsule See Rx Instructions .Route 05/17/24 07/18/24 Unknown Rx sprinkle,extended release 24hr .COMPLEX #90 caps oxycodone 10 mg tablet 10 mg PO BID PRN 05/17/24 07/18/24 Unknown History prazosin 1 mg capsule 1 mg PO .at bedtime PRN nightmares 05/17/24 07/18/24 Unknown Rx #90 caps trazodone 300 mg tablet 300 mg PO BEDTIME 05/17/24 07/18/24 Unknown History celecoxib 200 mg capsule (Celebrex) 200 mg PO BID #180 caps 06/05/24 07/18/24 Unknown Rx omeprazole 40 mg capsule,delayed 40 mg PO DAILY #90 caps 06/05/24 07/18/24 Unknown Rx release prednisone 5 mg tablet 5 mg PO DAILY joint pain #90 tabs 06/05/24 07/18/24 Unknown Rx sulfasalazine 500 mg tablet See Rx Instructions .Route 06/05/24 07/18/24 Unknown Rx .COMPLEX #360 tabs pregabalin 150 mg capsule (Lyrica) 150 mg PO BID #180 caps 06/07/24 07/18/24 Unknown Rx digoxin 125 mcg (0.125 mg) tablet 0.125 mcg (0.001 x 125 mcg (0.125 07/02/24 07/18/24 Unknown Rx mg)) PO DIRECTED #120 tabs nitroglycerin 0.4 mg sublingual 0.4 mg sublingual Q5M PRN chest 07/18/24 07/18/24 Unknown Rx tablet pain #20 tabs Allergies Allergy/AdvReac Type Severity Reaction Status Date / Time Tetanus Vaccines and Toxoid AdvReac Severe FEVER,MITRAL Verified 07/18/24 09:48 VALVE PROLAPSE PFSH Acute 2 PFSH: Medical History Chronic use of benzodiazepine for therapeutic purpose Fracture of fifth metatarsal bone of right foot Warfarin anticoagulation Psychiatric care Generalized anxiety disorder Insomnia Aortic valve stenosis COPD (chronic obstructive pulmonary disease) Chronic steroid use Immunization counseling Adenocarcinoma of right lung, 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, status post right middle and upper lobectomy in April 2008, -treated with adjuvant chemotherapy, four cycles of carboplatin and Taxol completed in August 2008 High risk medication use Encounter for immunization Seronegative rheumatoid arthritis of both hands Near syncope Dementia in other diseases classified elsewhere without behavioral disturbance Bipolar 2 disorder Pulmonary fibrosis COPD (chronic obstructive pulmonary disease) Osteoarthritis of knees, bilateral Greater trochanteric bursitis of both hips Inflammatory arthritis Atrial fibrillation Hyperlipemia Valvular heart disease Mitral valve disease Arrhythmia Hypertension Peripheral neuropathy Fibromyalgia Surgical History History of lung surgery H/O: hysterectomy H/O breast biopsy Family History Mother CAD (coronary artery disease) Cancer Stroke Sister Diabetes Father Lung disease Denies family history of Clotting disorder Dementia Chronic kidney disease (CKD) Suicide Anesthesia complication Bleeding disorder Social History (Updated 06/05/24 @ 13:54 by Lisa Sheridan LPN) Smoking and tobacco/nicotine status: former use of tobacco/nicotine Quit status (tobacco/nicotine): has quit using Year quit tobacco: 2003 Alcohol intake: never Substance/Drug Use: never Vitals/I&O/Wt Last Vital Signs Temp 98.3 F 07/29/24 13:46 Pulse 95 07/29/24 21:04 Resp 20 H 07/29/24 21:04 BP 124/79 07/29/24 21:04 Pulse Ox 98 07/29/24 21:04 O2 Del Method Nasal Cannula 07/29/24 21:04 O2 Flow Rate 2 07/29/24 21:04 07/29/24 07/29/24 07/29/24 06:59 14:59 22:59 Intake Total 0 / 0 500 / 500 Balance 0 / 0 500 / 500 Weight last 48 hrs Weight 73.936 kg Physical Exam 2 Const: GENERAL APPEARANCE: cooperative; not comfortable ORIENTATION/CONSCIOUSNESS: Yes awake, Yes oriented to person, Yes oriented to place and Yes oriented to time HENMT: HEAD & SCALP: normal to inspection, normocephalic and atraumatic N OSE: Normal external nose present EXTERNAL EAR: Yes external ears normal M OUTH: Normal oral and palatal mucosa present THROAT: posterior oropharynx normal Eye: OTHER: PERRL, EOMI, b/l conjunctiva normal Neck/C-Spine: GENERAL: Yes normal visual inspection and Yes trachea midline THYROID: Thyroid normal CAROTIDS: No bruit CERVICAL SPINE: Yes cervical ROM normal Lymph: OTHER: No cervical or supraclavicular LAD. Resp: OTHER: Crackles in the R. middle lung field, Decreased breath sounds in the R. lower lung field. Cardio: OTHER: 3/6 harsh systolic murmur radiating to t he carotid arteries. 2/6 systolic murmur in the LUSB, LLSB and apex. GI: OTHER: BS+, Epigastric and RUQ tenderness, ND, no guarding, no rigidity, no rebound, no hepatosplenomegaly Extremity: GENERAL: No clubbing, No cyanosis and No edema Neuro: CRANIAL NERVES: Yes CN normal except as noted SPEECH: speech normal SENSORY EXAM: No sensory level loss detected MOTOR EXAM: 5/5 motor strength present throughout and Normal motor muscle tone present throughout Psych: APPEARANCE: Yes grossly normal ATTITUDE: Yes calm and Yes engaged ACTIVITY/MOTOR BEHAVIOR: Yes appropriate eye contact SPEECH: Yes normal speech MOOD & AFFECT: Yes euthymic mood THOUGHT PROCESS: Normal thought process present THOUGHT CONTENT: Yes Normal thought content present A TTENTION/CONCENTRATION: Yes attention grossly intact MEMORY/COGNITION: Yes memory grossly intact Skin: GENERAL SKIN EXAM: no rashes or lesions noted Data 07/30/24 06:17 07/29/24 15:42 A&P Assessment and plan (1) Small bowel obstruction: (2) Intractable vomiting with nausea: (3) Diarrhea: Plan Zoya Cunningham is a 74 yo woman w/ a hx of R. lung adenocarcinoma s/p R. upper and middle lobe Lobectomy in 04/2008, chronic hypoxic respiratory failure on continuous 2L. who presented to [facility] ED on 07/29/2024 w/ n/v/diarrhea. Patient found to have an SBO w/ no clear transition point. #SBO: - Gen Surgeon consulted. Kept patient NPO. NGT in place. - Discontinue the 100cc/hr after completion of 1L, given her aortic stenosis hx. #Epigastric and RUQ tenderness - F/u on surgery's opinion of Gall bladder hydrops. #GERD - Resume home PPI but as IV #N/V/D: Resolved since she checked in to the ED on 07/29/2024 around 1pm. #SIRS: secondary to the n/v, diarrhea and SBO. - Given the story of chest pain, f/u trop T, BCx. #COPD on chronic 2L NC O2 - duonebs q4h prn. #hx of R. lung adenocarcinoma s/p R. upper and middle lobe Lobectomy in 04/2008 #HTN #HLD #Aortic valve stenosis #Paroxysmal Atrial fibrillation - Resume home meds when appropriate. Currently NPO #Seronegative rheumatoid arthritis #Fibromyalgia - Resumed chronic prednisone, but at Solumedrol. -Held other home meds. #Peripheral Neuropathy #Bipolar II d/o #FAY no longer on CPAP #Insomnia #Hypothyroidism - Resume home meds when appropriate. Currently NPO #Dementia: If she has dementia, it is more like very mild cognitive impairment. #hx of migraine headaches s/p nerve surgery DVT ppx: Lovenox Attestations 2 Medical Necessity Statement*: Patient needs to stay for >2 midnights for her SBO, Gall bladder hydrops, n/v/diarrhea. Time Spent in Patient Care: >70mins was spent on chart review, patient interview/exam, lab/image review, plan formulation and coordination of care. Diagnoses Small bowel obstruction K56.609 Intractable vomiting with nausea R11.2 Diarrhea R19.7
[2024-07-29] MEDS: cetacaine Spray 20 gm Can 1 SPRAY TOPICAL (23:49)
[2024-07-29] MEDS: sodium chloride 0.9% 1,000 ML 100 ML IV (23:49)
--- NOTE | 2024-07-29 23:50 | XRR_ITS ---
PROCEDURE INFORMATION: Exam: XR Chest Exam date and time: 07/29/2024 11:49 PM Age: 74 years old Clinical indication: Device placement; Ng tube; Patient HX: Check S/P ng placement TECHNIQUE: Imaging protocol: Radiologic exam of the chest. Views: 1 view. COMPARISON: CR (CHEST, ) 07/06/2024 5:03 PM FINDINGS: Tubes, catheters and devices: There is a new enteric tube with tip in the region of the fundus of the stomach. Lungs: Chronic volume loss involves the right lung. No acute lung opacities. Pleural spaces: Unremarkable. No pleural effusion. No pneumothorax. Heart/Mediastinum: The heart is stable in size. Vasculature: Calcific plaque involves the aortic knob. Bones/joints: Unremarkable. XR/XR chest 1V portable [id number] IMPRESSION: Enteric tube in good position.
[2024-07-30] VITALS (21 sets, daily range): BP systolic 106–166; BP diastolic 79–97; PULSE 77–119; RESP 15–20; TEMP 36.4–36.8; O2SAT 91–97; BMI 24.7
[2024-07-30] MEDS: cetacaine Spray 5 gm Can 5 SPRAY (00:38)
[2024-07-30] MEDS: morphine 4 mg/mL SDV 1 mL IVP (04:49)
[2024-07-30 06:17] LABS: Troponin T (5th) Once 7 ng/L (0-10)
[2024-07-30 06:34] LABS: Basophils % 0.1 %; Eosinophils % 0.1 %; Hematocrit 40.4 % (36-47); Mean Corpuscular HGB Conc 31.2 g/dL (30-55); Mean Corpuscular Hemoglobin 32.9 pg (27-33); Mean Corpuscular Volume 105.5 fl (85-98); Mean Platelet Volume 10.7 fL (7.4-10.4); Monocytes # 1.1 10^3/uL (0.2-0.9); Monocytes % 13.8 %; Neutrophils # 5.71 10^3/uL (1.8-7.7); Neutrophils % 72.7 %; Nucleated Red Blood Cells % 0 %; Platelet Count 176 10^3/cmm (157-399); Red Blood Count 3.83 10^6/uL (3.85-5.65); Red Cell Distribution Width 14.4 % (12.1-15.1); White Blood Count 7.85 10^3/uL (3.29-11.43)
[2024-07-30 06:46] LABS: Partial Thromboplastin Time 20.7 SECONDS (23.9-36.7)
[2024-07-30 06:55] LABS: Troponin T (5th) Once < 6 ng/L (0-10)
[2024-07-30 06:57] LABS: Magnesium 1.9 mg/dL (1.7-2.3)
[2024-07-30] MEDS: pantoprazole 40 mg SDV IVP (07:47)
[2024-07-30] MEDS: methylPREDNISolone sod succ 40 mg/mL INJ 10 MG IVP (08:50)
--- NOTE | 2024-07-30 09:21 | PC.NURSE ---
PER DR. PONCE TO HOLD COLACE DUE TO NPO STATUS.
--- NOTE | 2024-07-30 10:28 | P.PN_ITS ---
Subjective 2 Subjective: She is so far not vomiting. Passing a little bit of flatus. Vitals/I&O/Wt Last Vital Signs Temp 98.3 F 07/29/24 13:46 Pulse 84 07/30/24 08:00 Resp 16 07/30/24 08:00 BP 158/89 07/30/24 08:00 Pulse Ox 92 07/30/24 08:00 O2 Del Method Room Air 07/30/24 07:04 O2 Flow Rate 2 07/30/24 06:04 07/29/24 07/30/24 07/30/24 22:59 06:59 14:59 Intake Total 500 / 500 778.333 / 778.333 Balance 500 / 500 778.333 / 778.333 Weight last 48 hrs Weight 73.936 kg Physical Exam 2 Narrative: Accompanied by her . Const: COMMON NORMALS: patient oriented x3 and alert GENERAL APPEARANCE: c ooperative ORIENTATION/CONSCIOUSNESS: Yes awake HENMT: COMMON NORMALS: oropharynx normal Neck/C-Spine: COMMON NORMALS: no JVD Resp: COMMON NORMALS: normal respiratory effort and clear to auscultation bilaterally AUSCULTATION: clear to auscultation bilaterally Cardio: COMMON NORMALS: no JVD, regular rhythm, S1 normal heart sound present, S2 normal heart sound present and No murmurs present (Cardio) RHYTHM: regular rhythm HEART SOUNDS: S1 normal heart sound present and S2 normal heart sound present GI: COMMON NORMALS: Normal to inspection, nondistended, normoactive bowel sounds present, Soft to palpation and non-tender AUSCULTATION: Yes Hypoactive bowel sounds present (Slightly tympanic) PALPATION: Yes Soft to palpation Extremity: COMMON NORMALS: no joint enlargement and no pedal edema Neuro: COMMON NORMALS: patient oriented x3 and moves all extremities S ENSORIUM/ORIENTATION: Yes alert Skin: COMMON NORMALS: no rashes or lesions noted GENERAL SKIN EXAM: no rashes or lesions noted Data 07/30/24 06:17 07/29/24 15:42 A&P Assessment and plan (1) Small bowel obstruction: (2) Intractable vomiting with nausea: (3) Diarrhea: Plan Zoya Cunningham is a 74 yo woman w/ a hx of R. lung adenocarcinoma s/p R. upper and middle lobe Lobectomy in 04/2008, chronic hypoxic respiratory failure on continuous 2L. who presented to [facility] ED on 07/29/2024 w/ n/v/diarrhea. Patient found to have an SBO w/ no clear transition point. #SBO: Without vomiting. Reviewed vitals, CBC, INR, PTT, CMP, lipase, UA, CT abdomen pelvis, chest x-ray, gallbladder ultrasound. ER provider note. NGT in place to LIS. Bowel rest. Continue gentle IV hydration. Encouraged ambulation if she is able to, although will need help with disconnecting multiple things before she is able to ambulate. At home also uses a walker at all extreme. Entered a nursing communication. Currently unable to tolerate oral intake, at risk of life-threatening dehydration. Fluids have been reduced to 50 mL/h. Monitor for risk of fluid overload with history of aortic valve disease. Pending additional assessment by general surgery. Continue treatment as above. Monitor for risk of electrolyte deficiency with NGT decompression. Repeat chemistry. Requiring continued admission currently. Discussed with case packer. Discussed with nursing. #Epigastric and RUQ tenderness - F/u on surgery's opinion of Gall bladder hydrops. #GERD - Resume home PPI but as IV #N/V/D: Resolved since she checked in to the ED on 07/29/2024 around 1pm. #SIRS: secondary to the n/v, diarrhea and SBO. - Given the story of chest pain, f/u trop T, BCx. #COPD on chronic 2L NC O2 - duonebs q4h prn. #hx of R. lung adenocarcinoma s/p R. upper and middle lobe Lobectomy in 04/2008 #HTN #HLD #Aortic valve stenosis #Paroxysmal Atrial fibrillation. Resume digoxin. Eliquis has been on hold in case it ends up requiring surgery. Will switch over to Lovenox for now. - Resume home meds when appropriate. Currently NPO #Seronegative rheumatoid arthritis #Fibromyalgia - Resumed chronic prednisone, here was started on Solumedrol. -Held other home meds. #Peripheral Neuropathy #Bipolar II d/o #FAY no longer on CPAP #Insomnia #Hypothyroidism - Resume home meds when appropriate. Currently NPO #Dementia: If she has dementia, it is more like very mild cognitive impairment. #hx of migraine headaches s/p nerve surgery DVT ppx: Lovenox Attestations 2 Medical Necessity Statement*: Continue admission for assessment management of SBO, hydropic gallbladder. Diagnoses Small bowel obstruction K56.609 Intractable vomiting with nausea R11.2 Diarrhea R19.7
[2024-07-30] MEDS: sennosides 8.6 mg Tablet 17.2 MG PO (11:12)
[2024-07-30] MEDS: acyclovir 400 mg Tablet PO (11:13)
[2024-07-30] MEDS: montelukast sodium 10 mg Tablet PO (11:13)
[2024-07-30] MEDS: ipratropium-albuterol 3 mL Neb INHALATION ×2 (14:23→20:55)
[2024-07-30] MEDS: sodium chloride 0.9% 1,000 ML 50 ML IV (16:06)
[2024-07-30] MEDS: HYDROmorphone 1 mg/mL INJ 1 mL IVP ×2 (16:07→21:12)
--- NOTE | 2024-07-30 16:40 | P.CONIM_ITS ---
Providers/Reason For Consult 2 Consulting Physician/Specialty*: Dr. Mars Gonzalez, DO/General Surgery Reason for Consult*: Partial small bowel obstruction Attending Physician: Sal Vasquez Primary Care Provider: Willie Mahmood History of Present Illness History of Present Illness Zoya Cunningham is a 74 year old female who presented to hospital with 1 day history of abdominal pain nausea and vomiting. She does not have any abdominal surgical history. She reports that her pain is diffuse but does not radiate. Palpation makes pain worse. Nothing makes pain better. CT of the abdomen pelvis shows small bowel obstruction without definitive transition point. She denies any recent travel, sick contacts or possibility of eating bad food. She reports that she is still passing flatus Review of Systems 2 General: Reports: 10 or more systems reviewed and unremarkable except in HPI and below Medications/Allergies Home Medications Medication Instructions Recorded Confirmed Last Taken Type ascorbic acid (vitamin C) 1,000 mg 1,000 mg PO DAILY 07/11/19 07/30/24 07/28/24 History tablet cyanocobalamin (vitamin B-12) 2,500 mcg PO DAILY 07/11/19 07/30/24 07/28/24 History 2,500 mcg tablet ferrous sulfate 324 mg (65 mg 324 mg PO DAILY 07/11/19 07/30/24 07/28/24 History iron) tablet,delayed release oxygen-air delivery systems ##1 11/14/19 07/30/24 Unknown History avlbjbcdww-jfotagblijenx-qtrggcuk 1 tab PO Q4H PRN migraine 10/21/20 07/30/24 07/28/24 History 50 mg-325 mg-40 mg tablet cholecalciferol (vitamin D3) 250 250 mcg PO DAILY 01/07/21 07/30/24 07/28/24 History mcg (10,000 unit) capsule montelukast 10 mg tablet 10 mg PO DAILY 01/25/22 07/30/24 07/28/24 History fluticasone 500 mcg-salmeterol 50 1 inh inhalation BID #60 ea 05/11/22 07/30/24 07/28/24 Rx mcg/dose blistr powdr for inhalation (Advair Diskus) acyclovir 800 mg tablet 400 mg PO DAILY 08/25/23 07/30/24 07/28/24 History apixaban 5 mg tablet (Eliquis) 5 mg PO BID #180 tabs 09/05/23 07/30/24 07/28/24 Rx donepezil 10 mg tablet See Rx Instructions .Route 05/17/24 07/30/24 07/28/24 Rx .COMPLEX #90 tabs duloxetine 60 mg capsule,delayed See Rx Instructions .Route BID 90 05/17/24 07/30/24 07/28/24 Rx release days #180 caps eszopiclone 3 mg tablet (Lunesta) 3 mg PO BEDTIME PRN insomnia #30 05/17/24 07/30/24 07/28/24 Rx tabs lamotrigine 200 mg tablet See Rx Instructions .Route 05/17/24 07/30/24 07/28/24 Rx .COMPLEX #180 tabs levothyroxine 300 mcg tablet 300 mcg PO DAILY 05/17/24 07/30/24 07/28/24 History lorazepam 1 mg tablet 1 - 2 mg (1 - 2 x 1 mg) PO BID PRN 05/17/24 07/30/24 07/28/24 Rx anxiety and insomnia 30 days #90 tabs memantine 28 mg capsule See Rx Instructions .Route 05/17/24 07/30/24 07/28/24 Rx sprinkle,extended release 24hr .COMPLEX #90 caps prazosin 1 mg capsule 1 mg PO .at bedtime PRN nightmares 05/17/24 07/30/24 07/28/24 Rx #90 caps trazodone 300 mg tablet 300 mg PO BEDTIME 05/17/24 07/30/24 07/28/24 History celecoxib 200 mg capsule (Celebrex) 200 mg PO BID #180 caps 06/05/24 07/30/24 07/28/24 Rx omeprazole 40 mg capsule,delayed 40 mg PO DAILY #90 caps 06/05/24 07/30/24 Unknown Rx release prednisone 5 mg tablet 5 mg PO DAILY joint pain #90 tabs 06/05/24 07/30/24 07/28/24 Rx sulfasalazine 500 mg tablet See Rx Instructions .Route 06/05/24 07/30/24 07/28/24 Rx .COMPLEX #360 tabs pregabalin 150 mg capsule (Lyrica) 150 mg PO BID #180 caps 06/07/24 07/30/24 07/28/24 Rx digoxin 125 mcg (0.125 mg) tablet 0.125 mcg (0.001 x 125 mcg (0.125 07/02/24 07/30/24 07/28/24 Rx mg)) PO DIRECTED #120 tabs nitroglycerin 0.4 mg sublingual 0.4 mg sublingual Q5M PRN chest 07/18/24 07/30/24 Unknown Rx tablet pain #20 tabs naproxen 500 mg tablet 500 mg PO DAILY 07/30/24 07/30/24 07/28/24 History oxycodone-acetaminophen 10 mg-325 1 tab PO Q8H 07/30/24 07/30/24 07/28/24 History mg tablet simvastatin 40 mg tablet 40 mg PO QPM 07/30/24 07/30/24 07/28/24 History Allergies Allergy/AdvReac Type Severity Reaction Status Date / Time Tetanus Vaccines and Toxoid AdvReac Severe FEVER,MITRAL Verified 07/18/24 09:48 VALVE PROLAPSE Current Medications Generic Name Dose Route Start Last Admin Trade Name Freq PRN Reason Stop Dose Admin Acyclovir 400 mg 07/30/24 11:00 07/31/24 11:18 Acyclovir 400 Mg Tablet PO Not Given DAILY TERRY Albuterol/Ipratropium 3 ml 07/30/24 14:00 08/01/24 01:23 Ipratropium-Albuterol 3 Ml Neb INHALATION Not Given Q6H.RESP TERRY Docusate Sodium 200 mg 07/30/24 09:00 07/31/24 11:18 Docusate Sodium 100 Mg Capsule PO Not Given DAILY TERRY Enoxaparin Sodium 70 mg 07/30/24 18:00 08/01/24 06:41 Enoxaparin 80 Mg/0.8 Ml Syringe SUBCUT 70 mg Q12H TERRY Administration Hydromorphone HCl 1 mg 07/30/24 04:46 07/31/24 13:47 Hydromorphone 1 Mg/Ml Inj 1 Ml IVP 1 mg Q4H PRN Administration SEVERE PAIN Sodium Chloride 1,000 mls @ 75 mls/hr 07/29/24 23:04 07/31/24 20:26 Sodium Chloride 0.9% IV 0 mls/hr .[id number] TERRY Infusion Lorazepam 1 - 2 mg 07/31/24 22:02 07/31/24 22:35 Lorazepam 1 Mg Tablet PO 1 mg BID PRN Administration ANXIETY Methylprednisolone Sodium Succinate 10 mg 07/30/24 09:00 07/31/24 08:55 Methylprednisolone Sod Succ 40 Mg/Ml Inj IVP 10 mg DAILY TERRY Administration Montelukast Sodium 10 mg 07/30/24 10:45 07/31/24 11:18 Montelukast Sodium 10 Mg Tablet PO Not Given DAILY TERRY Pantoprazole Sodium 40 mg 07/30/24 07:00 08/01/24 06:41 Pantoprazole 40 Mg Sdv IVP 40 mg ACBREAKFAST TERRY Administration Senna 17.2 mg 07/30/24 09:00 07/31/24 11:18 Sennosides 8.6 Mg Tablet PO Not Given DAILY TERRY Trazodone HCl 300 mg 07/31/24 22:15 07/31/24 22:35 Trazodone 150 Mg Tablet PO 300 mg BEDTIME TERRY Administration PFSH Acute 2 PFSH: Medical History Chronic use of benzodiazepine for therapeutic purpose Fracture of fifth metatarsal bone of right foot Warfarin anticoagulation Psychiatric care Generalized anxiety disorder Insomnia Aortic valve stenosis COPD (chronic obstructive pulmonary disease) Chronic steroid use Immunization counseling Adenocarcinoma of right lung, 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, status post right middle and upper lobectomy in April 2008, -treated with adjuvant chemotherapy, four cycles of carboplatin and Taxol completed in August 2008 High risk medication use Encounter for immunization Seronegative rheumatoid arthritis of both hands Near syncope Dementia in other diseases classified elsewhere without behavioral disturbance Bipolar 2 disorder Pulmonary fibrosis COPD (chronic obstructive pulmonary disease) Osteoarthritis of knees, bilateral Greater trochanteric bursitis of both hips Inflammatory arthritis Atrial fibrillation Hyperlipemia Valvular heart disease Mitral valve disease Arrhythmia Hypertension Peripheral neuropathy Fibromyalgia Surgical History History of lung surgery H/O: hysterectomy H/O breast biopsy Family History Mother CAD (coronary artery disease) Cancer Stroke Sister Diabetes Father Lung disease Denies family history of Clotting disorder Dementia Chronic kidney disease (CKD) Suicide Anesthesia complication Bleeding disorder Social History Smoking and tobacco/nicotine status: former use of tobacco/nicotine Quit status (tobacco/nicotine): has quit using Year quit tobacco: 2003 Alcohol intake: never Substance/Drug Use: never Vitals/I&O/Wt Last Vital Signs Temp 97.5 F L 08/01/24 04:00 Pulse 74 08/01/24 04:00 Resp 18 08/01/24 04:00 BP 166/85 08/01/24 04:00 Pulse Ox 100 08/01/24 04:00 O2 Del Method Nasal Cannula 08/01/24 04:00 O2 Flow Rate 2 08/01/24 04:00 07/31/24 08/01/24 08/01/24 22:59 06:59 14:59 Intake Total 1297.5 / 1297.5 0 / 1297.5 Balance 1297.5 / 297.5 0 / 297.5 Weight last 48 hrs Weight 162 lb 9.6 oz Weight 165 lb 9.6 oz Weight 163 lb Physical Exam 2 Narrative: General : Patient is well developed , no acute distress, oriented x3 Head : Normal cephalic, a-traumatic. Ears : Pinnae and external canal are normal. Hearing is normal. Eyes : PERRLA, Sclera and injection are normal. No conjunctival discharge. Nose : Mucous membranes are without erythema. Throat : buccal mucosa is normal, gums are without significant recession or hypertrophy. Lungs : Equal chest rise bilaterally, no use of accessory muscles, trachea is midline. Cor : Rate and rhythm are normal. Abdomen : Soft, moderately distended, mild diffuse tenderness no g/r/m Extremities : No edema, no cyanosis or clubbing, dorsalis pedis pulses are present bilaterally, non-tender to palpation of calves. Upper extremities are normal bilaterally. Back : non-tender to palpation, no CVA tenderness. Neuro : CN II - XII intact, Upper and lower extremities have equal and full strength Data 08/01/24 05:33 08/01/24 05:33 A&P Assessment and plan (1) Partial small bowel obstruction: Plan NPO NGT to LIWS IVF medical mangement per primary Coding Level of Care Code 59535 Diagnoses Partial small bowel obstruction K56.600
[2024-07-30] MEDS: enoxaparin 80 mg/0.8 mL Syringe 70 MG SUBCUT (17:20)
[2024-07-31] VITALS (17 sets, daily range): BP systolic 165–197; BP diastolic 70–98; PULSE 63–95; RESP 15–19; TEMP 36.3–36.9; O2SAT 91–96
[2024-07-31] MEDS: ipratropium-albuterol 3 mL Neb INHALATION ×4 (02:56→19:49)
[2024-07-31 05:15] LABS: Basophils % 0.2 %; Eosinophils % 0.2 %; Lymphocytes # 0.9 10^3/uL (0.8-4.8); Lymphocytes % 16.2 %; Mean Corpuscular HGB Conc 31.6 g/dL (30-55); Mean Corpuscular Volume 104.2 fl (85-98); Mean Platelet Volume 10.8 fL (7.4-10.4); Monocytes # 0.9 10^3/uL (0.2-0.9); Monocytes % 16.9 %; Neutrophils % 66.3 %; Nucleated Red Blood Cells % 0 %; Platelet Count 155 10^3/cmm (157-399); Red Blood Count 3.55 10^6/uL (3.85-5.65); Red Cell Distribution Width 14.5 % (12.1-15.1); White Blood Count 5.43 10^3/uL (3.29-11.43)
[2024-07-31 05:25] LABS: INR 0.98 (0.8-1.2)
[2024-07-31 05:36] LABS: Alanine Aminotransferase 17 U/L (0-33); Albumin Level 3.5 g/dL (3.5-5.2); Alkaline Phosphatase 59 U/L (35-105); Anion Gap 14.6 (5-19); Aspartate Amino Transferase 15 U/L (0-32); Blood Urea Nitrogen 17 mg/dL (8-23); Calcium 8.6 mg/dL (8.5-10.5); Carbon Dioxide 26 mmol/L (22-29); Chloride 107 mmol/L (98-107); Creatinine Clr Calc Pharmacy 67.6143; Globulin 2.3 g/dL (1.3-4.6); Glucose 133 mg/dL (65-115); Magnesium 1.7 mg/dL (1.7-2.3); Osmolality Calculated 301 mOsm/kg (285-295); Phosphorus 2.9 mg/dL (2.5-4.5); Potassium 3.6 mmol/L (3.5-5.1); Sodium 144 mmol/L (136-145); Total Bilirubin 0.2 mg/dL (0.15-1.2); Total Protein 5.8 g/dL (6.6-8.7)
[2024-07-31] MEDS: sodium chloride 0.9% 1,000 ML 50 ML IV (06:29)
[2024-07-31] MEDS: pantoprazole 40 mg SDV IVP (06:30)
[2024-07-31] MEDS: enoxaparin 80 mg/0.8 mL Syringe 70 MG SUBCUT ×2 (06:30→18:23)
[2024-07-31] MEDS: HYDROmorphone 1 mg/mL INJ 1 mL IVP ×2 (08:54→13:47)
[2024-07-31] MEDS: methylPREDNISolone sod succ 40 mg/mL INJ 10 MG IVP (08:55)
--- NOTE | 2024-07-31 13:36 | P.PN_ITS ---
Subjective 2 Subjective: Patient seen and examined. She reports she is passing gas and had 2 liquid bowel movements. Denies any nausea or emesis Vitals/I&O/Wt Last Vital Signs Temp 97.6 F 08/01/24 07:20 Pulse 61 08/01/24 07:20 Resp 15 08/01/24 07:20 BP 163/80 08/01/24 07:20 Pulse Ox 97 08/01/24 07:20 O2 Del Method Nasal Cannula 08/01/24 07:20 O2 Flow Rate 2 08/01/24 07:20 07/31/24 08/01/24 08/01/24 22:59 06:59 14:59 Intake Total 1297.5 / 1297.5 0 / 1297.5 Balance 1297.5 / 297.5 0 / 297.5 Weight last 48 hrs Weight 162 lb 9.6 oz Weight 165 lb 9.6 oz Weight 163 lb Physical Exam 2 Narrative: General: No acute distress, awake alert and oriented x 3 Abdomen: Soft, minimally distended, nontender Data 08/01/24 05:33 08/01/24 05:33 A&P Assessment and plan (1) Partial small bowel obstruction: Plan DC NGT Clear liquid diet No acute surgical intervention medical mangement per primary Attestations 2 Medical Necessity Statement*: Per primary Coding Level of Care Code 55376 Diagnoses Partial small bowel obstruction K56.600
--- NOTE | 2024-07-31 14:19 | P.PN_ITS ---
Subjective 2 Subjective: She is passing some flatus. So far without additional vomiting. This morning no bowel movement yet. Later on reported to have 2 small bowel movements. Vitals/I&O/Wt Last Vital Signs Temp 97.4 F L 07/31/24 12:04 Pulse 69 07/31/24 14:05 Resp 16 07/31/24 13:52 BP 165/76 07/31/24 12:04 Pulse Ox 95 07/31/24 13:52 O2 Del Method Room Air 07/31/24 13:52 O2 Flow Rate 2 07/30/24 06:04 07/30/24 07/31/24 07/31/24 22:59 06:59 14:59 Intake Total 221.667 / 1000.000 719.167 / 1719.167 Output Total 700 / 700 Balance 221.667 / 1000.000 719.167 / 1719.167 -700 / -700 Weight last 48 hrs Weight 75.115 kg Weight 73.936 kg Physical Exam 2 Narrative: Accompanied by her . Const: COMMON NORMALS: patient oriented x3 and alert GENERAL APPEARANCE: c ooperative ORIENTATION/CONSCIOUSNESS: Yes awake HENMT: COMMON NORMALS: oropharynx normal Neck/C-Spine: COMMON NORMALS: no JVD Resp: COMMON NORMALS: normal respiratory effort and clear to auscultation bilaterally AUSCULTATION: clear to auscultation bilaterally Cardio: COMMON NORMALS: no JVD, regular rhythm, S1 normal heart sound present, S2 normal heart sound present and No murmurs present (Cardio) RHYTHM: regular rhythm HEART SOUNDS: S1 normal heart sound present and S2 normal heart sound present GI: COMMON NORMALS: Soft to palpation and non-tender AUSCULTATION: Yes Hypoactive bowel sounds present (Slightly tympanic) PALPATION: Yes Soft to palpation Extremity: COMMON NORMALS: no joint enlargement and no pedal edema Neuro: COMMON NORMALS: patient oriented x3 and moves all extremities S ENSORIUM/ORIENTATION: Yes alert Skin: COMMON NORMALS: no rashes or lesions noted GENERAL SKIN EXAM: no rashes or lesions noted Data 07/31/24 04:58 07/31/24 04:58 A&P Assessment and plan (1) Small bowel obstruction: (2) Intractable vomiting with nausea: (3) Diarrhea: Plan Zoya Cunningham is a 74 yo woman w/ a hx of R. lung adenocarcinoma s/p R. upper and middle lobe Lobectomy in 04/2008, chronic hypoxic respiratory failure on continuous 2L. who presented to [facility] ED on 07/29/2024 w/ n/v/diarrhea. Patient found to have an SBO w/ no clear transition point. #SBO: Reviewed intake and output, vitals. Noted produced 700 cc overnight. Continuing reassessments through the day. Later on seen by surgery. NGT to be removed and being started on clear liquid diet. Discussed with the surgeon. Discussed with nursing. Complicated by pain medication need. He has been transitioned to IV hydromorphone. Discussed with correctional casework specialist. Reviewed CBC, CMP, INR. Repeat blood counts, chemistry. Continue gentle IV hydration for now pending reestablishment of oral intake. Monitor for risk of fluid overload. #Epigastric and RUQ tenderness - F/u on surgery's opinion of Gall bladder hydrops. Discussed with the surgeon, distended gallbladder but reported currently without concerns for cholecystitis. #GERD - Resume home PPI but as IV #N/V/D: Resolved since she checked in to the ED on 07/29/2024 around 1pm. #SIRS: secondary to the n/v, diarrhea and SBO. - Given the story of chest pain, f/u trop T, BCx. #COPD on chronic 2L NC O2 - duonebs q4h prn. #hx of R. lung adenocarcinoma s/p R. upper and middle lobe Lobectomy in 04/2008 #HTN #HLD #Aortic valve stenosis #Paroxysmal Atrial fibrillation. Resume digoxin. Eliquis has been on hold in case it ends up requiring surgery. Will switch over to Lovenox for now. - Resume home meds when appropriate. Currently NPO #Seronegative rheumatoid arthritis #Fibromyalgia - Resumed chronic prednisone, here was started on Solumedrol. -Held other home meds. #Peripheral Neuropathy #Bipolar II d/o #FAY no longer on CPAP #Insomnia #Hypothyroidism - Resume home meds when appropriate. Currently NPO #Dementia: If she has dementia, it is more like very mild cognitive impairment. #hx of migraine headaches s/p nerve surgery DVT ppx: Lovenox Attestations 2 Medical Necessity Statement*: Continue hospitalization for assessment and management of small bowel obstruction complicated by chronic pain medication need. and High MDM includes amount and/or complexity of data reviewed/ordered [ resulted lab(s)/test(s), ordered lab(s)/test(s) and other healthcare professional discussion] and described risk of complication, morbidity or mortality of management as documented Diagnoses Small bowel obstruction K56.609 Intractable vomiting with nausea R11.2 Diarrhea R19.7
[2024-07-31] MEDS: trazodone 150 mg Tablet 300 MG PO (22:35)
[2024-07-31] MEDS: LORazepam 1 mg Tablet PO (22:35)
--- NOTE | 2024-08-01 01:06 | PC.NURSE ---
pt was heard screaming, staff [employer] entered room and pt still in bed, spoke with pt and pt stated she was okay, nurse spoke with patient , pt sat up in bed and pt verbalized having had a nightmare. pt alert and oriented able to answer questions appropriately. pt stated okay back to sleep.
[2024-08-01 04:00] VITALS: BP 166/85; PULSE 74; RESP 18; TEMP 36.4; O2SAT 100
[2024-08-01 05:46] LABS: Basophils % 0.4 %; Eosinophils % 0.2 %; Hematocrit 38.7 % (36-47); Lymphocytes # 0.9 10^3/uL (0.8-4.8); Mean Corpuscular HGB Conc 31.5 g/dL (30-55); Mean Corpuscular Hemoglobin 33.1 pg (27-33); Mean Corpuscular Volume 104.9 fl (85-98); Mean Platelet Volume 10.4 fL (7.4-10.4); Monocytes # 0.7 10^3/uL (0.2-0.9); Monocytes % 14.7 %; Neutrophils # 3.02 10^3/uL (1.8-7.7); Neutrophils % 64.5 %; Nucleated Red Blood Cells % 0 %; Platelet Count 151 10^3/cmm (157-399); Red Blood Count 3.69 10^6/uL (3.85-5.65); Red Cell Distribution Width 14.2 % (12.1-15.1); White Blood Count 4.69 10^3/uL (3.29-11.43)
[2024-08-01 06:15] LABS: Alanine Aminotransferase 37 U/L (0-33); Albumin Level 3.4 g/dL (3.5-5.2); Alkaline Phosphatase 75 U/L (35-105); Aspartate Amino Transferase 40 U/L (0-32); Blood Urea Nitrogen 13 mg/dL (8-23); Calcium 8.9 mg/dL (8.5-10.5); Carbon Dioxide 26 mmol/L (22-29); Chloride 103 mmol/L (98-107); Globulin 2.7 g/dL (1.3-4.6); Glucose 103 mg/dL (65-115); Magnesium 1.8 mg/dL (1.7-2.3); Osmolality Calculated 292 mOsm/kg (285-295); Phosphorus 3.6 mg/dL (2.5-4.5); Sodium 141 mmol/L (136-145); Total Bilirubin 0.5 mg/dL (0.15-1.2); Total Protein 6.1 g/dL (6.6-8.7)
[2024-08-01 06:18] LABS: Anion Gap 15.9 (5-19); Potassium 3.9 mmol/L (3.5-5.1)
[2024-08-01] MEDS: pantoprazole 40 mg SDV IVP (06:41)
[2024-08-01] MEDS: enoxaparin 80 mg/0.8 mL Syringe 70 MG SUBCUT (06:41)
--- NOTE | 2024-08-01 07:07 | PC.NURSE ---
shift note during assessment at beginning of shift pt asked about night time meds, became agitated when told there is no night meds scheduled for her. this nurse looked over her home med list with her and pt stated she wanted her trazodone, lorazepam and lunesta. Dr. Blackmon notified of pt request and dosages of each meds pt is asking for. order received for requested meds. around 0030 loud and shrill scream heard from pt room, pt was in bed asleep, staff awakened pt and pt attempted to sit up and while sitting up pt began to tremble, nurse assessed and pt alert and oriented stated just a nightmare , pt verbalized having these episodes at home. throughout this shift pt screamed multiple times (at least 5 more times) and each time pt is laying in bed with her eyes closed and required awakening. alert and orient each time. around 0400 pt informed this nurse that these episodes occurs when she takes Trazodone. this nurse asked why pt requested it last night and pt stated I didn't think about it .
[2024-08-01 07:20] VITALS: BP 163/80; PULSE 61; RESP 15; TEMP 36.4; O2SAT 97
[2024-08-01 08:33] VITALS: PULSE 61; RESP 18; O2SAT 97
[2024-08-01] MEDS: ipratropium-albuterol 3 mL Neb INHALATION (08:33)
[2024-08-01] MEDS: docusate sodium 100 mg Capsule 200 MG PO (08:46)
[2024-08-01] MEDS: montelukast sodium 10 mg Tablet PO (08:46)
[2024-08-01] MEDS: acyclovir 400 mg Tablet PO (08:46)
[2024-08-01] MEDS: sennosides 8.6 mg Tablet 17.2 MG PO (08:46)
[2024-08-01] MEDS: methylPREDNISolone sod succ 40 mg/mL INJ 10 MG IVP (08:46)
--- NOTE | 2024-08-01 10:38 | PM.DCS ---
Discharge Providers Date of Admission: 07/29/24 22:35 Date of Discharge: August 01, 2024 Attending Provider at Admission: Flora Tyler MD Attending Provider at Discharge: Sal Vasquez Primary Care Provider: Willie Mahmood Diagnoses at Discharge Discharge Diagnosis (1) Partial small bowel obstruction: Status: Acute Reason for Visit Reason for Visit: v,d, lower abd pain Hospital Course Hospital Course Pleasant 74-year-old lady presented to the hospital with nausea, vomiting, lower abdominal pain, with finding of small bowel obstruction on CT imaging of the abdomen, without definitive physician point. During hospitalization also with finding of some mild to moderate ileus. She suffers from significant chronic pain and is on chronic pain medication including opioids. She was hospitalized and started on bowel rest, NGT was placed for decompression, and continued to LIS, received gentle IV hydration. On presentation also found to have distended gallbladder with possible hydrops, although without right upper quadrant pain or tenderness, negative Courtney. Mild leukocytosis on presentation resolved without recurrence. Likely related to dehydration. She remained afebrile. Nonsurgical assessment not likely cholecystitis, just gallbladder distention. With conservative management she was passing flatus, eventually had small bowel movements. Output from NGT subsided. She was able to trial and did well with clear liquid diet. Today she is feeling much better, and requesting to discharge home. As per discussion she will try to reduce opioid use were possible due to risk of contribution to ileus and pseudoobstruction. Avoid constipation. Ambulate. She will follow-up with surgery for reassessment of the gallbladder as well. She knows to seek medical attention in case of any worsening or new concerning symptoms. Physical Exam Const: COMMON NORMALS: patient oriented x3 and alert GENERAL APPEARANCE: cooperative ORIENTATION/CONSCIOUSNESS: Yes awake HENMT: COMMON NORMALS: oropharynx normal Neck/C-Spine: COMMON NORMALS: no JVD Resp: COMMON NORMALS: normal respiratory effort and clear to auscultation bilaterally AUSCULTATION: clear to auscultation bilaterally Cardio: COMMON NORMALS: no JVD, regular rhythm, S1 normal heart sound present, S2 normal heart sound present and No murmurs present (Cardio) RHYTHM: regular rhythm HEART SOUNDS: S1 normal heart sound present and S2 normal heart sound present GI: COMMON NORMALS: Soft to palpation and non-tender AUSCULTATION: Yes Hypoactive bowel sounds present PALPATION: Yes Soft to palpation Extremity: COMMON NORMALS: no joint enlargement and no pedal edema Neuro: COMMON NORMALS: patient oriented x3 and moves all extremities SENSORIUM/ORIENTATION: Yes alert Skin: COMMON NORMALS: no rashes or lesions noted GENERAL SKIN EXAM: no rashes or lesions noted Discharge Data Studies Completed and Pending Completed Studies During Hospitalization Category Date Time Status CT abdomen pelvis w con* [id number] Urgent Cat Scan 07/29/24 20:02 Completed XR KUB portable [id number] Stat Exams 07/29/24 19:25 Completed XR chest 1V portable [id number] Stat Exams 07/29/24 23:50 Completed US gall bladder [id number] Stat Ultrasound 07/29/24 15:23 Completed Pending at discharge Category Date Time Status Comprehensive Metabolic Panel AM LABS Lab 08/02/24 04:00 Ordered Phosphorus AM LABS Lab 08/02/24 04:00 Ordered Radiology Impressions Gallbladder Ultrasound 07/29/24 15:23 IMPRESSION: 1. Prominent common bile duct measuring 1.2 cm stable from 2019. 2. Mild renal atrophy with medical renal disease. KUB X-Ray 07/29/24 19:25 IMPRESSION: Nonspecific enlarged small bowel loop of the left central hemiabdomen. Findings may represent early small bowel obstruction in the appropriate clinical setting. Abdomen/Pelvis CT 07/29/24 20:02 IMPRESSION: Findings of small bowel obstruction without evidence of transition point. Query gallbladder hydrops. COMMENTS: Consistent with the [employer]'s Incidental Findings Committee white paper (J Am Raza Radiol 2017): Any incidental adrenal lesion less than 1 cm is likely benign. No follow-up imaging is recommended for these lesions per consensus recommendations based on imaging criteria. Further lab evaluation could be pursued if warranted based on clinical findings. THIS REPORT CONTAINS FINDINGS THAT MAY BE CRITICAL TO PATIENT CARE. The findings were verbally communicated via telephone conference with SHAQUILLE DWYER at 9:26 PM MANUFACTURED BUILDINGS REPAIRER on 07/29/2024. The findings were acknowledged and understood. Chest X-Ray 07/29/24 23:50 IMPRESSION: Enteric tube in good position. Laboratory Results WBC 4.69 10^3/uL (3.29-11.43) 08/01/24 05:33 RBC 3.69 10^6/uL (3.85-5.65) L 08/01/24 05:33 Hgb 12.20 g/dL (11.27-16.99) 08/01/24 05:33 Hct 38.7 % (36-47) 08/01/24 05:33 MCV 104.9 fl (85-98) H 08/01/24 05:33 MCH 33.1 pg (27-33) H 08/01/24 05:33 MCHC 31.5 g/dL (30-55) 08/01/24 05:33 RDW 14.2 % (12.1-15.1) 08/01/24 05:33 Plt Count 151 10^3/cmm (157-399) L 08/01/24 05:33 MPV 10.4 fL (7.4-10.4) 08/01/24 05:33 Neut % (Auto) 64.5 % 08/01/24 05:33 Lymph % (Auto) 20.0 % 08/01/24 05:33 Miller % (Auto) 14.7 % 08/01/24 05:33 Eos % (Auto) 0.2 % 08/01/24 05:33 Baso % (Auto) 0.4 % 08/01/24 05:33 Neut # (Auto) 3.02 10^3/uL (1.8-7.7) 08/01/24 05:33 Lymph # (Auto) 0.9 10^3/uL (0.8-4.8) 08/01/24 05:33 Miller # (Auto) 0.7 10^3/uL (0.2-0.9) 08/01/24 05:33 Eos # (Auto) 0.0 10^3/uL (0.0-0.8) 08/01/24 05:33 Baso # (Auto) 0.0 10^3/uL (0.0-0.1) 08/01/24 05:33 Nucleated RBC % (auto) 0 % 08/01/24 05:33 Nucleated RBCs # 0.0 /100WBC 08/01/24 05:33 PT 13.70 SECONDS (12.1-14.9) 07/31/24 04:58 INR 0.98 (0.8-1.2) 07/31/24 04:58 APTT 20.7 SECONDS (23.9-36.7) L 07/30/24 06:17 Sodium 141 mmol/L (136-145) 08/01/24 05:33 Potassium 3.9 mmol/L (3.5-5.1) 08/01/24 05:33 Chloride 103 mmol/L (98-107) 08/01/24 05:33 Carbon Dioxide 26 mmol/L (22-29) 08/01/24 05:33 Anion Gap 15.9 (5-19) 08/01/24 05:33 BUN 13 mg/dL (8-23) 08/01/24 05:33 Creatinine 0.4 mg/dL (0.5-0.9) L 08/01/24 05:33 GFR Calculation Not Reportable 08/01/24 05:33 Glucose 103 mg/dL (65-115) 08/01/24 05:33 Calculated Osmolality 292 mOsm/kg (285-295) 08/01/24 05:33 Calcium 8.9 mg/dL (8.5-10.5) 08/01/24 05:33 Phosphorus 3.6 mg/dL (2.5-4.5) 08/01/24 05:33 Magnesium 1.8 mg/dL (1.7-2.3) 08/01/24 05:33 Total Bilirubin 0.5 mg/dL (0.15-1.2) 08/01/24 05:33 AST 40 U/L (0-32) H 08/01/24 05:33 ALT 37 U/L (0-33) H 08/01/24 05:33 Alkaline Phosphatase 75 U/L (35-105) 08/01/24 05:33 Troponin T 5th Gen ng/L < 6 ng/L (0-10) 07/30/24 06:17 Total Protein 6.1 g/dL (6.6-8.7) L 08/01/24 05:33 Albumin 3.4 g/dL (3.5-5.2) L 08/01/24 05:33 Globulin 2.7 g/dL (1.3-4.6) 08/01/24 05:33 Lipase 36 U/L (13-60) 07/29/24 15:42 Urine Color Dark yellow (Yellow) A 07/29/24 18:54 Urine Appearance Cloudy (CLEAR) A 07/29/24 18:54 Urine pH 5.5 (5-7) 07/29/24 18:54 Ur Specific [place] 1.036 (1.005-1.030) H 07/29/24 18:54 Urine Protein 1+ (Negative) A 07/29/24 18:54 Urine Glucose (UA) Negative (Normal) 07/29/24 18:54 Urine Ketones Trace (Negative) 07/29/24 18:54 Urine Blood Negative (Negative) 07/29/24 18:54 Urine Nitrate Negative (Negative) 07/29/24 18:54 Urine Bilirubin 1+ (Negative) H 07/29/24 18:54 Urine Urobilinogen 1.0 mg/dL (Negative) 07/29/24 18:54 Ur Leukocyte Esterase Trace (Negative) A 07/29/24 18:54 Urine RBC 11-20 /hpf (0-2) H 07/29/24 18:54 Urine WBC 0-5 /hpf (0-5) 07/29/24 18:54 Ur Squamous Epith Cells 0-5 /hpf (0-5) 07/29/24 18:54 Calcium Oxalate Crystal 5-10 /hpf H 07/29/24 18:54 Amorphous Sediment Not Reportable 07/29/24 18:54 Urine Bacteria Trace /hpf (NONE) 07/29/24 18:54 Hyaline Casts 2.87 /lpf 07/29/24 18:54 Urine Mucus 1+ /hpf 07/29/24 18:54 Vitals Last Vital Signs Temp 97.6 F 08/01/24 07:20 Pulse 61 08/01/24 08:33 Resp 18 08/01/24 08:33 BP 163/80 08/01/24 07:20 Pulse Ox 97 08/01/24 08:33 O2 Del Method Nasal Cannula 08/01/24 08:33 O2 Flow Rate 2 08/01/24 08:33 Discharge Plan Discharge Patient Disposition: Home Condition: Stable Prescriptions: Continued cyanocobalamin (vitamin B-12) 2,500 mcg tablet 2,500 mcg PO DAILY ascorbic acid (vitamin C) 1,000 mg tablet 1,000 mg PO DAILY (DME) oxygen-air delivery systems Device See Rx Instructions .ROUTE .MEDSUPPLY Qty: 1 Rx Instructions: As directed 3 liters montelukast 10 mg tablet 10 mg PO DAILY gcwiphpzcm-ijthnghemukzc-gfne 50-325-40 mg tablet 1 tab PO Q4H PRN (Reason: migraine) cholecalciferol (vitamin D3) 250 mcg (10,000 unit) capsule 250 mcg PO DAILY celecoxib [Celebrex] 200 mg capsule 200 mg PO BID Qty: 180 1RF omeprazole 40 mg capsule,delayed release(DR/EC) 40 mg PO DAILY Qty: 90 1RF prednisone 5 mg tablet 5 mg PO DAILY Qty: 90 1RF sulfasalazine 500 mg tablet See Rx Instructions .ROUTE .COMPLEX Qty: 360 1RF Dose Instruction: TAKE 2 TABLETS BY MOUTH TWICE DAILY Rx Instructions: TAKE 2 TABLETS BY MOUTH TWICE DAILY acyclovir 800 mg tablet 400 mg PO DAILY nitroglycerin 0.4 mg tablet, sublingual 0.4 mg sublingual Q5M PRN (Reason: chest pain) Qty: 20 0RF Rx Instructions: do not exceed 3 doses per episode levothyroxine 300 mcg tablet 300 mcg PO DAILY trazodone 300 mg tablet 300 mg PO BEDTIME donepezil 10 mg tablet See Rx Instructions .ROUTE .COMPLEX Qty: 90 1RF Dose Instruction: TAKE 1 TABLET BY MOUTH DAILY AT BEDTIME Rx Instructions: TAKE 1 TABLET BY MOUTH DAILY AT BEDTIME duloxetine 60 mg capsule,delayed release(DR/EC) See Rx Instructions .ROUTE BID 90 Days Qty: 180 1RF Dose Instruction: TAKE 1 CAPSULE BY MOUTH EVERY MORNING Rx Instructions: TAKE 1 CAPSULE BY MOUTH EVERY MORNING twice a day; eszopiclone [Lunesta] 3 mg tablet 3 mg PO BEDTIME PRN (Reason: insomnia) Qty: 30 5RF lamotrigine 200 mg tablet See Rx Instructions .ROUTE .COMPLEX Qty: 180 1RF Dose Instruction: TAKE 1 TABLET BY MOUTH TWICE DAILY Rx Instructions: TAKE 1 TABLET BY MOUTH TWICE DAILY lorazepam 1 mg tablet 1 - 2 mg PO BID PRN (Reason: anxiety and insomnia) 30 Days Qty: 90 5RF memantine 28 mg capsule,sprinkle,ER 24hr See Rx Instructions .ROUTE .COMPLEX Qty: 90 1RF Dose Instruction: TAKE 1 CAPSULE BY MOUTH DAILY Rx Instructions: TAKE 1 CAPSULE BY MOUTH DAILY prazosin 1 mg capsule 1 mg PO .at bedtime PRN (Reason: nightmares) Qty: 90 1RF Eliquis 5 mg tablet 5 mg PO BID Qty: 180 3RF pregabalin [Lyrica] 150 mg capsule 150 mg PO BID Qty: 180 1RF Hold Instructions: Doctor's Order digoxin 125 mcg (0.125 mg) tablet 0.125 mcg PO DIRECTED Qty: 120 3RF Rx Instructions: Take 2 tabs daily on Mon, Wed, Fri; take 1 tab daily all other days simvastatin 40 mg tablet 40 mg PO QPM oxycodone-acetaminophen 10-325 mg tablet 1 tab PO Q8H naproxen 500 mg tablet 500 mg PO DAILY fluticasone propion-salmeterol [Advair Diskus] 500-50 mcg/dose blister with device 1 inh inhalation BID Qty: 60 0RF Held ferrous sulfate 324 mg (65 mg iron) tablet,delayed release (DR/EC) 324 mg PO DAILY Hold Instructions: Resume on 08/07/24. Discharge Orders: Discharge Order (Routine); Ordered 08/01/24 Ordered By: Sal Vasquez Referrals: Willie Mahmood [Primary Care Provider] - 08/06/24 10:40 am (check in time 10:25 seeing David) Discharge Diet: Advance as tolerated and GI Soft Discharge Activity: Increase activity as tolerated and Oxygen as instructed Patient Instructions: Bowel Obstruction (GEN), Opioid Safety, Pain Management Activity Restrictions/Additional Instructions: Reduce opioid medication where possible. Opiates increased risk of constipation and ileus (slowing down bowel peristaltic action). Avoid constipation. Follow-up with your primary provider for reassessment. Follow up on gall bladder distention with surgery and your primary provider. Seek medical attention in case of any abdominal pain, return of nausea vomiting, inability to tolerate oral intake, or any other worsening or new concerning symptoms. Discharge Attestations Time Spent in Discharge Care*: greater than 30 min Quality Metrics Clinical Quality Measures [ No reported AMI, CVA or VTE this stay] Coding Level of Care Code 47973 Total time (in minutes) for Discharge: 40 Diagnoses Partial small bowel obstruction K56.600
[2024-08-01 11:07] VITALS: O2SAT 78; O2SAT 91; O2SAT 95
[2024-08-01 11:08] VITALS: BP 164/75; PULSE 63; RESP 16; TEMP 36.4; O2SAT 97
[2024-08-01 11:55] VITALS: BP 164/75; PULSE 63; RESP 16; TEMP 36.4; O2SAT 97
--- NOTE | 2024-08-01 14:06 | PC.SOCIAL ---
IMM Update pg 2 of IMM Updated and reviewed w/ patient. Copy provided and copy dated, initialed and placed in chart.
== END 2024-08-01 13:45 | disposition home or self-care (01) | DRG 389 ==
LOC: ER 22:43 → ER IP 23:04 → MEDSURG 07-30 12:41
PROVIDERS: Emergency Medicine; Admitting Provider Internal Medicine; Emergency Provider Emergency Medicine; PCP Family Medicine; Visit Provider Internal Medicine
DX: K56.600 Partial intestinal obstruction, unspecified as to cause (principal); F31.81 Bipolar II disorder; J96.11 Chronic respiratory failure with hypoxia; K82.1 Hydrops of gallbladder; K56.7 Ileus, unspecified; G89.29 Other chronic pain; Z79.891 Long term (current) use of opiate analgesic; E86.0 Dehydration; Z85.118 Personal history of other malignant neoplasm of bronchus and lung; Z90.2 Acquired absence of lung [part of]; F41.1 Generalized anxiety disorder; I35.0 Nonrheumatic aortic (valve) stenosis; G47.00 Insomnia, unspecified; M06.00 Rheumatoid arthritis without rheumatoid factor, unspecified site; E78.5 Hyperlipidemia, unspecified; G62.9 Polyneuropathy, unspecified; I48.0 Paroxysmal atrial fibrillation; K21.9 Gastro-esophageal reflux disease without esophagitis; G31.84 Mild cognitive impairment of uncertain or unknown etiology; E03.9 Hypothyroidism, unspecified; Z90.710 Acquired absence of both cervix and uterus; M79.7 Fibromyalgia
CPT/HCPCS: 36415; 71045; 74018; 74177; 76705; 80053; 81001; 83690; 83735; 84100; 84484; 85025; 85610; 85730; 94640; 94664; 94760; 96372; 96374; 96375; 96376; 99285; J1171; J1650; J2270; J2405; J2470; J2919; J7030; J7040; J8499

== ENCOUNTER 2024-08-21 07:10 | Outpatient (CLI) | payer MEDICARE, OTHER, SELFPAY ==
--- NOTE | 2024-08-21 | ECG_ITS ---
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
[2024-08-21 07:28] VITALS: BMI 24.6
--- NOTE | 2024-08-21 07:44 | NMCV_ITS ---
NM jose luis perf SPECT r/s* [id number] Zoya Cunningham Age: 74 Gender: F : 1950 Exam Date: 08/21/2024 08:01 Ordering Phys: Ana Vanegas NP Technologist: CINDI Smith Exam Location: [facility] Indications: cp STRESS TEST Please [facility] IMAGE PROTOCOL Rest/Stress 1 Lexiscan Day Radiopharmaceutical Dose (mCi) Administration Site Administered by Rest: Tc-99m 10.9 IV CINDI Smith Sestamibi Stress:Tc-99m 33 IV CINDI Mckeon Sestamibi Rest: 21-Aug-2024 60 Discovery 630 Stress: 21-Aug-2024 30 Discovery 630 0.4mg Lexiscan. Images obtained in supine and prone position. SPECT RESULTS Technical Quality: Good Raw Data Analysis: Normal Image Corrections: No attenuation or motion correction applied Summed Stress Score: 2 Summed Rest Score: 5 Summed Difference Score: 0 PERFUSION FINDINGS Large area of fixed perfusion defect noted in basal to distal inferior wall in the absence of prone images and wall motion abnormality could be an artifact. However cannot rule out old myocardial infarction. FUNCTIONAL RESULTS (calculated via Gated SPECT) Stress Image LV EF (%): 62 Stress EDV (mL):104 TID: 1.28 Stress ESV (mL):40 FUNCTIONAL FINDINGS: There is normal left ventricular systolic function. IMPRESSIONS This study is negative for ischemia. Basal to distal inferior wall fixed perfusion defect could be an artifact versus old myocardial infarction. EKG segment will be documented separately. Gisela Golden MD (Electronically Signed) Final Date: 22 August 2024 16:07 S
[2024-08-21] MEDS: regadenoson 0.4 Mg/5 ml Syringe IVP (08:40)
[2024-08-21 09:16] VITALS: BP 117/84; PULSE 63
== END 2024-08-21 07:11 | disposition home or self-care (01) ==
LOC: CDL 07:11
PROVIDERS: PCP Family Medicine; Visit Provider Nurse Practitioner Family
DX: R07.9 Chest pain, unspecified (principal); R93.1 Abnormal findings on diagnostic imaging of heart and coronary circulation; R06.02 Shortness of breath
CPT/HCPCS: 36415; 78452; 93017; 96374; A9500; J2785

== ENCOUNTER → 2024-08-27 08:40 | Outpatient (BNVA) | payer MEDICARE, OTHER, SELFPAY | PROVIDERS: PCP Family Medicine; Visit Provider Nurse Practitioner Family | DX: I10 Essential (primary) hypertension (principal); I48.21 Permanent atrial fibrillation; E78.2 Mixed hyperlipidemia; Z87.891 Personal history of nicotine dependence; Z79.01 Long term (current) use of anticoagulants | CPT/HCPCS: 99214 ==

== ENCOUNTER 2024-08-28 07:38 | Oncology outpatient (recurring) (ONCR) | payer MEDICARE, OTHER, SELFPAY ==
[2024-08-28 08:05] VITALS: BP 112/72; PULSE 106; RESP 18; TEMP 36.7; O2SAT 99
[2024-08-28] MEDS: sodium chloride 0.9% 250 ML 75 ML IV (08:25)
[2024-08-28] MEDS: diphenhydrAMINE 50 mg/mL SDV 1mL 25 MG IVP (08:29)
[2024-08-28] MEDS: acetaminophen 325 mg Tablet 650 MG PO (08:29)
[2024-08-28] MEDS: methylPREDNISolone sod succ 125 mg/2 mL INJ 40 MG IVP (08:30)
[2024-08-28] MEDS: infliximab-abda 400 MG in sodium chloride 0.9% 250 ML 300 MG IV (09:05)
[2024-08-28 10:50] VITALS: BP 112/74; PULSE 136; RESP 16; TEMP 36.8; O2SAT 96
== END 2024-08-31 23:59 | disposition home or self-care (01) ==
PROVIDERS: PCP Family Medicine; Visit Provider Internal Medicine Rheumatology
DX: M06.042 Rheumatoid arthritis without rheumatoid factor, left hand (principal); M06.041 Rheumatoid arthritis without rheumatoid factor, right hand; Z79.620 Long term (current) use of immunosuppressive biologic
CPT/HCPCS: 96375; 96413; A4222; J1200; J2919; J7050; Q5104

== ENCOUNTER → 2024-09-25 13:40 | Outpatient (BNVA) | payer MEDICARE, OTHER, SELFPAY | PROVIDERS: PCP Family Medicine; Visit Provider Internal Medicine Rheumatology | DX: M06.041 Rheumatoid arthritis without rheumatoid factor, right hand (principal); M06.042 Rheumatoid arthritis without rheumatoid factor, left hand; Z79.899 Other long term (current) drug therapy; Z71.89 Other specified counseling | CPT/HCPCS: 20600; 99214; J1010; J9999 ==

== ENCOUNTER 2024-10-09 07:38 | Oncology outpatient (recurring) (ONCR) | payer MEDICARE, OTHER, SELFPAY ==
[2024-10-09] MEDS: sodium chloride 0.9% 250 ML 75 ML IV (08:31)
[2024-10-09] MEDS: acetaminophen 325 mg Tablet 650 MG PO (08:32)
[2024-10-09 08:34] LABS: Basophils % 0.4 %; Eosinophils # 0.2 10^3/uL (0.0-0.8); Eosinophils % 1.5 %; Lymphocytes % 10.1 %; Mean Corpuscular HGB Conc 31.3 g/dL (30-55); Mean Corpuscular Hemoglobin 32.2 pg (27-33); Mean Corpuscular Volume 102.9 fl (85-98); Mean Platelet Volume 10.4 fL (7.4-10.4); Monocytes # 0.8 10^3/uL (0.2-0.9); Monocytes % 8.6 %; Neutrophils # 7.61 10^3/uL (1.8-7.7); Neutrophils % 78.6 %; Nucleated Red Blood Cells % 0 %; Platelet Count 175 10^3/cmm (157-399); Red Blood Count 3.79 10^6/uL (3.85-5.65); Red Cell Distribution Width 12.6 % (12.1-15.1); White Blood Count 9.69 10^3/uL (3.29-11.43)
[2024-10-09] MEDS: diphenhydrAMINE 50 mg/mL SDV 1mL 25 MG IVP (08:35)
[2024-10-09] MEDS: methylPREDNISolone sod succ 40 mg/mL INJ IVP (08:43)
[2024-10-09 08:57] LABS: Alanine Aminotransferase 21 U/L (0-33); Albumin Level 3.8 g/dL (3.5-5.2); Alkaline Phosphatase 80 U/L (35-105); C Reactive Protein 33.2 mg/L (0.0-4.9); Creatinine Clr Calc Pharmacy 67.8654; Globulin 3.2 g/dL (1.3-4.6); Total Bilirubin 0.2 mg/dL (0.15-1.2)
[2024-10-09 09:04] LABS: Aspartate Amino Transferase 20 U/L (0-32)
[2024-10-09 09:15] LABS: Erythrocyte Sedimentation Rate 26 mm/hr (0-15)
[2024-10-09] MEDS: infliximab-abda 800 MG in sodium chloride 0.9% 150 ML 250 MG IV (09:36)
[2024-10-09 10:53] VITALS: BP 156/70; PULSE 82; TEMP 36.7; O2SAT 92
== END 2024-10-31 23:59 | disposition home or self-care (01) ==
PROVIDERS: PCP Family Medicine; Visit Provider Internal Medicine Rheumatology
DX: M06.042 Rheumatoid arthritis without rheumatoid factor, left hand (principal); M06.041 Rheumatoid arthritis without rheumatoid factor, right hand; Z79.899 Other long term (current) drug therapy
CPT/HCPCS: 80076; 82565; 85025; 85651; 86140; 96375; 96413; A4222; J1200; J2919; J7050; J9999; Q5104

== ENCOUNTER → 2024-11-28 14:53 | Outpatient (BNVA) | payer MEDICARE, OTHER, SELFPAY | PROVIDERS: PCP Family Medicine; Visit Provider Nurse Practitioner Family | DX: L57.8 Other skin changes due to chronic exposure to nonionizing radiation (principal); D22.5 Melanocytic nevi of trunk; Z08 Encounter for follow-up examination after completed treatment for malignant neoplasm; Z85.828 Personal history of other malignant neoplasm of skin; L72.0 Epidermal cyst; L82.0 Inflamed seborrheic keratosis; L53.8 Other specified erythematous conditions; L29.89 Other pruritus; R20.8 Other disturbances of skin sensation; Z78.9 Other specified health status; L57.0 Actinic keratosis | CPT/HCPCS: 10060; 17000; 17110; 99213 ==

== ENCOUNTER 2025-02-25 10:09 | Emergency (ER) | payer MEDICARE, OTHER, SELFPAY ==
--- OUTSIDE RECORDS SUMMARY | 2025-02-04 12:30 | XMS_ITS | Encounter Summary ---
Author Organization [facility] Address [address] [place] [address] Care Team Providers Care Editor Continuity And Script Name Role Phone Willie Mahmood MD Primary Care Provider [phone] Reason for Visit * Reason Comments Pain Management Encounter Details Date Type Department Care Team (Late st Contact Info) Description 02/04/2025 12:30 PM CDT Video Visit [facility] Supportive Care [facility] [address] [place] [id number] Kade Mendez Jr., MD [address] [place] [address] Cervical radiculopathy; Idiopathic peripheral neuropathy; Fibromyalgia Social History Tobacco Use Types Packs/Day Years Used Date Smoking Tobacco: Former Cigarettes 1 25 0 10/07/1978 - 10/08/2003 Smokeless Tobacco: Never Alcohol Use Standard Drinks/Week Comments Yes 0 (1 standard drink = 0.6 oz pur e alcohol) Social Connections Answer Date Recorded In a typical week, how many times do you talk on the phone with family, friends, or neighbors? Three times a week 06/09/2020 How often do you get togethe r with friends or relatives? Twice a week 06/09/2020 How often do you attend chur ch or islam services? Never 06/09/2020 Do you belong to any clubs o r organizations such as christianity groups, unions, fraternal or athletic groups, or school groups? Yes 06/09/2020 Attends Club or Organization Meetings Not on brian e 06/09/2020 Marital Status Not on file 06/09/2020 Financial Resource Strain Answer Date R ecorded How hard is it for you to pa y for the very basics like food, housing, medical care, and heating? Not hard at all 09/28/2022 Food Insecurity Answer Date Recorded In the past 12 months, have you worried that your food would run out before you had money to buy more? Never true 09/28/2022 In the past 12 months, did y ou run out of food and didn't have money to buy more? Never true 09/28/2022 Transportation Needs Answer Date Record ed In the past 12 months, has l ack of transportation kept you from medical appointments or from getting medications? No 09/28/2022 Lack of Transportation (Non-Medical) Not on file 09/28/2022 Feeling Safe Answer Date Recorded Do you worry about feeling s afe and happy with the people in your life? No 01/29/2025 Food Insecurity Answer Date Recorded Do you find you are eating l ess than you should because you can t pay for food? No 01/29/2025 Transportation Needs Answer Date Record ed Have you gone without health care because you didn t have a way to get there? Or worry about transportation for future doctor visits, warehouse order picker medication, etc.? No 2024 Housing Stability Answer Date Recorded Do you worry you won t have a steady place to sleep or struggle to pay rent or mortgage? No 01/29/2025 Utility Needs Answer Date Recorded Do you have difficulty payin g for utility costs (electric, water or gas bills)? No 01/29/2025 Medication Needs Answer Date Recorded Have you skipped taking medi cation due to cost or worry you can t afford new medications? No 01/29/2025 Feeling Safe Answer Date Recorded Are you in a relationship wi th someone who hurts you emotionally and/or physically? No 07/19/2024 Comments No Sex and Gender Information Value Date Recorded Sex Assigned at Not on file Legal Sex Female 5:37 AM SACK FILLER Gender Identity Not on file Sexual Orientation Not on file documented as of this encounter Progress Notes * Andrea Patel, Kade Reyes MD - 02/04/2025 12:21 PM CDT Patient's identity confirmed yes Patient gave verbal consent to have these services billed to their insurance and expressed understanding that co-insurance and deductible may apply: yes Patient was located at home. This encounter was completed via two-way synchronous audio and video communication. On the day of the visit, I spent 36 minutes providing care to this patient including Preparing to see the patient, Obtaining and/or reviewing separately obtained history, Performing a medically appropriate examination and/or evaluation, Counseling and educating the patient/family/caregiver, Ordering medications, tests or procedures, and Documenting clinical information in the medical record. [facility] SUPPORTIVE AND PALLIATIVE CARE OUTPATIENT OFFICE FOLLOW-UP PATIENT: Zoya Cunningham Date of : 1950 Primary Care Physician: Willie Mahmood MD No chief complaint on file. History of Present Illness Ms Cunningham is a 75-year-old female referred for advanced care planning and symptom management. She has multiple chronic conditions affecting her daily life and requires comprehensive symptom management. Chronic Pain Syndromes - Affects her neck, polyarthritis, low back pain, fibromyalgia, and osteoarthritis - Experiences muscle, hip, and neck pain - Has undergone nerve severing bilaterally - Has not tried Tylenol or Xtampza - Has a high pain tolerance and prefers not to feel numb - Takes oxycodone 10 mg every 4 hours, ibuprofen 2000 mg at bedtime, Celebrex, duloxetine, pregabalin 150 mg twice daily, Lamictal, and lorazepam for sleep - Tramadol was insufficient for her pain - Has a prescription for buprenorphine 325 mg but has stopped taking it Respiratory Issues - On 2 L of oxygen at rest and 3 L during activity, with 32% lung capacity - Has COPD, emphysema, and a single lung due to lung cancer surgery - Experiences shortness of breath at rest but no difficulty sleeping or eating - Takes prednisone daily for fibromyalgia and osteoporosis Cognitive Decline - Has Alzheimer's disease with cognitive decline Cardiac Issues - Has a prolapsed mitral valve and may need surgery soon Mental Health - Is bipolar and manic depressive - Takes duloxetine 120 mg twice daily and pregabalin 150 mg twice daily - Participates in talk therapy She has a history of bowel obstruction and was hospitalized in July 2024. FAMILY HISTORY Her mother from lung cancer. MEDICATIONS Current: Oxycodone, prednisone, duloxetine, pregabalin, ibuprofen, Celebrex, Lamictal, lorazepam. Discontinued: Tramadol. Review of Systems Constitutional: Negative for fever. Respiratory: Negative for shortness of breath. Cardiovascular: Negative for chest pain. Gastrointestinal: Negative for abdominal pain. Musculoskeletal: Positive for back pain, joint pain and myalgias. Skin: Negative for rash. Neurological: Negative for weakness. Advanced Directive/DPOA: Yes Advance Care Plan Completed: no Cultural issues: Pastoral Care consult placed Spiritual issues: none [place] Symptom Assessment Scale (ESAS-r) Pain: 6 (02/04/25 1200) Tiredness: 6 (02/04/251199) Drowsiness: 6 (02/04/251199) Nausea: 0 - no nausea (02/04/251199) Lack of Appetite: 0 - no lack of appetite (02/04/251199) Shortness of Breath: 0 - normal respiration with no distress (02/04/251199) Depression: 0 - no symptom(s) of depression (02/04/251199) Anxiety: 0 - no signs or symptoms of anxiety (02/04/251199) Wellbein (02/04/251199) Other - Constipation: 0 - no constipation (02/04/251199) PHQ-2 & PHQ-9 Little interest or pleasure in doing things: More than half the days (02/04/251199) Feeling down, depressed, or hopeless: Not at all (02/04/251199) PHQ-2 Total: 2 (02/04/251199) Subjective Visit Date: 02/04/25 75-year-old female presents via virtual visit for follow-up. Seen a week ago for chronic pain syndrome due to polyarthritis, low back pain, and fibromyalgia. (+) end-stage COPD and cognitive decline. Pain medications were adjusted last visit. Treatment plan: - Step 1: buprenorphine patch 5 mcg/hr Q weekly titration to , to increase to 20 mcg/h. - Step 2: buprenorphine sublingual tablets to replace oxycodone, when maxed out on bup patch at 20 mcg/hr if pain remains poorly controlled Reduce duloxetine dosage to 60 mg daily from twice a day STOP naprosyn / celebrex / ibuprofen on anticoagulation Chronic Pain Syndrome - Continues to experience pain, managed with 3-4 oxycodone tablets daily, providing some relief butstill discomfort - Has not tried 1.5 tablets of oxycodone - Discontinued OTC medications, including ibuprofen and Celebrex Severe Itching - Reports generally good week except for severe itching - Using medicated lotion, which alleviates discomfort - No adverse effects from Benadryl - Manages itching without additional treatment End-Stage COPD and Cognitive Decline - No issues with bowel movements or breathing MEDICATIONS Current: Oxycodone, buprenorphine patch, Eliquis. Discontinued: Ibuprofen, Celebrex. 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 (Safer option) Assessment & Plan - Persistent pain despite current medication - Increase buprenorphine 5mcg/hr patch Q weekly to 2 patches weekly - Prescribed Atarax for itching - Discussed potential side effects of Atarax, including drowsiness and confusion - If increased buprenorphine dosage does not control pain, consider increasing oxycodone dosage or allowing more oxycodone per day Itching - Generalized itching, possibly related to pain medication - Prescribed Atarax - Monitor for side effects such as drowsiness or confusion Depression Screen Positive: PHQ-2 score >= 3 or PHQ-9 score >= 9 PHQ-2 Total: 4 (05/08/2024 10:34 AM) PHQ-9 Total: 13 (05/08/2024 10:34 AM) Depression Screen Positive: PHQ-2 score >= 3 or PHQ-9 score >= 9 PHQ-2 Total: 2 (02/04/2025 12:00 PM) PHQ-9 Total: 13 (05/08/2024 10:34 AM) In the past few weeks, have you had thoughts that you would be better off or have you ever prepared or tried to end your life?: No (02/04/2025 12:00 PM) Return in about 1 week (around 02/11/2025) for video visit. Current Outpatient Medications Medication Sig Dispense Refill oxyCODONE-acetaminophen (PERCOCET) 10-325 mg Tablet Take 1 Tablet by mouth every 4 hours as needed for Pain, Severe. Max Daily Amount: 4 Tablets buprenorphine (BUTRANS) 10 mcg/hour patch Apply 1 Patch to skin as directed every 7 days for 28 days. 4 Patch 0 naproxen (NAPROSYN) 500 mg tablet Take 1 Tablet (500 mg) by mouth 1 time daily as needed for Other (See Comment) (Severe headache). 100 Tablet 3 ipratropium-albuteroL (DUONEB) 0.5 mg-3 mg(2.5 mg base)/3 mL Solution for Nebulization Take 3 mL byinhalation every 6 hours as needed for Shortness of Breath. 360 mL 11 arkkhwrjot-ecgxdwdmxhjhv-dqkfmmnx (FIORICET) 50-325-40 mg tablet Take 1-2 Tablets by mouth every 8 hours as needed for Headaches. 180 Tablet 5 levothyroxine 300 mcg tablet Take 1 Tablet (300 mcg) by mouth daily. Dose increase, follow-up labs have been ordered for 6 weeks 100 Tablet 1 predniSONE (DELTASONE) 5 mg tablet eszopiclone (LUNESTA) 3 mg Tablet take 1 tablet by mouth at bedtime as needed for insomnia naloxone (NARCAN) 4 mg/spray [place], Non-Aerosol EMERGENCY USE ONLY: Administer 1 spray (4 mg) in one nostril one time. May repeat in alternating nostrils every 2-3 min until responsive or EMS arrives. 2 Each 3 simvastatin (ZOCOR) 40 mg tablet take 1 tablet by mouth every day at bedtime 100 Tablet 3 celecoxib (CeleBREX) 200 mg capsule Take 1 Capsule by mouth 2 times daily. donepeziL (ARICEPT) 10 mg tablet Take 1 Tablet (10 mg) by mouth daily at bedtime. 90 Tablet 3 memantine (NAMENDA XR) 28 mg Extended Release 24 hour capsule Take 1 Capsule (28 mg) by mouth daily. 90 Capsule 3 acyclovir (ZOVIRAX) 800 mg tablet Take 800 mg by mouth daily. prednisoLONE acetate (PRED FORTE) 1 % suspension SHAKE LIQUID AND INSTILL 1 DROP IN RIGHT EYE FOUR TIMES DAILY Eliquis 5 mg tablet Take 5 mg by mouth 2 times daily. Nebulizer Accessories Kit Length of need 99 months Nebulizer with compressor, Kit: Disposable Nebulizer Kit, 2 per month, filters , areosol mask: Yes. Name of Medication: Albuterol 1 Each 11 multivitamin (DAILY-WINTER) tablet Take 2 Tablets by mouth daily. prazosin (MINIPRESS) 1 mg capsule TAKE 1 TO 2 CAPSULES BY MOUTH AT BEDTIME. MAY INCREASE TO 2 CAPSULES NEEDED AFTER 3 DAYS sulfaSALAzine (AZULFIDINE) 500 mg tablet Take 1,000 mg by mouth 2 times daily. albuterol sulfate 90 mcg/Actuation inhaler Take 2 Puffs by inhalation every 6 hours as needed for Shortness of Breath. 8.5 Gram 6 fluticasone propion-salmeteroL (ADVAIR DISKUS,WIXELA INHUB) 250-50 mcg/dose disk inhaler Take 1 Puff by inhalation 2 times daily. 12 Each 11 ipratropium bromide (ATROVENT) 0.02 % Solution INHALE 1 VIAL VIA NEBULIZER EVERY 12 HOURS Strength: 0.02 % 450 mL 11 LORazepam (ATIVAN) 1 mg tablet lamoTRIgine (LaMICtal) 200 mg tablet Take 200 mg by mouth 2 times daily. digoxin (LANOXIN) 125 mcg (0.125 mg) tablet Take 125 mcg by mouth daily. cyanocobalamin (VITAMIN B-12) 5,000 mcg Tablet, Sublingual Place 1 Tablet under tongue daily. omeprazole (PriLOSEC) 40 mg Capsule, Delayed Release(E.C.) TK 1 C PO D DULoxetine (CYMBALTA) 60 mg Capsule, Delayed Release(E.C.) TK ONE C PO D oxygen home delivery Home Oxygen Concentrator yes at 0 L/M Rest, 2 L/M Activity, 2 L/M Sleep, Delivery Device: Nasal CannulaPortability: yes, 0 L/M Rest, 2 L/M Activity, May evaluate for device best for patient needs(E system,home fill, conserving device)Maintain Sats: > OR = 90%,Length of Need:99 months. 1 Each 0 ferrous sulfate (SLOW RELEASE IRON) 142 mg (45 mg iron) Tablet Sustained Release Take 142 mg by mouth. No current facility-administered medications for this visit. Past Medical History: Diagnosis Date Abnormal glucose Anxiety Bipolar disorder (CMS/HCC) Bipolar disorder (CMS/HCC) [facility] ([facility]) Chemotherapy 210. LUNG CANCER COPD, severe ([facility]) 04/17/2014 COPD, severe ([facility]/HCC) 04/17/2014 Depression Diarrhea Emphysema 04/17/2014 Flatus Hemoptysis Hyperlipidemia Hypothyroidism Irregular heart beat Lyme disease Malignant neoplasm middle lobe, bronchus or lung (CMS/HCC) Mitral valve prolapse Obstructive sleep apnea syndrome 04/07/2015 Paroxysmal atrial fibrillation (CMS/HCC) 07/18/2018 Primary cardiomyopathy (CMS/HCC) Primary cardiomyopathy (CMS/HCC) Stage 2 moderate COPD by GOLD classification (CMS/HCC) 10/26/2017 Thyroid disease Unspecified essential hypertension URI (upper respiratory infection) Past Surgical History: Procedure Laterality Date HX BREAST BIOPSY multiple, benign HX CORE NEEDLE BREAST BIOPSY Left UNKNOWN HX EXCISION / BIOPSY BREAST / NIPPLE / DUCT Right HX HYSTERECTOMY Bilateral 1995 COMPLETE HX LOBECTOMY 2008 RULobectomy for NSC Ca HX SURGICAL OTHER neck biopsy HX CHRIS AND BSO 1995 MRI CHEST W MRA CHEST NV BRONCHOSCOPY W/CPTR-ASST IMAGE-GUIDED NAVIGATION N/A 01/03/2015 BRONCHOSCOPY WITH ELECTROMAGNETIC NAVIGATION performed by Tab Pearce MD at [facility] MAIN OR NV COLONOSCOPY FLX DX W/COLLJ SPEC WHEN PFRMD N/A 10/29/2021 COLONOSCOPY performed by Robert Goodrich DO at [facility] OR Family History Problem Relation Name Age of Onset Heart Disease Mother Hypertension Mother Lung Cancer Mother Diabetes Sister Other Sister celica Breast Cancer Maternal Grandmother 50's Diabetes Maternal Aunt Breast Cancer Maternal Aunt 60's Cancer - Other Maternal Aunt 70's - unsure what type- found it all over body during surgery Lung Cancer Other SELF Colon Cancer Neg Hx Ovarian Cancer Neg Hx Uterine or Endometrial Cancer, Not Including Cervical Neg Hx Melanoma Neg Hx Pancreatic Cancer Neg Hx Social History Tobacco Use Smoking status: Former Current packs/day: 0.00 Average packs/day: 1 pack/day for 25.0 years (25.0 ttl pk-yrs) Types: Cigarettes Start date: 10/07/1978 Quit date: 10/08/2003 Years since quittin.3 Smokeless tobacco: Never Substance Use Topics Alcohol use: Yes Allergies Allergen Reactions Tetanus Toxoid Adsorbed Fever MD Kade Garcia Jr, Jr., M.D., [facility] Palliative and Supportive Care documented in this encounter Plan of Treatment Upcoming Encounters Date Type Department Care Team (Late st Contact Info) Description 02/26/2025 2:15 PM CDT Office Visit [facility] Supportive Care [facility] [address] [facility] [address] [place] [address] Esthela Arenas NP [address] [facility] [address] [place] [address] 03/14/2025 9:00 AM CDT Office Visit [facility] Family Medicine [place] [address] [address] Willie Mahmood MD [address] [address] 04/16/2025 9:00 AM CDT Appointment [facility] CT Scan [place] [address] [address] Brandi Kim NP [address] [place] [address] 08/29/2025 10:15 AM SACK FILLER Appointment [facility] Neurology [facility] [address] [address] Gadiel Shearer MD [address] [place] [address] documented as of this encounter Visit Diagnoses Diagnosis Cervical radiculopathy Brachial neuritis or radiculitis nos Idiopathic peripheral neuropathy Unspecified hereditary and idiopathic peripheral neuropathy Fibromyalgia Mylagia and myositis, unspecified documented in this encounter Additional Health Concerns Assessment Noted Time PHQ-9 Depression Total Score: 2 02/05/20 25 12:00 PM CDT documented as of this encounter Care Teams Editor Continuity And Script Relationship Specialty Start Date End Date Willie Mahmood MD [address] [address] PCP - General Family Practice 10/06/17 documented as of this encounter
--- OUTSIDE RECORDS SUMMARY | 2025-02-21 11:00 | XMS_ITS | Encounter Summary ---
Author Organization [facility] Address [address] [place] [address] Care Team Providers Care Dictating Machine Transcriber Name Role Phone Willie Mahmood MD Primary Care Provider [phone] [phone] Reason for Referral * Eval and Treat (Routine) - Pending Review Specialty Diagnoses / Procedures Referred By Milan t Referred To Contact Hospice & Palliative Medicine Diagnoses Chronic pain syndrome Procedures DE OFFICE/OUTPATIENT ESTABLISHED MOD MDM 30 MIN DE OFFICE/OUTPATIENT NEW MODERATE MDM 45 MINUTES Ana Awan FNP [address] [place] [phone] Phone: tel: fax: [facility] (formerly [facility]) [address] [address] Phone: tel: fax: Referral ID Status Reason Start Date Expiration Date V isits Requested Visits Authorized [id number] Pending Review 02/21/2025 02/21/2026 1 1 Reason for Visit * Reason Comments Urinary Pain Encounter Details Date Type Department Care Team (Late st Contact Info) Description 02/21/2025 11:00 AM CDT Office Visit [facility] Medicine [address] [address] Ana Awan FNP [address] [place] [phone] Chronic pain syndrome (Primary Dx); Urinary pain; Suspected UTI Social History Tobacco Use Types Packs/Day Years [...] 06/09/2020 How often do you attend chur or jainism services? Never 06/09/2020 Do you belong to any clubs o r organizations such as adventist groups, unions, fraternal or athletic groups, or [...] worry about transportation for future doctor visits, picker tender helper medication, etc.? 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 Gender Identity Not on file Sexual Orientation Not on file documented as of this encounter Last Filed Vital Signs Vital Sign Reading Time Taken Comments Blood Pressure 128/80 02/21/2025 10:44 AM CDT Pulse 107 02/21/2025 10:44 AM CDT Temperature 36.2 C (97.2 F) 02/21/2025 10:44 AM CDT Respiratory Rate 16 02/21/2025 10:4 4 AM CDT Oxygen Saturation 97% 02/21/2025 10: 44 AM CDT Inhaled Oxygen Concentration - - Weight 84.3 kg (185 lb 12.8 oz) 025 10:44 AM CDT Height 172.7 cm (5' 8 ) 02/21/2025 10:4 4 AM CDT Body Mass Index 28.25 02/21/2025 10:44 AM CDT documented in this encounter Progress Notes * Ana Awan, FATIMAH - 02/21/2025 11:47 AM CDT [facility] [place] 02/21/2025 Subjective: Zoya Cunningham is a 75 y.o. female who comes today for evaluation of Urinary Pain . History of Present Illness The patient is a 75-year-old female presenting with concerns about a urinary tract infection (UTI). She reports experiencing symptoms of a UTI, including burning during urination and increased frequency, for the past 2 weeks. She has been self-medicating with amoxicillin, but it has not alleviated her symptoms. She also mentions persistent lower back pain, which she believes is distinct from her chronic pain. She is currently under palliative care for chronic pain management due to osteoarthritis. She was previously prescribed oxycodone, which provided some relief but was insufficient. She has also tried OxyContin in the past. Her current regimen includes a Butrans patch, which was recently increased from 10 to 20, providing continuous pain relief. However, she reports that this patch has led to the development of hives, causing severe itching. She has been applying lotion to manage the itching, which has resulted in raw skin. She has been advised to walk for 10 minutes daily but finds it challenging due to her condition. She is a lung cancer survivor. 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 HENT: Negative for congestion, ear pain and sore throat. Eyes: Negative for blurred vision. Respiratory: Negative for cough and shortness of breath. Cardiovascular: Negative for chest pain. Gastrointestinal: Negative for abdominal pain, constipation, diarrhea, nausea and vomiting. Genitourinary: Positive for dysuria. Negative for urgency. Musculoskeletal: Positive for myalgias. Negative for joint pain. Chronic pain Neurological: Negative for dizziness and headaches. All other systems reviewed and are negative. Objective: Vitals: 02/21/25 1044 Temp: 97.2 ??F (36.2 ??C) Pulse: (!) 107 BP: 128/80 Resp: 16 SpO2: 97% Physical Exam Constitutional: General: She is not in acute distress. Appearance: Normal appearance. She is not ill-appearing or toxic-appearing. HENT: Head: Normocephalic and atraumatic. Right Ear: Tympanic membrane normal. Left Ear: Tympanic membrane normal. Nose: Nose normal. Mouth/Throat: Mouth: Mucous membranes are moist. Eyes: Extraocular Movements: Extraocular movements intact. Pupils: Pupils are equal, round, and reactive to light. Neck: Vascular: No JVD. Cardiovascular: Rate and Rhythm: Normal rate and regular rhythm. Pulses: Normal pulses. Heart sounds: Normal heart sounds. Pulmonary: Effort: Pulmonary effort is normal. No respiratory distress. Breath sounds: Normal breath sounds and air entry. No decreased air movement. No wheezing, rhonchi or rales. Abdominal: General: Abdomen is flat. Bowel sounds are normal. Palpations: Abdomen is soft. Tenderness: There is no abdominal tenderness. Musculoskeletal: General: Normal range of motion. Cervical back: Normal range of motion and neck supple. Skin: General: Skin is warm and dry. Neurological: General: No focal deficit present. Mental Status: She is alert and oriented to person, place, and time. Psychiatric: Mood and Affect: Mood normal. Behavior: Behavior normal. Past medical history, surgical history and social history reviewed. 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/17/2014 Depression Diarrhea Emphysema 04/17/2014 Flatus Hemoptysis Hyperlipidemia Hypothyroidism Irregular heart beat Lyme disease Malignant neoplasm middle lobe, bronchus or lung ([facility]) Mitral valve prolapse Obstructive sleep apnea syndrome 04/07/2015 Paroxysmal atrial fibrillation ([facility]) 07/18/2018 Primary cardiomyopathy ([facility]) Primary cardiomyopathy ([facility]) Stage 2 moderate COPD by GOLD classification ([facility]) 10/26/2017 Thyroid disease Unspecified essential hypertension URI (upper respiratory infection) Procedures Assessment/Plan: ICD-10-CM ICD-9-CM 1. Chronic pain syndrome G89.4 338.4 AMB REFERRAL TO PALLIATIVE CARE 2. Urinary pain R30.9 788.1 POC URINALYSIS DIPSTICK AUTOMATED URINE CULTURE 3. Suspected UTI R39.89 788.99 nitrofurantoin (MACROBID) 100 mg capsule Assessment & Plan 1. Suspected urinary tract infection (UTI): - She reports burning with urination and increased frequency for the past 2 weeks. - Her urinalysis shows trace amounts of blood and protein but is otherwise bland. - A urine culture will be sent for further analysis.However, given the fact that she has taken amoxicillin, I am not certain the culture will be accurate. - Empiric treatment with Macrobid will be initiated. 2. Chronic pain management: - She reports dissatisfaction with her current palliative care provider. A referral to an external meat specialist will be made to explore other pain management options. - She is currently under palliative care for chronic pain due to multiple issues. 3. Lower back pain: - She reports persistent lower back pain, which is different from her chronic pain. - This will be monitored, and further evaluation will be considered if the pain persists or worsens. FATIMAH Weir- This note was automatically generated by a Generative AI technology (Memoir), reviewed, edited, and finalized by FATIMAH Weir. The author of this note, patient (or authorized regional sales representative), and all other persons present consent to the audio recording of this visit for charting documentation purposes. documented in this encounter Plan of Treatment Upcoming Encounters Date Type Department Care Team (Late st Contact Info) Description 02/26/2025 2:15 PM CDT Office Visit [facility] Supportive Care [facility] [address] [facility] [address] [place] [address] Esthela Arenas NP [address] [facility] [address] [place] [address] 03/14/2025 9:00 AM CDT Office Visit [facility] Family Medicine [address] [address] Willie Mahmood MD [address] [address] 04/16/2025 9:00 AM CDT Appointment [facility] CT Scan [place] [address] [address] Brandi Kim NP [address] [place] [address] 08/29/2025 10:15 AM PERSONNEL RECORDS CLERK Appointment [facility] Neurology [facility] [address] [address] Gadiel Shearer MD [address] [place] [phone] Scheduled Referrals Name Type Priority Associated Diagnoses Order Schedule AMB REFERRAL TO PALLIATIVE CARE Outpatient Referral Routine Chronic pain syndrome Ordered: 02/21/2025 documented as of this encounter Procedures Procedure Name Priority Date/Time Associated Diagnosis Comments URINE CULTURE Routine 02/21/2025 3:30 PM CDT Urinary pain POC URINALYSIS DIPSTICK AUTOMATED Routine 02/21/2025 10:50 AM CDT Urinary pain documented in this encounter Results * (ABNORMAL) URINE CULTURE (02/21/2025 3:30 PM CDT) URINE CULTURE SEE NOTE(A) [facility] Comment: CULTURE, URINE, ROUTINE Micro Number: [id number] Test Status: Final Specimen Source: Urine, clean catch Specimen Quality: Adequate Result: 10,000-49,000 CFU/mL of Proteus mirabilis Greater than 100,000 CFU/mL of Staphylococcus saprophyticus The Clinical Laboratory Standards [place] (CLSI) does not advise routine susceptibility testing of urine isolates of S. saprophyticus because infections respond to urinary concentrations of agents commonly used to treat acute, uncomplicated UTI such as nitrofurantoin, trimethoprim-sulfamethoxazole or a fluoroquinolone. P.mirabilis INT JAKY AMOX/CLAVULANATE S 4 AMP/SULBACTAM S <=2 CEFAZOLIN I 4 CEFEPIME S <=0.12 CEFTAZIDIME S <=0.5 CEFTRIAXONE S <=0.25 CIPROFLOXACIN S <=0.06 GENTAMICIN S <=1 LEVOFLOXACIN S <=0.12 MEROPENEM S 0.5 NITROFURANTOIN R 128 PIP/TAZOBACTAM S <=4 TRIMETHOPRIM/SULFA S <=20 S = Susceptible I = Intermediate R = Resistant NS = Not susceptible SDD = Susceptible Dose Dependent * = Not Tested NR = Not Reported NN = See Therapy Comments Test Performed at: [facility] [address] [place] [address] Eros Albarran MD Urine URINE SPECIMEN OBTAINED BY CLEAN CATCH PROCEDURE / Unknown 02/21/2025 3:30 PM CDT 02/22/2025 3:22 AM CDT Ana Awan FOOD MIXER REPAIRER MICROBIOLOGY - GENERAL ORDE RABLES Final Result [facility] [phone] [facility] [address] [place] [address] * (ABNORMAL) POC URINALYSIS DIPSTICK AUTOMATED (02/21/2025 10:50 AM CDT) COLOR UA POC Yellow Pale to Dark Yellow [facility] CLARITY UA POC Turbid(A) Clear, Other [facility] GLUCOSE UA POC Negative Negative, Normal [facility] BILIRUBIN UA POC Negative Negative [facility] KETONES UA POC Negative Negative [facility] SPECIFIC GRAVITY UA POC 1.020 1.000 - 1.030 [facility] BLOOD UA POC Trace(A) Negative [facility] PH UA POC 7.0 5.0 - 8.0 [facility] PROTEIN UA POC Trace(A) Negative [facility] UROBILINOGEN UA POC 0.2 <2.0 mg/dL [facility] NITRITE UA POC Negative Negative [facility] LEUKOCYTE ESTERASE UA POC Negative Negative [facility] KIT [address] NUM[address] POC 501,[id number] [facility] KIT EXP DATE POC 01/31/2026 [facility] Urine 02/21/2025 10:5 0 AM CDT Ana Awan FOOD MIXER REPAIRER POINT OF CARE TESTING Final Result [facility] CLIA# [id number] [address] [place] [address] documented in this encounter Visit Diagnoses Diagnosis Chronic pain syndrome- Primary Urinary pain Renal colic Suspected UTI documented in this encounter Care Teams Dictating Machine Transcriber Relationship Specialty Start Date End Date Willie Mahmood MD [address] [phone] PCP - General Family Practice 10/06/17 documented as of this encounter
[2025-02-25 10:11] VITALS: BP 102/69; PULSE 106; TEMP 36.7; O2SAT 97; BMI 26.6
--- OUTSIDE RECORDS SUMMARY | 2025-02-25 10:17 | XMS_ITS | Encounter Summary ---
Author Organization [facility] Address [address] [place] [address] Care Team Providers Care Client Retention Specialist Name Role Phone Willie Mahmood MD Primary Care Provider [phone] Reason for Referral * Outpatient Services (Routine) - Closed Specialty Diagnoses / Procedures Referred By Contmeryl nuñez Referred To Contact Diagnoses Screening mammogram Procedures MAMMO SCREENING BILAT Martin Dumont DO NO ADDRESS ON FILE Referral ID Status Reason Start Date Expiration Date Visits Re quested Visits Authorized [id number] Closed 08/21/2010 02/17/2011 1 1 OW REPAIRER Encounter Details Date Type Department Care Team (Late st Contact Info) Description 08/21/2010 Ancillary Orders [facility] Imaging External Read [address] [place] [address] Martin Dumont DO NO ADDRESS ON FILE Screening mammogram Social History Tobacco Use Types Packs/Day Years Used Date Smoking Tobacco: Former Cigarettes 1 4 Smokeless Tobacco: Never Alcohol Use Standard Drinks/Week Comments Yes 0 (1 standard drink = 0.6 oz pur e alcohol) Rarely Comments No Sex and Gender Information Value Date Recorded Sex Assigned at Not on file Legal Sex Female 3:09 AM WINDOW REPAIRER Gender Identity Not on file Sexual Orientation Not on file documented as of this encounter Plan of Treatment Not on file documented as of this encounter Results * MAMMO SCREENING BILAT (08/21/2010 10:54 AM WINDOW REPAIRER) Anatomical Region Laterality Modality Breast Bilateral Mammography Narrative 08/24/2010 12:41 PM WINDOW REPAIRER Bilateral Mammogram Reason for Exam: Screening Comparison: Comparison is made with the prior exam(s) dated 718.+8.11.08 Findings: Bilateral CC and MLO views were obtained. This examination was reviewed with the aid of a computer-aided detection system(CAD). The breast tissue density is average. Stable left nodule. No significant new findings since the prior mammogram(s). Procedure Note Vasiliy Chamberlain MD - 08/24/2010 Bilateral Mammogram Reason for Exam: Screening Comparison: Comparison is made with the prior exam(s) dated7.18.+8.11.08 Findings: Bilateral CC and MLO views were obtained. This examination was reviewed with the aid of a computer-aided detectionsystem(CAD). The breast tissue density is average. Stable left nodule. No significant new findings since the prior mammogram(s). us Martin Dumont DO MAMMO ORDERABLES Final Result documented in this encounter Visit Diagnoses Diagnosis Screening mammogram Other screening mammogram documented in this encounter Care Teams Client Retention Specialist Relationship Specialty Start Date End Date Willie Mahmood MD [address] [phone] PCP - General Family Practice 10/06/17 documented as of this encounter
--- OUTSIDE RECORDS SUMMARY | 2025-02-25 10:17 | XMS_ITS | Encounter Summary ---
Author Organization [facility] Address [address] [place] [address] Care Team Providers Care Craps Dealer Name Role Phone Willie Mahmood MD Primary Care Provider [phone] Encounter Details Date Type Department Care Team (Late st Contact Info) Description 02/15/2007 Outpatient Historical [facility] OP Martin Dumont, DO NO ADDRESS ON FILE Social History Tobacco Use Types Packs/Day Years Used Date Smoking Tobacco: Never Assessed Comments Unknown Sex and Gender Information Value Date Recorded Sex Assigned at Not on file Legal Sex Female 3:09 AM POULTRY DEBEAKER Gender Identity Not on file Sexual Orientation Not on file documented as of this encounter Plan of Treatment Not on file documented as of this encounter Procedures Procedure Name Priority Date/Time Associated Diagnosis Comments MRA HEAD WO CONTRAST Routine 02/15/2007 5:40 AM CDT documented in this encounter Results * MRA HEAD WO CONTRAST (02/15/2007 5:40 AM CDT) Anatomical Region Laterality Modality Head Other 02/15/2007 5:40 AM CDT Narrative 02/15/2007 5:40 AM CDT Multiplanar imaging of the brain was performed with and without IV gadolinium. A brain MRA was alsoperformed. 19 ml of Optimark were given. History is head trauma, cephalgia and neck pain. The corpus callosum and pituitary gland appear within normal limits. The diffusion-weighted images showno acute ischemic changes. No mass or white matter disease is seen. Ventricles are normal in size. Normal major intracranial flow-voids are present. Paranasal sinuses are clear. The postcontrastimages show no abnormal enhancement. The brain MRA shows patency of the distal vertebral arteries and basilar artery. Intracranial internalcarotid arteries are patent bilaterally. The anterior, middle and posterior cerebral arteries arepatent. Anterior cerebral arteries fill primarily from the right side. No aneurysm or significantfocal stenosis is seen. IMPRESSION Unremarkable exams. - Dictated By: Tab Camara M.D. Electronically Signed By: Tab Camara M.D. Date Signed: 02/16/07 Procedure Note 05/25/2009 Multiplanar imaging of the brain was performed with and without IVgadolinium. A brain MRA was alsoperformed. 19 ml of Optimark were given. History is head trauma, cephalgia and neck pain. The corpus callosum and pituitary gland appear within normal limits. Thediffusion-weighted images showno acute ischemic changes. No mass or white matter disease is seen.Ventricles are normal in size. Normal major intracranial flow-voids are present. Paranasal sinuses areclear. The postcontrastimages show no abnormal enhancement. The brain MRA shows patency of the distal vertebral arteries and basilarartery. Intracranial internalcarotid arteries are patent bilaterally. The anterior, middle andposterior cerebral arteries arepatent. Anterior cerebral arteries fill primarily from the right side.No aneurysm or significantfocal stenosis is seen. IMPRESSION Unremarkable exams. - Dictated By: Tab Camara M.D. Electronically Signed By: Tab Camara M.D. Date Signed: 02/16/07 Martin Dumont DO MR ORDERABLES Final Result documented in this encounter Visit Diagnoses Not on filedocumented in this encounter Care Teams Craps Dealer Relationship Specialty Start Date End Date Willie Mahmood MD [address] [phone] PCP - General Family Practice 10/06/17 documented as of this encounter
--- OUTSIDE RECORDS SUMMARY | 2025-02-25 10:17 | XMS_ITS | Encounter Summary ---
Author Organization [facility] Address [address] [place] [address] Care Team Providers Care Brownfield Redevelopment Specialist Name Role Phone Willie Mahmood MD Primary Care Provider [phone] Encounter Details Date Type Department Care Team (Latest Contact Info) Description 04/11/1998 Outpatient Historical [facility] Medicine [place] [address] [address] Martin Dumont DO NO ADDRESS ON FILE Unspecified hypothyroidism (Primary Dx); Gynecologic examination Social History Tobacco Use Types Packs/Day Years Used Date Smoking Tobacco: Never Assessed Comments Unknown Sex and Gender Information Value Date Recorded Sex Assigned at Not on file Legal Sex Female 3:09 AM SALAD CHEF Gender Identity Not on file Sexual Orientation Not on file documented as of this encounter Plan of Treatment Not on file documented as of this encounter Visit Diagnoses Diagnosis Unspecified hypothyroidism- Primary Gynecologic examination Gynecological examination documented in this encounter Care Teams Brownfield Redevelopment Specialist Relationship Specialty Start Date End Date Willie Mahmood MD [address] [phone] PCP - General Family Practice 10/06/17 documented as of this encounter
--- OUTSIDE RECORDS SUMMARY | 2025-02-25 10:17 | XMS_ITS | Encounter Summary ---
Author Organization [facility] Address [address] [place] [address] Care Team Providers Care Automobile Parts Assembler Name Role Phone Willie Mahmood MD Primary Care Provider [phone] Reason for Referral * Outpatient Services (Routine) - Closed Specialty Diagnoses / Procedures Referred By Contmeryl t Referred To Contact Radiology Diagnoses Other screening mammogram Procedures MAMMO DIGITIZED STUDY Kierra Gonzalez APRN NO ADDRESS ON FILE [facility] [address] [facility] [address] [place] [address] Phone: tel: fax: Referral ID Status Reason Start Date Expiration Date Visits Re quested Visits Authorized [id number] Closed 03/28/2012 03/28/2013 1 1 Encounter Details Date Type Department Care Team (Late st Contact Info) Description 03/28/2012 Ancillary Orders [facility] Family Medicine [place] [address] [facility] [address] [place] [phone] Kierra Gonzalez APRN NO ADDRESS ON FILE Other screening mammogram Social History Tobacco Use Types Packs/Day Years Used Date Smoking Tobacco: Former Cigarettes 1 4 0 10/08/1999 - 10/08/2003 Smokeless Tobacco: Never Alcohol Use Standard Drinks/Week Comments No 0 (1 standard drink = 0.6 oz pur e alcohol) Rarely Comments No Sex and Gender Information Value Date Recorded Sex Assigned at Not on file Legal Sex Female 3:09 AM DECKHAND OYSTER DREDGE Gender Identity Not on file Sexual Orientation Not on file Occupation Industry Job Start Date Job End Date Not on file Not on file Not on file Not on file documented as of this encounter Plan of Treatment Not on file documented as of this encounter Results * MAMMO DIGITIZED STUDY (08/20/2010 3:02 PM DECKH[address]STER DREDGE) Narrative Ashely Lebron, RT - 03/28/2012 3:02 PM CDT Order information only. Exam was auto-finalized. Procedure Note Ashely Lebron, RT - 03/28/2012 Order information only. Exam was auto-finalized. Kierra Sinhaann arbor REHABILITATION TECH DIAGNOSTIC IMAGIN G ORDERABLES Final Result documented in this encounter Visit Diagnoses Diagnosis Other screening mammogram Other screening mammogram documented in this encounter Care Teams Automobile Parts Assembler Relationship Specialty Start Date End Date Willie Mahmood MD [address] [facility] [address] [place] [address] PCP - General Family Practice 10/06/17 documented as of this encounter
--- OUTSIDE RECORDS SUMMARY | 2025-02-25 10:17 | XMS_ITS | Encounter Summary ---
Author Organization [facility] Address [address] [place] [address] Care Team Providers Care Buck Presser Name Role Phone Willie Mahmood MD Primary Care Provider [phone] Reason for Visit * Reason Onset Date Comments Results 07/27/2024 Encounter Details Date Type Department Care Team ([facility] st Contact Info) Description 07/27/2024 Results Follow-Up [facility] Family Medicine [place] [address] [address] Willie Mahmood MD [facility] [address] [address] [address] CHEST WO CONTRAST, US ABDOMEN LIMITED Social History Tobacco Use Types Packs/Day Years [...] often do you attend chur ch or hinduism services? Never 06/09/2020 Do you belong to any clubs o r organizations such as gnosticism groups, unions, fraternal or athletic groups, or [...] file 09/28/2022 Feeling Safe Answer Date Recorded Are you in a relationship wi th someone who hurts you emotionally and/or physically? No 07/19/2024 Comments No Sex and Gender Information Value Date Recorded Sex Assigned at Not on file Legal Sex Female 5:37 AM AERONAUTICAL ENGINEERING OFFICER Gender Identity Not on file Sexual Orientation Not on file documented as of this encounter Miscellaneous Notes * Telephone Encounter - Eugenia Brown RN - 07/30/2024 12:47 PM AERONAUTICAL ENGINEERING OFFICER 07/30/2024 12:47 PM Called and notified patient of results. Voiced understanding. She states that she is at [facility], shewent in yesterday at noon and she has a bowel obstruction, she is awaiting a room for admission. Message sent to provider. Eugenia FERNÁNDEZ NAUTICAL ENGINEERING OFFICER * Telephone Encounter - Eugenia Brown RN - 07/30/2024 12:47 PM AERONAUTICAL ENGINEERING OFFICER ----- Message from Dr. Willie Mahmood sent at 07/27/2024 4:21 PM AERONAUTICAL ENGINEERING OFFICER ----- CT of the chest reviewed, no abnormal lymph nodes, postsurgical changes, from previous lobectomy ofthe right lung, there has been a development of a nodular lesion in the left upper lobe measuring 2x 2.3 cm. There is evidence of prior calcifications from previous infections, scar tissue, these donot appear changed when compared to prior. Recommendations regarding the 1 new finding of left upper lobe nodule is short-term follow-up CT, PET scan or biopsy. Given her multiple chronic health problems and her recent onset of chest pain recommend evaluation by pulmonology to determine best next course of action. Patient has previously followed with pulmonology, where would she like referral to? NAUTICAL ENGINEERING OFFICER * Telephone Encounter - Eugenia Brown RN - 07/27/2024 4:34 PM AERONAUTICAL ENGINEERING OFFICER 07/27/2024 4:34 PM No answer. Left voice mail/message that patient/caregiver can return our call. If patient/caregivercalls back, contact center please inform caller to expect a return call from the clinic. Eugenia FERNÁNDEZ NAUTICAL ENGINEERING OFFICER * Telephone Encounter - Eugenia Brown RN - 07/27/2024 4:34 PM AERONAUTICAL ENGINEERING OFFICER ----- Message from Dr. Willie Mahmood sent at 07/27/2024 4:23 PM AERONAUTICAL ENGINEERING OFFICER ----- Ultrasound of the right upper quadrant shows normal liver, pancreas, kidney. Gallbladder shows mildthickening without evidence of stone or infection. Gallbladder wall thickening could be inflammation be from another source or it could be the cause of her upper abdominal/chest pain. I would rule out cardiac and pulmonary causes before I would send her for a HIDA scan or evaluation by general surgery to discuss removal as I think this is less likely. If she is having nausea, vomiting or intermittent pain after eating then that would be an indication to pursue this further. NAUTICAL ENGINEERING OFFICER * Telephone Encounter - Eugenia Brown RN - 07/27/2024 4:34 PM AERONAUTICAL ENGINEERING OFFICER ----- Message from Dr. Willie Mahmood sent at 07/27/2024 4:21 PM AERONAUTICAL ENGINEERING OFFICER ----- CT of the chest reviewed, no abnormal lymph nodes, postsurgical changes, from previous lobectomy ofthe right lung, there has been a development of a nodular lesion in the left upper lobe measuring 2x 2.3 cm. There is evidence of prior calcifications from previous infections, scar tissue, these donot appear changed when compared to prior. Recommendations regarding the 1 new finding of left upper lobe nodule is short-term follow-up CT, PET scan or biopsy. Given her multiple chronic health problems and her recent onset of chest pain recommend evaluation by pulmonology to determine best next course of action. Patient has previously followed with pulmonology, where would she like referral to? NAUTICAL ENGINEERING OFFICER documented in this encounter Plan of Treatment Upcoming Encounters Date Type Department Care Team (Late st Contact Info) Description 02/26/2025 2:15 PM CDT Office Visit [facility] Supportive Care [facility] [address] [address] Esthela Arenas NP [address] [facility] [address] [place] [address] 03/14/2025 9:00 AM CDT Office Visit [facility] Family Medicine [address] [phone] Willie Mahmood MD [address] [phone] 04/16/2025 9:00 AM CDT Appointment [facility] CT Scan [place] [address] [address] Brandi Kim NP [address] [place] [address] 08/29/2025 10:15 AM AERONAUTICAL ENGINEERING OFFICER Appointment [facility] Neurology [facility] [address] [address] Gadiel Shearer MD [address] [place] [address] documented as of this encounter Visit Diagnoses Not on filedocumented in this encounter Additional Health Concerns Infection Onset Date Last Indicated Resolved Time COVID-19 06/20/2024 06/20/2024 09/18/2024 1:16 AM CDT Assessment Noted Time PHQ-9 Depression Total Score: 4 05/08/20 10:34 AM AERONAUTICAL ENGINEERING OFFICER documented as of this encounter Care Teams Buck Presser Relationship Specialty Start Date End Date Willie Mahmood MD [address] [phone] PCP - General Family Practice 10/06/17 documented as of this encounter
--- OUTSIDE RECORDS SUMMARY | 2025-02-25 10:17 | XMS_ITS | Clinical Summary ---
Author Organization [facility] [address] Address [address] [place] [address] Care Team Providers Care Woolen Tester Name Role Phone Willie Mahmood MD Primary Care Provider [phone] Allergies Active Allergy Reactions Criticality Noted Date Comments Pregabalin Other (See Comments) Low 06/24/2015 Blurry vision, weakness Tetanus Toxoid Adsorbed Fever Low Medications digoxin (LANOXIN) 125 mcg Oral Tab Take 125 mcg by mouth daily. Active CALCIUM CARBONATE/VITAMIN D3 (CALCIUM 500 WITH D ORAL) Take 1 Tab by mouth 2 times daily. Active lamoTRIgine (LAMICTAL) 200 mg tablet Take 200 mg by mouth 2 times daily. Active cyanocobalamin, vitamin B-12, (VITAMIN B-12) 5,000 mcg Tablet, Sublingual Place 1 Tab under tongue daily. Active vitamin E 1,000 unit Capsule Take 2,000 Units by mouth daily. Active magnesium oxide 250 mg Tablet Take 250 mg by mouth daily. Active ferrous sulfate (SLOW RELEAE IRON) 142 mg (45 mg iron) Tablet Sustained Release Take 142 mg by mouth. Active simvastatin (ZOCOR) 40 mg tablet Take 40 mg by mouth Daily LATE. Active sulfaSALAzine (AZULFIDINE) 500 mg tablet 1,000 mg 2 times daily . 03/02/20 16 Active traZODone (DESYREL) 150 mg tablet Take 300 mg by mouth late in the day. 11/11/19 17 Active warfarin (COUMADIN) 4 mg tablet Take by mouth daily. 7.5 mg oral on Tuesday , Tuesday, Tuesday and Tuesday04/04/20 17 Active LORazepam (ATIVAN) 1 mg tablet Take 1 mg by mouth. 02/03/20 17 Active ondansetron (ZOFRAN) 4 mg Tablet Take 1 Tablet (4 mg) by mouth every 8 hours as needed for Nausea. 4 Tablet None 04/20/20 17 Active warfarin (COUMADIN) 1 mg tablet Take 1 mg by mouth. 5 mg oral on Tuesday, , Tuesday Active oxygen home deliveryIndication s:Stage 2 moderate COPD by GOLD classification (CMS/HCC),Chronic respiratory failure with hypoxia (CMS/HCC),Centrilo bular emphysema (CMS/HCC),FAY on CPAP Home Oxygen Concentrator yes at 0 L/M Rest, 2 L/M Activity, 2 L/M Sleep, Delivery Device: Nasal Cannula Portability: yes, 0 L/M Rest, 2 L/M Activity, May evaluate for device best for patient needs(E system,home fill, conserving device) Maintain Sats: > OR = 90%, Length of Need: 99 months. 1 Each 09/15/19 19 Active albuterol HFA 90 mcg inhaler Take 2 Puffs by inhalation every 6 hours as needed for Shortness of Breath. 8.5 Gram 6 01/17/20 19 Active CPAP / BIPAP suppliesIndication s:Obstructive sleep apnea syndrome Cpap/Bipap supplies: nasal mask with headgear A7034,A7035 1/6mo, mask only A7034 1/3mo, cushion A7032 2/mo, heated tubing A4604, 1/3mo, water chamber A7046 1/6mo, filter disposable A7038 2/mo, Filter reusable A7039 1/6mo Chin strap A7036 1/ 6 Mo Length of need: 99 months DX G47.33 1 Each 09/21/19 20 Active loperamide (IMODIUM) 2 mg capsule TAKE 2 CAPSULES BY MOUTH AT ONSET THEN 1 AFTER EVERY LOOSE STOOL. MAX 4 DOSES IN 24 HOURS 30 Capsule 2 02/25/20 20 Active overnight pulse oximetry Overnight pulse oximetry: One time overnight pulse oximetry test on CPAP and on room air and on oxygen liter flow 3 L/min. 1 Each 02/25/20 20 Active predniSONE (DELTASONE) 10 mg tablet Take 10 mg by mouth daily with breakfast. Take extra 2.5 mg oral when needed Active methocarbamoL (ROBAXIN) 500 mg tabletIndications: Neck tightness,Cervical radiculopathy Take 1 Tablet (500 mg) by mouth 3 times daily. 90 Tablet 6 04/28/20 20 Active DULoxetine (CYMBALTA) 60 mg Capsule, Delayed Release(E.C.) TK ONE C PO D 05/27/20 20 Active gabapentin (NEURONTIN) 600 mg tablet TK 1 T PO TID 04/11/20 20 Active omeprazole (PriLOSEC) 40 mg Capsule, Delayed Release(E.C.) TK 1 C PO D 05/21/20 20 Active tofacitinib (Xeljanz) 5 mg Tablet Take 5 mg by mouth 2 times daily. Active levothyroxine 200 mcg tabletIndications: Acquired hypothyroidism Take 1 Tablet (200 mcg) by mouth daily. Take with 50 mcg tablet daily for total of 250 mcg 90 Tablet 4 06/09/20 20 Active levothyroxine 50 mcg tabletIndications: Acquired hypothyroidism Take 1 Tablet (50 mcg) by mouth daily. Take with 200 mcg tablet daily for total of 250 mcg 90 Tablet 4 06/09/20 20 Active montelukast (SINGULAIR) 10 mg tablet Take 1 Tablet (10 mg) by mouth daily. 90 Tablet 4 06/17/20 20 Active fexofenadine (NOHEMY) 180 mg tabletIndications: Seasonal allergic rhinitis due to pollen TAKE 1 TABLET BY MOUTH EVERY DAY 90 Tablet 3 06/24/20 20 Active ipratropium bromide (ATROVENT) 0.02 % SolutionIndication s:Centrilobular emphysema (CMS/HCC),Chronic respiratory failure with hypoxia (CMS/HCC),Stage 2 moderate COPD by GOLD classification (CMS/HCC) Take 2.5 mL (0.5 mg) by inhalation every 12 hours. Administer via Hand Held Nebulizer. Dx: J44.9, J96.11, J43.2 450 mL 3 09/10/19 21 Active donepeziL (Aricept) 10 mg tabletIndications: Memory deficit,Mild cognitive impairment Take 1 Tablet (10 mg) by mouth daily at bedtime. 90 Tablet 3 09/10/19 21 Active memantine (Namenda XR) 28 mg Extended Release 24 hour capsule Take 1 Capsule (28 mg) by mouth daily. 90 Capsule 3 09/10/19 21 Active fluticasone propion-salmeteroL (Advair Diskus) 250-50 mcg/dose disk inhalerIndications :Centrilobular emphysema (CMS/HCC),COPD, severe (CMS/HCC) Take 1 Puff by inhalation 2 times daily. Rinse mouth after use 12 Each 10/14/19 21 Active butalbital-acetami nophen-caffeine (FIORICET) 50-325-40 mg tabletIndications: Migraine without aura and without status migrainosus, not intractable TAKE 1 TABLET BY MOUTH EVERY 4 HOURS NEEDED FOR HEADACHE 90 Tablet 1 12/19/19 21 Active Active Problems Problem Noted Date Diagnosed Date Foot deformity, acquired, left 06/09/2020 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 Cervical radiculopathy 11/13/2019 Neck tightness 04/10/2019 Paroxysmal atrial fibrillation 07/18/2018 Stage 2 moderate COPD by GOLD classification Chronic respiratory failure with hypoxia 018 History of [place] (myocardial infarction) 10/21/2017 Atherosclerosis of [place] co ronary artery of [place] heart with stable angina pectoris 10/21/2017 Irritable bowel syndrome with diarrhea 8 Mitral valve prolapse 07/12/2017 Mild cognitive impairment 08/17/2016 Pain in both feet 04/13/2016 Memory deficit 02/04/2016 Allergic rhinitis due to pollen 12/19/2015 Gastroesophageal reflux disease without esophagi tis 12/04/2015 Migraine without aura and wi thout status migrainosus, not intractable 12/04/2015 Idiopathic peripheral neuropathy 05/15/2015 FAY on CPAP 04/07/2015 Hoarseness, persistent 01/30/2015 Multiple lung nodules 12/09/2014 S/P lobectomy of lung, RUL, RML 2008 12/05/2014 Fibromyalgia 12/04/2014 Centrilobular emphysema 04/17/2014 Personal history of other malignant neoplasm of skin 04/09/2010 Hypothyroidism 03/16/2010 Primary cardiomyopathy 10/27/2009 Hypertension 04/25/2009 Bipolar 1 disorder 04/25/2009 Hyperlipidemia 04/25/2009 H/O: lung cancer Resolved Problems Problem Noted Date Diagnosed Date Resolved Date Acute pulmonary edema 10/21/20172017 Cavitary pneumonia 04/17/2015 5 Acute bronchitis 11/22/2014 12/04/2014 Lung mass 04/18/2014 05/09/2014 COPD, severe 04/17/2014 10/26/2017 Overview (04/17/2015): Spirometry 04/17/2015 Pre FEV1 Measured 1.11 FEV1 % Predicted 38.95 Additional restriction from RULobectomy. Hemoptysis 04/17/2014 06/24/2015 Diarrhea 07/07/2012 04/17/2014 Abnormal glucose 02/15/2012 08/26/2017 Flatus 02/15/2012 04/17/2014 Dyspareunia 04/27/2009 10/06/2010 Lung cancer 04/17/2014 Immunizations Immunization Administration Dates Next Due (HAVRIX/VAQTA)(19 YRS UP) HE PATITIS A VACCINE ADULT DOSAGE 1 ML IMM 03/14/2018 (PFIZER)(12 YR UP) COVID-19 VACCINE - EMERGENCY USE AUTHORIZATION, MRNA, [id number](PF) 30 MCG/0.3 ML IM SUSP 07/22/2020,07/01/2020 (PNEUMOVAX 23)(50 YRS UP) PN EUMOCOCCAL POLYSACCHARIDE (PPV23) 0.5 ML, IM 05/05/2008 (PREVNAR 13)(6 WKS UP) PNEUM OCOCCAL CONJUGATE (PCV13) 0.5 ML, IM 12/02/2016 (VIVOTIF)(6 YRS UP) TYPHOID VACCINE, LIVE, 2 BILLION UNIT CAPSULE, ORAL 03/27/2018 INFLUENZA VACCINE QUADRIVALE NT 3 YR UP PF IM 04/07/2015 Influenza Seasonal Unspecifi ed Formulation IM 04/07/2017,04/06/2017,04/05/2016,04/10,04/03/2013,05/05/2008,07/06/1999 Influenza Vaccine High Dose 65+ Yrs IM 0,03/22/2018 Influenza Vaccine Split 3+ Yrs PF IM 03/09/2012, 03/12/2011 Meningococcal A Conjugate Vaccine IM 03/14/2018 PNEUMOVAX (PPSV23) pneumococ karla polysaccharide 23-valent Vaccine 03/18/2016 Pneumococcal Polysaccharide Vacc 23-gian IM SCHIP 02/03/2016 Tetanus Immume Globulin Human IM 03/03/2010 Zoster Vaccine Live SQ 12/02/2016 Family History Medical History Relation Name Comments Breast Cancer Maternal Aunt Diabetes Maternal Aunt Breast Cancer Maternal Grandmother Heart Disease Mother Hypertension Mother Lung Cancer Mother Lung Cancer Other SELF Diabetes Sister 1 Other Sister 2 cel[place] Colon Cancer Neg Hx Ovarian Cancer Neg Hx Relation Name Status Comments Daughter NONE Maternal Aunt Maternal Grandmother Mother Other SELF Alive Sister 1 Alive Sister 2 Alive Son 1 Alive Son 2 Alive Social History Tobacco Use Types Packs/Day Years Used Date Smoking Tobacco: Former Cigarettes 1 30 0 10/07/1973 - 10/08/2003 Smokeless Tobacco: Never Alcohol Use Standard Drinks/Week Comments Yes 0 (1 standard drink = 0.6 oz pur e alcohol) occasionally Social Connections Answer Date Recorded In a typical week, how many times do you talk on the phone with family, friends, or neighbors? Three times a week 06/09/2020 How often do you get togethe r with friends or relatives? Twice a week 06/09/2020 How often do you attend chur or confucianism services? Never 06/09/2020 Do you belong to any clubs o r organizations such as zoroastrian groups, unions, fraternal or athletic groups, or school groups? Yes 06/09/2020 Attends Club or Organization Meetings Not on brian e 06/09/2020 Marital Status Not on file 06/09/2020 Financial Resource Strain Answer Date R ecorded How hard is it for you to pa y for the very basics like food, housing, medical care, and heating? Not hard at all 06/09/2020 Food Insecurity Answer Date Recorded Within the past 12 months, y ou worried that your food would run out before you got the money to buy more. Never true 06/09/20 20 Within the past 12 months, t he food you bought just didn't last and you didn't have money to get more. Never true 06/09/2020 Transportation Needs Answer Date Record ed In the past 12 months, has l ack of transportation kept you from medical appointments or from getting medications? No 01/2020 In the past 12 months, has l ack of transportation kept you from meetings, work, or from getting things needed for daily living? No 06/09/2020 Education Answer Date Recorded What is the highest level of school you have completed or the highest degree you have received? Associate degree: academic program 06/09/2020 Comments No Sex and Gender Information Value Date Recorded Sex Assigned at Not on file Legal Sex Female 3:09 AM BEAMER OPERATOR Gender Identity Not on file Sexual Orientation Not on file Occupation Industry Job Start Date Job End Date Not on file Not on file Not on file Not on file Last Filed Vital Signs Vital Sign Reading Time Taken Comments Blood Pressure 128/78 10/13/2020 11:26 AM CDT Pulse 68 10/13/2020 11:26 AM CDT Temperature 36 C (96.8 F) 09/09/2020 9:49 AM BEAMER OPERATOR Respiratory Rate 18 09/09/2020 9:49 AM BEAMER OPERATOR Oxygen Saturation 98% 10/13/2020 11:26 AM CDT Inhaled Oxygen Concentration - - Weight 80.7 kg (178 lb) 10/13/2020 11:26 AM CDT Height 172.7 cm (5' 8 ) 10/13/2020 11:26 AM CDT Body Mass Index 27.06 10/13/2020 11:26 AM CDT Plan of Treatment Health Maintenance Due Date Last Done Comments FIT/ DNA Q 3 YEARS (AUTO ORDER) 1969 FLEX SIG/CT COLONOGRAPHY Q 5 YEARS (AUTO ORDER) 1969 DTAP/TDAP/TD VACCINES (1 - Tdap) 1970 FIT-DNA Q 3 years 01/15/1996 Flex Sig/CT Colonography Q 5 years 01/15/1996 FIT/FOBT Q 1 YEAR (AUTO ORDER) 02/13/2002 02/13/2001 FIT/FOBT Q 1 year 02/13/2002 02/13/2001 RSV VACCINE (60+ or ) (1 - Risk 60-74 years 1-dose series) 2011 ZOSTER VACCINE (2 of 3) 01/27/2017 12/02/2016 COLORECTAL CANCER SCREENING (AUTO ORDER) 08/25/2020 08/25/2010 COLORECTAL SCREENING 08/25/2020 08/25/2010 Colorectal Cancer Screening (AUTO ORDER) 08/25/2020 Colorectal Cancer Screening 08/25/2020 Traditional Medicare (ACO) A nnual Wellness Visit 06/10/2021 06/09/2020, 04/14/2017 COVID-19 Vaccine (3 - 2023-2 5 season) 2024 07/22/2020, 07/01/2020 INFLUENZA VACCINE (#1) 2025 , 03/29/2019, 03/22/2018, Additional history exists BREAST CANCER SCREENING 02/19/2025 02/20/20 24, 05/05/2020, 05/05/2020, Additional history exists OSTEOPOROSIS SCREENING 02/28/2025 02/29/2020, 2019 PNEUMOCOCCAL VACCINE 50+ YEARS Completed 0 12/02/2016, 12/02/2016, 03/18/2016, Additional history exists Procedures Procedure Name Priority Date/Time Associated Diagnosis Comments MAMMO 3D RAINER SCREEN BILAT W OR WO CAD Routine 05/02/2020 12:47 PM CDT Breast cancer screening by mammogram XR DEXA BONE DENSITY AXIAL 1 OR MORE SITES Routine 02/27/2020 12:20 PM CDT half-way current use of systemic steroids ENDOSCOPY, COLON, DIAGNOSTIC Routine 08/25/2010 from Last 3 Months or Most Recently Relevant to Health Maintenance Results * MAMMO SCRN BILAT 3D RAINER W OR WO CAD (05/02/2020 12:47 PM CDT) Anatomical Region Laterality Modality Breast Bilateral Mammography Narrative 05/05/2020 1:39 PM BEAMER OPERATOR Bilateral Digital Mammogram with CAD and 3D Tomography Reason for Exam: Screening Comparison: Compared to: 11/09/2018 MAMMO DIAG UNI RIGHT 3D RAINER W OR WO CAD, 04/06/2018 MAMMO SCREEN BILAT W OR WO CAD, 03/09/2017 MAMMO SCREEN BILAT W OR WO CAD, 02/12/2016 MAMMO DIGITAL SCREEN BILAT, 03/30/2012 MAMMO DIGITAL SCREEN BILAT, and 08/21/2010 MAMMO SCREENING BILAT Technique: 3D MLO and CC digital tomosynthesis images were acquired and synthesized 2D images (C view) were generated. This digital mammogram was also analyzed by the Computer Aided Detection System CAD). Breast Composition: There are scattered areas of fibroglandular density. There are no suspicious masses, areas of architectural distortions, or microcalcifications to suggest malignancy. Asymmetry appears stable. No significant new findings since the prior mammogram(s). us Willie Mahmood MD MAMMO ORDERABLES Final Re sult * XR DEXA BONE DENSITY AXIAL 1 OR MORE SITES (02/27/2020 12:20 PM CDT) Anatomical Region Laterality Modality Digital Radiogra phy 02/27/2020 12:2 0 PM CDT Impressions 02/29/2020 7:18 PM CDT IMPRESSION: 1. Current findings consistent with severe osteopenia; there is currently moderate/high risk for fracture with site of lowest density at the femoral neck. 2. Age matched Z-score of greater than -2.0 does not indicate accelerated bone demineralization. Definitions: T-score > -0.99 = Normal T-score -1.00 to -1.49 = mild osteopenia T-score -1.50 to -1.99 = moderate osteopenia T-score -2.00 to -2.49 = severe osteopenia T-score < -2.50 = osteoporosis N.B. Changes in density of <=0.05 g/cm2 are not statistically significant. RECOMMENDATIONS: Normal: Low risk for fracture - f/u in 2 years Mild/Mod osteopenia: Moderate risk for fracture - f/u in 1 year Severe osteopenia: Moderate/high risk for fracture - f/u in 1 year Osteoporosis: High risk for fracture - f/u in 1 year NOF guidelines recommend consideration of FDA-approved medical therapies in patients with FRAX determined 10-year probabilities of hip/major osteoporosis-related fractures equal or greater than 3%/20% respectively. Consider assessing fracture risk using the FRAX analysis tool for guidance of clinical management available online at www.shef.ac.uk/FRAX/. Enter [employer] for Select DXA and the Femoral Neck BMD value. Narrative 02/29/2020 7:18 PM CDT Exam: XR DEXA BONE DENSITY AXIAL 1 OR MORE SITES Reason For Exam: See Diagnosis, osteoporosis screening. Diagnosis: half-way current use of systemic steroids Findings: The following absorptiometry data were obtained. The quality of this examination is acceptable with regards to count density, processed images, data display and lack of important artifacts (including but not limited to motion and attenuation artifacts). L1-L4 BMD (g/cm2): 1.023 Adult T-score: -0.2 Adult Z-score: Normal Left Femoral Neck BMD (g/cm2): 0.623 Adult T-score: -2.0 Adult Z-score: Normal Left Total Hip BMD (g/cm2): 0.693 Adult T-score: -2.0 Adult Z-score: Normal Procedure Note Garett Simpson MD - 02/29/2020 Exam: XR DEXA BONE DENSITY AXIAL 1 OR MORE SITES Reason For Exam: See Diagnosis, osteoporosis screening. Diagnosis: half-way current use of systemic steroids Findings: The following absorptiometry data were obtained. The quality of this examination is acceptable with regards to count density, processed images, data display and lack of important artifacts (including but not limited to motion and attenuation artifacts). L1-L4 BMD (g/cm2): 1.023 Adult T-score: -0.2 Adult Z-score: Normal Left Femoral Neck BMD (g/cm2): 0.623 Adult T-score: -2.0 Adult Z-score: Normal Left Total Hip BMD (g/cm2): 0.693 Adult T-score: -2.0 Adult Z-score: Normal IMPRESSION: 1. Current findings consistent with severe osteopenia; there is currently moderate/high risk for fracture with site of lowest density at the femoral neck. 2. Age matched Z-score of greater than -2.0 does not indicate accelerated bone demineralization. Definitions: T-score > -0.99 = Normal T-score -1.00 to -1.49 = mild osteopenia T-score -1.50 to -1.99 = moderate osteopenia T-score -2.00 to -2.49 = severe osteopenia T-score < -2.50 = osteoporosis N.B. Changes in density of <=0.05 g/cm2 are not statistically significant. RECOMMENDATIONS: Normal: Low risk for fracture - f/u in 2 years Mild/Mod osteopenia: Moderate risk for fracture - f/u in 1 year Severe osteopenia: Moderate/high risk for fracture - f/u in 1 year Osteoporosis: High risk for fracture - f/u in 1 year NOF guidelines recommend consideration of FDA-approved medical therapies in patients with FRAX determined 10-year probabilities of hip/major osteoporosis-related fractures equal or greater than 3%/20% respectively. Consider assessing fracture risk using the FRAX analysis tool for guidance of clinical management available online at www.shef.ac.uk/FRAX/. Enter [employer] for Select DXA and the Femoral Neck BMD value. us Kalpesh Taylor MD DIAGNOSTIC IMAGING ORD ERABLES Final Result * ENDOSCOPY, COLON, DIAGNOSTIC (08/25/2010) us Arline Dean MD GI PROCEDURE ORDERABLES Starla smith Result [facility] from Last 3 Months or Most Recently Relevant to Health Maintenance Insurance MEDICARE PART A AND B DIETARY SERVICE AIDE LIFE Advance Directives For more information, please contact: [phone] Documents on File Type Date Recorded Patient Caltrans Equipment Operator Expl anation Advance Directive Living Will 10/03/2015 7:39 AM Advance Directive Living Will * Full Code (Latest Code Status on File) Date Activated Date Inactivated Comments 01/03/2015 9:45 AM 01/03/2015 3:23 PM * Full Code Date Activated Date Inactivated Comments 01/03/2015 7:00 AM 01/03/2015 9:45 AM Care Teams Woolen Tester Relationship Specialty Start Date End Date Willie Mahmood MD [address] [phone] PCP - General Family Practice 10/06/17
--- OUTSIDE RECORDS SUMMARY | 2025-02-25 10:17 | XMS_ITS | Encounter Summary ---
Author Organization [facility] Address [address] Attn: [place] [address] Care Team Providers Care Technologist Infectious Disease Name Role Phone Willie Mahmood MD Primary Care Provider [phone] Encounter Details Date Type Department Care Team (Late st Contact Info) Description 02/20/2008 Outpatient Historical Martin Dumont DO NO ADDRESS ON FILE Social History Tobacco Use Types Packs/Day Years Used Date Smoking Tobacco: Never Assessed Comments Unknown Sex and Gender Information Value Date Recorded Sex Assigned at Not on file Legal Sex 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 Gender Identity Not on file Sexual Orientation Not on file documented as of this encounter Plan of Treatment Not on file documented as of this encounter Procedures Procedure Name Priority Date/Time Associated Diagnosis Comments PATHOLOGY Routine 02/20/2008 6:42 AM CDT documented in this encounter Results * PATHOLOGY (02/20/2008 6:42 AM CDT) PATHOLOGY/CY JOVANIOGY REPORT [facility] Anatomic Pathology Dept [address] [place] [id number] Patient: ZOYA BROWER Accn No: [id number] Collected: 02/20/2008 6:42:00 AM CYTOLOGY DIRECTOR CAREER FINAL REPORT - - CUSTOMER DATA TECHNICIAN PAP History Specimen Source: vaginal Hysterectomy Last Pap Date: 2003 Specimen Adequacy Satisfactory for interpretation. The smear lacks endocervical or metaplastic cells, consistent with the patient's clinical history. Diagnosis NEGATIVE FOR INTRAEPITHELIAL LESION OR MALIGNANCY. (Previously noted as Within Normal Limits) Firebreak Cutter NICHELLE 02/22/08 Completed by: MASOUD HUFFMAN BSCT (ASCP) (Electronically signed by) 02/22/08 Additional Diagnosis Atrophic Smear Comment Routine follow-up is suggested. Important Info About Pap Smears HPV Testing off the Thin Prep vial can be done as a means of further evaluating a Thin Prep Report. For information about ordering the HPV test, phone Cytology at . Treatment or follow-up recommendations (if any) that are considered within this report are based upon general recommendations as contained in 2001 Consensus Guidelines For Cervical Cytological Abnormalities BEL: October 25, 2001, and are provided as a general guideline rather than as a specific recommendation. Final decisions about the most appropriate treatment and follow-up should be made on an individualized basis by the treating physician in consultation with his/her patient. INTERFACE SYSTEM 02/20/2008 6:42 AM CDT Martin Dumont DO PATHOLOGY/CYTOLOGY ORDERABLES F inal Result INTERFACE SYSTEM Refer to clinic/hospital department documented in this encounter Visit Diagnoses Not on filedocumented in this encounter Care Teams Technologist Infectious Disease Relationship Specialty Start Date End Date Willie Mahmood MD [address] [phone] PCP - General Family Practice 10/06/17 documented as of this encounter
--- OUTSIDE RECORDS SUMMARY | 2025-02-25 10:17 | XMS_ITS | Encounter Summary ---
Author Organization [facility] Address [address] [place] [address] Care Team Providers Care Financial Reporting Analyst Name Role Phone Willie Mahmood MD Primary Care Provider [phone] Encounter Details Date Type Department Care Team (Late st Contact Info) Description 02/02/2016 Ancillary Orders [facility] Admitting [address] [facility] [address] [place] [address] Jericho Steel MD [address] [phone] Social History Tobacco Use Types Packs/Day Years Used Date Smoking Tobacco: Former Cigarettes 1 30 0 10/07/1973 - 10/08/2003 Smokeless Tobacco: Never Alcohol Use Standard Drinks/Week Comments Yes 1 (1 standard drink = 0.6 oz pur e alcohol) daily Comments No Sex and Gender Information Value Date Recorded Sex Assigned at Not on file Legal Sex Female 3:09 AM LICENSED PSYCHOLOGIST Gender Identity Not on file Sexual Orientation Not on file Occupation Industry Job Start Date Job End Date Not on file Not on file Not on file Not on file documented as of this encounter Plan of Treatment Not on file documented as of this encounter Visit Diagnoses Not on filedocumented in this encounter Care Teams Financial Reporting Analyst Relationship Specialty Start Date End Date Willie Mahmood MD [address] [place] [phone] PCP - General Family Practice 10/06/17 documented as of this encounter
--- OUTSIDE RECORDS SUMMARY | 2025-02-25 10:17 | XMS_ITS | Encounter Summary ---
Author Organization [facility] Address [address] [place] [address] Care Team Providers Care Energy Risk Management Analyst Name Role Phone Willie Mahmood MD Primary Care Provider +1 [phone] Encounter Details Date Type Department Care Team (Late st Contact Info) Description 09/04/2007 Outpatient Historical [facility] Medicine [place] [address] [place] [address] Martin Dumont DO NO ADDRESS ON FILE Social History Tobacco Use Types Packs/Day Years Used Date Smoking Tobacco: Never Assessed Comments Unknown Sex and Gender Information Value Date Recorded Sex Assigned at Not on file Legal Sex Female 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 Pulse: 0. Not dictated. BP: 110/70. SUBJECTIVE: Need to go over my lab work as I am having arthritis pain. Voltaren does not help anymore. Also sometimes I have a lot of sweats unrelated to time or activity. Also seem to be getting more short of breath when I do anything. The patient also relates she has noticed bright red blood inher stools off and on, usually when she has diarrhea. REVIEW OF SYSTEMS: GASTROINTESTINAL: The patient relates occasional loose stool. Blood is noted which is bright red incolor. The patient had a colonoscopy in February 2005, recommended that she have another one in five years at that time. GENITOURINARY: Occasional nocturia. CARDIOVASCULAR: The patient relates she sees her holistic pulser in [place] on a regular basis, Dr. Steel. NEUROMUSCULAR: The patient relates Voltaren was helping her arthritis. Now she is having pain in the hips and Voltaren does not seem to help. RESPIRATORY: The patient denies chronic cough, asthma. Relates she does get short of breath when she exerts herself. OBJECTIVE: GENERAL: The patient is alert in no acute distress at this time. ENT: Tympanic membranes not injected. NOSE: Nasal turbinates within normal limits. MOUTH: Tongue is midline. NECK: Supple. HEART: Regular rate and rhythm. LUNGS: Clear to auscultation. ABDOMEN: Soft. EXTREMITIES: The patient has tenderness over both hips and lumbosacral area. No edema in ankles. LABORATORY DATA: BMP was within normal limits. Lipid profile: LDL 144. ALT within normal limits. TSH 16.5. ASSESSMENT: 1. Rectal bleeding. 2. Hyperlipidemia. 3. Hypothyroidism. PLAN: 1. Will refer to Dr. Burton for evaluation of rectal bleeding, possible repeat colonoscopy. 2. The patient's Synthroid will be increased to 0.2 mg. 3. The patient to hold on her arthritis medicine until the results of her rectal bleeding is determined. Talked with the patient about referring to a bindery worker. She is concerned about body odor. The patient has seen Colin Garcia M.D. in the past. If she has any chest pain, the patient does need to go to ER for further evaluation and treatment. The patient should follow up in two months or on an as-needed basis. Martin Dumont D.O. [facility] Electronically Signed by Martin Dumont D.O. 09/08/2007 15:40 , Pjimmie Document #: [id number] cc: TRONIC TEST TECHNICIAN documented in this encounter Plan of Treatment Not on file documented as of this encounter Visit Diagnoses Not on filedocumented in this encounter Care Teams Energy Risk Management Analyst Relationship Specialty Start Date End Date Willie Mahmood MD [address] [address] PCP - General Family Practice 10/06/17 documented as of this encounter
--- OUTSIDE RECORDS SUMMARY | 2025-02-25 10:17 | XMS_ITS | Encounter Summary ---
Author Organization [facility] Address [address] [place] [address] Care Team Providers Care Tube Machine Operator Name Role Phone Willie Mahmood MD Primary Care Provider [phone] [phone] Encounter Details Date Type Department Care Team (Latest Contact Info) Description 02/13/2007 Outpatient Historical [facility] Medicine [place] [address] [address] Martin Dumont DO NO ADDRESS ON FILE Unspecified Hypothyroidism (Primary Dx); Other and Unspecified Hyperlipidemia Social History Tobacco Use Types Packs/Day Years Used Date Smoking Tobacco: Never Assessed Comments Unknown Sex and Gender Information Value Date Recorded Sex Assigned at Not on file Legal Sex Female 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
--- OUTSIDE RECORDS SUMMARY | 2025-02-25 10:17 | XMS_ITS | Encounter Summary ---
Author Organization [facility] Address [address] [place] [address] Care Team Providers Care Repatcher Name Role Phone Willie Mahmood MD Primary Care Provider [phone] [phone] Encounter Details Date Type Department Care Team (Latest Contact Info) Description 09/10/1998 Outpatient Historical [facility] Medicine [place] [address] [address] Martin Dumont DO NO ADDRESS ON FILE Unspecified essential hypertension (Primary Dx); Unspecified hypothyroidism Social History Tobacco Use Types Packs/Day Years Used Date Smoking Tobacco: Never Assessed Comments Unknown Sex and Gender Information Value Date Recorded Sex Assigned at Not on file Legal Sex Female 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
--- OUTSIDE RECORDS SUMMARY | 2025-02-25 10:17 | XMS_ITS | Encounter Summary ---
Author Organization [facility] Address [address] [place] [address] Care Team Providers Care Grey Percher Name Role Phone Willie Mahmood MD Primary Care Provider [phone] [phone] Reason for Referral * Radiology Services (Routine) - Closed Specialty Diagnoses / Procedures Referred By Contac t Referred To Contact Diagnoses Breast pain, right Procedures MAMMO DIAG UNI RIGHT 3D RAINER W OR WO CAD CHG DIAGNOSTIC MAMMOGRAPHY COMPUTER-AIDED DETCJ UNI CHG DIGITAL BREAST TOMOSYNTHESIS UNILATERAL Willie Mahmood MD [address] [address] Phone: tel: fax: [facility] Pre-Registration [place] CALL TO MAKE APPOINTMENT ONLY [address] [place] [address] Phone: tel: fax: Referral ID Status Reason Start Date Expiration Date V isits Requested Visits Authorized [id number] Closed [facility] TO SCHEDULE ([facility]) 10/19/2018 11/19/2019 1 1 Encounter Details Date Type Department Care Team (Late st Contact Info) Description 10/19/2018 Ancillary Orders [facility] Family Medicine [place] [address] [address] Willie Mahmood MD [address] [address] Breast pain, right Social History Tobacco Use Types Packs/Day Years Used Date Smoking Tobacco: Former Cigarettes 1 30 0 10/07/1973 - 10/08/2003 Smokeless Tobacco: Never Alcohol Use Standard Drinks/Week Comments Yes 0 (1 standard drink = 0.6 oz pur e alcohol) occasionally Comments No Sex and Gender Information Value Date Recorded Sex Assigned at Not on file Legal Sex Female 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 Recommend clinical follow-up of the palpable area of concern and tenderness. Recommend return to annual screening mammography in April 2019. The patient was given verbal and written results/recommendations. BI-RADS ASSESSMENT: 2 - Benign RECOMMENDATION: Annual screening mammography in April 2019 [id number] Narrative 11/09/2018 4:23 PM CDT EXAM: MAMMO DIAG UNI RIGHT 3D RAINER W OR WO CAD, MAMMO BREAST US RIGHT LTD INDICATION: 68-year-old female presents for diagnostic workup of right breast pain for the last six months but gradually getting worse. She has no palpable areas of concern. COMPARISON: Mammogram 04/06/2018, 03/09/2017, 02/12/2016, 03/30/2012, 08/20/2010, 02/12/2008 MAMMOGRAM TECHNIQUE: 3-D MLO and CC digital tomosynthesis images were acquired. Synthesized 2-D images (C-view) were generated. This digital mammogram was also analyzed by the Computer Aided Detection System (CAD). FINDINGS: There are scattered areas of fibroglandular density. Overall, the breast prequel pattern appears stable. Stable excisional biopsy scar is present in the anterior upper outer quadrant of the right breast. There are no suspicious masses, calcifications, or architectural distortions. The area of focal pain will be evaluated with targeted ultrasound. ULTRASOUND TECHNIQUE: Multiple real-time grove-scale images of the right breast at 6:00, 1 cm from the nipple are performed. Color Doppler was used to assess vascular flow. FINDINGS: In the area of focal pain, area of palpable concern in the right breast at 6:00, 1 cm from the nipple, normal fibroglandular tissue is identified. No suspicious solid or cystic masses are seen. Incidentally noted are a few slightly prominent ducts. us Willie Mahmood MD MAMMO ORDERABLES Final Re sult documented in this encounter Visit Diagnoses Diagnosis Breast pain, right Mastodynia Breast pain, right Mastodynia documented in this encounter Care Teams Grey Percher Relationship Specialty Start Date End Date Willie Mahmood MD [address] [address] PCP - General Family Practice 10/06/17 documented as of this encounter
--- OUTSIDE RECORDS SUMMARY | 2025-02-25 10:17 | XMS_ITS | Encounter Summary ---
Author Organization [employer] [facility] Address [address] [place] [address] Care Team Providers Care Quill Picking Machine Operator Name Role Phone Willie Mahmood MD Primary Care Provider [phone] [phone] Encounter Details Date Type Department Care Team (Late st Contact Info) Description 04/18/2019 Ancillary Orders [facility] [address] [place] [address] Vicky Choudhury MD [address] [place], [place] [id number] Neck pain Social History Tobacco Use Types Packs/Day Years Used Date Smoking Tobacco: Former Cigarettes 1 30 0 10/07/1973 - 10/08/2003 Smokeless Tobacco: Never Alcohol Use Standard Drinks/Week Comments Yes 0 (1 standard drink = 0.6 oz pur e alcohol) occasionally Comments No Sex and Gender Information Value Date Recorded Sex Assigned at Not on file Legal Sex Female 3:09 AM RETRIMMER Gender Identity Not on file Sexual Orientation Not on file Occupation Industry Job Start Date Job End Date Not on file Not on file Not on file Not on file documented as of this encounter Plan of Treatment Not on file documented as of this encounter Results * XR CERVICAL SPINE 4 OR 5 VIEWS (04/18/2019 11:05 AM CDT) Anatomical Region Laterality Modality Spine Computed Radiogr aphy 04/18/2019 11:0 5 AM CDT Impressions 04/18/2019 11:38 AM CDT IMPRESSION: See below. Exam: XR CERVICAL SPINE 4 OR 5 VIEWS Date/Time of Exam: 04/18/2019 11:05 AM Reason For Exam: See Diagnosis. Priors: None Findings: There is normal cervical lordosis. Cranial cervical junction is well aligned. Mild loss of disc height seen throughout the cervical spine. Moderate multilevel degenerative facet disease. No evidence of instability on flexion or extension. No prevertebral soft tissue swelling. Narrative Procedure Note Slade Westfall, DO - 04/18/2019 IMPRESSION: See below. Exam: XR CERVICAL SPINE 4 OR 5 VIEWS Date/Time of Exam: 04/18/2019 11:05 AM Reason For Exam: See Diagnosis. Priors: None Findings: There is normal cervical lordosis. Cranial cervical junction is well aligned. Mild loss of disc height seen throughout the cervical spine. Moderate multilevel degenerative facet disease. No evidence of instability on flexion or extension. No prevertebral soft tissue swelling. Vikcy Choudhury MD DIAGNOSTIC IMAGING ORDERABLES Final Result documented in this encounter Visit Diagnoses Diagnosis Neck pain Cervicalgia Neck pain Cervicalgia documented in this encounter Care Teams Quill Picking Machine Operator Relationship Specialty Start Date End Date Willie Mahmood MD [address] [facility] [address] [place] [address] PCP - General Family Practice 10/06/17 documented as of this encounter
--- OUTSIDE RECORDS SUMMARY | 2025-02-25 10:17 | XMS_ITS | Encounter Summary ---
Author Organization [facility] Address [address] [place] [address] Care Team Providers Care Arcade Attendant Name Role Phone Willie Mahmood MD Primary Care Provider [phone] [phone] Encounter Details Date Type Department Care Team (Latest Contact Info) Description 02/28/2007 Outpatient Historical [facility] Medicine [place] [address] [facility] [address] [place] [address] Martin Dumont DO NO ADDRESS ON FILE Unspecified Myalgia and Myositis (Primary Dx); Generalized Osteoarthrosis, Involving Multiple Sites Social History Tobacco Use Types Packs/Day Years Used Date Smoking Tobacco: Never Assessed Comments Unknown Sex and Gender Information Value Date Recorded Sex Assigned at Not on file Legal Sex Female 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
--- OUTSIDE RECORDS SUMMARY | 2025-02-25 10:17 | XMS_ITS | Encounter Summary ---
Author Organization [facility] Address [address] [place] [address] Care Team Providers Care Tie Hacker Name Role Phone Willie Mahmood MD Primary Care Provider [phone] [phone] Reason for Referral * Outpatient Services (Routine) - Closed Specialty Diagnoses / Procedures Referred By Contmeryl t Referred To Contact Radiology Diagnoses Other screening mammogram Procedures MAMMO DIGITIZED STUDY Kierra Gonzalez APRN NO ADDRESS ON FILE [facility] [address] [facility] [address] [place] [address] Phone: tel: fax: Referral ID Status Reason Start Date Expiration Date Visits Re quested Visits Authorized [id number] Closed 03/28/2012 03/28/2013 1 1 Encounter Details Date Type Department Care Team (Late st Contact Info) Description 03/28/2012 Ancillary Orders [facility] Family Medicine [place] [address] [facility] [address] [place] [address] Kierra Gonzalez APRN NO ADDRESS ON FILE [...] on file Legal Sex Female 3:09 AM GIS SPECIALIST Gender Identity Not on file Sexual Orientation Not on file Occupation Industry Job Start Date Job End Date Not on file Not on file Not on file Not on file documented as of this encounter Plan of Treatment Not on file documented as of this encounter Results * MAMMO DIGITIZED STUDY (02/12/2008 2:59 PM CDT) Narrative Ashely Lebron, RT - 03/28/2012 2:59 PM CDT Order information only. Exam was auto-finalized. Procedure Note Ashely Lebron, RT - 03/28/2012 Order information only. Exam was auto-finalized. Kierra Gonzalez APRN DIAGNOSTIC IMAGIN G ORDERABLES Final Result documented in this encounter Visit Diagnoses Diagnosis Other screening mammogram Other screening mammogram documented in this encounter Care Teams Tie Hacker Relationship Specialty Start Date End Date Willie Mahmood MD [address] [facility] [address] [place] [address] PCP - General Family Practice 10/06/17 documented as of this encounter
--- OUTSIDE RECORDS SUMMARY | 2025-02-25 10:17 | XMS_ITS | Encounter Summary ---
Author Organization [facility] Address [address] [place] [address] Care Team Providers Care Commutator Operator Name Role Phone Willie Mahmood MD Primary Care Provider [phone] [phone] Reason for Visit * Reason Onset Date Comments Medication Problem 02/01/2025 Encounter Details Date Type Department Care Team (Late st Contact Info) Description 02/01/2025 Telephone [facility] [address] [place] [address] Kade Mendez Jr., MD [address] [place] [address] Medication Problem Social History Tobacco Use Types Packs/Day Years [...] often do you attend chur ch or nondenominational services? Never 06/09/2020 Do you belong to any clubs o r organizations such as lutheran groups, unions, fraternal or athletic groups, or [...] worry about transportation for future doctor visits, roller picker medication, etc.? No 2024 Housing Stability [...] on file Legal Sex Female 5:37 AM SENIOR DIRECTOR OF GLOBAL COMMERCIAL TECHNOLOGY SOLUTIONS Gender Identity Not on file Sexual Orientation Not on file documented as of this encounter Miscellaneous Notes * Telephone Encounter - Zoey Mora LPN - 02/01/2025 4:45 PM CDT ----- Message from Vicky Reza sent at 02/01/2025 3:03 PM CDT ----- Having an allergic reaction to the medication Prescribed this week. Buprenorphine. Please call documented in this encounter Plan of Treatment Upcoming Encounters Date Type Department Care Team (Late st Contact Info) Description 02/26/2025 2:15 PM CDT Office Visit [facility] [address] [facility] [address] [place] [address] Esthela Arenas NP [address] [facility] [address] [place] [address] 03/14/2025 9:00 AM CDT Office Visit [facility] Family Medicine [place] [address] [address] Willie Mahmood MD [address] [address] 04/16/2025 9:00 AM CDT Appointment [facility] CT Scan [place] [address] [address] Brandi Kim NP [address] [place] [address] 08/29/2025 10:15 AM SENIOR DIRECTOR OF GLOBAL COMMERCIAL TECHNOLOGY SOLUTIONS Appointment [facility] Neurology [facility] [address] [address] Gadiel Shearer MD [address] [place] [address] documented as of this encounter Visit Diagnoses Not on filedocumented in this encounter Additional Health Concerns Assessment Noted Time PHQ-9 Depression Total Score: 4 01/30/20 25 1:00 PM CDT documented as of this encounter Care Teams Commutator Operator Relationship Specialty Start Date End Date Willie Mahmood MD [address] [phone] PCP - General Family Practice 10/06/17 documented as of this encounter
--- OUTSIDE RECORDS SUMMARY | 2025-02-25 10:17 | XMS_ITS ---
Author Organization [facility] Address [address] 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 Dependence on other enabling machines and device s 05/18/2021 Foot deformity, acquired, left 06/09/2020 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 Cervical radiculopathy 11/13/2019 Paroxysmal atrial fibrillation 07/18/2018 Chronic respiratory failure with hypoxia 018 Atherosclerosis of [place] co ronary artery of [place] heart with stable angina pectoris 10/21/2017 History of NE (myocardial infarction) 10/21/2017 Irritable bowel syndrome with diarrhea 8 Mitral valve prolapse 07/12/2017 Allergic rhinitis due to pollen 12/19/2015 Gastroesophageal reflux disease without esophagi tis 12/04/2015 Migraine without aura and wi thout status migrainosus, not intractable 12/04/2015 Idiopathic peripheral neuropathy 05/15/2015 FAY on CPAP 04/07/2015 Hoarseness, persistent 01/30/2015 Multiple lung nodules 12/09/2014 S/P lobectomy of lung, RUL, RML 2008 12/05/2014 Fibromyalgia 12/04/2014 Stage 3 severe COPD by GOLD classification 04/17 Overview (10/29/2020): Spirometry 04/17/2015 Pre FEV1 Measured 1.11 FEV1 % Predicted 38.95 Additional restriction from RULobectomy. Centrilobular emphysema 04/17/2014 Personal history of other malignant neoplasm of skin 04/09/2010 Hypothyroidism 03/16/2010 Primary cardiomyopathy 10/27/2009 Hyperlipidemia 04/25/2009 Hypertension 04/25/2009 Bipolar 1 disorder 04/25/2009 H/O: lung cancer Current Treatment and Therapy Plans No current plan information found. Past Treatment and Therapy Plans No past plan information found. Lifetime Dose Tracking * Chemical Lifetime Dose Automatic Entry Manual Entr y Effective Dose 37.9 mSv 17.1 mSv 20.8 mSv Total DLP 1,664 DLP 839 DLP 825 DLP CTDIvol Max 59.8 mGy 33.6 mGy 26.2 mGy CTDIvol Min 52.4 mGy 26.2 mGy 26.2 mGy Resolved Problems Problem Noted Date Diagnosed Date Resolved Date Neck tightness 04/10/2019 05/18/2021 Stage 2 moderate COPD by GOLD classification 8 10/21/2022 Acute pulmonary edema 10/21/20172017 Mild cognitive impairment 08/17/2016 Pain in both feet 04/13/2016 05/18/2021 Memory deficit 02/04/2016 05/18/2021 Cavitary pneumonia 04/17/2015 5 Acute bronchitis 11/22/2014 12/04/2014 Lung mass 04/18/2014 05/09/2014 Hemoptysis 04/17/2014 06/24/2015 Diarrhea 07/07/2012 04/17/2014 Flatus 02/15/2012 04/17/2014 Abnormal glucose 02/15/2012 08/26/2017 Dyspareunia 04/27/2009 10/06/2010 Lung cancer 04/17/2014
--- OUTSIDE RECORDS SUMMARY | 2025-02-25 10:17 | XMS_ITS | Clinical Summary ---
Author Organization [facility] Address [address] [place]: [place] [address] Care Team Providers Care Rotary Planer Set Up Operator Name Role Phone Willie Mahmood MD Primary Care Provider [phone] Allergies Active Allergy Reactions Criticality Noted Date Comments Tetanus Toxoid Adsorbed Fever Low Medications oxygen home deliveryIndicatio ns:Chronic respiratory failure with hypoxia (CMS/HCC),Stage 2 moderate COPD by GOLD classification (CMS/HCC),Centril obular emphysema (CMS/HCC),FAY on CPAP Home Oxygen Concentrator yes at 0 L/M Rest, 2 L/M Activity, 2 L/M Sleep, Delivery Device: Nasal CannulaPortabil ity: yes, 0 L/M Rest, 2 L/M Activity, May evaluate for device best for patient needs(E system,home fill, conserving device)Maintain Sats: > OR = 90%,Length of Need: 99 months. 1 Each 0 019 Active omeprazole (PriLOSEC) 40 mg Capsule, Delayed Release(E.C.) TK 1 C PO D 020 Active DULoxetine (CYMBALTA) 60 mg Capsule, Delayed Release(E.C.) TK ONE C PO D 020 Active LORazepam (ATIVAN) 1 mg tablet 021 Active lamoTRIgine (LaMICtal) 200 mg tablet Take 200 mg by mouth 2 times daily. Active digoxin (LANOXIN) 125 mcg (0.125 mg) tablet Take 125 mcg by mouth daily. Active cyanocobalamin (VITAMIN B-12) 5,000 mcg Tablet, Sublingual Place 1 Tablet under tongue daily. Active prazosin (MINIPRESS) 1 mg capsule TAKE 1 TO 2 CAPSULES BY MOUTH AT BEDTIME. MAY INCREASE TO 2 CAPSULES NEEDED AFTER 3 DAYS Active sulfaSALAzine (AZULFIDINE) 500 mg tablet Take 1,000 mg by mouth 2 times daily. Active albuterol sulfate 90 mcg/Actuation inhaler Take 2 Puffs by inhalation every 6 hours as needed for Shortness of Breath. 8.5 Gram 6 Active fluticasone propion-salmetero L (ADVAIR DISKUS,WIXELA INHUB) 250-50 mcg/dose disk inhalerIndication s:Centrilobular emphysema (CMS/HCC),COPD, severe (CMS/HCC) Take 1 Puff by inhalation 2 times daily. 12 Each Active ipratropium bromide (ATROVENT) 0.02 % SolutionIndicatio ns:Centrilobular emphysema (CMS/HCC),Chronic respiratory failure with hypoxia (CMS/HCC),Stage 2 moderate COPD by GOLD classification (CMS/HCC) INHALE 1 VIAL VIA NEBULIZER EVERY 12 HOURS Strength: 0.02 % 450 mL Active multivitamin (DAILY-WINTER) tablet Take 2 Tablets by mouth daily. Active ferrous sulfate (SLOW RELEASE IRON) 142 mg (45 mg iron) Tablet Sustained Release Take 142 mg by mouth. Active Nebulizer Accessories KitIndications:St age 2 moderate COPD by GOLD classification (CMS/HCC) Length of need 99 months Nebulizer with compressor, Kit: Disposable Nebulizer Kit, 2 per month, filters , areosol mask: Yes. Name of Medication: Albuterol 1 Each Active Eliquis 5 mg tablet Take 5 mg by mouth 2 times daily. Active acyclovir (ZOVIRAX) 800 mg tablet Take 800 mg by mouth daily. Active prednisoLONE acetate (PRED FORTE) 1 % suspension SHAKE LIQUID AND INSTILL 1 DROP IN RIGHT EYE FOUR TIMES DAILY Active eszopiclone (LUNESTA) 3 mg Tablet take 1 tablet by mouth at bedtime as needed for insomnia 024 Active naloxone (NARCAN) 4 mg/spray Riparius, Non-Aerosol EMERGENCY USE ONLY: Administer 1 spray (4 mg) in one nostril one time. May repeat in alternating nostrils every 2-3 min until responsive or EMS arrives. 2 Each 3 024 Active predniSONE (DELTASONE) 5 mg tablet 024 Active butalbital-acetam inophen-caffeine (FIORICET) 50-325-40 mg tabletIndications :Migraine without aura and without status migrainosus, not intractable Take 1-2 Tablets by mouth every 8 hours as needed for Headaches. 180 Tablet 5 025 Active ipratropium-albut Mariaelena (DUONEB) 0.5 mg-3 mg(2.5 mg base)/3 mL Solution for NebulizationIndic ations:Stage 3 severe COPD by GOLD classification (CMS/[facility]) Take 3 mL by inhalation every 6 hours as needed for Shortness of Breath. 360 mL 11 025 Active oxyCODONE-acetami nophen (PERCOCET) 10-325 mg TabletIndications :Cervical radiculopathy,Idi opathic peripheral neuropathy,Undiff erentiated inflammatory polyarthritis (CMS/HCC),Fibromy algia Take 1 Tablet by mouth every 4 hours as needed for Pain, Severe. Max Daily Amount: 4 Tablets 025 Active buprenorphine (BUTRANS) 10 mcg/hour patchIndications: Cervical radiculopathy,Idi opathic peripheral neuropathy,Fibrom yalgia Apply 2 Patches to skin as directed every 7 days. 025 Active memantine (NAMENDA XR) 28 mg Extended Release 24 hour capsuleIndication s:Mild cognitive impairment,Memory deficit Take 1 Capsule (28 mg) by mouth daily. 90 Capsule 3 025 Active donepeziL (ARICEPT) 10 mg tabletIndications :Mild cognitive impairment,Memory deficit Take 1 Tablet (10 mg) by mouth daily at bedtime. 90 Tablet 3 025 Active simvastatin (ZOCOR) 40 mg tablet TAKE 1 TABLET BY MOUTH ONCE DAILY AT BEDTIME 100 Tablet 025 Active oxyCODONE-acetami nophen (PERCOCET) 10-325 mg TabletIndications :Cervical radiculopathy,Idi opathic peripheral neuropathy,Undiff erentiated inflammatory polyarthritis (CMS/HCC),Fibromy algia Take 1 Tablet by mouth every 4 hours as needed for Pain. Max Daily Amount: 6 Tablets 84 Tablet 025 2024 Active buprenorphine (BUTRANS) 20 mcg/hour patchIndications: Cervical radiculopathy,Idi opathic peripheral neuropathy,Undiff erentiated inflammatory polyarthritis (CMS/HCC),Fibromy algia Apply 1 Patch to skin as directed every 7 days for 28 days. 4 Patch 025 2024 Active levothyroxine 300 mcg tabletIndications :Acquired hypothyroidism Take 1 Tablet (300 mcg) by mouth daily. Dose increase, follow-up labs have been ordered for 6 weeks 100 Tablet Active nitrofurantoin (MACROBID) 100 mg capsuleIndication s:Suspected UTI Take 1 Capsule (100 mg) by mouth 2 times daily for 7 days. 14 Capsule 025 2024 Active donepeziL (ARICEPT) 10 mg tabletIndications :Mild cognitive impairment,Memory deficit Take 1 Tablet (10 mg) by mouth daily at bedtime. 90 Tablet 3 024 2024 Discontinued memantine (NAMENDA XR) 28 mg Extended Release 24 hour capsuleIndication s:Mild cognitive impairment,Memory deficit Take 1 Capsule (28 mg) by mouth daily. 90 Capsule 3 024 2024 Discontinued celecoxib (CeleBREX) 200 mg capsule Take 1 Capsule by mouth 2 times daily. 024 2024 Discontinued simvastatin (ZOCOR) 40 mg tablet take 1 tablet by mouth every day at bedtime 100 Tablet 3 024 2024 Discontinued pregabalin (LYRICA) 150 mg Capsule Take 1 Capsule by mouth 2 times daily. 024 2024 Discontinued(O ther) levothyroxine 300 mcg tabletIndications :Acquired hypothyroidism Take 1 Tablet (300 mcg) by mouth daily. Dose increase, follow-up labs have been ordered for 6 weeks 100 Tablet 1 025 2024 Discontinued(R eorder) naproxen (NAPROSYN) 500 mg tabletIndications :Cervicogenic headache Take 1 Tablet (500 mg) by mouth 1 time daily as needed for Other (See Comment) (Severe headache). 100 Tablet 3 025 2024 Discontinued oxyCODONE-acetami nophen (PERCOCET) 10-325 mg TabletIndications :Cervical radiculopathy,Idi opathic peripheral neuropathy,Undiff erentiated inflammatory polyarthritis (CMS/HCC),Fibromy algia Take 1 Tablet by mouth every 8 hours as needed for Pain, Severe. Max Daily Amount: 3 Tablets 90 Tablet 025 2024 Discontinued buprenorphine (BUTRANS) 10 mcg/hour patchIndications: Cervical radiculopathy,Idi opathic peripheral neuropathy,Undiff erentiated inflammatory polyarthritis (CMS/HCC),Fibromy algia Apply 1 Patch to skin as directed every 7 days for 28 days. 4 Patch 025 2024 Discontinued(R eorder) hydrOXYzine HCL (ATARAX) 10 mg tablet Take 1 Tablet (10 mg) by mouth 3 times daily as needed for Itching. 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 05/18/2021 Foot deformity, acquired, left 06/09/2020 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 Cervical radiculopathy 11/13/2019 Paroxysmal atrial fibrillation 07/18/2018 Chronic respiratory failure with hypoxia 018 Atherosclerosis of [place] co ronary artery of [place] heart with stable angina pectoris 10/21/2017 History of CO (myocardial infarction) 10/21/2017 Irritable bowel syndrome with [...] Bipolar 1 disorder 04/25/2009 H/O: lung cancer Resolved Problems Problem [...] 08/26/2017 Dyspareunia 04/27/2009 10/06/2010 Lung cancer 04/17/2014 Encounters Date Type Department Care Team Description 02/21/2025 11:00 AM CDT Office Visit [address] [phone] Ana Awan FNP Chronic pain syndrome (Primary Dx); Urinary pain; Suspected UTI 02/15/2025 Refill [facility] [address] [place] [address] Willie Mahmood MD Acquired hypothyroidism 02/14/2025 Refill [facility] [address] [place] [phone] Kade Mendez Jr., MD Cervical radiculopathy; Idiopathic peripheral neuropathy; Undifferentiated inflammatory polyarthritis (CMS/HCC); Fibromyalgia 02/12/[address] [phone] Willie Mahmood MD 02/10/[address] [phone] Willie Mahmood MD 02/07/2025 10:19 AM CDT - 02/07/2025 11:59 PM CDT Hospital Encounter [facility] [address] [phone] Gadiel Shearer MD Discharge Disposition: Home or Self Care 02/04/2025 12:30 PM CDT Video Visit [facility] [address] [phone] Kade Mendez Jr., MD Cervical radiculopathy; Idiopathic peripheral neuropathy; Fibromyalgia 02/01/2025 Telephone [facility] [address] [phone] Kade Mendez Jr., MD Medication Problem 01/29/2025 1:00 PM CDT Office Visit [facility] [address] [phone] Kade Mendez Jr., MD Cervical radiculopathy; Idiopathic peripheral neuropathy; Undifferentiated inflammatory polyarthritis (CMS/HCC); Fibromyalgia 01/22/[address] [phone] Willie Mahmood MD Cervical radiculopathy; Idiopathic peripheral neuropathy; Undifferentiated inflammatory polyarthritis (CMS/HCC); Fibromyalgia 12/13/2024 Refill [facility] [address] [place] [address] Willie Mahmood MD Cervicogenic headache 12/11/2024 3:20 PM CDT Office Visit [address] [phone] Willie Mahmood MD Chronic intractable pain (Primary Dx); Chronic respiratory failure with hypoxia; Early onset Alzheimer's dementia without behavioral disturbance (CMS/HCC); Stage 3 severe COPD by GOLD classification (CMS/HCC); Centrilobular emphysema; Paroxysmal atrial fibrillation; Undifferentiated inflammatory polyarthritis; S/P lobectomy of lung, RUL, RML 2007; Chronic bilateral low back pain with bilateral sciatica; intermission coordinator prescription opiate use 12/10/[address] [phone] Willie Mahmood MD Cervical radiculopathy; Idiopathic peripheral neuropathy; Undifferentiated inflammatory polyarthritis (CMS/HCC); Fibromyalgia 11/27/[address] [phone] Willie Mahmood MD Cervical radiculopathy; Idiopathic peripheral neuropathy; Undifferentiated inflammatory polyarthritis (CMS/HCC); Fibromyalgia from Last 3 Months Immunizations Immunization Administration Dates Next Due (HAVRIX/VAQTA)(19 YRS UP) HE PATITIS A VACCINE ADULT DOSAGE 1 ML IMM 03/14/2018 (PFIZER)(12 YR UP) COVID-19 VACCINE - EMERGENCY USE AUTHORIZATION, MRNA, [id number](PF) 30 MCG/0.3 ML IM SUSP 05/08/2021,07/22/2020,07/01/2020 (PNEUMOVAX 23)(50 YRS UP) PN EUMOCOCCAL POLYSACCHARIDE (PPV23) 0.5 ML, IM 05/05/2008 (PREVNAR 13)(6 WKS UP) PNEUM OCOCCAL CONJUGATE (PCV13) 0.5 ML, IM 12/02/2016 (VIVOTIF)(6 YRS UP) TYPHOID VACCINE, LIVE, 2 BILLION UNIT CAPSULE, ORAL 03/27/2018 INFLUENZA VACCINE HIGH DOSE QUADRIVALENT 65 YR UP PF IM 06/17/2022,06/07/2022,04/05/2016 INFLUENZA VACCINE QUADRIVALE NT 3 YR UP PF IM 04/07/2015 INFLUENZA VACCINE QUADRIVALE NT 6 MOS UP PF IM 04/17/2019 INFLUENZA VACCINE QUADRIVALE NT ADJ 65 YR UP PF IM 05/09/2023,06/17/2022,04/09/2021 Influenza Seasonal Unspecifi ed Formulation IM 04/24/2020,04/07/2017,04/06/2017,04/05,04/07/2015,04/10/2014,04/03/2013 ,05/05/2008,07/06/1999 Influenza Vaccine High Dose 65+ Yrs IM ,03/22/2018 Influenza Vaccine Nasal 04/12/2021 Influenza Vaccine Split 3+ Yrs PF IM 03/09/2012, 03/12/2011 Meningococcal A Conjugate Vaccine IM 03/14/2018 PNEUMOVAX (PPSV23) pneumococ karla polysaccharide 23-valent Vaccine 03/18/2016 PREVNAR (PCV13) pneumococcal 13-valent conjugate Vaccine 12/02/2016 Pneumococcal Polysaccharide Vacc 23-gian IM SCHIP 02/03/2016 Tetanus Immume Globulin Human IM 03/03/2010 Zoster Vaccine Live SQ 12/02/2016 Family History Medical History Relation Name Comments Breast Cancer Maternal Aunt 1 60's Diabetes Maternal Aunt 1 Cancer - Other Maternal Aunt 2 70's - uns ure what type- found it all over body during surgery Breast Cancer Maternal Grandmother 50's Heart Disease Mother Hypertension Mother Lung Cancer Mother Lung Cancer Other SELF Diabetes Sister 1 Other Sister 2 celica Colon Cancer Neg Hx Melanoma Neg Hx Ovarian Cancer Neg Hx Pancreatic Cancer Neg Hx Uterine or Endometrial Cance r, Not Including Cervical Neg Hx Relation Name Status Comments Daughter NONE Maternal Aunt 1 Maternal Aunt 2 Alive Maternal Grandmother Mother Other SELF Alive Sister 1 Alive Sister 2 Alive Son 1 Alive Son 2 Alive Social History Tobacco Use Types Packs/Day Years Used Date Smoking Tobacco: Former Cigarettes 1 25 0 10/07/1978 - 10/08/2003 Smokeless Tobacco: Never Tobacco Cessation:Counseling Given: Not Answered Alcohol Use Standard Drinks/Week Comments Yes 0 [...] How often do you attend chur or sabianist services? Never 06/09/2020 Do you belong to [...] worry about transportation for future doctor visits, product picker medication, etc.? No 2024 Housing Stability [...] on file Legal Sex Female 5:37 AM PROMOTIONS OFFICER Gender Identity Not on file Sexual Orientation Not on file Last Filed Vital Signs [...] Mass Index 28.25 02/21/2025 10:44 AM CDT Plan of Treatment Upcoming Encounters Date Type Department Care Team (Late st Contact Info) Description 02/26/2025 2:15 PM CDT Office Visit [facility] Supportive Care [facility] [address] [phone] Esthela Arenas, CHRISTINA [address] [phone] 03/14/2025 9:00 AM CDT Office Visit [facility] [place] [address] [phone] Willie Mahmood MD [address] [phone] 04/16/2025 9:00 AM CDT Appointment [facility] CT Scan [place] [address] [place] [address] Brandi Kim, CHRISTINA [address] [place] [address] 08/29/2025 10:15 AM PROMOTIONS OFFICER Appointment [facility] [place] [address] [place] [address] Gadiel Shearer MD [address] [place] [phone] Health Maintenance Due Date Last Done Comments FIT/ DNA Q 3 YEARS (AUTO ORDER) 1969 FIT/FOBT Q 1 YEAR (AUTO ORDER) 1969 DTAP/TDAP/TD VACCINES (1 - Tdap) 1970 FIT-DNA Q 3 years 01/15/1996 FIT/FOBT Q 1 year 01/15/1996 Flex Sig/CT Colonography Q 5 years 01/15/1996 FLEX SIG/CT COLONOGRAPHY Q 5 YEARS (AUTO ORDER) 02/13/2006 02/13/2001, 02/13/2001 RSV VACCINE (60+ or ) (1 - Risk 60-74 years 1-dose series) 2011 ZOSTER VACCINE (1 of 2) 01/27/2017 12/02/2016 COVID-19 Vaccine (3 - Pfizer risk series) 05/08/2021 05/08/2021, 07/22/2020, 07/01/2020 INFLUENZA VACCINE (#1) 2025 4, 05/08/2024, 05/09/2023, Additional history exists BREAST CANCER SCREENING 02/19/2025 02/20/20 24, 02/03/2023, 02/03/2023, Additional history exists OSTEOPOROSIS SCREENING 02/28/2025 0, 02/27/2020, 02/27/2020 Traditional Medicare (ACO) A nnual Wellness Visit 05/09/2025 05/08/2024, 09/28/2022 COLORECTAL CANCER SCREENING (AUTO ORDER) 10/30/2031 10/29/2021, 08/25/2010 COLORECTAL SCREENING 10/30/2031 10/29/2021, 08/25/19 11 Colorectal Cancer Screening (AUTO ORDER) 10/30/2031 Colorectal Cancer Screening 10/30/2031 PNEUMOCOCCAL VACCINE 50+ YEARS Completed 0 12/02/2016, 12/02/2016, 03/18/2016, Additional history exists Procedures Procedure Name Priority Date/Time Associated Diagnosis Comments URINE CULTURE Routine 02/21/2025 3:30 PM CDT Urinary pain POC URINALYSIS DIPSTICK AUTOMATED Routine 02/21/2025 10:50 AM CDT Urinary pain MAMMO 3D RAINER DIAGNOSTIC BILAT W OR WO CAD Routine 02/20/2024 11:56 AM CDT Breast pain, right XR DEXA BONE DENSITY AXIAL 1 OR MORE SITES Routine 02/27/2020 12:20 PM CDT retirement current use of systemic steroids from Last 3 Months or Most Recently Relevant to Health Maintenance Results * (ABNORMAL) URINE CULTURE (02/21/2025 3:30 PM CDT) URINE CULTURE SEE NOTE(A) [facility] Comment: CULTURE, URINE, ROUTINE Micro Number: [id number] Test Status: Final Specimen Source: Urine, clean catch Specimen Quality: Adequate Result: 10,000-49,000 CFU/mL of Proteus mirabilis Greater than 100,000 CFU/mL of Staphylococcus saprophyticus The Clinical Laboratory Standards [place] (CLSI) does not advise routine susceptibility testing [...] = See Therapy Comments Test Performed at: [facility] [address] [phone] Eros Albarran MD Urine URINE SPECIMEN OBTAINED BY CLEAN CATCH PROCEDURE / Unknown 02/21/2025 3:30 PM CDT 02/22/2025 3:22 AM CDT Ana Awan [facility] MICROBIOLOGY - GENERAL MOY GUARDADO Final Result [facility] [phone] [facility] [address] [address] * (ABNORMAL) POC URINALYSIS DIPSTICK AUTOMATED (02/21/2025 10:50 AM CDT) COLOR UA POC Yellow Pale to Dark Yellow [facility] CLARITY UA POC Turbid(A) Clear, Other [facility] GLUCOSE UA POC Negative Negative, Normal [facility] BILIRUBIN UA POC Negative Negative [facility] KETONES UA POC Negative Negative [facility] SPECIFIC GRAVITY UA POC 1.020 1.000 - 1.030 [facility] BLOOD UA POC Trace(A) Negative [facility] PH UA POC 7.0 5.0 - 8.0 [facility] PROTEIN UA POC Trace(A) Negative [facility] UROBILINOGEN UA POC 0.2 <2.0 mg/dL [facility] NITRITE UA POC Negative Negative [facility] LEUKOCYTE ESTERASE UA POC Negative Negative [facility] KIT LOT NUMBER POC [phone] [facility] KIT EXP DATE POC 01/31/2026 [facility] Urine 02/21/2025 10:5 0 AM CDT us Ana Awan CANAL BOAT OPERATOR POINT OF CARE TESTING Final Result [facility] CLIA# [id number] [address] [place] [address] * MAMMO 3D RAINER DIAGNOSTIC BILAT W OR WO CAD (02/20/2024 11:56 AM CDT) Anatomical Region Laterality Modality Breast Bilateral Mammography 02/20/2024 11:1 1 AM CDT Impressions 02/20/2024 12:14 PM CDT IMPRESSION: BI-RADS 1. Negative mammogram. Continue annual screening mammography. Findings and verbal/written recommendations were conveyed to the patient after completion of the exam. [id number] Narrative 02/20/2024 12:14 PM CDT EXAMINATION: Bilateral diagnostic mammography with tomosynthesis. Films were reviewed by CAD. Ultrasound right breast. INDICATION: Right breast lump with pain from approximately six months. History of bilateral breast biopsies. Breast cancer in maternal grandmother in her 50s. COMPARISON: Mammograms dating back to 2019. FINDINGS: There are scattered fibroglandular densities. No suspicious masses, calcifications, or architectural distortion. Right breast was evaluated in the area of lump at 11:00 position. Normal breast tissue is visualized. No suspicious findings. us Willie Mahmood MD MAMMO ORDERABLES Final Re sult * XR DEXA BONE DENSITY AXIAL 1 OR MORE SITES (02/27/2020 12:20 PM CDT) Anatomical Region Laterality Modality Other Impressions 02/29/2020 7:18 PM CDT 1. Current findings consistent with severe osteopenia; [...] clinical management available online at [email or web address] Enter DGIT for Select DXA and the Femoral Neck BMD value. Narrative 02/29/2020 7:18 PM CDT Exam: XR DEXA BONE DENSITY AXIAL 1 OR MORE SITES Reason For Exam: See Diagnosis, osteoporosis screening. Diagnosis: retirement current use of systemic steroids Findings: The [...] Normal Procedure Note Garett Simpson MD - 12/04/2020 Exam: XR DEXA BONE DENSITY AXIAL 1 OR MORE SITES Reason For Exam: See Diagnosis, osteoporosis screening. Diagnosis: retirement current use of systemic steroids Findings: The [...] 0.693 Adult T-score: -2.0 Adult Z-score: Normal IMPRESSION 1. Current findings consistent with severe osteopenia; [...] clinical management available online at [email or web address] Enter DGIT for Select DXA and the Femoral Neck BMD value. us Kalpesh Taylor MD DIAGNOSTIC IMAGING ORD ERABLES Final Result from Last 3 Months or Most Recently Relevant to Health Maintenance Insurance MEDICARE PART A AND B [facility] Advance Directives For more information, please contact: [phone] Documents on File Type Date Recorded Patient Fabric Inspector Expl anation Advance Directive Living Will 10/03/2015 7:39 AM Advance Directive Living Will * NO CPR (In Event of Cardiopulmonary Arrest) (Latest Code Status on File) Date Activated Date Inactivated Comments 02/06/2025 10:37 PM Question Answer Comments Mechanical Ventilation (for respiratory distress) - Invasive (i.e. intubation): No Mechanical Ventilation (for respiratory distress) - Non-Invasive (i.e. BiPAP, CPAP): Yes * Full Code Date Activated Date Inactivated Comments 10/29/2021 12:44 PM 10/29/2021 3:44 PM * Full Code Date Activated Date Inactivated Comments 10/29/2021 11:28 AM 10/29/2021 12:44 PM Care Teams Rotary Planer Set Up Operator Relationship Specialty Start Date End Date Willie Mahmood MD [address] [phone] PCP - General Family Practice 10/06/17
--- OUTSIDE RECORDS SUMMARY | 2025-02-25 10:17 | XMS_ITS | Encounter Summary ---
Author Organization [facility] Address [address] [place] [address] Care Team Providers Care Security Operations Analyst Name Role Phone Willie Mahmood MD Primary Care Provider [phone] Reason for Referral * Radiology Services (Routine) - Closed Specialty Diagnoses / Procedures Referred By Contac t Referred To Contact Diagnoses Breast cancer screening by mammogram Procedures MAMMO SCRN BILAT 3D RAINER W OR WO CAD CHG SCREENING MAMMOGRAPHY BI 2-VIEW BREAST INC CAD CHG SCREENING DIGITAL BREAST TOMOSYNTHESIS BI Willie Mahmood MD [address] [address] Phone: tel: fax: Referral ID Status Reason Start Date Expiration Date Visits Re quested Visits Authorized [id number] Closed 04/30/2020 05/31/2021 1 1 Encounter Details Date Type Department Care Team (Latest Contact Info) Description 04/30/2020 Ancillary Orders [facility] Pre-Registration [place] CALL TO MAKE APPOINTMENT ONLY [address] [place] [address] Willie Mahmood MD [address] [address] Breast cancer screening by mammogram Social History Tobacco Use Types Packs/Day Years Used Date Smoking Tobacco: Former Cigarettes 1 30 0 10/07/1973 - 10/08/2003 Smokeless Tobacco: Never Alcohol Use Standard Drinks/Week Comments Yes 0 (1 standard drink = 0.6 oz pur e alcohol) occasionally Comments No Sex and Gender Information Value Date Recorded Sex Assigned at Not on file Legal Sex Female 3:09 AM PRODUCTION CHECKER Gender Identity Not on file Sexual Orientation Not on file Occupation Industry Job Start Date Job End Date Not on file Not on file Not on file Not on file COVID-19 Exposure Response Date Recorded In the last month, have you been in contact with someone who was confirmed or suspected to have Coronavirus / COVID-19? No / Unsure 05/02/2020 12:15 PM CDT documented as of this encounter Plan of Treatment Not on file documented as of this encounter Results * MAMMO SCRN BILAT 3D RAINER W OR WO CAD (05/02/2020 12:47 PM CDT) Anatomical Region Laterality Modality Breast Bilateral Mammography Narrative 05/05/2020 1:39 PM PRODUCTION CHECKER Bilateral Digital Mammogram with CAD and 3D [...] significant new findings since the prior mammogram(s). Willie Mahmood MD MAMMO ORDERABLES Final Re sult documented in this encounter Visit Diagnoses Diagnosis Breast cancer screening by mammogram Breast cancer screening by mammogram documented in this encounter Care Teams Security Operations Analyst Relationship Specialty Start Date End Date Willie Mahmood MD [address] [facility] [address] [place] [id number] PCP - General Family Practice 10/06/17 documented as of this encounter
--- OUTSIDE RECORDS SUMMARY | 2025-02-25 10:17 | XMS_ITS | Encounter Summary ---
Author Organization [facility] Address [address] [place] [address] Care Team Providers Care Jewelry Appraiser Name Role Phone Willie Mahmood MD Primary Care Provider [phone] Encounter Details Date Type Department Care Team (Late st Contact Info) Description 07/06/2007 Outpatient Historical [facility] 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
--- OUTSIDE RECORDS SUMMARY | 2025-02-25 10:17 | XMS_ITS ---
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 Past Treatment and Therapy Plans No past plan information found. Lifetime Dose Tracking * Chemical Lifetime Dose Automatic Entry Manual Entr y Effective Dose 20.8 mSv 20.8 mSv 0 mSv Total DLP 825 DLP 825 DLP 0 DLP CTDIvol Max 26.2 mGy 26.2 mGy 0 mGy CTDIvol Min 26.2 mGy 26.2 mGy 0 mGy Resolved Problems Problem Noted Date Diagnosed [...]
--- OUTSIDE RECORDS SUMMARY | 2025-02-25 10:18 | XMS_ITS | Encounter Summary ---
Author Organization [facility] Address [address] [place] [address] Care Team Providers Care Patient Relations Representative Name Role Phone Willie Mahmood MD Primary Care Provider [phone] Encounter Details Date Type Department Care Team (Latest Contact Info) Description 02/25/2004 Outpatient Historical [facility] [address] [address] Martin Dumont DO NO ADDRESS ON FILE CARDIAC DYSRHYTHMIA NOS (Primary Dx); LUMP OR MASS IN BREAST; Gynecologic examination; SCREENING MAL NEOP-RECTUM Social History Tobacco Use Types Packs/Day Years Used Date Smoking Tobacco: Never Assessed Comments Unknown Sex and Gender Information Value Date Recorded Sex Assigned at Not on file Legal 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 Gender Identity Not on file Sexual Orientation Not on file documented as of this encounter Plan of Treatment Not on file documented as of this encounter Visit Diagnoses Diagnosis Cardiac dysrhythmia, unspecified- Primary Lump or mass in breast Gynecologic examination Gynecological examination Screening for malignant neoplasm of the rectum documented in this encounter Care Teams Patient Relations Representative Relationship Specialty Start Date End Date Willie Mahmood MD [address] [facility] [address] [place] [address] PCP - General Family Practice 10/06/17 documented as of this encounter
--- OUTSIDE RECORDS SUMMARY | 2025-02-25 10:18 | XMS_ITS | Encounter Summary ---
Author Organization [facility] Address [address] [place] [address] Care Team Providers Care Woodworking Machine Offbearer Name Role Phone Willie Mahmood MD Primary Care Provider [phone] Encounter Details Date Type Department Care Team (Latest Contact Info) Description 03/23/2005 Outpatient Historical [facility] Medicine [place] [address] [address] Martin Dumont DO NO ADDRESS ON FILE HYPOTHYROIDISM NOS (Primary Dx) Social History Tobacco Use Types Packs/Day Years Used Date Smoking Tobacco: Never Assessed Comments Unknown Sex and Gender Information Value Date Recorded Sex Assigned at Not on file Legal Sex Female 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
--- OUTSIDE RECORDS SUMMARY | 2025-02-25 10:18 | XMS_ITS | Encounter Summary ---
Author Organization [facility] Address [address] [place] [address] Care Team Providers Care Open Hearth Furnace Operator Name Role Phone Willie Mahmood MD Primary Care Provider [phone] Encounter Details Date Type Department Care Team (Latest Contact Info) Description 10/03/2001 Outpatient Historical [facility] Medicine [place] [address] [address] Martin Dumont DO NO ADDRESS ON FILE DEPRESSIVE DISORDER NEC (Primary Dx) Social History Tobacco Use Types Packs/Day Years Used Date Smoking Tobacco: Never Assessed Comments Unknown Sex and Gender Information Value Date Recorded Sex Assigned at Not on file Legal Sex Female 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
--- OUTSIDE RECORDS SUMMARY | 2025-02-25 10:18 | XMS_ITS | Encounter Summary ---
Author Organization [facility] Address [address] [place] [address] Care Team Providers Care Cooker Process Cheese Name Role Phone Willie Mahmood MD Primary Care Provider [phone] Encounter Details Date Type Department Care Team (Late st Contact Info) Description 10/15/2002 Outpatient Historical [facility] Medicine [place] [address] [address] Martin Dumont, NO ADDRESS ON FILE Social History Tobacco Use Types Packs/Day Years Used Date Smoking Tobacco: Never Assessed Comments Unknown Sex and Gender Information Value Date Recorded Sex Assigned at Not on file Legal Sex Female 3:09 AM BUSINESS CONTINUITY GLOBAL 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
--- OUTSIDE RECORDS SUMMARY | 2025-02-25 10:18 | XMS_ITS | Encounter Summary ---
Author Organization [facility] Address [address] [place] [address] Care Team Providers Care Canoe Maker Name Role Phone Willie Mahmood MD Primary Care Provider [phone] Encounter Details Date Type Department Care Team (Late st Contact Info) Description 04/21/2008 Outpatient Historical HIS IN [facility], Sachin Reyes MD [address] [place] [address] [phone] Social History Tobacco Use Types Packs/Day Years Used Date Smoking Tobacco: Never Assessed Comments Unknown Sex and Gender Information Value Date Recorded Sex Assigned at Not on file Legal Sex Female 3:09 AM PSYCHOLOGICAL AIDE Gender Identity Not on file Sexual Orientation Not on file documented as of this encounter Plan of Treatment Not on file documented as of this encounter Procedures Procedure Name Priority Date/Time Associated Diagnosis Comments XR CHEST PA OR AP 1 VW Routine 05/05/2008 7:44 AM PSYCHOLOGICAL AIDE XR CHEST PA OR AP 1 VW Routine 05/04/2008 7:16 AM CDT XR CHEST PA OR AP 1 VW Routine 05/03/2008 7:37 AM CDT XR CHEST PA OR AP 1 VW Routine 05/02/2008 8:27 AM CDT XR CHEST PA OR AP 1 VW Routine 05/01/2008 7:35 AM CDT XR CHEST PA OR AP 1 VW Routine 04/30/2008 7:07 AM CDT XR CHEST PA OR AP 1 VW Routine 04/29/2008 7:19 AM CDT POC GLUCOSE Routine 04/29/2008 7:14 AM CDT CBC WITH DIFFERENTIAL Routine 04/29/2008 4:30 AM CDT BASIC METABOLIC PANEL Routine 04/29/2008 4:30 AM CDT POC GLUCOSE Routine 04/28/2008 11:59 PM CDT POC GLUCOSE Routine 04/28/2008 5:26 PM CDT POC GLUCOSE Routine 04/28/2008 11:13 AM CDT POC GLUCOSE Routine 04/28/2008 7:21 AM CDT XR CHEST PA OR AP 1 VW Routine 04/28/2008 7:06 AM CDT CBC WITH DIFFERENTIAL Routine 04/28/2008 4:40 AM CDT BASIC METABOLIC PANEL Routine 04/28/2008 4:40 AM CDT POC GLUCOSE Routine 04/27/2008 9:21 PM CDT POC GLUCOSE Routine 04/27/2008 5:09 PM CDT POC GLUCOSE Routine 04/27/2008 11:47 AM CDT POC GLUCOSE Routine 04/27/2008 7:11 AM CDT XR CHEST PA OR AP 1 VW Routine 04/27/2008 6:47 AM CDT POC GLUCOSE Routine 04/26/2008 9:10 PM CDT POC GLUCOSE Routine 04/26/2008 5:04 PM CDT POC GLUCOSE Routine 04/26/2008 12:10 PM CDT XR CHEST PA OR AP 1 VW Routine 04/26/2008 7:31 AM CDT CBC WITH DIFFERENTIAL Routine 04/26/2008 5:25 AM CDT BASIC METABOLIC PANEL Routine 04/26/2008 5:25 AM CDT POC GLUCOSE Routine 04/26/2008 5:24 AM CDT POC GLUCOSE Routine 04/25/2008 4:41 PM CDT TYPE AND CROSSMATCH Routine 04/25/2008 3 :00 PM CDT PATHOLOGY Routine 04/25/2008 1:33 PM CDT documented in this encounter Results * XR CHEST PA OR AP (05/05/2008 7:44 AM PSYCHOLOGICAL AIDE) Anatomical Region Laterality Modality Chest Other 05/05/2008 7:44 AM PSYCHOLOGICAL AIDE Narrative 05/05/2008 7:22 PM PSYCHOLOGICAL AIDE Exam: Chest - Portable Date/Time of Exam: May 05, 2008 7:44:06 AM History: Cough. Findings: AP compared to yesterday shows no change. There has likely been a right thoracotomy, but there is no acute pulmonary infiltrate. The right apical region still demonstrates a small pneumothorax. - Dictated By: Kye Allen M.D. Electronically Signed By: Kye Allen M.D. Date Signed: 05/05/08 Procedure Note Kye Allen - 05/05/2008 Exam: Chest - Portable Date/Time of Exam: May 05, 2008 7:44:06 AM History: Cough. Findings: AP compared to yesterday shows no change. There has likely victorino right thoracotomy, but there is no acute pulmonary infiltrate. The right apical region stilldemonstrates a small pneumothorax. - Dictated By: Kye Allen M.D. Electronically Signed By: Kye Allen M.D. Date Signed: 11/02/08 us Sachin R Lincoln II, MD DIAGNOSTIC IMAGING ORDERA BLES Final Result * XR CHEST PA OR AP (05/04/2008 7:16 AM CDT) Anatomical Region Laterality Modality Chest Other 05/04/2008 7:16 AM CDT Narrative 05/04/2008 9:52 AM CDT Exam: Chest - Portable Date/Time of Exam: May 04, 2008 7:16:13 AM History: Post-operative. Findings: AP compared to yesterday continues to show two right-sided chest tubes, there is a relatively small but residual pneumothorax within the right apical region. There is right- sided volume loss with elevation of the right diaphragm and there continues to be a 2.5 x 3.5 cm density that overlies the right midlung region. Left lung is clear but there is slight blunting of the left costophrenic angle. Impression: No significant change. - Dictated By: Kye Allen M.D. Electronically Signed By: Kye Allen M.D. Date Signed: 05/04/08 Procedure Note Kye Allen - 05/04/2008 Exam: Chest - Portable Date/Time of Exam: May 04, 2008 7:16:13 AM History: Post-operative. Findings: AP compared to yesterday continues to show two right-sided chesttubes, there is a relatively small but residual pneumothorax within the right apical region. There isright- sided volume loss with elevation of the right diaphragm and there continues to be a 2.5 x 3.5 cmdensity that overlies the right midlung region. Left lung is clear but there is slight blunting of theleft costophrenic angle. Impression: No significant change. - Dictated By: Kye Allen M.D. Electronically Signed By: Kye Allen M.D. Date Signed: 05/04/08 Sachin Torres II, MD DIAGNOSTIC IMAGING ORDERA BLES Final Result * XR CHEST PA OR AP (05/03/2008 7:37 AM CDT) Anatomical Region Laterality Modality Chest Other 05/03/2008 7:37 AM CDT Narrative 05/04/2008 1:24 PM CDT Exam: Chest - Portable Date/Time of Exam: May 03, 2008 7:37:24 AM History: Right lung resection. Lobectomy. Comparison: Prior study 05/02/2008. Findings: Two right chest tubes remain in place with residual pneumothorax. Elevation of the right hemidiaphragm is present. Continuing nodular density in right mid lung field is present. Left lung is clear. Mediastinum is slightly shifted to the right. No silhouetting of the hemidiaphragms is present. Impression: Postoperative changes stable from prior exam. - Dictated By: MD Luis Camejo Electronically Signed By: MD Luis CamejoMD Date Signed: 05/04/08 SDM Procedure Note Luis Camejo A - 05/04/2008 Exam: Chest - Portable Date/Time of Exam: May 03, 2008 7:37:24 AM History: Right lung resection. Lobectomy. Comparison: Prior study 05/02/2008. Findings: Two right chest tubes remain in place with residual pneumothorax.Elevation of the right hemidiaphragm is present. Continuing nodular density in right mid lung field is present.Left lung is clear. Mediastinum is slightly shifted to the right. No silhouetting of the hemidiaphragms ispresent. Impression: Postoperative changes stable from prior exam. - Dictated By: MD Luis Camejo Electronically Signed By: MD Luis CamejoMD Date Signed: 05/04/08 SDM Sachin Torres II, MD DIAGNOSTIC IMAGING ORDERA BLES Final Result * XR CHEST PA OR AP (05/02/2008 8:27 AM CDT) Anatomical Region Laterality Modality Chest Other 05/02/2008 8:27 AM CDT Narrative 05/02/2008 8:32 AM CDT Two chest tubes are directed toward the right apex. The heart and mediastinum are unremarkable , the right hemidiaphragm is elevated. Minimal pneumothorax at the apex of the right measures about 3 or 4 mm. Impression: Minimal right apical pneumothorax. Nodular opacity persists in the right midlung. - Dictated By: Ed Frey M.D. Electronically Signed By: Ed Frey M.D. Date Signed: 05/02/08 Procedure Note Ed Frey - 05/02/2008 Two chest tubes are directed toward the right apex. The heart andmediastinum are unremarkable , the right hemidiaphragm is elevated. Minimal pneumothorax at the apex of theright measures about 3 or 4 mm. Impression: Minimal right apical pneumothorax. Nodular opacity persists inthe right midlung. - Dictated By: Ed Frey M.D. Electronically Signed By: Ed Frey M.D. Date Signed: 05/02/08 Sachin Torres II, MD DIAGNOSTIC IMAGING ORDERA BLES Final Result * XR CHEST PA OR AP (05/01/2008 7:35 AM CDT) Anatomical Region Laterality Modality Chest Other 05/01/2008 7:35 AM CDT Narrative 05/01/2008 2:27 PM CDT Portable view of the chest was obtained and compared to exam from previous day. History is postoperative change, right lung resection and lobectomy. Heart size is normal. Mediastinum is unremarkable. Left lung is clear. Right lung is stable with small pneumothorax. Impression: Stable exam with small right pneumothorax. - Dictated By: Tab Camara M.D. Electronically Signed By: Tab Camara M.D. Date Signed: 05/01/08 Procedure Note Tab Camara W - 05/01/2008 Portable view of the chest was obtained and compared to exam from previousday. History is postoperative change, right lung resection and lobectomy. Heart size is normal. Mediastinum is unremarkable. Left lung is clear.Right lung is stable with small pneumothorax. Impression: Stable exam with small right pneumothorax. - Dictated By: Tab Camara M.D. Electronically Signed By: Tab Camara M.D. Date Signed: 05/01/08 us Sachin Torres II, MD DIAGNOSTIC IMAGING ORDERA BLES Final Result * XR CHEST PA OR AP (04/30/2008 7:07 AM CDT) Anatomical Region Laterality Modality Chest Other 04/30/2008 7:07 AM CDT Narrative 04/30/2008 2:58 PM CDT Exam: Chest - Portable Date/Time of Exam: Apr 30, 2008 7:07:58 AM History: Post-operative. Findings: Comparison study 04/29/2008. Stable postsurgical change of right hemithorax with volume loss of right lung and stable small right apical pneumothorax. Stable position of right sided thoracostomy tubes. Left lung unremarkable. Cardiovascular silhouette stable and within normal limits. Impression: No significant change. - Dictated By: Nora Sebastian M.D. Electronically Signed By: Nora Sebastian M.D. Date Signed: 04/30/08 SDM Procedure Note Nora Sebastian MD - 04/30/2008 Exam: Chest - Portable Date/Time of Exam: Apr 30, 2008 7:07:58 AM History: Post-operative. Findings: Comparison study 04/29/2008. Stable postsurgical change ofright hemithorax with volume loss of right lung and stable small right apical pneumothorax. Stable positionof right sided thoracostomy tubes. Left lung unremarkable. Cardiovascular silhouette stable andwithin normal limits. Impression: No significant change. - Dictated By: Nora Sebastian M.D. Electronically Signed By: Nora Sebastian M.D. Date Signed: 04/30/08 SDM Sachin Torres II, MD DIAGNOSTIC IMAGING ORDERA BLES Final Result * XR CHEST PA OR AP (04/29/2008 7:19 AM CDT) Anatomical Region Laterality Modality Chest Other 04/29/2008 7:19 AM CDT Narrative 04/29/2008 9:31 AM CDT Comparison 04/28/2008. Stable position of the two right apical chest tubes. Reduction in the very small right apical pneumothorax. Continued mild nonspecific increased attenuation along the right inferolateral pleural border and elevation of the right diaphragm. Decrease in the very small amount of right upper lateral chest wall subcutaneous air. Left lung is clear. Impression: 1. Reduction in the very small right apical pneumothorax. 2. Mild right inferolateral pleural thickening or fluid. - Dictated By: Nathaniel Araiza M.D. Electronically Signed By: Nathaniel Araiza M.D. Date Signed: 04/29/08 SDM Procedure Note Peewee Araiza B - 04/29/2008 Comparison 04/28/2008. Stable position of the two right apical chest tubes. Reduction in the verysmall right apical pneumothorax. Continued mild nonspecific increased attenuation along theright inferolateral pleural border and elevation of the right diaphragm. Decrease in the very smallamount of right upper lateral chest wall subcutaneous air. Left lung is clear. Impression: 1. Reduction in the very small right apical pneumothorax. 2. Mild right inferolateral pleural thickening or fluid. - Dictated By: Nathaniel Araiza M.D. Electronically Signed By: Nathaniel Araiza M.D. Date Signed: 04/29/08 SDM Sachin Torres II, MD DIAGNOSTIC IMAGING ORDERA BLES Final Result * (ABNORMAL) POC GLUCOSE (04/29/2008 7:14 AM CDT) Pathologist [facility] GLUCOSE POC 115(H) 60 - 100 mg/dL [facility] Venous blood specimen (specimen) 04/29/2008 7:14 AM CDT 04/30/2008 3:32 AM CDT Sachin Torres II, MD POINT OF CARE TESTING Fin al Result INTERFACE SYSTEM Refer to clinic/hospital department [facility] CLIA# [id number] [address] [place] [address] * (ABNORMAL) BASIC METABOLIC PANEL (04/29/2008 4:30 AM CDT) BUN 12 7 - 17 mg/dL [facility] CO2 32 22 - 32 mmol/l [facility] POTASSIUM 3.8 3.5 - 5.0 mEq/L [facility] OSMOLALITY, CALCULATED 285 275 - 295 mOsm/Kg [facility] CREATININE 0.4(L) 0.7 - 1.2 mg/dL [facility] CALCIUM 10.4 8.4 - 10.5 mg/dL [facility] GLUCOSE 123(H) 70 - 110 mg/dL [facility] CHLORIDE 99 95 - 110 mEq/L [facility] ANION GAP 11 9 - 20 mEq/L [facility] SODIUM 138 136 - 145 mEq/L [facility] Blood specimen (specimen) 04/29/2008 4:30 AM CDT 04/29/2008 4:45 AM CDT us Sachin Torres II, MD CHEMISTRY ORDERABLES Starla smith Result INTERFACE SYSTEM Refer to clinic/hospital department [facility] CLIA# [id number] [address] [place] [address] * (ABNORMAL) CBC WITH DIFFERENTIAL (04/29/2008 4:30 AM CDT) HEMATOCRIT 32.8(L) 36.0 - 46.0 % [facility] EOSINOPHILS 3.1 0.0 - 7.0 % [facility] PLATELETS 250 140 - 440 K/ul [facility] EOSINOPHIL ABSOLUTE 0.2 0.0 - 0.7 K/ul [facility] RBC 3.67(L) 4.20 - 5.40 Mil/ul [facility] LYMPHOCYTES 15.4(L) 24.0 - 44.0 % [facility] MCHC 33.2 30.0 - 35.0 g/dL [facility] LYMPHOCYTE ABSOLUTE 1.2 1.2 - 4.0 K/ul [facility] MCV 89.4 84.0 - 103.0 Fl [facility] MPV 10.3 8.9 - 12.8 Fl [facility] BASOPHILS ABSOLUTE 0.0 0.0 - 0.2 K/ul [facility] BASOPHILS 0.3 0.0 - 1.0 % [facility] HEMOGLOBIN 10.9(L) 12.0 - 16.0 g/dL [facility] RDW 12.4 11.0 - 14.5 % [facility] MONOCYTE ABSOLUTE 1.2(H) 0.1 - 0.6 K/ul [facility] MONOCYTES 15.1(H) 2.0 - 10.0 % [facility] WBC 7.8 4.8 - 10.8 K/ul [facility] MCH 29.7 27.0 - 34.0 pg [facility] NEUTROPHIL ABSOLUTE 5.2 2.0 - 8.0 K/ul [facility] NEUTROPHILS 66.1 42.2 - 75.2 % [facility] Blood specimen (specimen) 04/29/2008 4:30 AM CDT 04/29/2008 4:45 AM CDT Sachin Torres II, MD HEMATOLOGY ORDERABLES Fin al Result Performing Organization Address [facility] Phone Number INTERFACE SYSTEM Refer to clinic/hospital department [facility] CLIA# [id number] [address] [place] [address] * (ABNORMAL) POC GLUCOSE (04/28/2008 11:59 PM CDT) GLUCOSE POC 128(H) 60 - 100 mg/dL [facility] Venous blood specimen (specimen) 04/28/2008 11:59 PM CDT 04/29/2008 8:36 AM CDT Sachin Torres II, MD POINT OF CARE TESTING Fin al Result Performing Organization Address [facility] Phone Number INTERFACE SYSTEM Refer to clinic/hospital department [facility] CLIA# [id number] [address] [place] [address] * (ABNORMAL) POC GLUCOSE (04/28/2008 5:26 PM CDT) GLUCOSE POC 120(H) 60 - 100 mg/dL [facility] Venous blood specimen (specimen) 04/28/2008 5:26 PM CDT 04/29/2008 8:35 AM CDT us Sachin Torres II, MD POINT OF CARE TESTING Fin al Result Performing Organization Address [facility] de Phone Number INTERFACE SYSTEM Refer to clinic/hospital department [facility] CLIA# [id number] [address] [place] [address] * (ABNORMAL) POC GLUCOSE (04/28/2008 11:13 AM CDT) GLUCOSE POC 135(H) 60 - 100 mg/dL [facility] Venous blood specimen (specimen) 04/28/2008 11:13 AM CDT 04/29/2008 7:23 AM CDT us Sachin Torres II, MD POINT OF CARE TESTING Fin al Result Performing Organization Address [facility] de Phone Number INTERFACE SYSTEM Refer to clinic/hospital department [facility] CLIA# [id number] [address] [place] [address] * (ABNORMAL) POC GLUCOSE (04/28/2008 7:21 AM CDT) GLUCOSE POC 113(H) 60 - 100 mg/dL [facility] Venous blood specimen (specimen) 04/28/2008 7:21 AM CDT 04/29/2008 8:35 AM CDT us Sachin Torres II, MD POINT OF CARE TESTING Fin al Result Performing Organization Address [facility] de Phone Number INTERFACE SYSTEM Refer to clinic/hospital department [facility] CLIA# [id number] [address] [place] [address] * XR CHEST PA OR AP (04/28/2008 7:06 AM CDT) Anatomical Region Laterality Modality Chest Other 04/28/2008 7:06 AM CDT Narrative 05/11/2008 1:11 PM PSYCHOLOGICAL AIDE Exam: Chest - Portable Date/Time of Exam: Apr 28, 2008 7:06:45 AM History: Post-operative. Findings: Comparison dated 04/27/2008 at 0633 hours. Two chest tubes remain in place on the right. There is a tiny residual right apical pneumothorax. An ovoid density persists in the mid to lower right lung. Once again this may represent focal infiltrate or contusion, pseudotumor secondary to loculated fluid in the major fissure, versus mass. The left lung remains clear. - Dictated By: Bronson Mcbride MD Electronically Signed By: Bronson Mcbride MD Date Signed: 05/11/08 Procedure Note Bronson Mcbride - 05/11/2008 Exam: Chest - Portable Date/Time of Exam: Apr 28, 2008 7:06:45 AM History: Post-operative. Findings: Comparison dated 04/27/2008 at 0633 hours. Two chest tubesremain in place on the right. There is a tiny residual right apical pneumothorax. An ovoid density persists inthe mid to lower right lung. Once again this may represent focal infiltrate or contusion, pseudotumorsecondary to loculated fluid in the major fissure, versus mass. The left lung remains clear. - Dictated By: Bronson Mcbride MD Electronically Signed By: Bronson Mcbride MD Date Signed: 05/11/08 Sachin Torres II, MD DIAGNOSTIC IMAGING ORDERA BLES Final Result * (ABNORMAL) CBC WITH DIFFERENTIAL (04/28/2008 4:40 AM CDT) WBC 7.4 4.8 - 10.8 K/ul [facility] MCH 29.2 27.0 - 34.0 pg [facility] NEUTROPHIL ABSOLUTE 4.7 2.0 - 8.0 K/ul [facility] NEUTROPHILS 63.3 42.2 - 75.2 % [facility] HEMATOCRIT 32.9(L) 36.0 - 46.0 % [facility] EOSINOPHILS 2.8 0.0 - 7.0 % [facility] PLATELETS 187 140 - 440 K/ul [facility] EOSINOPHIL ABSOLUTE 0.2 0.0 - 0.7 K/ul [facility] RBC 3.63(L) 4.20 - 5.40 Mil/ul [facility] LYMPHOCYTES 19.5(L) 24.0 - 44.0 % [facility] MCHC 32.2 30.0 - 35.0 g/dL [facility] LYMPHOCYTE ABSOLUTE 1.5 1.2 - 4.0 K/ul [facility] MCV 90.6 84.0 - 103.0 Fl [facility] MPV 10.3 8.9 - 12.8 Fl [facility] BASOPHILS ABSOLUTE 0.0 0.0 - 0.2 K/ul [facility] BASOPHILS 0.1 0.0 - 1.0 % [facility] HEMOGLOBIN 10.6(L) 12.0 - 16.0 g/dL [facility] RDW 12.3 11.0 - 14.5 % [facility] MONOCYTE ABSOLUTE 1.1(H) 0.1 - 0.6 K/ul [facility] MONOCYTES 14.3(H) 2.0 - 10.0 % [facility] Blood specimen (specimen) 04/28/2008 4:40 AM CDT 04/28/2008 4:54 AM CDT us Sachin Torres II, MD HEMATOLOGY ORDERABLES Fin al Result INTERFACE SYSTEM Refer to clinic/hospital department [facility] CLIA# [id number] [address] [place] [address] * (ABNORMAL) BASIC METABOLIC PANEL (04/28/2008 4:40 AM CDT) CREATININE 0.3(L) 0.7 - 1.2 mg/dL [facility] CALCIUM 9.8 8.4 - 10.5 mg/dL [facility] GLUCOSE 117(H) 70 - 110 mg/dL [facility] CHLORIDE 97 95 - 110 mEq/L [facility] SODIUM 142 136 - 145 mEq/L [facility] ANION GAP 13 9 - 20 mEq/L [facility] BUN 10 7 - 17 mg/dL [facility] CO2 36(H) 22 - 32 mmol/l [facility] OSMOLALITY, CALCULATED 291 275 - 295 mOsm/Kg [facility] POTASSIUM 3.8 3.5 - 5.0 mEq/L [facility] Blood specimen (specimen) 04/28/2008 4:40 AM CDT 04/28/2008 4:54 AM CDT Sachin Torres II, MD CHEMISTRY ORDERABLES Starla l Result Performing Organization Address [facility] Phone Number INTERFACE SYSTEM Refer to clinic/hospital department [facility] CLIA# [id number] [address] [place] [address] * (ABNORMAL) POC GLUCOSE (04/27/2008 9:21 PM CDT) GLUCOSE POC 127(H) 60 - 100 mg/dL [facility] Venous blood specimen (specimen) 04/27/2008 9:21 PM CDT 04/29/2008 8:33 AM CDT Sachin Torres II, MD POINT OF CARE TESTING Fin al Result Performing Organization Address [facility] Phone Number INTERFACE SYSTEM Refer to clinic/hospital department [facility] CLIA# [id number] [address] [place] [address] * (ABNORMAL) POC GLUCOSE (04/27/2008 5:09 PM CDT) COMMENT POC Follow Protocol [facility] GLUCOSE POC 122(H) 60 - 100 mg/dL [facility] Venous blood specimen (specimen) 04/27/2008 5:09 PM CDT 04/29/2008 8:33 AM CDT us Sachin Torres II, MD POINT OF CARE TESTING Fin al Result Performing Organization Address [facility] de Phone Number INTERFACE SYSTEM Refer to clinic/hospital department [facility] CLIA# [id number] [address] [place] [address] * (ABNORMAL) POC GLUCOSE (04/27/2008 11:47 AM CDT) GLUCOSE POC 132(H) 60 - 100 mg/dL [facility] COMMENT POC Follow Protocol [facility] Venous blood specimen (specimen) 04/27/2008 11:47 AM CDT 04/29/2008 8:32 AM CDT us Sachin Torres II, MD POINT OF CARE TESTING Fin al Result Performing Organization Address [facility] de Phone Number INTERFACE SYSTEM Refer to clinic/hospital department [facility] CLIA# [id number] [address] [place] [address] * (ABNORMAL) POC GLUCOSE (04/27/2008 7:11 AM CDT) GLUCOSE POC 145(H) 60 - 100 mg/dL [facility] Venous blood specimen (specimen) 04/27/2008 7:11 AM CDT 04/29/2008 8:46 AM CDT us Sachin Torres II, MD POINT OF CARE TESTING Fin al Result Performing Organization Address [facility] de Phone Number INTERFACE SYSTEM Refer to clinic/hospital department [facility] CLIA# [id number] [address] [place] [address] * XR CHEST PA OR AP (04/27/2008 6:47 AM CDT) Anatomical Region Laterality Modality Chest Other 04/27/2008 6:47 AM CDT Narrative 04/28/2008 2:55 AM CDT Exam: Chest - Portable Date/Time of Exam: Apr 27, 2008 6:47:34 AM History: Post-operative. Findings: Comparison dated 04/26/08 at 0715 hours. Two right-sided chest tubes remain in place. There is a persistent tiny pneumothorax at the right apex. There is a persistent rounded density overlying the lower right lung which may represent focal infiltrate or atelectasis, mass, or fluid within the major fissure. There is some pleural thickening or focal pleural fluid along the lower right costal margin. The right hemidiaphragm remains elevated. The left lung remains clear. - Dictated By: Bronson Mcbride MD Electronically Signed By: Bronson Mcbride MD Date Signed: 04/28/08 AMA Procedure Note Bronson Mcbride - 04/28/2008 Exam: Chest - Portable Date/Time of Exam: Apr 27, 2008 6:47:34 AM History: Post-operative. Findings: Comparison dated 04/26/08 at 0715 hours. Two right-sided chesttubes remain in place. There is a persistent tiny pneumothorax at the right apex. There is a persistentrounded density overlying the lower right lung which may represent focal infiltrate or atelectasis,mass, or fluid within the major fissure. There is some pleural thickening or focal pleural fluid along thelower right costal margin. The right hemidiaphragm remains elevated. The left lung remains clear. - Dictated By: Bronson Mcbride MD Electronically Signed By: Bronson Mcbride MD Date Signed: 04/28/08 AMA Sachin Torres II, MD DIAGNOSTIC IMAGING ORDERA BLES Final Result * (ABNORMAL) POC GLUCOSE (04/26/2008 9:10 PM CDT) GLUCOSE POC 150(H) 60 - 100 mg/dL [facility] Venous blood specimen (specimen) 04/26/2008 9:10 PM CDT 04/26/2008 9:33 PM CDT us Sachin Torres II, MD POINT OF CARE TESTING Fin al Result Performing Organization Address [facility] Phone Number INTERFACE SYSTEM Refer to clinic/hospital department [facility] CLIA# [id number] [address] [place] [address] * (ABNORMAL) POC GLUCOSE (04/26/2008 5:04 PM CDT) GLUCOSE POC 143(H) 60 - 100 mg/dL [facility] Venous blood specimen (specimen) 04/26/2008 5:04 PM CDT 04/26/2008 9:32 PM CDT Sachin Torres II, MD POINT OF CARE TESTING Fin al Result Performing Organization Address [facility] Phone Number INTERFACE SYSTEM Refer to clinic/hospital department [facility] CLIA# [id number] [address] [place] [address] * (ABNORMAL) POC GLUCOSE (04/26/2008 12:10 PM CDT) GLUCOSE POC 137(H) 60 - 100 mg/dL [facility] Venous blood specimen (specimen) 04/26/2008 12:10 PM CDT 04/27/2008 2:59 AM CDT Sachin Torres II, MD POINT OF CARE TESTING Fin al Result Performing Organization Address [facility] Phone Number INTERFACE SYSTEM Refer to clinic/hospital department [facility] CLIA# [id number] [address] [place] [address] * XR CHEST PA OR AP (04/26/2008 7:31 AM CDT) Anatomical Region Laterality Modality Chest Other 04/26/2008 7:31 AM CDT Narrative 04/26/2008 9:00 PM CDT Exam: Chest - Portable Date/Time of Exam: Apr 26, 2008 7:31:10 AM History: Post-operative. Comparison: Prior study date 03/12/2008. Findings: Right lobectomy has been performed. The nodular densities in the right lower lobe are now obscured by overlying lung reaction. Right hilum is enlarged. Right hemidiaphragm is elevated. At least three chest tubes are in place on the right. No residual pneumothorax is present. Left lung remains well-inflated and free of infiltrate and effusion. Cardiac silhouette and pulmonary vasculature are unremarkable. Bony structures are unremarkable. Impression: Extensive right lower lobectomy changes. - Dictated By: MD Luis Camejo Electronically Signed By: MD Luis CamejoMD Date Signed: 04/26/08 Procedure Note Luis Camejo A - 04/26/2008 Exam: Chest - Portable Date/Time of Exam: Apr 26, 2008 7:31:10 AM History: Post-operative. Comparison: Prior study date 03/12/2008. Findings: Right lobectomy has been performed. The nodular densities in the rightlower lobe are now obscured by overlying lung reaction. Right hilum is enlarged. Right hemidiaphragm iselevated. At least three chest tubes are in place on the right. No residual pneumothorax is present. Leftlung remains well-inflated and free of infiltrate and effusion. Cardiac silhouette and pulmonaryvasculature are unremarkable. Bony structures are unremarkable. Impression: Extensive right lower lobectomy changes. - Dictated By: MD Luis Camejo Electronically Signed By: MD Luis CamejoMD Date Signed: 04/26/08 Sachin Torres II, MD DIAGNOSTIC IMAGING ORDERA BLES Final Result * (ABNORMAL) BASIC METABOLIC PANEL (04/26/2008 5:25 AM CDT) ANION GAP 12 9 - 20 mEq/L [facility] SODIUM 142 136 - 145 mEq/L [facility] BUN 13 7 - 17 mg/dL [facility] CO2 31 22 - 32 mmol/l [facility] POTASSIUM 4.4 3.5 - 5.0 mEq/L [facility] OSMOLALITY, CALCULATED 295 275 - 295 mOsm/Kg [facility] CREATININE 0.6(L) 0.7 - 1.2 mg/dL [facility] CALCIUM 9.6 8.4 - 10.5 mg/dL [facility] GLUCOSE 152(H) 70 - 110 mg/dL [facility] CHLORIDE 103 95 - 110 mEq/L [facility] Blood specimen (specimen) 04/26/2008 5:25 AM CDT 04/26/2008 6:00 AM CDT Sachin Torres II, MD CHEMISTRY ORDERABLES Starla smith Result INTERFACE SYSTEM Refer to clinic/hospital department [facility] CLIA# [id number] [address] [place] [address] * (ABNORMAL) CBC WITH DIFFERENTIAL (04/26/2008 5:25 AM CDT) HEMATOCRIT 39.8 36.0 - 46.0 % [facility] PLATELETS 343 140 - 440 K/ul [facility] NEUTROPHIL ABSOLUTE 13.9(H) 2.0 - 8.0 K/ul [facility] RBC 4.32 4.20 - 5.40 Mil/ul [facility] MCHC 31.9 30.0 - 35.0 g/dL [facility] LYMPHOCYTES 4.7(L) 24.0 - 44.0 % [facility] MCV 92.1 84.0 - 103.0 Fl [facility] LYMPHOCYTE ABSOLUTE 0.8(L) 1.2 - 4.0 K/ul [facility] MPV 10.9 8.9 - 12.8 Fl [facility] HEMOGLOBIN 12.7 12.0 - 16.0 g/dL [facility] MONOCYTES 12.2(H) 2.0 - 10.0 % [facility] RDW 13.4 11.0 - 14.5 % [facility] WBC 16.7(H) 4.8 - 10.8 K/ul [facility] NEUTROPHILS 83.1(H) 42.2 - 75.2 % [facility] MCH 29.4 27.0 - 34.0 pg [facility] MONOCYTE ABSOLUTE 2.1(H) 0.1 - 0.6 K/ul [facility] Blood specimen (specimen) 04/26/2008 5:25 AM CDT 04/26/2008 6:03 AM CDT us Sachin Torres II, MD HEMATOLOGY ORDERABLES Fin al Result Performing Organization Address [facility] Phone Number INTERFACE SYSTEM Refer to clinic/hospital department [facility] CLIA# [id number] [address] [place] [address] * (ABNORMAL) POC GLUCOSE (04/26/2008 5:24 AM CDT) GLUCOSE POC 156(H) 60 - 100 mg/dL [facility] Venous blood specimen (specimen) 04/26/2008 5:24 AM CDT 04/29/2008 8:30 AM CDT us Sachin Torres II, MD POINT OF CARE TESTING Fin al Result Performing Organization Address [facility] Phone Number INTERFACE SYSTEM Refer to clinic/hospital department [facility] CLIA# [id number] [address] [place] [address] * (ABNORMAL) POC GLUCOSE (04/25/2008 4:41 PM CDT) GLUCOSE POC 140(H) 60 - 100 mg/dL [facility] Venous blood specimen (specimen) 04/25/2008 4:41 PM CDT 04/26/2008 4:36 AM CDT us Sachin Torres II, MD POINT OF CARE TESTING Fin al Result Performing Organization Address [facility] Phone Number INTERFACE SYSTEM Refer to clinic/hospital department [facility] CLIA# [id number] [address] [place] [address] * TYPE AND CROSSMATCH (04/25/2008 3:00 PM CDT) Pathologist [facility] BLOOD BANK PRODUCT INTERFACE SYSTEM Blood specimen (specimen) 04/25/2008 3:00 PM CDT 04/25/2008 3:00 PM CDT Sachin Torres II, MD BLOOD BANK ORDERABLES Fin al Result INTERFACE SYSTEM Refer to clinic/hospital department * PATHOLOGY (04/25/2008 1:33 PM CDT) Pathologist [facility] PATHOLOGY/JUNIOR DAVIDSON REPORT [facility] Anatomic Pathology Dept [address] [facility] [address] Patient: ZOYA CUNNINGHAM Accn No: [id number] Collected: 04/25/2008 1:33:00 PM SURGICAL PATHOLOGY FINAL REPORT Diagnosis A. Lung, right lower lobe, biopsy - old calcified and partially ossified granuloma. / B. Lung, right upper and middle lobe, excision - adenocarcinoma, well-differentiated, with bronchioloalveolar features - tumor measures 2.2 cm and shows visceral pleural extension - margins negative - no tumor identified in eight peribronchial lymph nodes (0/8) - old calcified/ossified granuloma - see diagnostic summary below. / C. Lymph nodes, 4D, biopsy - no tumor identified in two lymph nodes (0/2) - old granulomas present. / D. Lymph node, 7P, biopsy - benign lymph node (0/1) - calcified granulomas. Diagnostic Summary Lung, right, middle and lower lobes Histologic Type: adenocarcinoma with bronchioloalveolar features Histologic Grade: Grade 1 (well-differentiated) STAGING INFORMATION Primary Tumor: pT2 Regional Lymph Nodes: pN0 Number examined: 11 Number with metastases: 0 Distant Metastasis: pMX Margins: negative Direct Extension of Tumor: visceral pleura Arterial/Venous (Large Vessel) Invasion: not identified Additional Findings: Emphysematous changes are present; numerous old calcified and non-calcified granulomas. REV:PKT(B6-B8) Tal Coy M.D. (Electronically signed by) Verified: 04/29/08 SEC/SEC Pathologist Comment The tumor shows a predominantly bronchioloalveolar growth pattern, but focal invasion is identified. Clinical Information Right lower lobe nodule. Specimen Source ALung, RIGHT LOWER LOBE BLung, RIGHT UPPER & MIDDLE LOBE CLymph Node, 4D DLymph Node, 7P Microscopic Description Microscopic examination was performed. Gross Description Part A. Received fresh in a container labelled Marisa - right lower lobe nodule is a woodruff calcified nodule measuring 1 cm in diameter. The specimen is submitted entirely following decalcification in A1-A2. Gross Intraoperative Consultation (Dr. Morales): Right lower lobe nodule - calcified nodule grossly, no frozen section performed, defer to permanents. (PCR/wls) KT/wls PC Part B. Received fresh in a container labelled Marisa - right upper and middle lobes is reddish-woodruff lobectomy specimen including the upper and middle right lobes measuring 23 x 15 x 4.5 cm and weighing 260 gm. A firm mass is palpable in the middle lobe near the fissure of the upper lobe. The pleura overlying the mass shows retraction. The upper lobe is adherent to the middle lobe in this area and may represent an area of extension of tumor. Blue ink is applied to the pleura overlying the mass. The bronchial resection margins are submitted for frozen section on blocks labelled B1 and B2. Several anthracotic appearing peribronchial lymph nodes are identified. The lung is serially sectioned revealing a grayish- white tumor mass in the middle lobe measuring 2.2 x 2.1 x 1.4 cm. The tumor grossly appears to extend into the upper lobe. The tumor is grossly located 5 cm from the bronchial resection margin. A 0.3 cm calcified nodule is identified in the upper lobe. No additional tumor masses are identified. Cassette Summary: B1-2 - frozen section remnants B3 - vascular resection margin B4-B5 - peribronchial lymph nodes B6-B8 - tumor blocks B9-B10 - additional lung tissue B11 - calcified nodule (following decalcification). Gross Summary Specimen Type: upper and middle lobectomy Laterality: right Tumor Site: middle lobe, with extension into lower lobe Tumor Size (greatest dimension): 2.2 cm Additional dimensions: 2.1 x 1.4 cm (PCR/wls) Part C. Submitted in a container of formalin labelled Marisa - #3, 4D node is a pinkish-woodruff fatty soft tissue fragment measuring 2.1 x 2 x 1.3 cm. On sectioning, two possible lymph nodes are identified measuring up to 1.5 cm. Both specimens are submitted entirely in C1-C2. (DS/wls) Part D. Submitted in a container of formalin labelled Marisa - #4, 7P lymph node is a reddish-woodruff possible lymph node measuring 3 x 1.5 x 1.4 cm. Sectioning reveals a central area of calcification measuring 1.3 cm. The soft tissue portion of the lymph node is submitted in D1-D2. The remainder of the lymph node is submitted in D3-4 following decalcification. (DS/wls) PCR/WLS SURGICAL PATHOLOGY PRELIMINARY REPORT Specimen Source ALung, RIGHT LOWER LOBE BLung, RIGHT UPPER & MIDDLE LOBE CLymph Node, 4D DLymph Node, 7P Preliminary Diagnosis/Comment Decalcification is pending. Tal Coy M.D. (Electronically signed by) Verified: 04/26/08 SEC/SEC INTERFACE SYSTEM 04/25/2008 1:33 PM CDT us Sachin Torres II, MD PATHOLOGY/CYTOLOGY ORDERA BLES Edited INTERFACE SYSTEM Refer to clinic/hospital department documented in this encounter Visit Diagnoses Not on filedocumented in this encounter Care Teams Canoe Maker Relationship Specialty Start Date End Date Willie Mahmood MD [address] [id number] PCP - General Family Practice 10/06/17 documented as of this encounter
--- OUTSIDE RECORDS SUMMARY | 2025-02-25 10:18 | XMS_ITS | Encounter Summary ---
Author Organization [facility] Address [address] [place] [address] Care Team Providers Care Tobacco Grower Name Role Phone Willie Mahmood MD Primary Care Provider [phone] Encounter Details Date Type Department Care Team (Latest Contact Info) Description 07/06/1999 Outpatient Historical [facility] [address] [address] Martin Dumont DO NO ADDRESS ON FILE Need vaccination-viral disease (Primary Dx) Social History Tobacco Use Types Packs/Day Years Used Date Smoking Tobacco: Never Assessed Comments Unknown Sex and Gender Information Value Date Recorded Sex Assigned at Not on file 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
--- OUTSIDE RECORDS SUMMARY | 2025-02-25 10:18 | XMS_ITS | Encounter Summary ---
Author Organization [facility] Address [address] [place] [address] Care Team Providers Care Entertainment Production Professional Name Role Phone Willie Mahmood MD Primary Care Provider [phone] Encounter Details Date Type Department Care Team (Latest Contact Info) Description 12/02/2004 Outpatient Historical [facility] [address] [address] Martin Dumont DO NO ADDRESS ON FILE DEPRESSIVE DISORDER NEC (Primary Dx); HYPOTHYROIDISM NOS; SKIN DISORDER NOS; HYPERLIPIDEMIA NEC/NOS Social History Tobacco Use Types Packs/Day Years Used Date Smoking Tobacco: Never Assessed Comments Unknown Sex and Gender Information Value Date Recorded Sex Assigned at Not on file 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
--- OUTSIDE RECORDS SUMMARY | 2025-02-25 10:18 | XMS_ITS | Encounter Summary ---
Author Organization [facility] Address [address] [place] [address] Care Team Providers Care Dietetic Aide Name Role Phone Willie Mahmood MD Primary Care Provider [phone] Encounter Details Date Type Department Care Team (Latest Contact Info) Description 01/11/2006 Outpatient Historical [facility] General Surgery [address] [address] [address] [place] [address] Giuseppe Martinez MD [address] [place] [address], [address] [place], [place] [id number] Neoplasm of Uncertain Behavior of Skin (Primary Dx); Encounter for Long-Term (Current) Use of Other Medications; Other and Unspecified Hyperlipidemia Social History Tobacco Use Types Packs/Day Years Used Date Smoking Tobacco: Never Assessed Comments Unknown Sex and Gender Information Value Date Recorded Sex Assigned at Not on file 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
--- OUTSIDE RECORDS SUMMARY | 2025-02-25 10:18 | XMS_ITS | Encounter Summary ---
Author Organization [facility] Address [address] [place] [address] Care Team Providers Care Manager Of Development Name Role Phone Willie Mahmood MD Primary Care Provider +1 -[phone] Encounter Details Date Type Department Care Team (Latest Contact Info) Description 03/11/2008 Outpatient Historical [facility] Yuridia Lund MD [address] [place] [address] Other Diseases of Lung, not Elsewhere Classified Social History Tobacco Use Types Packs/Day Years Used Date Smoking Tobacco: Never Assessed Comments Unknown Sex and Gender Information Value Date Recorded Sex Assigned at Not on file 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 Gender Identity Not on file Sexual Orientation Not on file documented as of this encounter Plan of Treatment Not on file documented as of this encounter Procedures Procedure Name Priority Date/Time Associated Diagnosis Comments XR CHEST PA OR AP 1 VW Routine 03/12/2008 12:[address] GUIDED BIOPSY Routine 03/12/2008 9:59 AM CDT PATHOLOGY Routine 03/12/2008 8:03 AM CDT PT AND APTT Stat 03/12/2008 7:05 AM CDT PLATELET COUNT Stat 03/12/2008 7:05 AM CDT documented in this encounter Results * XR CHEST PA OR AP (03/12/2008 12:17 PM CDT) Anatomical Region Laterality Modality Chest Other 03/12/2008 12:1 7 PM CDT Narrative 03/14/2008 8:57 AM CDT Exam: Chest - PA Date/Time of Exam: Mar 12, 2008 12:17:57 PM History: Please see order comments. Findings: There are no comparisons to the AP upright view in expiration. There is no evidence for pneumothorax. Vague opacity is noted in the right lung base consistent with the patient's known right lung mass. The lungs are otherwise clear. Heart size within normal limits and the pulmonary vessels are unremarkable. Impression: 1. No evidence for pneumothorax. 2. Vague mass in the right lung base. - Dictated By: Belen Harley M.D. Electronically Signed By: Belen Harley M.D. Date Signed: 03/14/08 Procedure Note Belen Harley MD - 03/14/2008 Exam: Chest - PA Date/Time of Exam: Mar 12, 2008 12:17:57 PM History: Please see order comments. Findings: There are no comparisons to the AP upright view in expiration. There is no evidence for pneumothorax. Vague opacity is noted in the rightlung base consistent with the patient's known right lung mass. The lungs are otherwise clear. Heart sizewithin normal limits and the pulmonary vessels are unremarkable. Impression: 1. No evidence for pneumothorax. 2. Vague mass in the right lung base. - Dictated By: Belen Harley M.D. Electronically Signed By: Belen Harley M.D. Date Signed: 03/14/08 [facility] Rogerio Lund MD DIAGNOSTIC IMAGING ORDERABLES Fi nal Result * CT GUIDED BIOPSY (03/12/2008 9:59 AM CDT) Anatomical Region Laterality Modality Other 03/12/2008 9:59 AM CDT Narrative 04/26/2008 1:[address]-guided right lung biopsy 03/12/2008. History: The patient is a 58-year-old white female former smoker with a right lung nodule suspicious for neoplasm. Comparison: There was an outside CT from [place]. The procedure and its risks, benefits, and alternatives were explained to the patient. Consent was obtained. Monitored IV conscious sedation was provided with Versed and fentanyl. The patient was placed supine on the CT scan table and preliminary images were obtained for localization. An appropriate approach for biopsy of the right lung nodule was identified. The skin of the right anterior chest was marked. The area was prepped and draped in the usual fashion. Local anesthesia was achieved with lidocaine. Under CT guidance, a 17-gauge introducer was advanced through the anterior right chest wall into the nodule. Two passes were then made with an 18-gauge biopsy gun and 2 cores were obtained. The cores were sent to pathology. The introducer was removed. A sterile Tegaderm dressing was immediately applied. Postbiopsy images showed a tiny right pneumothorax and some mild perinodule hemorrhage. The patient tolerated the procedure well. A delayed chest x-ray will be obtained. Impression: CT-guided right lung nodule biopsy as described. - Dictated By: Belen Harley M.D. Electronically Signed By: Belen Harley M.D. Date Signed: 03/14/08 SDM Procedure Note Belen Harley MD - 04/26/2008 CT-guided right lung biopsy 03/12/2008. History: The patient is a 58-year-old white female former smoker with aright lung nodule suspicious for neoplasm. Comparison: There was an outside CT from [place]. The procedure and its risks, benefits, and alternatives were explained tothe patient. Consent was obtained. Monitored IV conscious sedation was provided with Versed and fentanyl. The patient was placed supine on the CT scan table and preliminary imageswere obtained for localization. An appropriate approach for biopsy of the right lung nodule wasidentified. The skin of the right anterior chest was marked. The area was prepped and draped in the usualfashion. Local anesthesia was achieved with lidocaine. Under CT guidance, a 17-gauge introducer wasadvanced through the anterior right chest wall into the nodule. Two passes were then made with an 18-gaugebiopsy gun and 2 cores were obtained. The cores were sent to pathology. The introducer was removed. Asterile Tegaderm dressing was immediately applied. Postbiopsy images showed a tiny right pneumothoraxand some mild perinodule hemorrhage. The patient tolerated the procedure well. A delayed chest x-ray will be obtained. Impression: CT-guided right lung nodule biopsy as described. - Dictated By: Belen Harley M.D. Electronically Signed By: Belen Harley M.D. Date Signed: 03/14/08 SDM Yuridia Lund MD CT ORDERABLES Final Result * PATHOLOGY (03/12/2008 8:03 AM CDT) PATHOLOGY/CY TOLOGY REPORT [facility] [address] Patient: ZOYA BROWER Accn No: [id number] Collected: 03/12/2008 8:03:00 AM SURGICAL PATHOLOGY FINAL REPORT Diagnosis A. Lung, side not specified, core biopsy - bronchioloalveolar carcinoma, see comment. REV:Apoorva Sorensen MD (Electronically signed by) Verified: 03/13/08 PKT/CEP Pathologist Comment Although I do not see evidence of stromal invasion on this biopsy, it does not exclude a possibility of invasive carcinoma in the area that is not biopsied. Clinical and radiographic correlation would be warranted. Clinical Information 30 year history of smoking, shortness of breath. Specimen Source ALung, Side Not Specified Microscopic Description Microscopic examination was performed. Gross Description Part A. Submitted in a container of formalin labelled Marisa are two pinkish-woodruff needle core biopsies measuring up to 1.3 cm. The specimen is submitted entirely in A1. DLS/TKB INTERFACE SYSTEM 03/12/2008 8:03 AM CDT Yuridia Lund MD PATHOLOGY/CYTOLOGY ORDERABLES Ed ited INTERFACE SYSTEM Refer to clinic/hospital department * PT AND APTT (03/12/2008 7:05 AM CDT) PTT 25.9 22.5 - 36.5 Secs [facility] Comment: Therapeutic Range: Hi-level PE/DVT heparin protocol 80.1 -95.0 sec Lo-level PE/DVT heparin protocol 67.1 - 80.0 sec Cardiac Heparin Protocol 67.1 - 85.0 sec Neuro Heparin Protocol 67.1 - 80.0 sec As of 09/21/2007 note change in APTT Normal Range. INR 0.9 [facility] Comment: Expected Values for INR: DVT/PE Goal INR 2.5; range 2.0 - 3.0 Valve Replacement Tissue Goal INR 2.5; range 2.0 - 3.0 Mechanical Goal INR 3.0; range 2.5 - 3.5 POST-WI Goal INR 2.5; range 2.0 - 3.0 or Goal 3.0; range 2.5 - 3.5 Atrial Fibrillation Goal INR 2.5; range 2.0 - 3.0 Ischemic Stroke Goal INR 2.5; range 2.0 - 3.0 For additional information see Guidelines for Anticoagulation available from the pharmacy Maria Esther Soto [phone] PROTIME 13.7 12.8 - 15.8 Secs [facility] Comment:As of 2007 not e change in normal range. Blood specimen (specimen) 03/12/2008 7:05 AM CDT 03/12/2008 7:11 AM CDT S Rogerio Lund MD HEMATOLOGY ORDERABLES Edited Performing Organization Address City/[facility] Co de Phone Number INTERFACE SYSTEM Refer to clinic/hospital department [facility] CLIA# [id number] [address] [place] [address] * PLATELET COUNT (03/12/2008 7:05 AM CDT) PLATELETS 270 140 - 440 K/ul [facility] Blood specimen (specimen) 03/12/2008 7:05 AM CDT 03/12/2008 7:11 AM CDT S Rogerio Lund MD HEMATOLOGY ORDERABLES Final Resu lt INTERFACE SYSTEM Refer to clinic/hospital department [facility] CLIA# [id number] [address] [place] [address] documented in this encounter Visit Diagnoses Diagnosis Other diseases of lung, not elsewhere classified documented in this encounter Care Teams Manager Of Development Relationship Specialty Start Date End Date Willie Mahmood MD [address] [phone] PCP - General Family Practice 10/06/17 documented as of this encounter
--- OUTSIDE RECORDS SUMMARY | 2025-02-25 10:18 | XMS_ITS | Encounter Summary ---
Author Organization [facility] Address [address] [place] [address] Care Team Providers Care Faculty Physician Name Role Phone Willie Mahmood MD Primary Care Provider +1 -[phone] Encounter Details Date Type Department Care Team (Latest Contact Info) Description 02/03/2000 Outpatient Historical [facility] Medicine [place] [address] [address] Martin Dumont DO NO ADDRESS ON FILE Allergic rhinitis due to other allergen (Primary Dx) Social History Tobacco Use Types Packs/Day Years Used Date Smoking Tobacco: Never Assessed Comments Unknown Sex and Gender Information Value Date Recorded Sex Assigned at Not on file 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
--- OUTSIDE RECORDS SUMMARY | 2025-02-25 10:18 | XMS_ITS | Encounter Summary ---
Author Organization [facility] Address [address] [place] [address] Care Team Providers Care Shuttlecock Assembler Name Role Phone Willie Mahmood MD Primary Care Provider +1 -[phone] Encounter Details Date Type Department Care Team (Latest Contact Info) Description 08/02/2005 Outpatient Historical [facility] Medicine [place] [address] [address] Martin Dumont DO NO ADDRESS ON FILE SEBORRHEIC KERATOSIS NOS (Primary Dx); HYPOTHYROIDISM NOS; HEMATURIA Social History Tobacco Use Types Packs/Day Years Used Date Smoking Tobacco: Never Assessed Comments Unknown Sex and Gender Information Value Date Recorded Sex Assigned at Not on file 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 [address] [address] PCP - General Family Practice 10/06/17 documented as of this encounter
--- OUTSIDE RECORDS SUMMARY | 2025-02-25 10:18 | XMS_ITS | Encounter Summary ---
Author Organization [facility] Address [address] [place] [address] Care Team Providers Care Cook Fast Food Name Role Phone Willie Mahmood MD Primary Care Provider +1 -[phone] Encounter Details Date Type Department Care Team (Late st Contact Info) Description 09/03/2003 Outpatient Historical [facility] Dermatology[address] [place] [address] Marquise Sequeira MD [address] [place] [address] Benign lázaro skin arm (Primary Dx); BENIGN LÁZARO SKIN FACE NEC; Inflamed seborr keratos Social History Tobacco Use Types Packs/Day Years Used Date Smoking Tobacco: Never Assessed Comments Unknown Sex and Gender Information Value Date Recorded Sex Assigned at Not on file Legal Sex Female 3:09 AM CERTIFIED SKI PATROLLER Gender Identity Not on file Sexual Orientation Not on file documented as of this encounter Plan of Treatment Not on file documented as of this encounter Visit Diagnoses Diagnosis Benign lázaro skin arm- Primary Benign neoplasm of skin of upper limb, including shoulder Benign neoplasm of skin of other and unspecified parts of face Inflamed seborr keratos Inflamed seborrheic keratosis documented in this encounter Care Teams Cook Fast Food Relationship Specialty Start Date End Date Willie Mahmood MD [address] [place] [phone] PCP - General Family Practice 10/06/17 documented as of this encounter
--- OUTSIDE RECORDS SUMMARY | 2025-02-25 10:18 | XMS_ITS | Encounter Summary ---
Author Organization [facility] Address [address] [place] [address] Care Team Providers Care Furnace Mason Name Role Phone Willie Mahmood MD Primary Care Provider +1 -[phone] Encounter Details Date Type Department Care Team (Latest Contact Info) Description 08/12/2003 Outpatient Historical [facility] Medicine [place] [address] [address] Martin Dumont DO NO ADDRESS ON FILE OTHER GENERAL SYMPTOMS (Primary Dx); ACTINIC KERATOSIS Social History Tobacco Use Types Packs/Day Years Used Date Smoking Tobacco: Never Assessed Comments Unknown Sex and Gender Information Value Date Recorded Sex Assigned at Not on file Legal Sex Female 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
--- OUTSIDE RECORDS SUMMARY | 2025-02-25 10:18 | XMS_ITS | Encounter Summary ---
Author Organization [facility] Address [address] [place] [address] Care Team Providers Care Shotblast Equipment Operator Name Role Phone Willie Mahmood MD Primary Care Provider +1 -[phone] Encounter Details Date Type Department Care Team (Latest Contact Info) Description 02/13/2001 Outpatient Historical [facility] Medicine [place] [address] [address] Martin Dumont DO NO ADDRESS ON FILE Gynecologic examination (Primary Dx); Pain in joint, lower leg; Unspecified hypothyroidism; Unspecified essential hypertension Social History Tobacco Use Types Packs/Day Years Used Date Smoking Tobacco: Never Assessed Comments Unknown Sex and Gender Information Value Date Recorded Sex Assigned at Not on file Legal Sex Female 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
--- OUTSIDE RECORDS SUMMARY | 2025-02-25 10:18 | XMS_ITS | Encounter Summary ---
Author Organization [facility] Address [address] [place] [address] Care Team Providers Care Wooden Shade Hardware Installer Name Role Phone Willie Mahmood MD Primary Care Provider +1 -[phone] Encounter Details Date Type Department Care Team (Latest Contact Info) Description 10/15/2002 Outpatient Historical [facility] Medicine [place] [address] [address] Martin Dumont DO NO ADDRESS ON FILE ALLERGIC RHINITIS NOS (Primary Dx); Gynecologic examination; HYPOTHYROIDISM NOS; SCREENING MAL NEOP-RECTUM Social History Tobacco Use Types Packs/Day Years Used Date Smoking Tobacco: Never Assessed Comments Unknown Sex and Gender Information Value Date Recorded Sex Assigned at Not on file Legal Sex Female 3: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
--- OUTSIDE RECORDS SUMMARY | 2025-02-25 10:18 | XMS_ITS | Encounter Summary ---
Author Organization [facility] Address [address] [place] [address] Care Team Providers Care High Pressure Operator Name Role Phone Willei Mahmood MD Primary Care Provider +1 -[phone] Encounter Details Date Type Department Care Team (Late st Contact Info) Description 02/25/2004 Outpatient Historical [facility] Medicine [place] [address] [address] Martin Dumont, NO ADDRESS ON FILE Social History Tobacco Use Types Packs/Day Years Used Date Smoking Tobacco: Never Assessed Comments Unknown Sex and Gender Information Value Date Recorded Sex Assigned at Not on file Legal Sex Female 3:09 AM RECORDS MANAGEMENT MANAGER Gender Identity Not on file Sexual Orientation Not on file documented as of this encounter Plan of Treatment Not on file documented as of this encounter Visit Diagnoses Not on filedocumented in this encounter Care Teams High Pressure Operator Relationship Specialty Start Date End Date Willie Mahmood MD [address] [address] PCP - General Family Practice 10/06/17 documented as of this encounter
--- OUTSIDE RECORDS SUMMARY | 2025-02-25 10:18 | XMS_ITS | Encounter Summary ---
Author Organization [facility] Address [address] [place] [address] Care Team Providers Care General Counsel Name Role Phone Willie Mahmood MD Primary Care Provider +1 -[phone] Encounter Details Date Type Department Care Team (Latest Contact Info) Description 02/07/2006 Outpatient Historical [facility] Medicine [place] [address] [address] Pradeep Livingston MD NO ADDRESS ON FILE Unspecified Otitis Media (Primary Dx) Social History Tobacco Use Types Packs/Day Years Used Date Smoking Tobacco: Never Assessed Comments Unknown Sex and Gender Information Value Date Recorded Sex Assigned at Not on file Legal Sex Female 3: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
--- OUTSIDE RECORDS SUMMARY | 2025-02-25 10:18 | XMS_ITS | Encounter Summary ---
Author Organization [facility] Address [address] [place] [address] Care Team Providers Care Civil Geotechnical Engineer Name Role Phone Willie Mahmood MD Primary Care Provider +1 -[phone] Encounter Details Date Type Department Care Team (Latest Contact Info) Description 09/01/2004 Outpatient Historical [facility] Pulmonology-[facility] [address] [place] [address] Ed Armstrong MD NO ADDRESS ON FILE OTHER LUNG DISEASE NEC (Primary Dx) Social History Tobacco Use Types Packs/Day Years Used Date Smoking Tobacco: Never Assessed Comments Unknown Sex and Gender Information Value Date Recorded Sex Assigned at Not on file Legal Sex Female 3:09 AM IN HOME BABY SITTER Gender Identity Not on file Sexual Orientation Not on file documented as of this encounter Plan of Treatment Not on file documented as of this encounter Visit Diagnoses Diagnosis Other diseases of lung, not elsewhere classified- Primary documented in this encounter Care Teams Civil Geotechnical Engineer Relationship Specialty Start Date End Date Willie Mahmood MD [address] [place] [phone] PCP - General Family Practice 10/06/17 documented as of this encounter
--- OUTSIDE RECORDS SUMMARY | 2025-02-25 10:18 | XMS_ITS | Encounter Summary ---
Author Organization [facility] Address [address] [place] [address] Care Team Providers Care Baseball Inspector And Repairer Name Role Phone Willie Mahmood MD Primary Care Provider +1 -[phone] Encounter Details Date Type Department Care Team (Latest Contact Info) Description 02/17/2000 Outpatient Historical [facility] Medicine [place] [address] [address] Martin Dumont DO NO ADDRESS ON FILE Unspecified hypothyroidism (Primary Dx) Social History Tobacco Use Types Packs/Day Years Used Date Smoking Tobacco: Never Assessed Comments Unknown Sex and Gender Information Value Date Recorded Sex Assigned at Not on file Legal Sex Female 3:09 AM DIRECTOR MEDICARE SALES Gender Identity Not on file Sexual Orientation Not on file documented as of this encounter Plan of Treatment Not on file documented as of this encounter Visit Diagnoses Diagnosis Unspecified hypothyroidism- Primary documented in this encounter Care Teams Baseball Inspector And Repairer Relationship Specialty Start Date End Date Willie Mahmood MD [address] [address] PCP - General Family Practice 10/06/17 documented as of this encounter
--- OUTSIDE RECORDS SUMMARY | 2025-02-25 10:18 | XMS_ITS | Encounter Summary ---
Author Organization [facility] Address [address] [place] [address] Care Team Providers Care Asian Art Curator Name Role Phone Willie Mahmood MD Primary Care Provider +1 -[phone] Encounter Details Date Type Department Care Team (Latest Contact Info) Description 07/20/1999 Outpatient Historical [facility] Medicine [place] [address] [address] Martin Dumont DO NO ADDRESS ON FILE Unspecified hypothyroidism (Primary Dx); Headache(784.0) Social History Tobacco Use Types Packs/Day Years Used Date Smoking Tobacco: Never Assessed Comments Unknown Sex and Gender Information Value Date Recorded Sex Assigned at Not on file Legal Sex Female 3: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
--- OUTSIDE RECORDS SUMMARY | 2025-02-25 10:18 | XMS_ITS | Encounter Summary ---
Author Organization [facility] Address [address] [place] [address] Care Team Providers Care Dispatcher Radioactive Waste Disposal Name Role Phone Willie Mahmood MD Primary Care Provider +1 [phone] Encounter Details Date Type Department Care Team (Latest Contact Info) Description 02/23/2006 Outpatient Historical [facility] General Surgery [place] [address] [facility] [address] [place] [address] Giuseppe Martinez MD [facility], [address] [place], [place] [address] Neoplasm of Uncertain Behavior of Skin (Primary Dx) Social History Tobacco Use Types Packs/Day Years Used Date Smoking Tobacco: Never Assessed Comments Unknown Sex and Gender Information Value Date Recorded Sex Assigned at Not on file Legal Sex Female 3:09 AM DOCUMENT REVIEW SPECIALIST Gender Identity Not on file Sexual Orientation Not on file documented as of this encounter Plan of Treatment Not on file documented as of this encounter Visit Diagnoses Diagnosis Neoplasm of uncertain behavior of skin- Primary documented in this encounter Care Teams Dispatcher Radioactive Waste Disposal Relationship Specialty Start Date End Date Willie Mahmood MD [address] [facility] [address] [place] [address] PCP - General Family Practice 10/06/17 documented as of this encounter
--- OUTSIDE RECORDS SUMMARY | 2025-02-25 10:18 | XMS_ITS | Encounter Summary ---
Author Organization [facility] Address [address] [place] [address] Care Team Providers Care Medical Advisor Name Role Phone Willie Mahmood MD Primary Care Provider +1 [phone] Encounter Details Date Type Department Care Team (Latest Contact Info) Description 12/12/2001 Outpatient Historical [facility] Medicine [place] [address] [address] Martin Dumont DO NO ADDRESS ON FILE DEPRESSIVE DISORDER NEC (Primary Dx) Social History Tobacco Use Types Packs/Day Years Used Date Smoking Tobacco: Never Assessed Comments Unknown Sex and Gender Information Value Date Recorded Sex Assigned at Not on file Legal Sex Female 3:09 AM DIGITAL MEDIA INTERN Gender Identity Not on file Sexual Orientation Not on file documented as of this encounter Plan of Treatment Not on file documented as of this encounter Visit Diagnoses Diagnosis Depressive disorder, not elsewhere classified- Primary documented in this encounter Care Teams Medical Advisor Relationship Specialty Start Date End Date Willie Mahmood MD [address] [address] PCP - General Family Practice 10/06/17 documented as of this encounter
--- OUTSIDE RECORDS SUMMARY | 2025-02-25 10:18 | XMS_ITS | Encounter Summary ---
Author Organization [facility] Address [address] [place] [address] Care Team Providers Care Quality Assurance Inspector Name Role Phone Willie Mahmood MD Primary Care Provider +1 [phone] Encounter Details Date Type Department Care Team (Latest Contact Info) Description 12/23/2000 Outpatient Historical [facility] [address] [place] [address] Martin Dumont DO NO ADDRESS ON FILE Spotted fevers (Primary Dx) Social History Tobacco Use Types Packs/Day Years Used Date Smoking Tobacco: Never Assessed Comments Unknown Sex and Gender Information Value Date Recorded Sex Assigned at Not on file Legal Sex Female 3:09 AM EXTRUSION PRESS 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
--- OUTSIDE RECORDS SUMMARY | 2025-02-25 10:18 | XMS_ITS | Encounter Summary ---
Author Organization [facility] Address [address] [place] [address] Care Team Providers Care Freelance Photographer Name Role Phone Willie Mahmood MD Primary Care Provider +1 [phone] Encounter Details Date Type Department Care Team (Late st Contact Info) Description 10/15/2002 Outpatient Historical [facility] Medicine [place] [address] [address] Martin Dumont, NO ADDRESS ON FILE Social History Tobacco Use Types Packs/Day Years Used Date Smoking Tobacco: Never Assessed Comments Unknown Sex and Gender Information Value Date Recorded Sex Assigned at Not on file Legal Sex Female 3:[address] APPRAISER Gender Identity Not on file Sexual Orientation Not on file documented as of this encounter Plan of Treatment Not on file documented as of this encounter Visit Diagnoses Not on filedocumented in this encounter Care Teams Freelance Photographer Relationship Specialty Start Date End Date Willie Mahmood MD [address] [address] PCP - General Family Practice 10/06/17 documented as of this encounter
--- OUTSIDE RECORDS SUMMARY | 2025-02-25 10:18 | XMS_ITS | Encounter Summary ---
Author Organization [facility] Address [address] [place] [address] Care Team Providers Care Printing Equipment Mechanic Name Role Phone Willie Mahmood MD Primary Care Provider +1 [phone] Encounter Details Date Type Department Care Team (Latest Contact Info) Description 04/09/2008 Outpatient Historical [facility] Nuclear Medicine [address] [place] [phone] Eric Gracia MD [address] [place], [place] [address] Malignant Neoplasm of Middle Lobe, Bronchus, or Lung (CMS/HCC) Social History Tobacco Use Types Packs/Day Years Used Date Smoking Tobacco: Never Assessed Comments Unknown Sex and Gender Information Value Date Recorded Sex Assigned at Not on file Legal Sex Female 3:09 AM 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 Gender Identity Not on file Sexual Orientation Not on file documented as of this encounter Plan of Treatment Not on file documented as of this encounter Procedures Procedure Name Priority Date/Time Associated Diagnosis Comments CT HEAD W WO CONTRAST Routine 04/10/2008 3:46 PM CDT POC CREATININE Routine 04/10/2008 2:28 PM CDT POC GLUCOSE Routine 04/10/2008 2:17 PM CDT PET TUMOR OR INFECTION IMG W CT SKB MDTH Routine 04/10/2008 2:10 PM CDT documented in this encounter Results * CT HEAD W WO CONTRAST (04/10/2008 3:46 PM CDT) Anatomical Region Laterality Modality Head Other 04/10/2008 3:46 PM CDT Narrative 04/11/2008 11:[address] head with and without contrast. Date: 04/10/2008. Indication: Lung carcinoma. Technique: Conventional axial images were obtained prior to and following 100 mL Optiray-240. Findings: Midline structures central. Ventricles nondilated. Parenchymal attenuation normal. No abnormal enhancement or enhancing lesions. Major vascular structures intact. Skull base and calvaria intact. Mastoid air cells and paranasal sinuses grossly clear. Impression: Unremarkable. - Dictated By: Garett Saavedra D.O. Electronically Signed By: Garett Saavedra D.O. Date Signed: 04/11/08 SDM Procedure Note Garett Saavedra - 04/11/2008 CT head with and without contrast. Date: 04/10/2008. Indication: Lung carcinoma. Technique: Conventional axial images were obtained prior to and mL Optiray-240. Findings: Midline structures central. Ventricles nondilated. Parenchymalattenuation normal. No abnormal enhancement or enhancing lesions. Major vascular structures intact. Skullbase and calvaria intact. Mastoid air cells and paranasal sinuses grossly clear. Impression: Unremarkable. - Dictated By: Garett Saavedra D.O. Electronically Signed By: Garett Saavedra D.O. Date Signed: 04/11/08 SDM Eric Gracia MD CT ORDERABLES Final Result * (ABNORMAL) POC CREATININE (04/10/2008 2:28 PM CDT) CREATININE POC 0.5(L) 0.7 - 1.2 mg/dL [facility] Capillary blood specimen (specimen) 04/10/2008 2:28 PM CDT 04/11/2008 3:50 PM CDT us Eric Gracia MD POINT OF CARE TESTING Final Re sult INTERFACE SYSTEM Refer to clinic/hospital department [facility] CLIA# [id number] [address] [place] [address] * (ABNORMAL) POC GLUCOSE (04/10/2008 2:17 PM CDT) GLUCOSE POC 106(H) 60 - 100 mg/dL [facility] Venous blood specimen (specimen) 04/10/2008 2:17 PM CDT 04/15/2008 7:30 AM CDT us Eric Gracia MD POINT OF CARE TESTING Final Re sult INTERFACE SYSTEM Refer to clinic/hospital department [facility] CLIA# [id number] [address] [place] [address] * PET TUMOR IMG W CT SKL BSE MID THG (04/10/2008 2:10 PM CDT) Anatomical Region Laterality Modality Other 04/10/2008 2:10 PM CDT Narrative 04/10/2008 4:56 PM CDT Radionuclide PET Metabolic Tumor Imaging with CT Attenuation Correction and Anatomic Localization from Skull Base to Mid Thigh: Radiopharmaceutical: [id number] Dose: 11.9 mCi Reason for Consultation: 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 Imaging was performed from the skull base to mid thigh levels with subsequent reconstruction of full trunk, orthogonal view slices in transverse, sagittal, and coronal projections. Today's PET imaging examination is the first of a series demonstrating moderate focal increase of metabolic activity in the known right middle lobe mass with a maximal SUV value of 1.43 which is lower than mediastinal blood pool. No other focal abnormalities are observed in the thorax. Incidental findings in shoulders of arthritis and hips of trochanteric bursitis. Impression: 1. 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 This tumor is known to demonstrate a relatively low metabolic activity. Evidence of local or regional metastasis is not identified. - Dictated By: Kye Zamudio M.D. Electronically Signed By: Kye Zamudio M.D. Date Signed: 04/10/08 Procedure Note Kye Zamudio - 04/10/2008 Radionuclide PET Metabolic Tumor Imaging with CT Attenuation Correctionand Anatomic Localization from Skull Base to Mid Thigh: Radiopharmaceutical: [id number] Dose: 11.9 mCi Reason for Consultation: Bronchioloalveolar carcinoma of the right middlelobe for initial staging FDG ([id number]-[id number]) PET imaging was performed at approximatelyone hour following intravenous infusion of the radiopharmaceutical agent using a dedicated PET / CT fullring detector with CT derived attenuation correction of PET data and anatomic localization. Imaging wasperformed from the skull base to mid thigh levels with subsequent reconstruction of full trunk,orthogonal view slices in transverse, sagittal, and coronal projections. Today's PET imaging examination is the first of a series demonstratingmoderate focal increase of metabolic activity in the known right middle lobe mass with a maximal SUVvalue of 1.43 which is lower than mediastinal blood pool. No other focal abnormalities are observed inthe thorax. Incidental findings in shoulders of arthritis and hips of trochantericbursitis. Impression: 1. Findings in the right hemithorax consistent with knownbronchioloalveolar carcinoma. This tumor is known to demonstrate a relatively low metabolic activity. Evidence oflocal or regional metastasis is not identified. - Dictated By: Kye Zamudio M.D. Electronically Signed By: Kye Zamudio M.D. Date Signed: 04/10/08 Eric Gracia MD PE ORDERABLES Final Result documented in this encounter Visit Diagnoses Diagnosis Malignant neoplasm middle lobe, bronchus or lung (CMS/HCC) Malignant neoplasm middle lobe, bronchus or lung documented in this encounter Care Teams Printing Equipment Mechanic Relationship Specialty Start Date End Date Willie Mahmood MD [address] [phone] PCP - General Family Practice 10/06/17 documented as of this encounter
--- OUTSIDE RECORDS SUMMARY | 2025-02-25 10:18 | XMS_ITS | Encounter Summary ---
Author Organization [facility] Address [address] [place] [address] Care Team Providers Care Fruit Loader Name Role Phone Willie Mahmood MD Primary Care Provider [phone] [phone] Encounter Details Date Type Department Care Team (Late st Contact Info) Description 09/06/2005 Outpatient Historical [facility] Dermatology- 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 [address] [place] [address] PCP - General Family Practice 10/06/17 documented as of this encounter
--- OUTSIDE RECORDS SUMMARY | 2025-02-25 10:18 | XMS_ITS | Encounter Summary ---
Author Organization [facility] Address [address] [place] [address] Care Team Providers Care Drywall Professional Name Role Phone Willie Mahmood MD Primary Care Provider +1 [phone] Encounter Details Date Type Department Care Team (Late st Contact Info) Description 04/24/2008 Outpatient Historical [facility] [address] [place] [address] Sachin Torres II, MD [address] [place] [address] Social History Tobacco Use Types Packs/Day Years Used Date Smoking Tobacco: Never Assessed Comments Unknown Sex and Gender Information Value Date Recorded Sex Assigned at Not on file Legal Sex Female 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 AM 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 Gender Identity Not on file Sexual Orientation Not on file documented as of this encounter Plan of Treatment Not on file documented as of this encounter Procedures Procedure Name Priority Date/Time Associated Diagnosis Comments ABORH TYPING Stat 04/24/2008 2:45 PM CDT BLOOD BANK ANTIBODY SCREEN Stat 04/24/2008 2:45 PM CDT documented in this encounter Results * ANTIBODY SCREEN (04/24/2008 2:45 PM CDT) ANTIBODY SCREEN Negative [facility] Blood specimen (specimen) 04/24/2008 2:45 PM CDT 04/24/2008 2:51 PM CDT Sachin Torres II, MD BLOOD BANK ORDERABLES Fin al Result Performing Organization Address [facility] de Phone Number INTERFACE SYSTEM Refer to clinic/hospital department [facility] CLIA# [id number] [address] [place] [address] * ABORH TYPING (04/24/2008 2:45 PM CDT) ABO/RH TYPE A Positive [facility] Blood specimen (specimen) 04/24/2008 2:45 PM CDT 04/24/2008 2:51 PM CDT Sachin Torres II, MD BLOOD BANK ORDERABLES Fin al Result Performing Organization Address [facility] de Phone Number INTERFACE SYSTEM Refer to clinic/hospital department [facility] CLIA# [id number] [address] [place] [address] documented in this encounter Visit Diagnoses Not on filedocumented in this encounter Care Teams Drywall Professional Relationship Specialty Start Date End Date Willie Mahmood MD [address] [address] PCP - General Family Practice 10/06/17 documented as of this encounter
--- OUTSIDE RECORDS SUMMARY | 2025-02-25 10:18 | XMS_ITS | Encounter Summary ---
Author Organization [facility] Address [address] [place] [address] Care Team Providers Care Rag Room Supervisor Name Role Phone Willie Mahmood MD Primary Care Provider [phone] [phone] Encounter Details Date Type Department Care Team (Late st Contact Info) Description 01/25/2006 Outpatient Historical [facility] Giuseppe Martinez MD [address] [facility], [address] [place] [address] Social History Tobacco Use Types Packs/Day Years Used Date Smoking Tobacco: Never Assessed Comments Unknown Sex and Gender Information Value Date Recorded Sex Assigned at Not on file Legal 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 Female 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 Gender Identity Not on file Sexual Orientation Not on file documented as of this encounter Plan of Treatment Not on file documented as of this encounter Procedures Procedure Name Priority Date/Time Associated Diagnosis Comments MRI SOFT TISSUE NECK W WO CONTRAST Routine 01/25/2006 12:31 PM CDT documented in this encounter Results * MRI SOFT TISSUE NECK W WO CONTRAST (01/25/2006 12:31 PM CDT) Anatomical Region Laterality Modality Neck Other 01/25/2006 12:3 1 PM CDT Narrative 01/25/2006 12:31 PM CDT MRI OF THE NECK BEFORE AND AFTER IV CONTRAST DATE: 01/25/2006 REASON FOR STUDY: Right sided neck mass. 19 cc of OptiMARK contrast were given during the study. A mass is present in the right supraclavicular fossa measuring 13 x 23 mm in size. Other much smaller masses are present in the supraclavicular fossae on both side. The remainder of the neck is largely unremarkable in appearance without masses or adenopathy identified. The suprahyoid neck appears normal. The nasopharynx and oropharynx are unremarkable. The submentum parotid spaces are normal. IV contrast images show no definite areas of abnormal enhancement. IMPRESSION: 1. A nonspecific mass is present in the right supraclavicular fossa probably reflecting adenopathy. The etiology in significance to this is uncertain, however. 2. The study is otherwise unremarkable in appearance. bg 1423 1723 Dictated By: Ed Frey M.D. Electronically Signed By: Ed Frey M.D. Date Signed: 01/26/06 Procedure Note 05/22/2009 MRI OF THE NECK BEFORE AND AFTER IV CONTRAST DATE: 01/25/2006 REASON FOR STUDY: Right sided neck mass. 19 cc of OptiMARK contrast were given during the study. A mass is present in the right supraclavicular fossa measuring 13 x 23 mmin size. Other much smaller masses are present in the supraclavicular fossae on both side. The remainder of the neck is largely unremarkable in appearance withoutmasses or adenopathy identified. The suprahyoid neck appears normal. The nasopharynx and oropharynx areunremarkable. The submentum parotid spaces are normal. IV contrast images show no definite areas of abnormal enhancement. IMPRESSION: 1. A nonspecific mass is present in the right supraclavicular fossaprobably reflecting adenopathy. The etiology in significance to this is uncertain, however. 2. The study is otherwise unremarkable in appearance. 1423 1723 Dictated By: Ed Frey M.D. Electronically Signed By: Ed Frey M.D. Date Signed: 01/26/06 Giuseppe Martinez MD MR ORDERABLES Final Result documented in this encounter Visit Diagnoses Not on filedocumented in this encounter Care Teams Rag Room Supervisor Relationship Specialty Start Date End Date Willie Mahmood MD [address] [phone] PCP - General Family Practice 10/06/17 documented as of this encounter
--- OUTSIDE RECORDS SUMMARY | 2025-02-25 10:18 | XMS_ITS | Encounter Summary ---
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
--- OUTSIDE RECORDS SUMMARY | 2025-02-25 10:18 | XMS_ITS | Encounter Summary ---
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
--- OUTSIDE RECORDS SUMMARY | 2025-02-25 10:18 | XMS_ITS | Encounter Summary ---
Author Organization [facility] Address [address] [place] [address] Care Team Providers Care Television Inspector Name Role Phone Willie Mahmood MD Primary Care Provider +1 -[phone] Encounter Details Date Type Department Care Team (Latest Contact Info) Description 11/01/2005 Outpatient Historical [facility] Medicine [place] [address] [address] Martin Dumont DO NO ADDRESS ON FILE Local Superficial Swellng (Primary Dx); Unspecified Hypothyroidism; Other and Unspecified Hyperlipidemia; Encounter for Long-Term (Current) Use of Other Medications Social History Tobacco Use Types Packs/Day Years Used Date Smoking Tobacco: Never Assessed Comments Unknown Sex and Gender Information Value Date Recorded Sex Assigned at Not on file Legal Sex Female 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 Gender Identity Not on file Sexual Orientation Not on file documented as of this encounter Plan of Treatment Not on file documented as of this encounter Visit Diagnoses Diagnosis Local superficial swellng- Primary Localized superficial swelling, mass, or lump Unspecified hypothyroidism Other and unspecified hyperlipidemia Encounter for long-term (current) use of other medications documented in this encounter Care Teams Television Inspector Relationship Specialty Start Date End Date Willie Mahmood MD [address] [address] PCP - General Family Practice 10/06/17 documented as of this encounter
--- OUTSIDE RECORDS SUMMARY | 2025-02-25 10:18 | XMS_ITS | Encounter Summary ---
Author Organization [facility] Address [address] [place] [address] Care Team Providers Care Supervisor Microwave Name Role Phone Willie Mahmood MD Primary Care Provider +1 [phone] Encounter Details Date Type Department Care Team (Late st Contact Info) Description 08/04/2004 Outpatient Historical [facility] FY Pradeep Kramer MD [address] [facility] [address] [place] [address] Social History Tobacco Use Types Packs/Day Years Used Date Smoking Tobacco: Never Assessed Comments Unknown Sex and Gender Information Value Date Recorded Sex Assigned at Not on file Legal Sex Female 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
--- OUTSIDE RECORDS SUMMARY | 2025-02-25 10:18 | XMS_ITS | Encounter Summary ---
Author Organization [facility] Address [address] [place] [address] Care Team Providers Care Programming Manager Name Role Phone Willie Mahmood MD Primary Care Provider +1 [phone] Encounter Details Date Type Department Care Team (Latest Contact Info) Description 10/23/2002 Outpatient Historical [facility] General Surgery [address] [address] [address] [place] [address] [place] [address] [facility] [place] [address] GI SYSTEM SYMPTOMS OTHER (Primary Dx) Social History Tobacco Use Types Packs/Day Years Used Date Smoking Tobacco: Never Assessed Comments Unknown Sex and Gender Information Value Date Recorded Sex Assigned at Not on file Legal Sex Female 3:09 AM RESOLUTION 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
--- OUTSIDE RECORDS SUMMARY | 2025-02-25 10:18 | XMS_ITS | Encounter Summary ---
Author Organization [facility] Address [address] [place] [address] Care Team Providers Care Pipe Installer Name Role Phone Willie Mahmood MD Primary Care Provider +1 [phone] Encounter Details Date Type Department Care Team (Late st Contact Info) Description 05/31/2006 Outpatient Historical [facility] [address] [place] [address] Marquise Sequeira MD [address] [place] [address] Benign Neoplasm of Skin of Other and Unspecified Parts of Face (Primary Dx) Social History Tobacco Use Types Packs/Day Years Used Date Smoking Tobacco: Never Assessed Comments Unknown Sex and Gender Information Value Date Recorded Sex Assigned at Not on file Legal Sex Female 3:09 AM ROOM MAID Gender Identity Not on file Sexual Orientation Not on file documented as of this encounter Plan of Treatment Not on file documented as of this encounter Visit Diagnoses Diagnosis Benign neoplasm of skin of other and unspecified parts of face- Primary documented in this encounter Care Teams Pipe Installer Relationship Specialty Start Date End Date Willie Mahmood MD [address] [place] [address] PCP - General Family Practice 10/06/17 documented as of this encounter
--- OUTSIDE RECORDS SUMMARY | 2025-02-25 10:18 | XMS_ITS | Encounter Summary ---
Author Organization [facility] Address [address] [place]: [place] [address] Care Team Providers Care Manager Corporate Communications Name Role Phone Willie Mahmood MD Primary Care Provider [phone] [phone] Encounter Details Date Type Department Care Team (Late st Contact Info) Description 03/01/2006 Outpatient Historical Giuseppe Martinez MD [address] [facility], [address] [place] [address] Social History Tobacco Use Types Packs/Day Years Used Date Smoking Tobacco: Never Assessed Comments Unknown Sex and Gender Information Value Date Recorded Sex Assigned at Not on file Legal Sex Female 3:09 AM LPN PRIVATE DUTY Gender Identity Not on file Sexual Orientation Not on file documented as of this encounter Plan of Treatment Not on file documented as of this encounter Procedures Procedure Name Priority Date/Time Associated Diagnosis Comments FLOW CYTOMETRY REPORT Routine 03/01/2006 8:42 PM CDT documented in this encounter Results * FLOW CYTOMETRY PANEL (03/01/2006 8:42 PM CDT) [facility] LEUKEMIA/LYMPHOMA EVALUATION Lymph Node INTERFACE SYSTEM CLL COMMENTS INTERFA CE SYSTEM Comment: This test was developed and its performance characteristics determined by [facility] Flow Cytometry [facility]. It has not been cleared or approved by the U.S. Food and Drug Administration. The FDA has determined that such clearance or approval is not necessary. This test is used for clinical purposes. It should not be regarded as investigational or for research. This laboratory is certified under the Clinical Laboratory Improvement Amendments of 1988 (CLIA-88) as qualified to perform high complexity clinical laboratory testing. Specimen: Lymph node Analysis: Gated lymphocytes are predominantly CD3 positive T cells with a minority CD19 positive B cell population. Gated CD3 positive T cells show a normal pattern of T cell antigen expression (CD2, CD4, CD5, CD7, CD8, and CD56). Gated CD19 positive B cells express CD20 and polytypic kappa and lambda light chain with variable expression of CD23 and FMC-7 and absent aberrant coexpression of CD5 or CD10. Interpretation: Mixed T and polyclonal B cell population, no evidence of non- Hodgkins lymphoproliferative disorder. Interpreted by: Alex Carias M.D. 03/01/2006 8:42 PM CDT us Giuseppe Martinez MD PATHOLOGY/CYTOLOGY ORDERABLES Final Result INTERFACE SYSTEM Refer to clinic/hospital department documented in this encounter Visit Diagnoses Not on filedocumented in this encounter Care Teams Manager Corporate Communications Relationship Specialty Start Date End Date Willie Mahmood MD [address] [facility] [address] [place] [address] PCP - General Family Practice 10/06/17 documented as of this encounter
--- OUTSIDE RECORDS SUMMARY | 2025-02-25 10:18 | XMS_ITS | Encounter Summary ---
Author Organization [facility] Address [address] [place] [address] Care Team Providers Care Retail Sales Director Name Role Phone Willie Mahmood MD Primary Care Provider +1 [phone] Encounter Details Date Type Department Care Team (Latest Contact Info) Description 08/03/2004 Outpatient Historical [facility] Medicine [place] [address] [address] Pradeep Kramer MD [address] [facility] [address] [place] [address] OTHER LUNG DISEASE NEC (Primary Dx) Social History Tobacco Use Types Packs/Day Years Used Date Smoking Tobacco: Never Assessed Comments Unknown Sex and Gender Information Value Date Recorded Sex Assigned at Not on file Legal Sex Female 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
--- OUTSIDE RECORDS SUMMARY | 2025-02-25 10:18 | XMS_ITS | Encounter Summary ---
Author Organization [facility] Address [address] [place] [address] Care Team Providers Care Trash Truck Driver Name Role Phone Willie Mahmood MD Primary Care Provider [phone] [phone] Encounter Details Date Type Department Care Team (Late st Contact Info) Description 09/06/2005 Outpatient Historical [facility] [address] [place] [address] Marquise Sequeira MD [address] [place] [address] Benign Neoplasm of Skin of Lip (Primary Dx) Social History Tobacco Use Types Packs/Day Years Used Date Smoking Tobacco: Never Assessed Comments Unknown Sex and Gender Information Value Date Recorded Sex Assigned at Not on file Legal Sex Female 3: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
--- OUTSIDE RECORDS SUMMARY | 2025-02-25 10:18 | XMS_ITS | Encounter Summary ---
Author Organization [facility] Address [address] [place] [address] Care Team Providers Care English Faculty Member Name Role Phone Willie Mahmood MD Primary Care Provider [phone] [phone] Encounter Details Date Type Department Care Team (Latest Contact Info) Description 08/17/2004 Outpatient Historical [facility] Medicine [place] [address] [address] Martin Dumont DO NO ADDRESS ON FILE CHEST SWELLING/MASS/LUMP (Primary Dx) Social History Tobacco Use Types Packs/Day Years Used Date Smoking Tobacco: Never Assessed Comments Unknown Sex and Gender Information Value Date Recorded Sex Assigned at Not on file Legal Sex Female 3:09 AM NEWSPERSON Gender Identity Not on file Sexual Orientation Not on file documented as of this encounter Plan of Treatment Not on file documented as of this encounter Visit Diagnoses Diagnosis Swelling, mass, or lump in chest- Primary documented in this encounter Care Teams English Faculty Member Relationship Specialty Start Date End Date Willie Mahmood MD [address] [address] PCP - General Family Practice 10/06/17 documented as of this encounter
--- OUTSIDE RECORDS SUMMARY | 2025-02-25 10:19 | XMS_ITS | Encounter Summary ---
Author Organization [facility] Address [address] [place] [address] Care Team Providers Care Database Analyst Name Role Phone Willie Mahmood MD Primary Care Provider [phone] [phone] Encounter Details Date Type Department Care Team (Latest Contact Info) Description 03/01/2006 Outpatient Historical [facility] General Surgery [place] [address] [address] [address] [place] [address] Giuseppe Martinez MD [address] [place] [address], [address] [place], [place] [address] Enlargement of Lymph Nodes (Primary Dx) Social History Tobacco Use Types Packs/Day Years Used Date Smoking Tobacco: Never Assessed Comments Unknown Sex and Gender Information Value Date Recorded Sex Assigned at Not on file Legal Sex Female 3:09 AM DRY PRESS 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
--- OUTSIDE RECORDS SUMMARY | 2025-02-25 10:19 | XMS_ITS | Encounter Summary ---
Author Organization [facility] Address [address] [place] [address] Care Team Providers Care Acid Remover Name Role Phone Willie Mahmood MD Primary Care Provider +1 [phone] Encounter Details Date Type Department Care Team (Late st Contact Info) Description 05/31/2006 Outpatient Historical [facility] [place] Dermat[facility]- [address] [place] [address] Marquise Sequeira MD [address] [place] [address] Other Seborrheic Keratosis (Primary Dx); Unspecified Hypertrophic and Atrophic Condition of Skin; Benign Neoplasm of Skin of Other and Unspecified Parts of Face Social History Tobacco Use Types Packs/Day Years Used Date Smoking Tobacco: Never Assessed Comments Unknown Sex and Gender Information Value Date Recorded Sex Assigned at Not on file Legal Sex Female 3:09 AM EAP CONSULTANT Gender Identity Not on file Sexual Orientation Not on file documented as of this encounter Plan of Treatment Not on file documented as of this encounter Visit Diagnoses Diagnosis Other seborrheic keratosis- Primary Unspecified hypertrophic and atrophic condition of skin Benign neoplasm of skin of other and unspecified parts of face documented in this encounter Care Teams Acid Remover Relationship Specialty Start Date End Date Willie Mahmood MD [address] [facility] [address] [place] [address] PCP - General Family Practice 10/06/17 documented as of this encounter
--- OUTSIDE RECORDS SUMMARY | 2025-02-25 10:19 | XMS_ITS | Encounter Summary ---
Author Organization [facility] Address [address] [place] [address] Care Team Providers Care Software Program Manager Name Role Phone Willie Mahmood MD Primary Care Provider +1 [phone] Encounter Details Date Type Department Care Team (Latest Contact Info) Description 08/30/2006 Outpatient Historical [facility] Medicine [place] [address] [address] Martin Dumont DO NO ADDRESS ON FILE Other and Unspecified Hyperlipidemia (Primary Dx); Unspecified Hypothyroidism Social History Tobacco Use Types Packs/Day Years Used Date Smoking Tobacco: Never Assessed Comments Unknown Sex and Gender Information Value Date Recorded Sex Assigned at Not on file 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
--- OUTSIDE RECORDS SUMMARY | 2025-02-25 10:19 | XMS_ITS | Encounter Summary ---
Author Organization [facility] Address [address] [place] [address] Care Team Providers Care Fagot Maker Name Role Phone Willie Mahmood MD Primary Care Provider +1 [phone] Encounter Details Date Type Department Care Team (Late st Contact Info) Description 11/08/2006 Outpatient [facility] [address] [place] [address] Marquise Sequeira MD [address] [place] [address] Neoplasm of Uncertain Behavior of Skin (Primary Dx) Social History Tobacco Use Types Packs/Day Years Used Date Smoking Tobacco: Never Assessed Comments Unknown Sex and Gender Information Value Date Recorded Sex Assigned at Not on file 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
--- OUTSIDE RECORDS SUMMARY | 2025-02-25 10:19 | XMS_ITS | Encounter Summary ---
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 Procedures XR DEXA BONE DENSITY AXIAL 1 OR MORE SITES Kalpesh Taylor MD [address] [place] [address] Phone: tel: fax: [facility] [address] [facility] [address] [place] [address] Phone: tel: fax: Referral ID Status Reason Start Date Expiration Date V isits Requested Visits Authorized [id number] Closed [facility] View CTS to Schedule (SGF) 02/18/2020 03/20/2021 1 1 Encounter Details Date Type Department Care Team (Late st Contact Info) Description 02/18/2020 Ancillary Orders [facility] Scheduling [address] [address] Kalpesh Taylor MD [address] [place] [address] nursing home current use of systemic steroids Social History Tobacco Use Types Packs/Day Years Used Date Smoking Tobacco: Former Cigarettes 1 30 0 10/07/1973 - 10/08/2003 Smokeless Tobacco: Never Alcohol Use Standard Drinks/Week Comments Yes 0 (1 standard drink = 0.6 oz pur e alcohol) occasionally Comments No Sex and Gender Information Value Date Recorded Sex Assigned at Not on file 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 No / Unsure 02/21/2020 4:48 PM CDT documented as of this encounter Plan of Treatment Not on file documented as of this encounter Results * XR DEXA BONE DENSITY AXIAL 1 [...] clinical management available online at [email or web address].uk/FRAX/. Enter [facility] for Select DXA and the Femoral Neck BMD value. Narrative 02/29/2020 7:18 PM CDT Exam: XR DEXA BONE DENSITY AXIAL 1 OR MORE SITES Reason For Exam: See Diagnosis, osteoporosis screening. Diagnosis: nursing home current use of systemic steroids Findings: The [...] For Exam: See Diagnosis, osteoporosis screening. 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 Enter [facility] for Select DXA and the Femoral Neck BMD value. 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
--- OUTSIDE RECORDS SUMMARY | 2025-02-25 10:19 | XMS_ITS | Encounter Summary ---
Author Organization [facility] Address [address] [place] [address] Care Team Providers Care Right Of Way Buyer Name Role Phone Willie Mahmood MD Primary Care Provider +1 -[phone] Encounter Details Date Type Department Care Team (Latest Contact Info) Description 03/08/2006 Outpatient Historical [facility] General Surgery [place] [address] [address] [address] [place] [address] Giuseppe Martinez MD [address] [place] [address], [address] [place] [address] Follow-Up Examination, Following Unspecified Surgery (Primary Dx) Social History Tobacco Use Types Packs/Day Years Used Date Smoking Tobacco: Never Assessed Comments Unknown Sex and Gender Information Value Date Recorded Sex Assigned at Not on file 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
--- OUTSIDE RECORDS SUMMARY | 2025-02-25 10:19 | XMS_ITS | Encounter Summary ---
Author Organization [facility] Address [address] [place] [address] Care Team Providers Care Fitness Sales Consultant Name Role Phone Willie Mahmood MD Primary Care Provider +1 -[phone] Encounter Details Date Type Department Care Team (Late st Contact Info) Description 12/26/2006 Outpatient Historical [facility] Dermatology- 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
--- OUTSIDE RECORDS SUMMARY | 2025-02-25 10:19 | XMS_ITS | Encounter Summary ---
Author Organization [facility] Address [address] [place] [address] Care Team Providers Care Occupational Therapy Professor Name Role Phone Willie Mahmood MD Primary Care Provider +1 [phone] Encounter Details Date Type Department Care Team (Late st Contact Info) Description 11/08/2006 Outpatient Historical [facility] Dermatology- 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
--- OUTSIDE RECORDS SUMMARY | 2025-02-25 10:19 | XMS_ITS | Encounter Summary ---
Author Organization [facility] Address [address] [place] [address] Care Team Providers Care Home Care Attendant Name Role Phone Willie Mahmood MD Primary Care Provider [phone] Encounter Details Date Type Department Care Team (Latest Contact Info) Description 08/15/2006 Outpatient Historical [facility] Medicine [place] [address] [address] Martin Dumont DO NO ADDRESS ON FILE Abnormal Weight Gain (Primary Dx); Unspecified Essential Hypertension; Other and Unspecified Hyperlipidemia Social History Tobacco Use Types Packs/Day Years Used Date Smoking Tobacco: Never Assessed Comments Unknown Sex and Gender Information Value Date Recorded Sex Assigned at Not on file Legal 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
[2025-02-25 10:43] VITALS: BP 142/98; PULSE 100; RESP 16; O2SAT 98
--- NOTE | 2025-02-25 10:44 | CT_ITS ---
WS: [id number] CT HEAD TECHNIQUE: Noncontrast CT of the head obtained from the skullbase to the vertex. CLINICAL INFORMATION: change in vision COMPARISON: 2021 DLP: 993.[address] scans at [facility] use at least one of these dose optimization techniques: automated exposure control; mA and/or kV adjustment per patient size (includes targeted exams where dose is matched to clinical indication); or iterative reconstruction. FINDINGS: No evidence of intracranial hemorrhage or mass effect. Ventricular system and basal cisterns are patent. Mild small vessel changes with mild parenchymal volume loss. No extra-axial fluid collections. No evidence of mass or mass effect. Vascular calcification. Paranasal sinuses and mastoid air cells are well aerated. .Normal visualized soft tissues. CT/CT head wo con* [id number] IMPRESSION: 1. No evidence of intracranial hemorrhage or mass effect. 2. No acute intracranial findings.
--- NOTE | 2025-02-25 10:45 | ECG_ITS ---
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 Measurements Intervals [place] Rate: 107 P: 37 [place]: 210 QRS: 26 QRSD: 94 T: 59 QT: 337 QTc: 451 Interpretive Statements SINUS TACHYCARDIA WITH FIRST DEGREE AV BLOCK NONSPECIFIC ST & T-WAVE ABNORMALITY INTERPRETATION BASED ON A DEFAULT AGE OF 40 YEARS Compared to ECG 07/06/2024 18:15:38 Sinus rhythm no longer present T-wave abnormality still present Electronically Signed On 02-26-2025 08:08:29 CDT by Jericho Steel M.D. [email or web address]
--- NOTE | 2025-02-25 10:47 | W.ED.WEAKNES ---
HPI - Weakness General: Chief complaint: Weakness Stated complaint: weakness, seeing double, buring on bottom Time Seen by Provider: 02/25/25 10:44 History of Present Illness: 75 male presents to the emergency room with complaints of double vision began today. She has been feeling very weak. She has a history of lung cancer as some chronic pain issues she was referred to palliative care she was started on buprenorphine patch continued on her Percocet. Since she started the buprenorphine she has not felt well and increase the dose that got worse. Now she suddenly has double vision. She has noticed deviation of her right eye as well Associated symptoms: Denies chest pain, chills, dysuria or fever(s) Related Data Home Medications ?Medication ?Instructions ?Recorded ?Confirmed ascorbic acid (vitamin C) 1,000 mg 1,000 mg PO DAILY 07/11/19 02/25/25 tablet cyanocobalamin (vitamin B-12) 2,500 mcg PO DAILY 07/11/19 02/25/25 2,500 mcg tablet ferrous sulfate 324 mg (65 mg 324 mg PO DAILY 07/11/19 02/25/25 iron) tablet,delayed release Held on 08/01/24. Instructions: Resume on 08/07/24. oxygen-air delivery systems ##1 11/14/19 02/25/25 navykkqeyu-upldmcvrcnljx-jvkahugb 1 tab PO Q4H PRN migraine 10/21/20 02/25/25 50 mg-325 mg-40 mg tablet cholecalciferol (vitamin D3) 250 250 mcg PO DAILY 01/07/21 02/25/25 mcg (10,000 unit) capsule acyclovir 800 mg tablet 400 mg PO DAILY 08/25/23 02/25/25 levothyroxine 300 mcg tablet 300 mcg PO DAILY 05/17/24 02/25/25 naproxen 500 mg tablet 500 mg PO DAILY 07/30/24 02/25/25 oxycodone-acetaminophen 10 mg-325 1 tab PO Q4H PRN Pain 07/30/24 02/25/25 mg tablet buprenorphine 20 mcg/hour weekly 1 patch transdermal Q7D 02/25/25 02/25/25 transdermal patch (Butrans) digoxin 125 mcg (0.125 mg) tablet See Rx Instructions .Route .COMPLEX 02/25/25 02/25/25 nitrofurantoin 100 mg PO BID 02/25/25 02/25/25 monohydrate/macrocrystals 100 mg capsule Previous Rx's ?Medication ?Instructions ?Recorded apixaban 5 mg tablet (Eliquis) 5 mg PO BID #180 tabs 08/27/24 simvastatin 40 mg tablet 40 mg PO QPM #90 tabs 08/27/24 celecoxib 200 mg capsule (Celebrex) 200 mg PO BID #180 caps 09/25/24 omeprazole 40 mg capsule,delayed 40 mg PO DAILY #90 caps 09/25/24 release pregabalin 150 mg capsule (Lyrica) 150 mg PO BID #180 caps 09/25/24 donepezil 10 mg tablet See Rx Instructions .Route 12/13/24 .COMPLEX #90 tabs duloxetine 60 mg capsule,delayed See Rx Instructions .Route BID 90 12/13/24 release days #180 caps eszopiclone 3 mg tablet (Lunesta) 3 mg PO BEDTIME PRN insomnia #30 12/13/24 tabs lamotrigine 200 mg tablet See Rx Instructions .Route 12/13/24 .COMPLEX #180 tabs lorazepam 1 mg tablet 1 - 2 mg (1 - 2 x 1 mg) PO BID PRN 12/13/24 anxiety and insomnia 30 days #90 tabs memantine 28 mg capsule See Rx Instructions .Route 12/13/24 sprinkle,extended release 24hr .COMPLEX #90 caps prazosin 1 mg capsule 1 mg PO .at bedtime PRN nightmares 12/13/24 #90 caps sulfasalazine 500 mg tablet See Rx Instructions .Route 12/13/24 .COMPLEX #360 tabs prednisone 5 mg tablet 5 mg PO DAILY joint pain #90 tabs 12/24/24 Allergies Allergy/AdvReac Type Severity Reaction Status Date / Time Tetanus Vaccines and Toxoid AdvReac Severe FEVER,MITRAL Verified 02/25/25 10:22 VALVE PROLAPSE Review of Systems Const: Denies: fever(s) or chills Card: Denies: chest pain Resp: Denies: dyspnea GI: Denies: abdominal pain : Denies: dysuria, urinary frequency or urinary urgency Musc: Denies: neck pain or back pain Skin/Breast: Denies: rash PFSH ED PFSH: Medical History Chronic use of benzodiazepine for therapeutic purpose Fracture of fifth metatarsal bone of right foot Psychiatric care Generalized anxiety disorder Insomnia Aortic valve stenosis COPD (chronic obstructive pulmonary disease) Chronic steroid use Immunization counseling Adenocarcinoma of right lung, 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, status post right middle and upper lobectomy in April 2008, -treated with adjuvant chemotherapy, four cycles of carboplatin and Taxol completed in August 2008 High risk medication use Encounter for immunization Seronegative rheumatoid arthritis of both hands Near syncope Dementia in other diseases classified elsewhere without behavioral disturbance Bipolar 2 disorder Pulmonary fibrosis COPD (chronic obstructive pulmonary disease) Osteoarthritis of knees, bilateral Greater trochanteric bursitis of both hips Inflammatory arthritis Atrial fibrillation Anticoagulated with apixaban Hyperlipemia Valvular heart disease Mitral valve disease Arrhythmia Hypertension Peripheral neuropathy Fibromyalgia Surgical History History of lung surgery H/O: hysterectomy H/O breast biopsy Family History Mother CAD (coronary artery disease) Cancer Stroke Sister Diabetes Father Lung disease Denies family history of Clotting disorder Dementia Chronic kidney disease (CKD) Suicide Anesthesia complication Bleeding disorder Social History Smoking and tobacco/nicotine status: former use of tobacco/nicotine Quit status (tobacco/nicotine): has quit using Year quit tobacco: 2003 Alcohol intake: never Substance/Drug Use: never Physical Exam Const: COMMON NORMALS: no acute distress GENERAL APPEARANCE: cooperative and comfortable ORIENTATION/CONSCIOUSNESS: Yes awake, Yes oriented to person, Yes oriented to place and Yes oriented to time HENMT: COMMON NORMALS: normocephalic, atraumatic and hearing grossly normal bilaterally HEAD & SCALP: normocephalic and atraumatic OTHER: Patient has lateral rectus muscle spasm in the right eye unable to follow past the midline. When covering each eye individually her double vision resolves but with both eyes she consistently has double vision. Sclera conjunctiva clear pupils reactive Resp: COMMON NORMALS: normal respiratory effort, No retractions, No use of accessory muscles and clear to auscultation bilaterally AUSCULTATION: clear to auscultation bilaterally Cardio: COMMON NORMALS: regular rate, regular rhythm and No murmurs present (Cardio) RATE: regular rate RHYTHM: regular rhythm GI: COMMON NORMALS: Soft to palpation and No hepatosplenomegaly present AUSCULTATION: Yes normoactive bowel sounds PALPATION: Yes Soft to palpation, No Tenderness to palpation present (GI), No Guarding due to palpation present (GI) and Yes No hepatosplenomegaly present Extremity: COMMON NORMALS: normal to inspection, capillary refill normal, no clubbing, cyanosis or edema, no calf tenderness and no pedal edema Neuro: SENSORIUM/ORIENTATION: Yes oriented to person, Yes oriented to place and Yes oriented to time Skin: COMMON NORMALS: no rashes or lesions noted GENERAL SKIN EXAM: no rashes or lesions noted Course Vital Signs: Vital signs: Vital Signs Temperature 98.1 F 02/25/25 10:11 Pulse Rate 75 02/25/25 12:41 Respiratory Rate 16 02/25/25 12:41 Blood Pressure 167/81 02/25/25 12:41 Pulse Oximetry 95 02/25/25 12:41 Oxygen Delivery Me thod Room Air 02/25/25 12:41 Oxygen Flow Rate 2 02/25/25 11:49 MDM - Weakness Medical Decision Making Patient has supratherapeutic digoxin level thinks of her side effects may very well be associated with that along with your buprenorphine patch and the titration up that she has had recently. She has an appointment tomorrow with palliative medicine to discuss possibly titrating it down. Advised her for now I would leave the buprenorphine patch in place until she met with them. She should hold her digoxin today and tomorrow she should have a digoxin level done on Tuesday and not restart the digoxin until she talks to Dr. Steel's office they can guide her on dosing going forward. The double vision is caused by a [address] of the head is negative. That is concerning with her history of lung cancer she may need an MRI at some point but she has no other focal neurologic deficits at this time. She is going to follow-up with Dr. Chatman's office she has been seen there before. We did call and talk to Dr. Everett who will be seeing her at their office. Reviewed the case with him and her findings. Lab Data 02/25/25 10:53 02/25/25 10:[address] 02/25/25 10:44 IMPRESSION: 1. No evidence of intracranial hemorrhage or mass effect. 2. No acute intracranial findings. Laboratory Results WBC 6.84 10^3/uL (3.29-11.43) 02/25/25 10:53 RBC 3.83 10^6/uL (3.85-5.65) L 02/25/25 10:53 Hgb 12.00 g/dL (11.27-16.99) 02/25/25 10:53 Hct 37.5 % (36-47) 02/25/25 10:53 MCV 97.9 fl (85-98) 02/25/25 10:53 MCH 31.3 pg (27-33) 02/25/25 10:53 MCHC 32.0 g/dL (30-55) 02/25/25 10:53 RDW 12.8 % (12.1-15.1) 02/25/25 10:53 Plt Count 142 10^3/cmm (157-399) L 02/25/25 10:53 MPV 10.5 fL (7.4-10.4) H 02/25/25 10:53 Neut % (Auto) 78.6 % 02/25/25 10:53 Lymph % (Auto) 11.5 % 02/25/25 10:53 Walton % (Auto) 8.2 % 02/25/25 10:53 Eos % (Auto) 1.2 % 02/25/25 10:53 Baso % (Auto) 0.1 % 02/25/25 10:53 Neut # (Auto) 5.37 10^3/uL (1.8-7.7) 02/25/25 10:53 Lymph # (Auto) 0.8 10^3/uL (0.8-4.8) 02/25/25 10:53 Walton # (Auto) 0.6 10^3/uL (0.2-0.9) 02/25/25 10:53 Eos # (Auto) 0.1 10^3/uL (0.0-0.8) 02/25/25 10:53 Baso # (Auto) 0.0 10^3/uL (0.0-0.1) 02/25/25 10:53 Nucleated RBC % (auto) 0 % 02/25/25 10:53 Nucleated RBCs # 0.0 /100WBC 02/25/25 10:53 Sodium 139 mmol/L (136-145) 02/25/25 10:53 Potassium 3.9 mmol/L (3.5-5.1) 02/25/25 10:53 Chloride 99 mmol/L (98-107) 02/25/25 10:53 Carbon Dioxide 30 mmol/L (22-29) H 02/25/25 10:53 Anion Gap 13.9 (5-19) 02/25/25 10:53 BUN 9 mg/dL (8-23) 02/25/25 10:53 Creatinine 0.4 mg/dL (0.5-0.9) L 02/25/25 10:53 GFR Calculation Not Reportable 02/25/25 10:53 Glucose 130 mg/dL (65-115) H 02/25/25 10:53 Calculated Osmolality 288 mOsm/kg (285-295) 02/25/25 10:53 Calcium 9.5 mg/dL (8.5-10.5) 02/25/25 10:53 Total Bilirubin 0.3 mg/dL (0.15-1.2) 02/25/25 10:53 AST 16 U/L (0-32) 02/25/25 10:53 ALT 28 U/L (0-33) 02/25/25 10:53 Alkaline Phosphatase 84 U/L (35-105) 02/25/25 10:53 Total Protein 7.0 g/dL (6.6-8.7) 02/25/25 10:53 Albumin 4.0 g/dL (3.5-5.2) 02/25/25 10:53 Globulin 3.0 g/dL (1.3-4.6) 02/25/25 10:53 Urine Color Dark yellow (Yellow) A 02/25/25 10:35 Urine Appearance Clear (CLEAR) 02/25/25 10:35 Urine pH 6.5 (5-7) 02/25/25 10:35 Ur Specific [place] 1.019 (1.005-1.030) 02/25/25 10:35 Urine Protein Negative (Negative) 02/25/25 10:35 Urine Glucose (UA) Negative (Normal) 02/25/25 10:35 Urine Ketones Negative (Negative) 02/25/25 10:35 Urine Blood Negative (Negative) 02/25/25 10:35 Urine Nitrate Negative (Negative) 02/25/25 10:35 Urine Bilirubin Negative (Negative) 02/25/25 10:35 Urine Urobilinogen 1.0 mg/dL (Negative) 02/25/25 10:35 Ur Leukocyte Esterase Trace (Negative) A 02/25/25 10:35 Urine RBC 11-20 /hpf (0-2) H 02/25/25 10:35 Urine WBC 0-5 /hpf (0-5) 02/25/25 10:35 Ur Squamous Epith Cells 0-5 /hpf (0-5) 02/25/25 10:35 Amorphous Sediment Not Reportable 02/25/25 10:35 Urine Bacteria None seen /hpf (NONE) 02/25/25 10:35 Hyaline Casts 0-4 /lpf H 02/25/25 10:35 Digoxin 1.5 ng/mL (0.6-1.2) H 02/25/25 10:53 All radiology interpretation(s) finalized by discharge Discharge Plan Discharge Patient Disposition: Home Clinical Impression: 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, Elevated digoxin level, History of lung cancer Condition: Stable Prescriptions: No Action cyanocobalamin (vitamin B-12) 2,500 mcg tablet 2,500 mcg PO DAILY ferrous sulfate 324 mg (65 mg iron) tablet,delayed release (DR/EC) 324 mg PO DAILY ascorbic acid (vitamin C) 1,000 mg tablet 1,000 mg PO DAILY (DME) oxygen-air delivery systems Device See Rx Instructions .ROUTE .MEDSUPPLY Qty: 1 Rx Instructions: As directed 3 liters yxozmalmal-wnbmjthflcyfp-oxna 50-325-40 mg tablet 1 tab PO Q4H PRN (Reason: migraine) cholecalciferol (vitamin D3) 250 mcg (10,000 unit) capsule 250 mcg PO DAILY celecoxib [Celebrex] 200 mg capsule 200 mg PO BID Qty: 180 1RF omeprazole 40 mg capsule,delayed release(DR/EC) 40 mg PO DAILY Qty: 90 1RF pregabalin [Lyrica] 150 mg capsule 150 mg PO BID Qty: 180 1RF donepezil 10 mg tablet See Rx Instructions .ROUTE .COMPLEX Qty: 90 1RF Dose Instruction: TAKE 1 TABLET BY MOUTH DAILY AT BEDTIME Rx Instructions: TAKE 1 TABLET BY MOUTH DAILY AT BEDTIME duloxetine 60 mg capsule,delayed release(DR/EC) See Rx Instructions .ROUTE BID 90 Days Qty: 180 1RF Dose Instruction: TAKE 1 CAPSULE BY MOUTH EVERY MORNING Rx Instructions: TAKE 1 CAPSULE BY MOUTH twice a day; eszopiclone [Lunesta] 3 mg tablet 3 mg PO BEDTIME PRN (Reason: insomnia) Qty: 30 5RF lamotrigine 200 mg tablet See Rx Instructions .ROUTE .COMPLEX Qty: 180 1RF Dose Instruction: TAKE 1 TABLET BY MOUTH TWICE DAILY Rx Instructions: TAKE 1 TABLET BY MOUTH TWICE DAILY lorazepam 1 mg tablet 1 - 2 mg PO BID PRN (Reason: anxiety and insomnia) 30 Days Qty: 90 5RF memantine 28 mg capsule,sprinkle,ER 24hr See Rx Instructions .ROUTE .COMPLEX Qty: 90 1RF Dose Instruction: TAKE 1 CAPSULE BY MOUTH DAILY Rx Instructions: TAKE 1 CAPSULE BY MOUTH DAILY prazosin 1 mg capsule 1 mg PO .at bedtime PRN (Reason: nightmares) Qty: 90 1RF acyclovir 800 mg tablet 400 mg PO DAILY levothyroxine 300 mcg tablet 300 mcg PO DAILY Eliquis 5 mg tablet 5 mg PO BID Qty: 180 3RF simvastatin 40 mg tablet 40 mg PO QPM Qty: 90 3RF sulfasalazine 500 mg tablet See Rx Instructions .ROUTE .COMPLEX Qty: 360 0RF Dose Instruction: TAKE 2 TABLETS BY MOUTH TWICE DAILY Rx Instructions: TAKE 2 TABLETS BY MOUTH TWICE DAILY prednisone 5 mg tablet 5 mg PO DAILY Qty: 90 1RF oxycodone-acetaminophen 10-325 mg tablet 1 tab PO Q4H PRN (Reason: Pain) Rx Instructions: do not exceed 6 tabs daily naproxen 500 mg tablet 500 mg PO DAILY buprenorphine [Butrans] 20 mcg/hour Patch Weekly 1 patch TRANSDERMAL Q7D nitrofurantoin monohyd/m-cryst 100 mg capsule 100 mg PO BID digoxin 125 mcg (0.125 mg) tablet See Rx Instructions .ROUTE .COMPLEX Rx Instructions: Take 2 tabs daily on Mon, Wed, Fri; take 1 tab daily all other days Discharge Orders: Discharge ED (Routine); Ordered 02/25/25 Ordered By: Jd Chandler Referrals: Willie Mahmood [Primary Care Provider, Family Practice] Discharge Diet: Usual diet Discharge Activity: Increase activity as tolerated Patient Instructions: Opioid Safety, Pain Management, Patient Portal & Loree Instructions Activity Restrictions/Additional Instructions: You were seen in the emergency room with complaint of generally not feeling well as well as having double vision. Your digoxin level is elevated this often will cause loss of appetite generally not feeling well sometimes lightheadedness and dizziness. Recommend that you do not take any digoxin today or tomorrow you should have a digoxin level done on Tuesday and follow-up with Dr. Steel's office regarding further dosing. For your double vision CT of your head was done which was negative. The double vision is currently being caused by a 6th cranial nerve palsy. This causes the muscle that rotates your eye outward to spasm keeping your eyes from lining up and causing the double vision. You should follow-up with ophthalmology with this have discussed it with them today. CT of your head was unremarkable you may need further imaging for this at a later date. Print Language: Frisian Coding Level of Care Code ED Gantry Rigger for Sofy Meng
[2025-02-25 10:58] LABS: Hematocrit 37.5 % (36-47); Hemoglobin 12.00 g/dL (11.27-16.99); Mean Corpuscular HGB Conc 32.0 g/dL (30-55); Mean Corpuscular Hemoglobin 31.3 pg (27-33); Mean Corpuscular Volume 97.9 fl (85-98); Nucleated Red Blood Cells % 0 %; Platelet Count 142 10^3/cmm (157-399); Red Blood Count 3.83 10^6/uL (3.85-5.65); White Blood Count 6.84 10^3/uL (3.29-11.43)
[2025-02-25 11:16] LABS: Alanine Aminotransferase 28 U/L (0-33); Albumin Level 4.0 g/dL (3.5-5.2); Alkaline Phosphatase 84 U/L (35-105); Anion Gap 13.9 (5-19); Aspartate Amino Transferase 16 U/L (0-32); Blood Urea Nitrogen 9 mg/dL (8-23); Calcium 9.5 mg/dL (8.5-10.5); Carbon Dioxide 30 mmol/L (22-29); Chloride 99 mmol/L (98-107); Creatinine Clr Calc Pharmacy 68.2663; Globulin 3.0 g/dL (1.3-4.6); Glucose 130 mg/dL (65-115); Osmolality Calculated 288 mOsm/kg (285-295); Potassium 3.9 mmol/L (3.5-5.1); Sodium 139 mmol/L (136-145); Total Protein 7.0 g/dL (6.6-8.7)
[2025-02-25 11:37] LABS: Digoxin 1.5 ng/mL (0.6-1.2)
[2025-02-25 11:48] LABS: Glucose Urine UA Negative (Normal); Nitrate Urine Negative (Negative); Specific Gravity, Urine 1.019 (1.005-1.030)
[2025-02-25 11:49] VITALS: BP 157/70; BP 157/96; BP 173/91; PULSE 83; PULSE 87; RESP 16; O2SAT 97
[2025-02-25 11:54] LABS: Add Urine Microscopic? YES
[2025-02-25 12:37] LABS: UA Slide Review UA Slide Review Perf
[2025-02-25 12:41] VITALS: BP 167/81; PULSE 75; RESP 16; O2SAT 95
[2025-02-25 13:47] VITALS: BP 161/100; PULSE 83; O2SAT 92
--- NOTE | 2025-02-25 13:54 | DCPLANNER ---
messaged heart care about digoxin level follow up and sent paper digoxin level lab order for 6 months home with patient to do outpatient
--- NOTE | 2025-02-25 15:44 | DCPLANNER ---
faxed mri outpatient order to scheduling
== END 2025-02-25 13:48 | disposition home or self-care (01) ==
PROVIDERS: Emergency Provider Family Medicine; PCP Family Medicine
DX: H49.21 Sixth [abducent] nerve palsy, right eye (principal); R79.89 Other specified abnormal findings of blood chemistry; C34.91 Malignant neoplasm of unspecified part of right bronchus or lung; Z79.899 Other long term (current) drug therapy
CPT/HCPCS: 36415; 70450; 80053; 80162; 81001; 85025; 93005; 96374; 99285; J1885

== ENCOUNTER 2025-02-25 16:00 | Emergency (ER) | payer MEDICARE, OTHER, SELFPAY ==
--- OUTSIDE RECORDS SUMMARY | 2025-02-04 12:30 | XMS_ITS | Encounter Summary ---
Author Organization [facility] Address [address] [place] [address] Care Team Providers Care Furnace Puncher Name Role Phone Willie Mahmood MD Primary Care Provider [phone] Reason for Visit * Reason Comments Pain Management Encounter Details Date Type Department Care Team (Late st Contact Info) Description 02/04/2025 12:30 PM CDT Video Visit [facility] Supportive Care [facility] [address] [place] [id number] Kade Mendez Jr., MD [address] [place] [address] Cervical radiculopathy; Idiopathic peripheral neuropathy; [...] often do you attend chur ch or zoroastrian services? Never 06/09/2020 Do you belong to any clubs o r organizations such as uatsdin groups, unions, fraternal or athletic groups, or [...] worry about transportation for future doctor visits, fruit or nut picker medication, etc.? 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 [facility] SUPPORTIVE AND PALLIATIVE CARE OUTPATIENT OFFICE FOLLOW-UP [...] Pastoral Care consult placed Spiritual issues: none [place] Symptom Assessment Scale (ESAS-r) Pain: 6 (02/04/25 [...] for Shortness of Breath. 360 mL 11 rbsrergwti-rzfxdqhwewpyw-xkpkvert (FIORICET) 50-325-40 mg tablet Take 1-2 Tablets [...] needed for insomnia naloxone (NARCAN) 4 mg/spray [place], Non-Aerosol EMERGENCY USE ONLY: Administer 1 spray [...] Bipolar disorder (CMS/HCC) Bipolar disorder (CMS/HCC) Cancer ([facility]) Chemotherapy 210. LUNG CANCER COPD, severe ([facility]) 04/17/2014 COPD, severe ([facility]/HCC) 04/17/2014 Depression Diarrhea Emphysema 04/17/2014 Flatus Hemoptysis [...] BSO 1995 MRI CHEST W MRA CHEST NM BRONCHOSCOPY W/CPTR-ASST IMAGE-GUIDED NAVIGATION N/A 01/03/2015 BRONCHOSCOPY WITH ELECTROMAGNETIC NAVIGATION performed by Tab Pearce MD at [facility] MAIN OR NM COLONOSCOPY FLX DX W/COLLJ SPEC WHEN PFRMD N/A 10/29/2021 COLONOSCOPY performed by Robert Goodrich DO at [facility] OR Family History Problem Relation Name [...] Fever MD Kade Garcia Jr, Jr., M.D., [facility] Palliative and Supportive Care documented in this encounter Plan of Treatment Upcoming Encounters Date Type Department Care Team (Late st Contact Info) Description 02/26/2025 2:15 PM CDT Office Visit [facility] Supportive Care [facility] [address] [facility] [address] [place] [address] Esthela Arenas NP [address] [facility] [address] [place] [address] 03/14/2025 9:00 AM CDT Office Visit [facility] Family Medicine [place] [address] [address] Willie Mahmood MD [address] [address] 04/16/2025 9:00 AM CDT Appointment [facility] CT Scan [place] [address] [address] Brandi Kim NP [address] [place] [address] 08/29/2025 10:15 AM RESIDENTIAL ROOFER Appointment [facility] Neurology [facility] [address] [address] Gadiel Shearer MD [address] [place] [address] documented as of this encounter Visit Diagnoses Diagnosis Cervical radiculopathy Brachial neuritis or radiculitis nos Idiopathic peripheral neuropathy Unspecified hereditary and idiopathic peripheral neuropathy Fibromyalgia Mylagia and myositis, unspecified documented in this encounter Additional Health Concerns Assessment Noted Time PHQ-9 Depression Total Score: 2 02/05/20 25 12:00 PM CDT documented as of this encounter Care Teams Furnace Puncher Relationship Specialty Start Date End Date Willie Mahmood MD [address] [address] PCP - General Family Practice 10/06/17 documented as of this encounter
--- OUTSIDE RECORDS SUMMARY | 2025-02-21 11:00 | XMS_ITS | Encounter Summary ---
Author Organization [facility] Address [address] [place] [address] Care Team Providers Care Brush Machine Setter Name Role Phone Willie Mahmood MD Primary Care Provider [phone] Reason for Referral * Eval and Treat (Routine) - Pending Review Specialty Diagnoses / Procedures Referred By Milan t Referred To Contact Hospice & Palliative Medicine Diagnoses Chronic pain syndrome Procedures WA OFFICE/OUTPATIENT ESTABLISHED MOD MDM 30 MIN WA OFFICE/OUTPATIENT NEW MODERATE MDM 45 MINUTES Ana Awan FNP [address] [place] [phone] Phone: tel: fax: [facility] ([facility]) [address] [address] Phone: tel: fax: Referral ID Status Reason Start Date Expiration Date V isits Requested Visits Authorized [id number] Pending Review 02/21/2025 02/21/2026 1 1 Reason for Visit * Reason Comments Urinary Pain Encounter Details Date Type Department Care Team (Late st Contact Info) Description 02/21/2025 11:00 AM CDT Office Visit [facility] Medicine [address] [address] Ana Awan FNP [address] [place] [phone] Chronic pain syndrome (Primary Dx); Urinary pain; [...] How often do you attend chur or orthodox services? Never 06/09/2020 Do you belong to any clubs o r organizations such as alevism groups, unions, fraternal or athletic groups, or [...] worry about transportation for future doctor visits, pick pulling machine operator medication, etc.? 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/HCC) Bipolar disorder ([facility]) Cancer ([facility]) Chemotherapy 210.31.2006 LUNG CANCER COPD, severe (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) 04/17/2014 Depression Diarrhea Emphysema 04/17/2014 Flatus Hemoptysis Hyperlipidemia Hypothyroidism Irregular heart beat Lyme disease Malignant neoplasm middle lobe, bronchus or lung ([facility]) Mitral valve prolapse Obstructive sleep apnea syndrome 04/07/2015 Paroxysmal atrial fibrillation ([facility]) 07/18/2018 Primary cardiomyopathy ([facility] Primary cardiomyopathy ([facility]) Stage 2 moderate COPD by GOLD classification ([facility]) 10/26/2017 Thyroid disease Unspecified essential hypertension URI [...] care provider. A referral to an external technology sales specialist will be made to explore other [...] automatically generated by a Generative AI technology (Softricity), reviewed, edited, and finalized by FATIMAH Weir. The author of this note, patient (or authorized sales representative door to door), and all other persons present consent to the audio recording of this visit for charting documentation purposes. documented in this encounter Plan of Treatment Upcoming Encounters Date Type Department Care Team (Late st Contact Info) Description 02/26/2025 2:15 PM CDT Office Visit [facility] Supportive Care [facility] [address] [facility] [address] [place] [address] Esthela Arenas NP [address] [facility] [address] [place] [address] 03/14/2025 9:00 AM CDT Office Visit [facility] Family Medicine [address] [address] Willie Mahmood MD [address] [address] 04/16/2025 9:00 AM CDT Appointment [facility] CT Scan [place] [address] [address] Brandi Kim NP [address] [place] [address] 08/29/2025 10:15 AM TABLET MAKING MACHINE OPERATOR Appointment [facility] Neurology [facility] [address] [address] Gadiel Shearer MD [address] [place] [phone] Scheduled Referrals Name Type Priority Associated Diagnoses [...] 3:30 PM CDT) URINE CULTURE SEE NOTE(A) [facility] Comment: CULTURE, URINE, ROUTINE Micro Number: [id number] Test Status: Final Specimen Source: Urine, clean catch Specimen Quality: Adequate Result: 10,000-49,000 CFU/mL of Proteus mirabilis Greater than 100,000 CFU/mL of Staphylococcus saprophyticus The Clinical Laboratory Standards [place] (CLSI) does not advise routine susceptibility testing [...] = See Therapy Comments Test Performed at: [facility] [address] [place] [address] Eros Albarran MD Urine URINE SPECIMEN OBTAINED BY CLEAN CATCH PROCEDURE / Unknown 02/21/2025 3:30 PM CDT 02/22/2025 3:22 AM CDT Ana Awan CASE RESOLUTION SPECIALIST MICROBIOLOGY - GENERAL ORDE RABLES Final Result [facility] [phone] [facility] [address] [place] [address] * (ABNORMAL) POC URINALYSIS DIPSTICK AUTOMATED (02/21/2025 10:50 AM CDT) COLOR UA POC Yellow Pale to Dark Yellow [facility] CLARITY UA POC Turbid(A) Clear, Other [facility] GLUCOSE UA POC Negative Negative, Normal [facility] BILIRUBIN UA POC Negative Negative [facility] KETONES UA POC Negative Negative [facility] SPECIFIC GRAVITY UA POC 1.020 1.000 - 1.030 [facility] BLOOD UA POC Trace(A) Negative [facility] PH UA POC 7.0 5.0 - 8.0 [facility] PROTEIN UA POC Trace(A) Negative [facility] UROBILINOGEN UA POC 0.2 <2.0 mg/dL [facility] NITRITE UA POC Negative Negative [facility] LEUKOCYTE ESTERASE UA POC Negative Negative [facility] KIT [address] NUM[address] POC 501,079 [facility] KIT EXP DATE POC 01/31/2026 [facility] Urine 02/21/2025 10:5 0 AM CDT Ana Awan CASE RESOLUTION SPECIALIST POINT OF CARE TESTING Final Result [facility] CLIA# [id number] [address] [place] [address] documented in this encounter Visit Diagnoses Diagnosis Chronic pain syndrome- Primary Urinary pain Renal colic Suspected UTI documented in this encounter Care Teams Brush Machine Setter Relationship Specialty Start Date End Date Willie Mahmood MD [address] [phone] PCP - General Family Practice 10/06/17 documented as of this encounter
[2025-02-25 16:05] VITALS: BP 156/81; PULSE 75; RESP 17; TEMP 36.9; O2SAT 98; BMI 26.6
--- OUTSIDE RECORDS SUMMARY | 2025-02-25 16:07 | XMS_ITS | Encounter Summary ---
Author Organization [facility] Address [address] [place] [address] Care Team Providers Care Adult Literacy Instructor Name Role Phone Willie Mahmood MD Primary Care Provider [phone] Reason for Referral * Outpatient Services (Routine) - Closed Specialty Diagnoses / Procedures Referred By Contmeryl nuñez Referred To Contact Diagnoses Screening mammogram Procedures MAMMO SCREENING BILAT Martin Dumont DO NO ADDRESS ON FILE Referral ID Status Reason Start Date Expiration Date Visits Re quested Visits Authorized [id number] Closed 08/21/2010 02/17/2011 1 1 ATION THERAPY TECHNOLOGIST Encounter Details Date Type Department Care Team (Late st Contact Info) Description 08/21/2010 Ancillary Orders [facility] External Read [address] [place] [address] Martin Dumont DO NO ADDRESS ON FILE [...] on file Legal Sex 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 Gender Identity Not on file Sexual Orientation Not on file documented as of this encounter Plan of Treatment Not on file documented as of this encounter Results * MAMMO SCREENING BILAT (08/21/2010 10:54 AM RADIATION THERAPY TECHNOLOGIST) Anatomical Region Laterality Modality Breast Bilateral Mammography Narrative 08/24/2010 12:41 PM RADIATION THERAPY TECHNOLOGIST Bilateral Mammogram Reason for Exam: Screening Comparison: [...] mammogram documented in this encounter Care Teams Adult Literacy Instructor Relationship Specialty Start Date End Date Willie Mahmood MD [address] [phone] PCP - General Family Practice 10/06/17 documented as of this encounter
--- OUTSIDE RECORDS SUMMARY | 2025-02-25 16:07 | XMS_ITS | Encounter Summary ---
Author Organization [facility] Address [address] [place] [address] Care Team Providers Care Bowling Ball Weigher And Packer Name Role Phone Willie Mahmood MD Primary Care Provider [phone] Encounter Details Date Type Department Care Team (Late st Contact Info) Description 04/18/2019 Ancillary Orders [facility] [address] [place] [address] Vicky Choudhury MD [address] [place], [place] [id number] Neck pain Social History Tobacco Use Types Packs/Day Years Used Date Smoking Tobacco: Former Cigarettes 1 30 0 10/07/1973 - 10/08/2003 Smokeless Tobacco: Never Alcohol Use Standard Drinks/Week Comments Yes 0 (1 standard drink = 0.6 oz pur e alcohol) occasionally Comments No Sex and Gender Information Value Date Recorded Sex Assigned at Not on file 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 No prevertebral soft tissue swelling. Vicky Choudhury MD DIAGNOSTIC IMAGING ORDERABLES Final Result documented in this encounter Visit Diagnoses Diagnosis Neck pain Cervicalgia Neck pain Cervicalgia documented in this encounter Care Teams Bowling Ball Weigher And Packer Relationship Specialty Start Date End Date Willie Mahmood MD [address] [facility] [address] [place] [address] PCP - General Family Practice 10/06/17 documented as of this encounter
--- OUTSIDE RECORDS SUMMARY | 2025-02-25 16:07 | XMS_ITS | Encounter Summary ---
Author Organization [facility] Address [address] [place] [address] Care Team Providers Care Trailer Chief Name Role Phone Willie Mahmood MD Primary Care Provider [phone] Encounter Details Date Type Department Care Team (Latest Contact Info) Description 04/11/1998 Outpatient Historical [facility] Medicine [place] [address] [address] Martin Dumont DO NO ADDRESS ON FILE Unspecified hypothyroidism (Primary Dx); Gynecologic examination Social History Tobacco Use Types Packs/Day Years Used Date Smoking Tobacco: Never Assessed Comments Unknown Sex and Gender Information Value Date Recorded Sex Assigned at Not on file 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
--- OUTSIDE RECORDS SUMMARY | 2025-02-25 16:07 | XMS_ITS | Encounter Summary ---
Author Organization [facility] Address [address] [place] [address] Care Team Providers Care Service Writer Name Role Phone Willie Mahmood MD Primary Care Provider +1 [phone] Encounter Details Date Type Department Care Team (Latest Contact Info) Description 09/10/1998 Outpatient Historical [facility] Medicine [place] [address] [address] Martin Dumont DO NO ADDRESS ON FILE Unspecified essential hypertension (Primary Dx); Unspecified hypothyroidism Social History Tobacco Use Types Packs/Day Years Used Date Smoking Tobacco: Never Assessed Comments Unknown Sex and Gender Information Value Date Recorded Sex Assigned at Not on file 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
--- OUTSIDE RECORDS SUMMARY | 2025-02-25 16:07 | XMS_ITS | Clinical Summary ---
Author Organization [facility] Address [address] [place]: [place] [address] Care Team Providers Care Production Solderer Name Role Phone Willie Mahmood MD Primary Care Provider [phone] [phone] Allergies Active Allergy Reactions Criticality Noted Date [...] insomnia 024 Active naloxone (NARCAN) 4 mg/spray [place], Non-Aerosol EMERGENCY USE ONLY: Administer 1 spray [...] ations:Stage 3 severe COPD by GOLD classification (CMS/[facility]) Take 3 mL by inhalation every 6 [...] 7 days. 14 Capsule 025 2024 Active amoxicillin-clavu lanate (AUGMENTIN) 875-125 mg tabletIndications :Urinary tract infection without hematuria, site unspecified Take 1 Tablet by mouth every 12 hours for 7 days. 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 05/18/2021 Foot deformity, acquired, left 06/09/2020 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 Cervical radiculopathy 11/13/2019 Paroxysmal atrial fibrillation 07/18/2018 Chronic respiratory failure with hypoxia 018 Atherosclerosis of [place] co ronary artery of [place] heart with stable angina pectoris 10/21/2017 History of CA (myocardial infarction) 10/21/2017 Irritable bowel syndrome with [...] Encounters Date Type Department Care Team Description 02/25/2025 Results Follow-Up [facility] Medicine [place] [address] [address] Ana Awan, SUPERVISOR POWDERED METAL POC URINALYSIS DIPSTICK AUTOMATED, URINE CULTURE 02/25/2025 Orders Only [address] [address] Lv Ana Colette, SUPERVISOR POWDERED METAL Urinary tract infection without hematuria, site unspecified (Primary Dx) 02/21/2025 11:00 AM CDT Office Visit [address] [phone] Ana Awan, SUPERVISOR POWDERED METAL Chronic pain syndrome (Primary Dx); Urinary pain; Suspected UTI 02/15/2025 Refill [facility] [address] [place] [address] Willie Mahmood MD Acquired hypothyroidism 02/14/2025 Refill [facility] [address] [place] [address] Kade Mendez Jr., MD Cervical radiculopathy; Idiopathic peripheral neuropathy; Undifferentiated inflammatory polyarthritis (CMS/HCC); Fibromyalgia 02/12/[address] [address] Willie Mahmood MD [facility] [address] [address] Willie Mahmood MD 02/07/2025 10:19 AM CDT - 02/07/2025 11:59 PM CDT Hospital Encounter [facility] Neurology [facility] [address] [phone] Gadiel Shearer MD Discharge Disposition: Home or Self Care 02/04/2025 12:30 PM CDT Video Visit [facility] [address] [place] [address] Kade Mendez Jr., MD Cervical radiculopathy; Idiopathic peripheral neuropathy; Fibromyalgia 02/01/2025 Telephone [facility] [address] [place] [address] Kade Mendez Jr., MD Medication Problem 01/29/2025 1:00 PM CDT Office Visit [facility] [address] [place] [address] Kade Mendez Jr., MD Cervical radiculopathy; Idiopathic peripheral neuropathy; Undifferentiated inflammatory polyarthritis (CMS/HCC); Fibromyalgia 01/22/[address] [phone] Willie Mahmood MD Cervical radiculopathy; Idiopathic peripheral neuropathy; Undifferentiated inflammatory polyarthritis (CMS/HCC); Fibromyalgia 12/13/2024 Refill [facility] [address] [place] [address] Willie Mahmood MD Cervicogenic headache 12/11/2024 3:20 PM CDT Office Visit [address] [phone] Willie Mahmood MD Chronic intractable pain (Primary Dx); Chronic respiratory failure with hypoxia; Early onset Alzheimer's dementia without behavioral disturbance (CMS/HCC); Stage 3 severe COPD by GOLD classification (CMS/HCC); Centrilobular emphysema; Paroxysmal atrial fibrillation; Undifferentiated inflammatory polyarthritis; S/P lobectomy of lung, RUL, RML 2007; Chronic bilateral low back pain with bilateral sciatica; rn long term care prescription opiate use 12/10/[address] [phone] Willie Mahmood MD Cervical radiculopathy; Idiopathic peripheral neuropathy; Undifferentiated inflammatory polyarthritis (CMS/HCC); Fibromyalgia 11/27/[address] [phone] Willie Mahmood MD Cervical radiculopathy; Idiopathic peripheral neuropathy; Undifferentiated inflammatory polyarthritis (CMS/HCC); Fibromyalgia from Last 3 Months Immunizations Immunization Administration Dates Next Due (HAVRIX/VAQTA)(19 YRS UP) HE PATITIS A VACCINE ADULT DOSAGE 1 ML IMM 03/14/2018 (PFIZER)(12 YR UP) COVID-19 VACCINE - EMERGENCY USE AUTHORIZATION, MRNA, [id number](PF) 30 MCG/0.3 ML IM SUSP 05/08/2021,07/22/2020,07/01/2020 (PNEUMOVAX [...] Dose 65+ Yrs IM 0,03/22/2018 Influenza Vaccine Nasal 04/12/2021 Influenza Vaccine Split [...] often do you attend chur ch or alevism services? Never 06/09/2020 Do you belong to any clubs o r organizations such as adventism groups, unions, fraternal or athletic groups, or [...] worry about transportation for future doctor visits, poultry picker medication, etc.? No 2024 Housing Stability [...] on file Legal Sex Female 5:37 AM CHEMICAL BLENDER Gender Identity Not on file Sexual Orientation [...] Description 02/26/2025 2:15 PM CDT Office Visit [facility] [address] [facility] [address] [place] [address] Jorgecarole Esthela L, RESTAURANT AREA DIRECTOR [address] [facility] [address] [place] [phone] 03/14/2025 9:00 AM CDT Office Visit [facility] [place] [address] [place] [address] Willie Mahmood MD [address] [place] [address] 04/16/2025 9:00 AM CDT Appointment [facility] CT Scan [place] [address] [place] [address] Brandi Kim NP [address] [place] [address] 08/29/2025 10:15 AM CHEMICAL BLENDER Appointment [facility] Neurology [facility] [address] [place] [address] Gadiel Shearer MD [address] [place] [address] Health Maintenance Due Date Last Done Comments [...] MORE SITES Routine 02/27/2020 12:20 PM CDT senior care current use of systemic steroids from Last 3 Months or Most Recently Relevant to Health Maintenance Results * (ABNORMAL) URINE CULTURE (02/21/2025 3:30 PM CDT) URINE CULTURE SEE NOTE(A) [facility] Comment: CULTURE, URINE, ROUTINE Micro Number: [id number] Test Status: Final Specimen Source: Urine, clean catch Specimen Quality: Adequate Result: 10,000-49,000 CFU/mL of Proteus mirabilis Greater than 100,000 CFU/mL of Staphylococcus saprophyticus The Clinical Laboratory Standards [place] (CLSI) does not advise routine susceptibility testing [...] = See Therapy Comments Test Performed at: [facility] [address] [place] [address] Eros Albarran MD Urine URINE SPECIMEN OBTAINED BY CLEAN CATCH PROCEDURE / Unknown 02/21/2025 3:30 PM CDT 02/22/2025 3:22 AM CDT Ana Awan [facility] MICROBIOLOGY - GENERAL [place] Final Result Performing Organization Address City/State/[facility] Co de Phone Number [facility] [phone] [facility] [address] [place] [address] * (ABNORMAL) POC URINALYSIS DIPSTICK AUTOMATED (02/21/2025 10:50 AM CDT) COLOR UA POC Yellow Pale to Dark Yellow [facility] CLARITY UA POC Turbid(A) Clear, Other [facility] GLUCOSE UA POC Negative Negative, Normal [facility] BILIRUBIN UA POC Negative Negative [facility] KETONES UA POC Negative Negative [facility] SPECIFIC GRAVITY UA POC 1.020 1.000 - 1.030 [facility] BLOOD UA POC Trace(A) Negative [facility] C LINIC [facility] PH UA POC 7.0 5.0 - 8.0 [facility] CLIN IC [facility] PROTEIN UA POC Trace(A) Negative [facility] UROBILINOGEN UA POC 0.2 <2.0 mg/dL [facility] NITRITE UA POC Negative Negative [facility] LEUKOCYTE ESTERASE UA POC Negative Negative [facility] KIT LOT NUMBER POC [phone] [facility] KIT EXP DATE POC 01/31/2026 [facility] Urine 02/21/2025 10:5 0 AM CDT us Ana Colette Awan SUPERVISOR POWDERED METAL POINT OF CARE TESTING Final Result [facility] CLIA# [id number] [address] [place] [address] * MAMMO 3D RAINER DIAGNOSTIC BILAT W OR WO CAD (02/20/2024 11:56 AM CDT) Anatomical Region Laterality Modality Breast Bilateral Mammography 02/20/2024 11:1 1 AM CDT Impressions 02/20/2024 12:14 PM CDT IMPRESSION: BI-RADS 1. Negative mammogram. Continue annual screening mammography. Findings and verbal/written recommendations were conveyed to the patient after completion of the exam. [id number] Narrative 02/20/2024 12:14 PM CDT EXAMINATION: Bilateral [...] clinical management available online at [email or web address] Enter [employer] for Select DXA and the Femoral Neck BMD value. Narrative 02/29/2020 7:18 PM CDT Exam: XR DEXA BONE DENSITY AXIAL 1 OR MORE SITES Reason For Exam: See Diagnosis, osteoporosis screening. Diagnosis: senior care current use of systemic steroids Findings: The [...] For Exam: See Diagnosis, osteoporosis screening. Diagnosis: senior care current use of systemic steroids Findings: The [...] clinical management available online at [email or web address] Enter [employer] for Select DXA and the Femoral Neck BMD value. Kalpesh Taylor MD DIAGNOSTIC IMAGING ORD ERABLES Final Result from Last 3 Months or Most Recently Relevant to Health Maintenance Insurance MEDICARE PART A AND B [facility] Advance Directives For more information, please contact: [phone] Documents on File Type Date Recorded Patient Assistant Portfolio Manager Expl anation Advance Directive Living Will 10/03/2015 [...] 11:28 AM 10/29/2021 12:44 PM Care Teams Production Solderer Relationship Specialty Start Date End Date Willie Mahmood MD [address] [address] PCP - General Family Practice 10/06/17
--- OUTSIDE RECORDS SUMMARY | 2025-02-25 16:07 | XMS_ITS ---
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
--- OUTSIDE RECORDS SUMMARY | 2025-02-25 16:07 | XMS_ITS | Encounter Summary ---
Author Organization [facility] Address [address] [place] [address] Care Team Providers Care Middle [employer] Principal Name Role Phone Willie Mahmood MD Primary Care Provider [phone] [phone] Reason for Referral * Outpatient Services (Routine) - Closed Specialty Diagnoses / Procedures Referred By Contmeryl t Referred To Contact Radiology Diagnoses Other screening mammogram Procedures MAMMO DIGITIZED STUDY Kierra Gonzalez APRN NO ADDRESS ON FILE [facility] [address] [facility] [address] [place] [address] Phone: tel: fax: Referral ID Status Reason Start Date Expiration Date Visits Re quested Visits Authorized [id number] Closed 03/28/2012 03/28/2013 1 1 Encounter Details Date Type Department Care Team (Late st Contact Info) Description 03/28/2012 Ancillary Orders [facility] Family Medicine [place] [address] [facility] [address] [place] [phone] Kierra Gonzalez APRN NO ADDRESS ON FILE [...] on file Legal Sex Female 3:09 AM HEAD PAPER TESTER Gender Identity Not on file Sexual Orientation [...] mammogram documented in this encounter Care Teams Middle School Principal Relationship Specialty Start Date End Date Willie Mahmood MD [address] [facility] [address] [place] [address] PCP - General Family Practice 10/06/17 documented as of this encounter
--- OUTSIDE RECORDS SUMMARY | 2025-02-25 16:07 | XMS_ITS | Clinical Summary ---
Author Organization [facility] [address] Address [address] [place] [address] Care Team Providers Care Farmworker Turkey [employer] Name Role Phone Willie Mahmood MD Primary Care Provider +1 [phone] Allergies Active Allergy Reactions Criticality Noted Date [...] respiratory failure with hypoxia 018 History of [place] (myocardial infarction) 10/21/2017 Atherosclerosis of [place] co ronary artery of [place] heart with stable angina pectoris 10/21/2017 Irritable [...] COVID-19 VACCINE - EMERGENCY USE AUTHORIZATION, MRNA, [id number](PF) 30 MCG/0.3 ML IM SUSP 07/22/2020,07/01/2020 (PNEUMOVAX [...] How often do you attend chur or restorationism services? Never 06/09/2020 Do you belong to any clubs o r organizations such as islam groups, unions, fraternal or athletic groups, or [...] on file Legal Sex Female 3:09 AM VENDOR REPRESENTATIVES Gender Identity Not on file Sexual Orientation Not on file Occupation Industry Job Start Date Job End Date Not on file Not on file Not on file Not on file Last Filed Vital Signs Vital Sign Reading Time Taken Comments Blood Pressure 128/78 10/13/2020 11:26 AM CDT Pulse 68 10/13/2020 11:26 AM CDT Temperature 36 C (96.8 F) 09/09/2020 9:49 AM VENDOR REPRESENTATIVES Respiratory Rate 18 09/09/2020 9:49 AM VENDOR REPRESENTATIVES Oxygen Saturation 98% 10/13/2020 11:26 AM CDT [...] CDT retirement current use of systemic steroids ENDOSCOPY, COLON, DIAGNOSTIC Routine 08/25/2010 from Last 3 Months or Most Recently Relevant to Health Maintenance Results * MAMMO SCRN BILAT 3D RAINER W OR WO CAD (05/02/2020 12:47 PM CDT) Anatomical Region Laterality Modality Breast Bilateral Mammography Narrative 05/05/2020 1:39 PM VENDOR REPRESENTATIVES Bilateral Digital Mammogram with CAD and 3D [...] clinical management available online at [email or web address] Enter [employer] for Select DXA and the Femoral Neck [...] clinical management available online at [email or web address] Enter [employer] for Select DXA and the Femoral Neck BMD value. us Kalpesh Taylor MD DIAGNOSTIC IMAGING ORD ERABLES Final Result * ENDOSCOPY, COLON, DIAGNOSTIC (08/25/2010) us Arline Dean MD GI PROCEDURE ORDERABLES Starla smith Result [facility] from Last 3 Months or Most Recently Relevant to Health Maintenance Insurance MEDICARE PART A AND B DOOR TO DOOR LE[employer] Advance Directives For more information, please contact: [phone] Documents on File Type Date Recorded Patient Oxygen Tank Filler Expl anation Advance Directive Living Will 10/03/2015 7:39 AM Advance Directive Living Will * Full Code (Latest Code Status on File) Date Activated Date Inactivated Comments 01/03/2015 9:45 AM 01/03/2015 3:23 PM * Full Code Date Activated Date Inactivated Comments 01/03/2015 7:00 AM 01/03/2015 9:45 AM Care Teams Farmworker [employer] Relationship Specialty Start Date End Date Willie Mahmood MD [address] [phone] PCP - General Family Practice 10/06/17
--- OUTSIDE RECORDS SUMMARY | 2025-02-25 16:07 | XMS_ITS | Encounter Summary ---
Author Organization [facility] Address [address] [place] [address] Care Team Providers Care Benefits Director Name Role Phone iWllie Mahmood MD Primary Care Provider [phone] [phone] Reason for Referral * Outpatient Services (Routine) - Closed Specialty Diagnoses / Procedures Referred By Contmeryl t Referred To Contact Radiology Diagnoses Other screening mammogram Procedures MAMMO DIGITIZED STUDY Kierra Gonzalez APRN NO ADDRESS ON FILE [facility] [address] [facility] [address] [place] [address] Phone: tel: fax: Referral ID Status Reason Start Date Expiration Date Visits Re quested Visits Authorized [id number] Closed 03/28/2012 03/28/2013 1 1 Encounter Details Date Type Department Care Team (Late st Contact Info) Description 03/28/[address] [facility] Family Medicine [place] 104 [facility] 60 [place] [phone] Kierra Gonzalez APRN NO ADDRESS ON FILE [...] on file Legal Sex Female 3:09 AM PATTERN SETTER Gender Identity Not on file Sexual Orientation Not on file Occupation Industry Job Start Date Job End Date Not on file Not on file Not on file Not on file documented as of this encounter Plan of Treatment Not on file documented as of this encounter Results * MAMMO DIGITIZED STUDY (08/20/2010 3:02 PM PATTERN SETTER) Narrative Ashely Lebron, RT - 03/28/2012 3:02 PM CDT Order information only. Exam was auto-finalized. Procedure Note Ashely Lebron, RT - 03/28/2012 Order information only. Exam was auto-finalized. Kierra Sinhabell buckle PAINT DIPPER DIAGNOSTIC IMAGIN G ORDERABLES Final Result documented in this encounter Visit Diagnoses Diagnosis Other screening mammogram Other screening mammogram documented in this encounter Care Teams Benefits Director Relationship Specialty Start Date End Date Willie Mahmood MD [address] [facility] [address] [place] [address] PCP - General Family Practice 10/06/17 documented as of this encounter
--- OUTSIDE RECORDS SUMMARY | 2025-02-25 16:07 | XMS_ITS | Encounter Summary ---
Author Organization [facility] Address [address] [place] [address] Care Team Providers Care Marketing Analytics Manager Name Role Phone Willie Mahmood MD Primary Care Provider [phone] [phone] Reason for Visit * Reason Onset Date Comments Medication Problem 02/01/2025 Encounter Details Date Type Department Care Team (Late st Contact Info) Description 02/01/2025 Telephone [facility] Support[facility] [address] [place] [address] Kade Mendez Jr., MD [address] [place] [address] Medication Problem Social History Tobacco [...] often do you attend chur ch or worship services? Never 06/09/2020 Do you belong to any clubs o r organizations such as congregation groups, unions, fraternal or athletic groups, or [...] on file Legal Sex Female 5:37 AM VICE PRESIDENT COMPLIANCE Gender Identity Not on file Sexual Orientation [...] [facility] [address] [facility] [address] [place] [address] Esthela Arenas NP [address] [facility] [address] [place] [address] 03/14/2025 9:00 AM CDT Office Visit [facility] Family Medicine [place] [address] [address] Willie Mahmood MD [address] [address] 04/16/2025 9:00 AM CDT Appointment [facility] CT Scan [place] [address] [address] Brandi Kim NP [address] [place] [address] 08/29/2025 10:15 AM VICE PRESIDENT COMPLIANCE Appointment [facility] Neurology [facility] [address] [address] Gadiel Shearer MD [address] [place] [address] documented as of this encounter Visit Diagnoses Not on filedocumented in this encounter Additional Health Concerns Assessment Noted Time PHQ-9 Depression Total Score: 4 01/30/20 25 1:00 PM CDT documented as of this encounter Care Teams Marketing Analytics Manager Relationship Specialty Start Date End Date Willie Mahmood MD [address] [phone] PCP - General Family Practice 10/06/17 documented as of this encounter
--- OUTSIDE RECORDS SUMMARY | 2025-02-25 16:07 | XMS_ITS | Encounter Summary ---
Author Organization [facility] Address [address] [place] [address] Care Team Providers Care Heavy Equipment Sales Associate Name Role Phone Willie Mahmood MD Primary Care Provider [phone] [phone] Reason for Referral * Radiology Services (Routine) - Closed Specialty Diagnoses / Procedures Referred By Contac t Referred To Contact Diagnoses Breast cancer screening by mammogram Procedures MAMMO SCRN BILAT 3D RAINER W OR WO CAD CHG SCREENING MAMMOGRAPHY BI 2-VIEW BREAST INC CAD CHG SCREENING DIGITAL BREAST TOMOSYNTHESIS BI Willie Mahmood MD [address] [address] Phone: tel: fax: Referral ID Status Reason Start Date Expiration Date Visits Re quested Visits Authorized [id number] Closed 04/30/2020 05/31/2021 1 1 Encounter Details Date Type Department Care Team (Latest Contact Info) Description 04/30/2020 Ancillary Orders [facility] Pre-Registration [place] CALL TO MAKE APPOINTMENT ONLY [address] [place] [address] Willie Mahmood MD [address] [address] Breast cancer screening by mammogram [...] file Legal Sex Female 3:09 AM SUPERVISOR FARM EQUIPMENT MAINTENANCE Gender Identity Not on file Sexual Orientation [...] Breast Bilateral Mammography Narrative 05/05/2020 1:39 PM SUPERVISOR FARM EQUIPMENT MAINTENANCE Bilateral Digital Mammogram with CAD and 3D [...] mammogram documented in this encounter Care Teams Heavy Equipment Sales Associate Relationship Specialty Start Date End Date Willie Mahmood MD [address] [facility] [address] [place] [address] PCP - General Family Practice 10/06/17 documented as of this encounter
--- OUTSIDE RECORDS SUMMARY | 2025-02-25 16:07 | XMS_ITS | Encounter Summary ---
Author Organization [facility] Address [address] [place] [address] Care Team Providers Care Post Anesthesia Care Unit Nurse Name Role Phone Willie Mahmood MD Primary Care Provider +1 [phone] Encounter Details Date Type Department Care Team (Late st Contact Info) Description 02/02/2016 Ancillary Orders [facility] Admitting [address] [facility] [address] [place] [address] Jericho Steel MD [address] [phone] Social History Tobacco Use Types Packs/Day Years Used Date Smoking Tobacco: Former Cigarettes 1 30 0 10/07/1973 - 10/08/2003 Smokeless Tobacco: Never Alcohol Use Standard Drinks/Week Comments Yes 1 (1 standard drink = 0.6 oz pur e alcohol) daily Comments No Sex and Gender Information Value Date Recorded Sex Assigned at Not on file Legal Sex Female 3:09 AM TAG CLERK Gender Identity Not on file Sexual Orientation Not on file Occupation Industry Job Start Date Job End Date Not on file Not on file Not on file Not on file documented as of this encounter Plan of Treatment Not on file documented as of this encounter Visit Diagnoses Not on filedocumented in this encounter Care Teams Post Anesthesia Care Unit Nurse Relationship Specialty Start Date End Date Willie Mahmood MD [address] [place] [phone] PCP - General Family Practice 10/06/17 documented as of this encounter
--- OUTSIDE RECORDS SUMMARY | 2025-02-25 16:07 | XMS_ITS | Encounter Summary ---
Author Organization [facility] Address [address] [place] [address] Care Team Providers Care Oil And Gas Drafter Name Role Phone Willie Mahmood MD Primary Care Provider [phone] [phone] Reason for Referral * Radiology Services (Routine) - Closed Specialty Diagnoses / Procedures Referred By Contac t Referred To Contact Diagnoses Breast pain, right Procedures MAMMO DIAG UNI RIGHT 3D RAINER W OR WO CAD CHG DIAGNOSTIC MAMMOGRAPHY COMPUTER-AIDED DETCJ UNI CHG DIGITAL BREAST TOMOSYNTHESIS UNILATERAL Willie Mahmood MD [address] [address] Phone: tel: fax: [facility] Pre-Registration [place] CALL TO MAKE APPOINTMENT ONLY [address] [place] [address] Phone: tel: fax: Referral ID Status Reason Start Date Expiration Date V isits Requested Visits Authorized [id number] Closed [facility] TO SCHEDULE (S[facility]) 10/19/2018 11/19/2019 1 1 Encounter Details Date Type Department Care Team (Late st Contact Info) Description 10/19/2018 Ancillary Orders [facility] Family Medicine [place] [address] [address] Willie Mahmood MD [address] [address] Breast pain, right Social History [...] on file Legal Sex Female 3:09 AM INTELLECTUAL PROPERTY LEGAL ASSISTANT Gender Identity Not on file Sexual Orientation [...] RECOMMENDATION: Annual screening mammography in April 2019 [id number] Narrative 11/09/2018 4:23 PM CDT EXAM: MAMMO [...] Mastodynia documented in this encounter Care Teams Oil And Gas Drafter Relationship Specialty Start Date End Date Willie Mahmood MD [address] [address] PCP - General Family Practice 10/06/17 documented as of this encounter
--- OUTSIDE RECORDS SUMMARY | 2025-02-25 16:07 | XMS_ITS | Encounter Summary ---
Author Organization [facility] Address [address] [place] [address] Care Team Providers Care Sheet Mill Supervisor Name Role Phone Willie Mahmood MD Primary Care Provider [phone] [phone] Reason for Visit * Reason Onset Date Comments Results 07/27/2024 Encounter Details Date Type Department Care Team ([facility] st Contact Info) Description 07/27/2024 Results Follow-Up [facility] Family Medicine [place] [address] [address] Willie Mahmood MD [facility] [address] [address] [address] CHEST WO CONTRAST, US [...] often do you attend chur ch or protestant services? Never 06/09/2020 Do you belong to any clubs o r organizations such as pentecostal groups, unions, fraternal or athletic groups, or [...] on file Legal Sex Female 5:37 AM BEATER TENDER Gender Identity Not on file Sexual Orientation Not on file documented as of this encounter Miscellaneous Notes * Telephone Encounter - Eugenia Brown RN - 07/30/2024 12:47 PM BEATER TENDER 07/30/2024 12:47 PM Called and notified patient of results. Voiced understanding. She states that she is at [facility] ER, shewent in yesterday at noon and she has a bowel obstruction, she is awaiting a room for admission. Message sent to provider. Eugenia FERNÁNDEZ ER TENDER * Telephone Encounter - Eugenia Brown RN - 07/30/2024 12:47 PM BEATER TENDER ----- Message from Dr. Willie Mahmood sent at 07/27/2024 4:21 PM BEATER TENDER ----- CT of the chest reviewed, no [...] pulmonology, where would she like referral to? ER TENDER * Telephone Encounter - Eugenia Brown RN - 07/27/2024 4:34 PM BEATER TENDER 07/27/2024 4:34 PM No answer. Left voice mail/message that patient/caregiver can return our call. If patient/caregivercalls back, contact center please inform caller to expect a return call from the clinic. Eugenia FERNÁNDEZ ER TENDER * Telephone Encounter - Eugenia Brown RN - 07/27/2024 4:34 PM BEATER TENDER ----- Message from Dr. Willie Mahmood sent at 07/27/2024 4:23 PM BEATER TENDER ----- Ultrasound of the right upper quadrant [...] be an indication to pursue this further. ER TENDER * Telephone Encounter - Eugenia Brown RN - 07/27/2024 4:34 PM BEATER TENDER ----- Message from Dr. Willie Mahmood sent at 07/27/2024 4:21 PM BEATER TENDER ----- CT of the chest reviewed, no [...] pulmonology, where would she like referral to? ER TENDER documented in this encounter Plan of Treatment Upcoming Encounters Date Type Department Care Team (Late st Contact Info) Description 02/26/2025 2:15 PM CDT Office Visit [facility] Supportive Care [facility] [address] [address] Esthela Arenas NP [address] [facility] [address] [place] [address] 03/14/2025 9:00 AM CDT Office Visit [facility] Family Medicine [address] [address] Willie Mahmood MD [address] [address] 04/16/2025 9:00 AM CDT Appointment [facility] CT Scan [place] [address] [address] Brandi Kim NP [address] [place] [address] 08/29/2025 10:15 AM BEATER TENDER Appointment [facility] Neurology [facility] [address] [address] Gadiel Shearer MD [address] [place] [address] documented as of this encounter Visit Diagnoses Not on filedocumented in this encounter Additional Health Concerns Infection Onset Date Last Indicated Resolved Time COVID-19 06/20/2024 06/20/2024 09/18/2024 1:16 AM CDT Assessment Noted Time PHQ-9 Depression Total Score: 4 05/08/20 10:34 AM BEATER TENDER documented as of this encounter Care Teams Sheet Mill Supervisor Relationship Specialty Start Date End Date Willie Mahmood MD [address] [phone] PCP - General Family Practice 10/06/17 documented as of this encounter
--- OUTSIDE RECORDS SUMMARY | 2025-02-25 16:08 | XMS_ITS ---
Author Organization [facility] Address [address] 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
--- OUTSIDE RECORDS SUMMARY | 2025-02-25 16:08 | XMS_ITS | Encounter Summary ---
Author Organization [facility] Address [address] [place] [address] Care Team Providers Care Integrated Campaign Manager Name Role Phone Willie Mahmood MD Primary Care Provider [phone] [phone] Encounter Details Date Type Department Care Team (Latest Contact Info) Description 12/12/2001 Outpatient Historical [facility] Er Medicine [place] [address] [address] Martin Dumont DO NO ADDRESS ON FILE DEPRESSIVE DISORDER NEC (Primary Dx) Social History Tobacco Use Types Packs/Day Years Used Date Smoking Tobacco: Never Assessed Comments Unknown Sex and Gender Information Value Date Recorded Sex Assigned at Not on file Legal Sex Female 3:09 AM SAP BOBJ DEVELOPER Gender Identity Not on file Sexual Orientation Not on file documented as of this encounter Plan of Treatment Not on file documented as of this encounter Visit Diagnoses Diagnosis Depressive disorder, not elsewhere classified- Primary documented in this encounter Care Teams Integrated Campaign Manager Relationship Specialty Start Date End Date Willie Mahmood MD [address] [address] PCP - General Family Practice 10/06/17 documented as of this encounter
--- OUTSIDE RECORDS SUMMARY | 2025-02-25 16:08 | XMS_ITS | Encounter Summary ---
Author Organization [facility] Address [address] [place] [address] Care Team Providers Care Business Development Analyst Name Role Phone Willie Mahmood MD Primary Care Provider [phone] [phone] Encounter Details Date Type Department Care Team (Latest Contact Info) Description 12/02/2004 Outpatient Historical [facility] [address] [address] Martin Dumont DO NO ADDRESS ON FILE DEPRESSIVE DISORDER NEC (Primary Dx); HYPOTHYROIDISM NOS; SKIN DISORDER NOS; HYPERLIPIDEMIA NEC/NOS Social History Tobacco Use Types Packs/Day Years Used Date Smoking Tobacco: Never Assessed Comments Unknown Sex and Gender Information Value Date Recorded Sex Assigned at Not on file Legal Sex Female 3:09 AM FIBERGLASSER Gender Identity Not on file Sexual Orientation Not on file documented as of this encounter Plan of Treatment Not on file documented as of this encounter Visit Diagnoses Diagnosis Depressive disorder, not elsewhere classified- Primary Unspecified hypothyroidism Unspecified disorder of skin and subcutaneous tissue Other and unspecified hyperlipidemia documented in this encounter Care Teams Business Development Analyst Relationship Specialty Start Date End Date Willie Mahmood MD [address] [address] PCP - General Family Practice 10/06/17 documented as of this encounter
--- OUTSIDE RECORDS SUMMARY | 2025-02-25 16:08 | XMS_ITS | Encounter Summary ---
Author Organization [facility] Address [address] [place] [address] Care Team Providers Care Geotechnician Name Role Phone Willie Mahmood MD Primary Care Provider [phone] [phone] Encounter Details Date Type Department Care Team (Late st Contact Info) Description 11/08/2006 Outpatient Historical [facility] [address] [place] [address] [place] [address] Marquise Sequeira MD [address] [place] [address] Neoplasm of Uncertain Behavior of Skin (Primary Dx) Social History Tobacco Use Types Packs/Day Years Used Date Smoking Tobacco: Never Assessed Comments Unknown Sex and Gender Information Value Date Recorded Sex Assigned at Not on file Legal Sex Female 3:09 AM SOCK MENDER Gender Identity Not on file Sexual Orientation Not on file documented as of this encounter Plan of Treatment Not on file documented as of this encounter Visit Diagnoses Diagnosis Neoplasm of uncertain behavior of skin- Primary documented in this encounter Care Teams Geotechnician Relationship Specialty Start Date End Date Willie Mahmood MD [address] [facility] [address] [place] [phone] PCP - General Family Practice 10/06/17 documented as of this encounter
--- OUTSIDE RECORDS SUMMARY | 2025-02-25 16:08 | XMS_ITS | Encounter Summary ---
Author Organization [facility] Address [address] [place] [address] Care Team Providers Care Novelty Twister Operator Name Role Phone Willie Mahmood MD Primary Care Provider +1 [phone] Encounter Details Date Type Department Care Team (Latest Contact Info) Description 08/17/2004 Outpatient Historical [facility] Medicine [place] [address] [address] Martin Dumont DO NO ADDRESS ON FILE CHEST SWELLING/MASS/LUMP (Primary Dx) Social History Tobacco Use Types Packs/Day Years Used Date Smoking Tobacco: Never Assessed Comments Unknown Sex and Gender Information Value Date Recorded Sex Assigned at Not on file Legal Sex Female 3:09 AM SENIOR NAVAL PARACHUTIST Gender Identity Not on file Sexual Orientation Not on file documented as of this encounter Plan of Treatment Not on file documented as of this encounter Visit Diagnoses Diagnosis Swelling, mass, or lump in chest- Primary documented in this encounter Care Teams Novelty Twister Operator Relationship Specialty Start Date End Date Willie Mahmood MD [address] [phone] PCP - General Family Practice 10/06/17 documented as of this encounter
--- OUTSIDE RECORDS SUMMARY | 2025-02-25 16:08 | XMS_ITS | Encounter Summary ---
Author Organization [facility] Address [address] [place] [address] Care Team Providers Care J2Ee Engineer Name Role Phone Willie Mahmood MD Primary Care Provider [phone] [phone] Encounter Details Date Type Department Care Team (Late st Contact Info) Description 02/15/2007 Outpatient Historical [facility] Martin Dumont, DO NO ADDRESS ON FILE Social History Tobacco Use Types Packs/Day Years Used Date Smoking Tobacco: Never Assessed Comments Unknown Sex and Gender Information Value Date Recorded Sex Assigned at Not on file Legal Sex Female 3:09 AM BATCH HEAT TREAT OPERATOR Gender Identity Not on file Sexual [...] on filedocumented in this encounter Care Teams J2Ee Engineer Relationship Specialty Start Date End Date Willie Mahmood MD [address] [phone] PCP - General Family Practice 10/06/17 documented as of this encounter
--- OUTSIDE RECORDS SUMMARY | 2025-02-25 16:08 | XMS_ITS | Encounter Summary ---
Author Organization [facility] Address [address] [place] [address] Care Team Providers Care Oyster Harvester Name Role Phone Willie Mahmood MD Primary Care Provider [phone] [phone] Encounter Details Date Type Department Care Team (Late st Contact Info) Description 05/31/2006 Outpatient Historical [facility] Dermatology- [address] [place] [address] Marquise Sequeira MD [address] [place] [address] Other Seborrheic Keratosis (Primary Dx); Unspecified Hypertrophic and Atrophic Condition of Skin; Benign Neoplasm of Skin of Other and Unspecified Parts of Face Social History Tobacco Use Types Packs/Day Years Used Date Smoking Tobacco: Never Assessed Comments Unknown Sex and Gender Information Value Date Recorded Sex Assigned at Not on file Legal Sex Female 3:09 AM TUTORING ASSISTANT Gender Identity Not on file Sexual Orientation Not on file documented as of this encounter Plan of Treatment Not on file documented as of this encounter Visit Diagnoses Diagnosis Other seborrheic keratosis- Primary Unspecified hypertrophic and atrophic condition of skin Benign neoplasm of skin of other and unspecified parts of face documented in this encounter Care Teams Oyster Harvester Relationship Specialty Start Date End Date Willie Mahmood MD [address] [facility] [address] [place] [phone] PCP - General Family Practice 10/06/17 documented as of this encounter
--- OUTSIDE RECORDS SUMMARY | 2025-02-25 16:08 | XMS_ITS | Encounter Summary ---
Author Organization [facility] Address [address] [place] [address] Care Team Providers Care Radiological Health Specialist Name Role Phone Willie Mahmood MD Primary Care Provider [phone] Encounter Details Date Type Department Care Team (Late st Contact Info) Description 04/21/2008 Outpatient Historical HIS IN [facility], Sachin Reyes MD [address] [place] [address] [phone] Social History Tobacco Use Types Packs/Day Years Used Date Smoking Tobacco: Never Assessed Comments Unknown Sex and Gender Information Value Date Recorded Sex Assigned at Not on file Legal Sex Female 3:09 AM DELIVERY ROUTE DRIVER Gender Identity Not on file Sexual Orientation Not on file documented as of this encounter Plan of Treatment Not on file documented as of this encounter Procedures Procedure Name Priority Date/Time Associated Diagnosis Comments XR CHEST PA OR AP 1 VW Routine 05/05/2008 7:44 AM DELIVERY ROUTE DRIVER XR CHEST PA OR AP 1 VW [...] CHEST PA OR AP (05/05/2008 7:44 AM DELIVERY ROUTE DRIVER) Anatomical Region Laterality Modality Chest Other 05/05/2008 7:44 AM DELIVERY ROUTE DRIVER Narrative 05/05/2008 7:22 PM DELIVERY ROUTE DRIVER Exam: Chest - Portable Date/Time of Exam: May 05, 2008 7:44:06 AM History: Cough. Findings: AP compared to yesterday shows no change. There has likely been a right thoracotomy, but there is no acute pulmonary infiltrate. The right apical region still demonstrates a small pneumothorax. - Dictated By: Key Allen M.D. Electronically Signed By: Kye Allen [...] M.D. Date Signed: 11/02/08 us Sachin R Peoria II, MD DIAGNOSTIC IMAGING ORDERA BLES Final [...] By: Ed Frey M.D. Electronically Signed By: dE Frey M.D. Date Signed: 05/02/08 Sachin Torres [...] POC GLUCOSE (04/29/2008 7:14 AM CDT) Pathologist [facility] GLUCOSE POC 115(H) 60 - 100 mg/dL [facility] Venous blood specimen (specimen) 04/29/2008 7:14 AM CDT 04/30/2008 3:32 AM CDT Sachin Torres II, MD POINT OF CARE TESTING Fin al Result INTERFACE SYSTEM Refer to clinic/hospital department [facility] CLIA# [id number] [address] [place] [address] * (ABNORMAL) BASIC METABOLIC PANEL (04/29/2008 4:30 AM CDT) BUN 12 7 - 17 mg/dL [facility] CO2 32 22 - 32 mmol/l [facility] POTASSIUM 3.8 3.5 - 5.0 mEq/L [facility] OSMOLALITY, CALCULATED 285 275 - 295 mOsm/Kg [facility] CREATININE 0.4(L) 0.7 - 1.2 mg/dL [facility] CALCIUM 10.4 8.4 - 10.5 mg/dL [facility] GLUCOSE 123(H) 70 - 110 mg/dL [facility] CHLORIDE 99 95 - 110 mEq/L [facility] ANION GAP 11 9 - 20 mEq/L [facility] SODIUM 138 136 - 145 mEq/L [facility] Blood specimen (specimen) 04/29/2008 4:30 AM CDT 04/29/2008 4:45 AM CDT us Sachin Torres II, MD CHEMISTRY ORDERABLES Starla smith Result INTERFACE SYSTEM Refer to clinic/hospital department [facility] CLIA# [id number] [address] [place] [address] * (ABNORMAL) CBC WITH DIFFERENTIAL (04/29/2008 4:30 AM CDT) HEMATOCRIT 32.8(L) 36.0 - 46.0 % [facility] EOSINOPHILS 3.1 0.0 - 7.0 % [facility] PLATELETS 250 140 - 440 K/ul [facility] EOSINOPHIL ABSOLUTE 0.2 0.0 - 0.7 K/ul [facility] RBC 3.67(L) 4.20 - 5.40 Mil/ul [facility] LYMPHOCYTES 15.4(L) 24.0 - 44.0 % [facility] MCHC 33.2 30.0 - 35.0 g/dL [facility] LYMPHOCYTE ABSOLUTE 1.2 1.2 - 4.0 K/ul [facility] MCV 89.4 84.0 - 103.0 Fl [facility] MPV 10.3 8.9 - 12.8 Fl [facility] BASOPHILS ABSOLUTE 0.0 0.0 - 0.2 K/ul [facility] BASOPHILS 0.3 0.0 - 1.0 % [facility] HEMOGLOBIN 10.9(L) 12.0 - 16.0 g/dL [facility] RDW 12.4 11.0 - 14.5 % [facility] MONOCYTE ABSOLUTE 1.2(H) 0.1 - 0.6 K/ul [facility] MONOCYTES 15.1(H) 2.0 - 10.0 % [facility] WBC 7.8 4.8 - 10.8 K/ul [facility] MCH 29.7 27.0 - 34.0 pg [facility] NEUTROPHIL ABSOLUTE 5.2 2.0 - 8.0 K/ul [facility] NEUTROPHILS 66.1 42.2 - 75.2 % [facility] Blood specimen (specimen) 04/29/2008 4:30 AM CDT 04/29/2008 4:45 AM CDT Sachin Torres II, MD HEMATOLOGY ORDERABLES Fin al Result Performing Organization Address [facility] Phone Number INTERFACE SYSTEM Refer to clinic/hospital department [facility] CLIA# [id number] [address] [place] [address] * (ABNORMAL) POC GLUCOSE (04/28/2008 11:59 PM CDT) GLUCOSE POC 128(H) 60 - 100 mg/dL [facility] Venous blood specimen (specimen) 04/28/2008 11:59 PM CDT 04/29/2008 8:36 AM CDT Sachin Torres II, MD POINT OF CARE TESTING Fin al Result Performing Organization Address [facility] Phone Number INTERFACE SYSTEM Refer to clinic/hospital department [facility] CLIA# [id number] [address] [place] [address] * (ABNORMAL) POC GLUCOSE (04/28/2008 5:26 PM CDT) GLUCOSE POC 120(H) 60 - 100 mg/dL [facility] Venous blood specimen (specimen) 04/28/2008 5:26 PM CDT 04/29/2008 8:35 AM CDT us Sachin Torres II, MD POINT OF CARE TESTING Fin al Result Performing Organization Address [facility] de Phone Number INTERFACE SYSTEM Refer to clinic/hospital department [facility] CLIA# [id number] [address] [place] [address] * (ABNORMAL) POC GLUCOSE (04/28/2008 11:13 AM CDT) GLUCOSE POC 135(H) 60 - 100 mg/dL [facility] Venous blood specimen (specimen) 04/28/2008 11:13 AM CDT 04/29/2008 7:23 AM CDT us Sachin Torres II, MD POINT OF CARE TESTING Fin al Result Performing Organization Address [facility] de Phone Number INTERFACE SYSTEM Refer to clinic/hospital department [facility] CLIA# [id number] [address] [place] [address] * (ABNORMAL) POC GLUCOSE (04/28/2008 7:21 AM CDT) GLUCOSE POC 113(H) 60 - 100 mg/dL [facility] Venous blood specimen (specimen) 04/28/2008 7:21 AM CDT 04/29/2008 8:35 AM CDT us Sachin Torres II, MD POINT OF CARE TESTING Fin al Result Performing Organization Address [facility] de Phone Number INTERFACE SYSTEM Refer to clinic/hospital department [facility] CLIA# [id number] [address] [place] [address] * XR CHEST PA OR AP (04/28/2008 7:06 AM CDT) Anatomical Region Laterality Modality Chest Other 04/28/2008 7:06 AM CDT Narrative 05/11/2008 1:11 PM DELIVERY ROUTE DRIVER Exam: Chest - Portable Date/Time of Exam: [...] CDT) WBC 7.4 4.8 - 10.8 K/ul [facility] MCH 29.2 27.0 - 34.0 pg [facility] NEUTROPHIL ABSOLUTE 4.7 2.0 - 8.0 K/ul [facility] NEUTROPHILS 63.3 42.2 - 75.2 % [facility] HEMATOCRIT 32.9(L) 36.0 - 46.0 % [facility] EOSINOPHILS 2.8 0.0 - 7.0 % [facility] PLATELETS 187 140 - 440 K/ul [facility] EOSINOPHIL ABSOLUTE 0.2 0.0 - 0.7 K/ul [facility] RBC 3.63(L) 4.20 - 5.40 Mil/ul [facility] LYMPHOCYTES 19.5(L) 24.0 - 44.0 % [facility] MCHC 32.2 30.0 - 35.0 g/dL [facility] LYMPHOCYTE ABSOLUTE 1.5 1.2 - 4.0 K/ul [facility] MCV 90.6 84.0 - 103.0 Fl [facility] MPV 10.3 8.9 - 12.8 Fl [facility] BASOPHILS ABSOLUTE 0.0 0.0 - 0.2 K/ul [facility] BASOPHILS 0.1 0.0 - 1.0 % [facility] HEMOGLOBIN 10.6(L) 12.0 - 16.0 g/dL [facility] RDW 12.3 11.0 - 14.5 % [facility] MONOCYTE ABSOLUTE 1.1(H) 0.1 - 0.6 K/ul [facility] MONOCYTES 14.3(H) 2.0 - 10.0 % [facility] Blood specimen (specimen) 04/28/2008 4:40 AM CDT 04/28/2008 4:54 AM CDT us Sachin Torres II, MD HEMATOLOGY ORDERABLES Fin al Result INTERFACE SYSTEM Refer to clinic/hospital department [facility] CLIA# [id number] [address] [place] [address] * (ABNORMAL) BASIC METABOLIC PANEL (04/28/2008 4:40 AM CDT) CREATININE 0.3(L) 0.7 - 1.2 mg/dL [facility] CALCIUM 9.8 8.4 - 10.5 mg/dL [facility] GLUCOSE 117(H) 70 - 110 mg/dL [facility] CHLORIDE 97 95 - 110 mEq/L [facility] SODIUM 142 136 - 145 mEq/L [facility] ANION GAP 13 9 - 20 mEq/L [facility] BUN 10 7 - 17 mg/dL [facility] CO2 36(H) 22 - 32 mmol/l [facility] OSMOLALITY, CALCULATED 291 275 - 295 mOsm/Kg [facility] POTASSIUM 3.8 3.5 - 5.0 mEq/L [facility] Blood specimen (specimen) 04/28/2008 4:40 AM CDT 04/28/2008 4:54 AM CDT Sachin Torres II, MD CHEMISTRY ORDERABLES Starla l Result Performing Organization Address [facility] Phone Number INTERFACE SYSTEM Refer to clinic/hospital department [facility] CLIA# [id number] [address] [place] [address] * (ABNORMAL) POC GLUCOSE (04/27/2008 9:21 PM CDT) GLUCOSE POC 127(H) 60 - 100 mg/dL [facility] Venous blood specimen (specimen) 04/27/2008 9:21 PM CDT 04/29/2008 8:33 AM CDT Sachin Torres II, MD POINT OF CARE TESTING Fin al Result Performing Organization Address [facility] Phone Number INTERFACE SYSTEM Refer to clinic/hospital department [facility] CLIA# [id number] [address] [place] [address] * (ABNORMAL) POC GLUCOSE (04/27/2008 5:09 PM CDT) COMMENT POC Follow Protocol [facility] GLUCOSE POC 122(H) 60 - 100 mg/dL [facility] Venous blood specimen (specimen) 04/27/2008 5:09 PM CDT 04/29/2008 8:33 AM CDT us Sachin Torres II, MD POINT OF CARE TESTING Fin al Result Performing Organization Address [facility] de Phone Number INTERFACE SYSTEM Refer to clinic/hospital department [facility] CLIA# [id number] [address] [place] [address] * (ABNORMAL) POC GLUCOSE (04/27/2008 11:47 AM CDT) GLUCOSE POC 132(H) 60 - 100 mg/dL [facility] COMMENT POC Follow Protocol [facility] Venous blood specimen (specimen) 04/27/2008 11:47 AM CDT 04/29/2008 8:32 AM CDT us Sachin Torres II, MD POINT OF CARE TESTING Fin al Result Performing Organization Address [facility] de Phone Number INTERFACE SYSTEM Refer to clinic/hospital department [facility] CLIA# [id number] [address] [place] [address] * (ABNORMAL) POC GLUCOSE (04/27/2008 7:11 AM CDT) GLUCOSE POC 145(H) 60 - 100 mg/dL [facility] Venous blood specimen (specimen) 04/27/2008 7:11 AM CDT 04/29/2008 8:46 AM CDT us Sachin Torres II, MD POINT OF CARE TESTING Fin al Result Performing Organization Address [facility] de Phone Number INTERFACE SYSTEM Refer to clinic/hospital department [facility] CLIA# [id number] [address] [place] [address] * XR CHEST PA OR AP (04/27/2008 [...] By: Bronson Mcbride MD Electronically Signed By: Bronosn Mcbride MD Date Signed: 04/28/08 AMA Procedure [...] GLUCOSE POC 150(H) 60 - 100 mg/dL [facility] Venous blood specimen (specimen) 04/26/2008 9:10 PM CDT 04/26/2008 9:33 PM CDT us Sachin Torres II, MD POINT OF CARE TESTING Fin al Result Performing Organization Address [facility] Phone Number INTERFACE SYSTEM Refer to clinic/hospital department [facility] CLIA# [id number] [address] [place] [address] * (ABNORMAL) POC GLUCOSE (04/26/2008 5:04 PM CDT) GLUCOSE POC 143(H) 60 - 100 mg/dL [facility] Venous blood specimen (specimen) 04/26/2008 5:04 PM CDT 04/26/2008 9:32 PM CDT Sachin Torres II, MD POINT OF CARE TESTING Fin al Result Performing Organization Address [facility] Phone Number INTERFACE SYSTEM Refer to clinic/hospital department [facility] CLIA# [id number] [address] [place] [address] * (ABNORMAL) POC GLUCOSE (04/26/2008 12:10 PM CDT) GLUCOSE POC 137(H) 60 - 100 mg/dL [facility] Venous blood specimen (specimen) 04/26/2008 12:10 PM CDT 04/27/2008 2:59 AM CDT Sachin Torres II, MD POINT OF CARE TESTING Fin al Result Performing Organization Address [facility] Phone Number INTERFACE SYSTEM Refer to clinic/hospital department [facility] CLIA# [id number] [address] [place] [address] * XR CHEST PA OR AP (04/26/2008 [...] ANION GAP 12 9 - 20 mEq/L [facility] SODIUM 142 136 - 145 mEq/L [facility] BUN 13 7 - 17 mg/dL [facility] CO2 31 22 - 32 mmol/l [facility] POTASSIUM 4.4 3.5 - 5.0 mEq/L [facility] OSMOLALITY, CALCULATED 295 275 - 295 mOsm/Kg [facility] CREATININE 0.6(L) 0.7 - 1.2 mg/dL [facility] CALCIUM 9.6 8.4 - 10.5 mg/dL [facility] GLUCOSE 152(H) 70 - 110 mg/dL [facility] CHLORIDE 103 95 - 110 mEq/L [facility] Blood specimen (specimen) 04/26/2008 5:25 AM CDT 04/26/2008 6:00 AM CDT Sachin Torres II, MD CHEMISTRY ORDERABLES Starla smith Result INTERFACE SYSTEM Refer to clinic/hospital department [facility] CLIA# [id number] [address] [place] [address] * (ABNORMAL) CBC WITH DIFFERENTIAL (04/26/2008 5:25 AM CDT) HEMATOCRIT 39.8 36.0 - 46.0 % [facility] PLATELETS 343 140 - 440 K/ul [facility] NEUTROPHIL ABSOLUTE 13.9(H) 2.0 - 8.0 K/ul [facility] RBC 4.32 4.20 - 5.40 Mil/ul [facility] MCHC 31.9 30.0 - 35.0 g/dL [facility] LYMPHOCYTES 4.7(L) 24.0 - 44.0 % [facility] MCV 92.1 84.0 - 103.0 Fl [facility] LYMPHOCYTE ABSOLUTE 0.8(L) 1.2 - 4.0 K/ul [facility] MPV 10.9 8.9 - 12.8 Fl [facility] HEMOGLOBIN 12.7 12.0 - 16.0 g/dL [facility] MONOCYTES 12.2(H) 2.0 - 10.0 % [facility] RDW 13.4 11.0 - 14.5 % [facility] WBC 16.7(H) 4.8 - 10.8 K/ul [facility] NEUTROPHILS 83.1(H) 42.2 - 75.2 % [facility] MCH 29.4 27.0 - 34.0 pg [facility] MONOCYTE ABSOLUTE 2.1(H) 0.1 - 0.6 K/ul [facility] Blood specimen (specimen) 04/26/2008 5:25 AM CDT 04/26/2008 6:03 AM CDT us Sachin Torres II, MD HEMATOLOGY ORDERABLES Fin al Result Performing Organization Address [facility] Phone Number INTERFACE SYSTEM Refer to clinic/hospital department [facility] CLIA# [id number] [address] [place] [address] * (ABNORMAL) POC GLUCOSE (04/26/2008 5:24 AM CDT) GLUCOSE POC 156(H) 60 - 100 mg/dL [facility] Venous blood specimen (specimen) 04/26/2008 5:24 AM CDT 04/29/2008 8:30 AM CDT us Sachin Torres II, MD POINT OF CARE TESTING Fin al Result Performing Organization Address [facility] Phone Number INTERFACE SYSTEM Refer to clinic/hospital department [facility] CLIA# [id number] [address] [place] [address] * (ABNORMAL) POC GLUCOSE (04/25/2008 4:41 PM CDT) GLUCOSE POC 140(H) 60 - 100 mg/dL [facility] Venous blood specimen (specimen) 04/25/2008 4:41 PM CDT 04/26/2008 4:36 AM CDT us Sachin Torres II, MD POINT OF CARE TESTING Fin al Result Performing Organization Address [facility] Phone Number INTERFACE SYSTEM Refer to clinic/hospital department [facility] CLIA# [id number] [address] [place] [address] * TYPE AND CROSSMATCH (04/25/2008 3:00 PM CDT) Pathologist [facility] BLOOD BANK PRODUCT INTERFACE SYSTEM Blood specimen (specimen) 04/25/2008 3:00 PM CDT 04/25/2008 3:00 PM CDT Sachin Torres II, MD BLOOD BANK ORDERABLES Fin al Result INTERFACE SYSTEM Refer to clinic/hospital department * PATHOLOGY (04/25/2008 1:33 PM CDT) Pathologist [facility] PATHOLOGY/JUNIOR DAVIDSON REPORT [facility] Anatomic Pathology Dept [address] [facility] [address] Patient: ZOYA CUNNINGHAM Accn No: [id number] Collected: 04/25/2008 1:33:00 PM SURGICAL PATHOLOGY FINAL [...] on filedocumented in this encounter Care Teams Radiological Health Specialist Relationship Specialty Start Date End Date Willie Mahmood MD [address] [phone] PCP - General Family Practice 10/06/17 documented as of this encounter
--- OUTSIDE RECORDS SUMMARY | 2025-02-25 16:08 | XMS_ITS | Encounter Summary ---
Author Organization [facility] Address [address] 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 Gender Identity Not on file Sexual Orientation Not on file documented as of this encounter Plan of Treatment Not on file documented as of this encounter Procedures Procedure Name Priority Date/Time Associated Diagnosis Comments FLOW CYTOMETRY REPORT Routine 03/01/2006 8:42 PM CDT documented in this encounter Results * FLOW CYTOMETRY PANEL (03/01/2006 8:42 PM CDT) [facility] LEUKEMIA/LYMPHOMA EVALUATION Lymph Node INTERFACE SYSTEM CLL COMMENTS INTERFA CE SYSTEM Comment: This test was developed and its performance characteristics determined by [facility] Flow Cytometry Laboratory. It has not [...] on filedocumented in this encounter Care Teams Leaf Fat Scraper Relationship Specialty Start Date End Date Willie Mahmood MD [address] [place] [phone] PCP - General Family Practice 10/06/17 documented as of this encounter
--- OUTSIDE RECORDS SUMMARY | 2025-02-25 16:08 | XMS_ITS | Encounter Summary ---
Author Organization [facility] Address [address] [place] [address] Care Team Providers Care Set Up Mechanic Name Role Phone Willie Mahmood MD Primary Care Provider [phone] Encounter Details Date Type Department Care Team (Late st Contact Info) Description 09/03/2003 Outpatient Historical [facility] Dermat[facility]- 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
--- OUTSIDE RECORDS SUMMARY | 2025-02-25 16:08 | XMS_ITS | Encounter Summary ---
Author Organization [facility] Address [address] [place] [address] Care Team Providers Care Developing Machine Tender Name Role Phone Willie Mahmood MD Primary Care Provider [phone] Encounter Details Date Type Department Care Team (Latest Contact Info) Description 03/11/2008 Outpatient Historical [facility] RADIOLOGY NEUROP Yuridia Lund MD [address] [place] [address] Other Diseases of Lung, not Elsewhere Classified Social History Tobacco Use Types Packs/Day Years Used Date Smoking Tobacco: Never Assessed Comments Unknown Sex and Gender Information Value Date Recorded Sex Assigned at Not on file Legal 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 Date Signed: 03/14/08 [facility] Rogerio Lund MD DIAGNOSTIC IMAGING ORDERABLES Fi nal Result * CT GUIDED BIOPSY (03/12/2008 9:59 AM CDT) Anatomical Region Laterality Modality Other 03/12/2008 9:59 AM CDT Narrative 04/26/2008 1:[address]-guided right lung biopsy 03/12/2008. History: The patient is a 58-year-old white female former smoker with a right lung nodule suspicious for neoplasm. Comparison: There was an outside CT from [place]. The procedure and its risks, benefits, and [...] Comparison: There was an outside CT from [place]. The procedure and its risks, benefits, and [...] (03/12/2008 8:03 AM CDT) PATHOLOGY/CY TOLOGY REPORT [facility] [address] Patient: ZOYA BROWER Accn No: [id number] Collected: 03/12/2008 8:03:00 AM SURGICAL PATHOLOGY FINAL [...] CDT) PTT 25.9 22.5 - 36.5 Secs [facility] Comment: Therapeutic Range: Hi-level PE/DVT heparin protocol 80.1 -95.0 sec Lo-level PE/DVT heparin protocol 67.1 - 80.0 sec Cardiac Heparin Protocol 67.1 - 85.0 sec Neuro Heparin Protocol 67.1 - 80.0 sec As of 09/21/2007 note change in APTT Normal Range. INR 0.9 [facility] Comment: Expected Values for INR: DVT/PE Goal INR 2.5; range 2.0 - 3.0 Valve Replacement Tissue Goal INR 2.5; range 2.0 - 3.0 Mechanical Goal INR 3.0; range 2.5 - 3.5 POST-IL Goal INR 2.5; range 2.0 - 3.0 or Goal 3.0; range 2.5 - 3.5 Atrial Fibrillation Goal INR 2.5; range 2.0 - 3.0 Ischemic Stroke Goal INR 2.5; range 2.0 - 3.0 For additional information see Guidelines for Anticoagulation available from the pharmacy [facility] Esther Soto [phone] PROTIME 13.7 12.8 - 15.8 Secs [facility] Comment:As of 2007 not e change in normal range. Blood specimen (specimen) 03/12/2008 7:05 AM CDT 03/12/2008 7:11 AM CDT S Rogerio Lund MD HEMATOLOGY ORDERABLES Edited Performing Organization Address City/[facility] Co de Phone Number INTERFACE SYSTEM Refer to clinic/hospital department [facility] CLIA# [id number] [address] [place] [address] * PLATELET COUNT (03/12/2008 7:05 AM CDT) PLATELETS 270 140 - 440 K/ul [facility] Blood specimen (specimen) 03/12/2008 7:05 AM CDT 03/12/2008 7:11 AM CDT S Rogerio Lund MD HEMATOLOGY ORDERABLES Final Resu lt INTERFACE SYSTEM Refer to clinic/hospital department [facility] CLIA# [id number] [address] [place] [address] documented in this encounter Visit Diagnoses Diagnosis Other diseases of lung, not elsewhere classified documented in this encounter Care Teams Developing Machine Tender Relationship Specialty Start Date End Date Willie Mahmood MD [address] [phone] PCP - General Family Practice 10/06/17 documented as of this encounter
--- OUTSIDE RECORDS SUMMARY | 2025-02-25 16:08 | XMS_ITS | Encounter Summary ---
Author Organization [facility] Address [address] [place] [address] Care Team Providers Care Forester Aide Name Role Phone Willie Mahmood MD Primary Care Provider +1 [phone] Encounter Details Date Type Department Care Team (Latest Contact Info) Description 08/12/2003 Outpatient Historical [facility] Medicine [place] [address] [address] Martin Dumont DO NO ADDRESS ON FILE OTHER GENERAL SYMPTOMS (Primary Dx); ACTINIC KERATOSIS Social History Tobacco Use Types Packs/Day Years Used Date Smoking Tobacco: Never Assessed Comments Unknown Sex and Gender Information Value Date Recorded Sex Assigned at Not on file 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
--- OUTSIDE RECORDS SUMMARY | 2025-02-25 16:08 | XMS_ITS | Encounter Summary ---
Author Organization [facility] Address [address] [place] [address] Care Team Providers Care Truck Driver'S Offsider Name Role Phone Willie Mahmood MD Primary Care Provider +1 -[phone] Encounter Details Date Type Department Care Team (Late st Contact Info) Description 05/31/2006 Outpatient Historical [facility] Central [address] [place] [address] Marquise Sequeira MD [address] [place] [address] Benign Neoplasm of Skin of Other and Unspecified Parts of Face (Primary Dx) Social History Tobacco Use Types Packs/Day Years Used Date Smoking Tobacco: Never Assessed Comments Unknown Sex and Gender Information Value Date Recorded Sex Assigned at Not on file Legal Sex Female 3: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
--- OUTSIDE RECORDS SUMMARY | 2025-02-25 16:08 | XMS_ITS | Encounter Summary ---
Author Organization [facility] Address [address] [place] [address] Care Team Providers Care Hand Packer/Packager Name Role Phone Willie Mahmood MD Primary Care Provider +1 [phone] Encounter Details Date Type Department Care Team (Latest Contact Info) Description 02/28/2007 Outpatient Historical [facility] Medicine [place] 104 [facility] [address] [place] [address] Martin Dumont DO NO ADDRESS ON FILE Unspecified Myalgia and Myositis (Primary Dx); Generalized Osteoarthrosis, Involving Multiple Sites Social History Tobacco Use Types Packs/Day Years Used Date Smoking Tobacco: Never Assessed Comments Unknown Sex and Gender Information Value Date Recorded Sex Assigned at Not on file Legal Sex Female 3:09 AM 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
--- OUTSIDE RECORDS SUMMARY | 2025-02-25 16:08 | XMS_ITS | Encounter Summary ---
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) Social History Tobacco Use Types Packs/Day Years Used Date Smoking Tobacco: Never Assessed Comments Unknown Sex and Gender Information Value Date Recorded Sex Assigned at Not on file Legal Sex Female 3:09 AM ENGINE REPAIRER PRODUCTION Gender Identity Not on file Sexual Orientation Not on file documented as of this encounter Plan of Treatment Not on file documented as of this encounter Visit Diagnoses Diagnosis Benign neoplasm of skin of lip- Primary documented in this encounter Care Teams Scan Coordinator Relationship Specialty Start Date End Date Willie Mahmood MD [address] [facility] [place] [address] PCP - General Family Practice 10/06/17 documented as of this encounter
--- OUTSIDE RECORDS SUMMARY | 2025-02-25 16:08 | XMS_ITS | Encounter Summary ---
Author Organization [facility] Address [address] [place] [address] Care Team Providers Care Heating Element Repairer Name Role Phone Willie Mahmood MD Primary Care Provider +1 -[phone] Encounter Details Date Type Department Care Team (Latest Contact Info) Description 11/01/2005 Outpatient Historical [facility] Medicine [place] [address] [address] Martin Dumont DO NO ADDRESS ON FILE Local Superficial Swellng (Primary Dx); Unspecified Hypothyroidism; Other and Unspecified Hyperlipidemia; Encounter for Long-Term (Current) Use of Other Medications Social History Tobacco Use Types Packs/Day Years Used Date Smoking Tobacco: Never Assessed Comments Unknown Sex and Gender Information Value Date Recorded Sex Assigned at Not on file Legal Sex Female 3:09 AM WELDER MANUFACTURE Gender Identity Not on file Sexual Orientation Not on file documented as of this encounter Plan of Treatment Not on file documented as of this encounter Visit Diagnoses Diagnosis Local superficial swellng- Primary Localized superficial swelling, mass, or lump Unspecified hypothyroidism Other and unspecified hyperlipidemia Encounter for long-term (current) use of other medications documented in this encounter Care Teams Heating Element Repairer Relationship Specialty Start Date End Date Willie Mahmood MD [address] [address] PCP - General Family Practice 10/06/17 documented as of this encounter
--- OUTSIDE RECORDS SUMMARY | 2025-02-25 16:08 | XMS_ITS | Encounter Summary ---
Author Organization [facility] Address [address] [place] [address] Care Team Providers Care Gis Software Engineer Name Role Phone Willie Mahmood MD Primary Care Provider +1 -[phone] Encounter Details Date Type Department Care Team (Latest Contact Info) Description 07/20/1999 Outpatient Historical [facility] Medicine [place] [address] [address] Martin Dumont DO NO ADDRESS ON FILE Unspecified hypothyroidism (Primary Dx); Headache(784.0) Social History Tobacco Use Types Packs/Day Years Used Date Smoking Tobacco: Never Assessed Comments Unknown Sex and Gender Information Value Date Recorded Sex Assigned at Not on file Legal Sex Female 3:09 AM DIESEL PILE HAMMER OPERATOR Gender Identity Not on file Sexual Orientation Not on file documented as of this encounter Plan of Treatment Not on file documented as of this encounter Visit Diagnoses Diagnosis Unspecified hypothyroidism- Primary Headache(784.0) Headache documented in this encounter Care Teams Gis Software Engineer Relationship Specialty Start Date End Date Willie Mahmood MD [address] [address] PCP - General Family Practice 10/06/17 documented as of this encounter
--- OUTSIDE RECORDS SUMMARY | 2025-02-25 16:08 | XMS_ITS | Encounter Summary ---
Author Organization [facility] Address [address] [place] [address] Care Team Providers Care Dockworker Name Role Phone Willie Mahmood MD Primary Care Provider +1 [phone] Encounter Details Date Type Department Care Team (Latest Contact Info) Description 08/03/2004 Outpatient Historical [facility] Medicine [place] [address] [address] Pradeep Kramer MD [address] [facility] [address] [place] [address] OTHER LUNG DISEASE NEC (Primary Dx) Social History Tobacco Use Types Packs/Day Years Used Date Smoking Tobacco: Never Assessed Comments Unknown Sex and Gender Information Value Date Recorded Sex Assigned at Not on file Legal Sex Female 3:09 AM DATA WAREHOUSE DEVELOPER Gender Identity Not on file Sexual Orientation Not on file documented as of this encounter Plan of Treatment Not on file documented as of this encounter Visit Diagnoses Diagnosis Other diseases of lung, not elsewhere classified- Primary documented in this encounter Care Teams Dockworker Relationship Specialty Start Date End Date Willie Mahmood MD [address] [address] PCP - General Family Practice 10/06/17 documented as of this encounter
--- OUTSIDE RECORDS SUMMARY | 2025-02-25 16:08 | XMS_ITS | Encounter Summary ---
Author Organization [facility] Address [address] [place] [address] Care Team Providers Care Bridge Worker Apprentice Name Role Phone Willie Mahmood MD Primary Care Provider +1 -[phone] Encounter Details Date Type Department Care Team (Late st Contact Info) Description 02/25/2025 Orders Only [facility]3] Family Medicine [place] [address] [address] Ana Awan, [facility] [address] [address] Urinary tract infection without hematuria, site unspecified (Primary Dx) Social History Tobacco Use Types [...] often do you attend chur ch or jewish services? Never 06/09/2020 Do you belong to any clubs o r organizations such as confucianist groups, unions, fraternal or athletic groups, or [...] worry about transportation for future doctor visits, sampler pickup medication, etc.? No 2024 Housing Stability Answer [...] on file Legal Sex Female 5:37 AM BLACK POWDER GLAZING OPERATOR Gender Identity Not on file Sexual Orientation Not on file documented as of this encounter Plan of Treatment Upcoming Encounters Date Type Department Care Team (Late st Contact Info) Description 02/26/2025 2:15 PM CDT Office Visit [facility]3] Supportive Care [facility] [address] [place] [address] Esthela Arenas NP [address] [facility] [address] [place] [address] 03/14/2025 9:00 AM CDT Office Visit [facility]3] Family Medicine [place] [address] [place] [address] Willie Mahmood MD [address] [place] [address] 04/16/2025 9:00 AM CDT Appointment [facility] CT Scan [place] [address] [place] [address] Brandi Kim NP [address] [place] [address] 08/29/2025 10:15 AM BLACK POWDER GLAZING OPERATOR Appointment [facility] Neurology [facility] [address] [place] [address] Gadiel Shearer MD [address] [place] [address] documented as of this encounter Visit Diagnoses Diagnosis Urinary tract infection without hematuria, site unspecified- Primary documented in this encounter Care Teams Bridge Worker Apprentice Relationship Specialty Start Date End Date Willie Mahmood MD [address] [place] [address] PCP - General Family Practice 10/06/17 documented as of this encounter
--- OUTSIDE RECORDS SUMMARY | 2025-02-25 16:08 | XMS_ITS | Encounter Summary ---
Author Organization [facility] Address [address] [place] [address] Care Team Providers Care Display Mechanic Name Role Phone Willie Mahmood MD Primary Care Provider +1 -[phone] Encounter Details Date Type Department Care Team (Latest Contact Info) Description 12/23/2000 Outpatient Historical [facility] [address] [place] [address] Martin Dumont DO NO ADDRESS ON FILE Spotted fevers (Primary Dx) Social History Tobacco Use Types Packs/Day Years Used Date Smoking Tobacco: Never Assessed Comments Unknown Sex and Gender Information Value Date Recorded Sex Assigned at Not on file Legal Sex Female 3:09 AM HELMET HAT SWEATBAND PUNCHER Gender Identity Not on file Sexual Orientation Not on file documented as of this encounter Plan of Treatment Not on file documented as of this encounter Visit Diagnoses Diagnosis Spotted fevers- Primary documented in this encounter Care Teams Display Mechanic Relationship Specialty Start Date End Date Willie Mahmood MD [address] [facility] [address] [place] [address] PCP - General Family Practice 10/06/17 documented as of this encounter
--- OUTSIDE RECORDS SUMMARY | 2025-02-25 16:08 | XMS_ITS | Encounter Summary ---
Author Organization [facility] Address [address] [place] [address] Care Team Providers Care Field Pipe Lines Supervisor Name Role Phone Willie Mahmood MD Primary Care Provider +1 -[phone] Encounter Details Date Type Department Care Team (Late st Contact Info) Description 07/06/2007 Outpatient Historical [facility] Dermatology- [address] [place] [address] [place] [address] Marquise Sequeira MD [address] [place] [address] Social History Tobacco Use Types Packs/Day Years Used Date Smoking Tobacco: Never Assessed Comments Unknown Sex and Gender Information Value Date Recorded Sex Assigned at Not on file Legal Sex Female 3:09 AM FOOD SERVICE COUNTER CLERK Gender Identity Not on file Sexual Orientation Not on file documented as of this encounter Plan of Treatment Not on file documented as of this encounter Visit Diagnoses Not on filedocumented in this encounter Care Teams Field Pipe Lines Supervisor Relationship Specialty Start Date End Date Willie Mahmood MD [address] [place] [address] PCP - General Family Practice 10/06/17 documented as of this encounter
--- OUTSIDE RECORDS SUMMARY | 2025-02-25 16:08 | XMS_ITS | Encounter Summary ---
Author Organization [facility] Address [address] [place] [address] Care Team Providers Care Internal Affairs Investigator Name Role Phone Willie Mahmood MD Primary Care Provider +1 -[phone] Encounter Details Date Type Department Care Team (Late st Contact Info) Description 10/15/2002 Outpatient Historical [facility] Medicine [place] [address] [address] Martin Dumont, NO ADDRESS ON FILE Social History Tobacco Use Types Packs/Day Years Used Date Smoking Tobacco: Never Assessed Comments Unknown Sex and Gender Information Value Date Recorded Sex Assigned at Not on file Legal Sex Female 3:09 AM PUBLIC HEALTH CLINICAL NURSE SPECIALIST Gender Identity Not on file Sexual Orientation Not on file documented as of this encounter Plan of Treatment Not on file documented as of this encounter Visit Diagnoses Not on filedocumented in this encounter Care Teams Internal Affairs Investigator Relationship Specialty Start Date End Date Willie Mahmood MD [address] [address] PCP - General Family Practice 10/06/17 documented as of this encounter
--- OUTSIDE RECORDS SUMMARY | 2025-02-25 16:08 | XMS_ITS | Encounter Summary ---
Author Organization [facility] Address [address] [place] [address] Care Team Providers Care Bit Grinder Name Role Phone Willie Mahmood MD Primary Care Provider +1 -[phone] Encounter Details Date Type Department Care Team (Late st Contact Info) Description 10/15/2002 Outpatient Historical [facility] Medicine [place] [address] [address] Martin Dumont, NO ADDRESS ON FILE Social History Tobacco Use Types Packs/Day Years Used Date Smoking Tobacco: Never Assessed Comments Unknown Sex and Gender Information Value Date Recorded Sex Assigned at Not on file Legal Sex Female 3:09 AM FORECLOSURE PARALEGAL Gender Identity Not on file Sexual Orientation Not on file documented as of this encounter Plan of Treatment Not on file documented as of this encounter Visit Diagnoses Not on filedocumented in this encounter Care Teams Bit Grinder Relationship Specialty Start Date End Date Willie Mahmood MD [address] [address] PCP - General Family Practice 10/06/17 documented as of this encounter
--- OUTSIDE RECORDS SUMMARY | 2025-02-25 16:08 | XMS_ITS | Encounter Summary ---
Author Organization [facility] Address [address] [place] [address] Care Team Providers Care Solar Field Installation Crew Member Name Role Phone Willie Mahmood MD Primary Care Provider +1 -[phone] Encounter Details Date Type Department Care Team (Latest Contact Info) Description 09/01/2004 Outpatient Historical [facility] [address] [place] [address] Ed Armstrong MD NO ADDRESS ON FILE OTHER LUNG DISEASE NEC (Primary Dx) Social History Tobacco Use Types Packs/Day Years Used Date Smoking Tobacco: Never Assessed Comments Unknown Sex and Gender Information Value Date Recorded Sex Assigned at Not on file Legal Sex Female 3:09 AM FIELD MARKETING LEAD Gender Identity Not on file Sexual Orientation Not on file documented as of this encounter Plan of Treatment Not on file documented as of this encounter Visit Diagnoses Diagnosis Other diseases of lung, not elsewhere classified- Primary documented in this encounter Care Teams Solar Field Installation Crew Member Relationship Specialty Start Date End Date Willie Mahmood MD [address] [place] [address] PCP - General Family Practice 10/06/17 documented as of this encounter
--- OUTSIDE RECORDS SUMMARY | 2025-02-25 16:08 | XMS_ITS | Encounter Summary ---
Author Organization [facility] Address [address] [place] [address] Care Team Providers Care Water Gas Operator Name Role Phone Willie Mahmood MD Primary Care Provider +1 -[phone] Encounter Details Date Type Department Care Team (Latest Contact Info) Description 08/15/2006 Outpatient Historical [facility] Medicine [place] [address] [address] Martin Dumont DO NO ADDRESS ON FILE Abnormal Weight Gain (Primary Dx); Unspecified Essential Hypertension; Other and Unspecified Hyperlipidemia Social History Tobacco Use Types Packs/Day Years Used Date Smoking Tobacco: Never Assessed Comments Unknown Sex and Gender Information Value Date Recorded Sex Assigned at Not on file Legal Sex Female 3:09 AM INVENTORY MANAGER Gender Identity Not on file Sexual Orientation Not on file documented as of this encounter Plan of Treatment Not on file documented as of this encounter Visit Diagnoses Diagnosis Abnormal weight gain- Primary Unspecified essential hypertension Other and unspecified hyperlipidemia documented in this encounter Care Teams Water Gas Operator Relationship Specialty Start Date End Date Willie Mahmood MD [address] [address] PCP - General Family Practice 10/06/17 documented as of this encounter
--- OUTSIDE RECORDS SUMMARY | 2025-02-25 16:08 | XMS_ITS | Encounter Summary ---
Author Organization [facility] Address [address] [place] [address] Care Team Providers Care Policy Services Representative Name Role Phone Willie Mahmood MD Primary Care Provider +1 -[phone] Encounter Details Date Type Department Care Team (Late st Contact Info) Description 09/06/2005 Outpatient Historical [facility] Dermatology- [address] [place] [address] [place] [address] Marquise Sequeira MD [address] [place] [address] Benign Serge Skin Lip (Primary Dx); Benign Serge Skin Trunk; Malig Serge Skin Face NEC Social History Tobacco Use Types Packs/Day Years Used Date Smoking Tobacco: Never Assessed Comments Unknown Sex and Gender Information Value Date Recorded Sex Assigned at Not on file Legal Sex Female 3:09 AM CHICKEN BONER Gender Identity Not on file Sexual Orientation [...] face documented in this encounter Care Teams Policy Services Representative Relationship Specialty Start Date End Date Willie Mahmood MD [address] [facility] [place] [address] PCP - General Family Practice 10/06/17 documented as of this encounter
--- OUTSIDE RECORDS SUMMARY | 2025-02-25 16:08 | XMS_ITS | Encounter Summary ---
Author Organization [facility] Address [address] [place] [address] Care Team Providers Care Esl Tutor Name Role Phone Willie Mahmood MD Primary Care Provider +1 -[phone] Encounter Details Date Type Department Care Team (Latest Contact Info) Description 02/13/2007 Outpatient Historical [facility] Medicine [place] [address] [address] Martin Dumont DO NO ADDRESS ON FILE Unspecified Hypothyroidism (Primary Dx); Other and Unspecified Hyperlipidemia Social History Tobacco Use Types Packs/Day Years Used Date Smoking Tobacco: Never Assessed Comments Unknown Sex and Gender Information Value Date Recorded Sex Assigned at Not on file Legal Sex Female 3:09 AM MOLECULAR BIOLOGY DIRECTOR Gender Identity Not on file Sexual Orientation Not on file documented as of this encounter Plan of Treatment Not on file documented as of this encounter Visit Diagnoses Diagnosis Unspecified hypothyroidism- Primary Other and unspecified hyperlipidemia documented in this encounter Care Teams Esl Tutor Relationship Specialty Start Date End Date Willie Mahmood MD [address] [address] PCP - General Family Practice 10/06/17 documented as of this encounter
--- OUTSIDE RECORDS SUMMARY | 2025-02-25 16:08 | XMS_ITS | Encounter Summary ---
Author Organization [facility] Address [address] [place] [address] Care Team Providers Care Digital Solutions Architect Name Role Phone Willie Mahmood MD Primary Care Provider +1 -[phone] Encounter Details Date Type Department Care Team (Latest Contact Info) Description 03/01/[address] [facility] General Surgery [place] [address] [address] [address] [place] [address] Giuseppe Martinez MD [address] [place] [address], [address] [place], [place] [address] Enlargement of Lymph Nodes (Primary Dx) Social History Tobacco Use Types Packs/Day Years Used Date Smoking Tobacco: Never Assessed Comments Unknown Sex and Gender Information Value Date Recorded Sex Assigned at Not on file Legal Sex Female 3:09 AM SUPERVISOR COOK HOUSE Gender Identity Not on file Sexual Orientation Not on file documented as of this encounter Plan of Treatment Not on file documented as of this encounter Visit Diagnoses Diagnosis Enlargement of lymph nodes- Primary documented in this encounter Care Teams Digital Solutions Architect Relationship Specialty Start Date End Date Willie Mahmood MD [address] [facility] [address] [place] [address] PCP - General Family Practice 10/06/17 documented as of this encounter
--- OUTSIDE RECORDS SUMMARY | 2025-02-25 16:08 | XMS_ITS | Encounter Summary ---
Author Organization [facility] Address [address] [place] [address] Care Team Providers Care Derrick Boat Captain Name Role Phone Willie Mahmood MD Primary Care Provider +1 [phone] Encounter Details Date Type Department Care Team (Latest Contact Info) Description 07/06/1999 Outpatient Historical [facility] Medicine [place] [address] [address] Martin Dumont DO NO ADDRESS ON FILE Need vaccination-viral disease (Primary Dx) Social History Tobacco Use Types Packs/Day Years Used Date Smoking Tobacco: Never Assessed Comments Unknown Sex and Gender Information Value Date Recorded Sex Assigned at Not on file Legal Sex Female 3:09 AM DISTRIBUTION CENTER MANAGER Gender Identity Not on file Sexual Orientation Not on file documented as of this encounter Plan of Treatment Not on file documented as of this encounter Visit Diagnoses Diagnosis Need vaccination-viral disease- Primary Need for prophylactic vaccination and inoculation against other viral diseases documented in this encounter Care Teams Derrick Boat Captain Relationship Specialty Start Date End Date Willie Mahmood MD [address] [address] PCP - General Family Practice 10/06/17 documented as of this encounter
--- OUTSIDE RECORDS SUMMARY | 2025-02-25 16:08 | XMS_ITS | Encounter Summary ---
Author Organization [facility] Address [address] [place] [address] Care Team Providers Care Repack Room Worker Name Role Phone Willie Mahmood MD Primary Care Provider +1 -[phone] Encounter Details Date Type Department Care Team (Latest Contact Info) Description 08/02/2005 Outpatient Historical [facility] Medicine [place] [address] [address] Martin Dumont DO NO ADDRESS ON FILE SEBORRHEIC KERATOSIS NOS (Primary Dx); HYPOTHYROIDISM NOS; HEMATURIA Social History Tobacco Use Types Packs/Day Years Used Date Smoking Tobacco: Never Assessed Comments Unknown Sex and Gender Information Value Date Recorded Sex Assigned at Not on file Legal Sex Female 3:09 AM RAW STOCK DRIER TENDER Gender Identity Not on file Sexual Orientation Not on file documented as of this encounter Plan of Treatment Not on file documented as of this encounter Visit Diagnoses Diagnosis Other seborrheic keratosis- Primary Unspecified hypothyroidism Hematuria documented in this encounter Care Teams Repack Room Worker Relationship Specialty Start Date End Date Willie Mahmood MD [facility] [address] [address] PCP - General Family Practice 10/06/17 documented as of this encounter
--- OUTSIDE RECORDS SUMMARY | 2025-02-25 16:08 | XMS_ITS | Encounter Summary ---
Author Organization [facility] Address [address] [place] [address] Care Team Providers Care Insurance Associate Name Role Phone Willie Mahmood MD Primary Care Provider +1 -[phone] Encounter Details Date Type Department Care Team (Latest Contact Info) Description 10/23/2002 Outpatient Historical [facility] General Surgery [address] [address] [address] [place] [address] [place] [address] [facility] [address] [place] [address] GI SYSTEM SYMPTOMS OTHER (Primary Dx) Social History Tobacco Use Types Packs/Day Years Used Date Smoking Tobacco: Never Assessed Comments Unknown Sex and Gender Information Value Date Recorded Sex Assigned at Not on file Legal Sex Female 3:09 AM PERFORMANCE IMPROVEMENT COORDINATOR Gender Identity Not on file Sexual Orientation Not on file documented as of this encounter Plan of Treatment Not on file documented as of this encounter Visit Diagnoses Diagnosis Other symptoms involving digestive system(787.99)- Primary Other symptoms involving digestive system documented in this encounter Care Teams Insurance Associate Relationship Specialty Start Date End Date Willie Mahmood MD [address] [address] PCP - General Family Practice 10/06/17 documented as of this encounter
--- OUTSIDE RECORDS SUMMARY | 2025-02-25 16:08 | XMS_ITS | Encounter Summary ---
Author Organization [facility] Address [address] [place] [address] Care Team Providers Care Automotive Painter Name Role Phone Willie Mahmood MD Primary Care Provider +1 -[phone] Encounter Details Date Type Department Care Team (Late st Contact Info) Description 11/08/2006 Outpatient Historical [facility] [place] [address] Marquise Sequeira MD [address] [place] [address] Inflamed Seborr Keratos (Primary Dx); Neoplasm of Uncertain Behavior of Skin Social History Tobacco Use Types Packs/Day Years Used Date Smoking Tobacco: Never Assessed Comments Unknown Sex and Gender Information Value Date Recorded Sex Assigned at Not on file Legal Sex Female 3:09 AM CREAM GATHERER Gender Identity Not on file Sexual Orientation Not on file documented as of this encounter Plan of Treatment Not on file documented as of this encounter Visit Diagnoses Diagnosis Inflamed seborr keratos- Primary Inflamed seborrheic keratosis Neoplasm of uncertain behavior of skin documented in this encounter Care Teams Automotive Painter Relationship Specialty Start Date End Date Willie Mahmood MD [address] [place] [address] PCP - General Family Practice 10/06/17 documented as of this encounter
--- OUTSIDE RECORDS SUMMARY | 2025-02-25 16:08 | XMS_ITS | Encounter Summary ---
Author Organization [facility] Address [address] [place] [address] Care Team Providers Care Geospatial Technician Name Role Phone Willie Mahmood MD Primary Care Provider +1 [phone] Encounter Details Date Type Department Care Team (Latest Contact Info) Description 01/11/2006 Outpatient Historical [facility] General Surgery [place] [address] [address] [address] [place] [address] Giuseppe Martinez MD [address] [place] [address], [address] [place], [place] [address] Neoplasm of Uncertain Behavior of Skin (Primary Dx); Encounter for Long-Term (Current) Use of Other Medications; Other and Unspecified Hyperlipidemia Social History Tobacco Use Types Packs/Day Years Used Date Smoking Tobacco: Never Assessed Comments Unknown Sex and Gender Information Value Date Recorded Sex Assigned at Not on file Legal Sex Female 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
--- OUTSIDE RECORDS SUMMARY | 2025-02-25 16:08 | XMS_ITS | Encounter Summary ---
Author Organization [facility] Address [address] [place] [address] Care Team Providers Care Meteorology Faculty Member Name Role Phone iWllie Mahmood MD Primary Care Provider +1 [phone] Reason for Referral * Radiology Services (Routine) - Closed Specialty Diagnoses / Procedures Referred By Contac t Referred To Contact Radiology Diagnoses roasterman current use of systemic steroids Procedures XR DEXA BONE DENSITY AXIAL 1 OR MORE SITES Kalpesh Taylor MD [address] [place] [address] Phone: tel: fax: [facility] [address] [facility] [address] [place] [address] Phone: tel: fax: Referral ID Status Reason Start Date Expiration Date V isits Requested Visits Authorized [id number] Closed [facility] View CTS to Schedule (SGF) 02/18/2020 03/20/2021 1 1 Encounter Details Date Type Department Care Team (Late st Contact Info) Description 02/18/2020 Ancillary Orders [facility] Scheduling [address] [address] Kalpesh Taylor MD [address] [place] [address] assisted current use of systemic steroids Social History [...] on file Legal Sex Female 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 Enter Tradier for Select DXA and the Femoral Neck BMD value. Narrative 02/29/2020 7:18 PM CDT Exam: XR DEXA BONE DENSITY AXIAL 1 OR MORE SITES Reason For Exam: See Diagnosis, osteoporosis screening. Diagnosis: assisted current use of systemic steroids Findings: The [...] For Exam: See Diagnosis, osteoporosis screening. Diagnosis: roasterman current use of systemic steroids Findings: The [...] clinical management available online at [email or web address] Enter Tradier for Select DXA and the Femoral Neck BMD value. Kalpesh Taylor MD DIAGNOSTIC IMAGING ORD ERABLES Final Result documented in this encounter Visit Diagnoses Diagnosis roasterman current use of systemic steroids Encounter for long-term (current) use of steroids assisted current use of systemic steroids Encounter for long-term (current) use of steroids documented in this encounter Care Teams Meteorology Faculty Member Relationship Specialty Start Date End Date Willie Mahmood MD [address] [address] PCP - General Family Practice 10/06/17 documented as of this encounter
--- OUTSIDE RECORDS SUMMARY | 2025-02-25 16:08 | XMS_ITS | Encounter Summary ---
Author Organization [facility] Address [address] [place] [address] Care Team Providers Care Meat Puller Name Role Phone Willie Mahmood MD Primary Care Provider +1 [phone] Encounter Details Date Type Department Care Team (Latest Contact Info) Description 02/03/2000 Outpatient Historical [facility] Medicine [place] [address] [address] Martin Dumont DO NO ADDRESS ON FILE Allergic rhinitis due to other allergen (Primary Dx) Social History Tobacco Use Types Packs/Day Years Used Date Smoking Tobacco: Never Assessed Comments Unknown Sex and Gender Information Value Date Recorded Sex Assigned at Not on file 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
--- OUTSIDE RECORDS SUMMARY | 2025-02-25 16:08 | XMS_ITS | Encounter Summary ---
Author Organization [facility] Address [address] [place] [address] Care Team Providers Care Floor Service Worker Spring Name Role Phone Willie Mahmood MD Primary Care Provider +1 -[phone] Encounter Details Date Type Department Care Team (Latest Contact Info) Description 10/03/2001 Outpatient Historical [facility] Medicine [place] [address] [address] Martin Dumont DO NO ADDRESS ON FILE DEPRESSIVE DISORDER NEC (Primary Dx) Social History Tobacco Use Types Packs/Day Years Used Date Smoking Tobacco: Never Assessed Comments Unknown Sex and Gender Information Value Date Recorded Sex Assigned at Not on file Legal Sex Female 3: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
--- OUTSIDE RECORDS SUMMARY | 2025-02-25 16:08 | XMS_ITS | Encounter Summary ---
Author Organization [facility] Address [address] [place] [address] Care Team Providers Care Road Worker Name Role Phone Willie Mahmood MD Primary Care Provider +1 [phone] Encounter Details Date Type Department Care Team (Latest Contact Info) Description 02/07/2006 Outpatient Historical [facility] Medicine [place] [address] [address] Pradeep Livingston MD NO ADDRESS ON FILE Unspecified Otitis Media (Primary Dx) Social History Tobacco Use Types Packs/Day Years Used Date Smoking Tobacco: Never Assessed Comments Unknown Sex and Gender Information Value Date Recorded Sex Assigned at Not on file Legal Sex Female 3:09 AM RESPIRATORY 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
--- OUTSIDE RECORDS SUMMARY | 2025-02-25 16:08 | XMS_ITS | Encounter Summary ---
Author Organization [facility] Address [address] [place] [address] Care Team Providers Care Animal Husbandry Worker Name Role Phone Willie Mahmood MD Primary Care Provider +1 -[phone] Encounter Details Date Type Department Care Team (Latest Contact Info) Description 02/17/2000 Outpatient Historical [facility] Medicine [place] [address] [address] Martin Dumont DO NO ADDRESS ON FILE Unspecified hypothyroidism (Primary Dx) Social History Tobacco Use Types Packs/Day Years Used Date Smoking Tobacco: Never Assessed Comments Unknown Sex and Gender Information Value Date Recorded Sex Assigned at Not on file Legal 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
--- OUTSIDE RECORDS SUMMARY | 2025-02-25 16:08 | XMS_ITS | Encounter Summary ---
Author Organization [facility] Address [address] [place] [address] Care Team Providers Care Line Maintenance Supervisor Name Role Phone Willie Mahmood MD Primary Care Provider +1 -[phone] Encounter Details Date Type Department Care Team (Latest Contact Info) Description 04/09/2008 Outpatient Historical [facility] Nuclear Medicine [address] [place] [address] Eric Gracia MD [address] [place], [place] [address] Malignant Neoplasm of Middle Lobe, Bronchus, or Lung (CMS/HCC) Social History Tobacco Use Types Packs/Day Years Used Date Smoking Tobacco: Never Assessed Comments Unknown Sex and Gender Information Value Date Recorded Sex Assigned at Not on file Legal Sex Female 3:09 AM SUPERVISOR TUMBLERS Gender Identity Not on file Sexual Orientation [...] axial images were obtained prior to and [id number] mL Optiray-240. Findings: Midline structures central. Ventricles nondilated. Parenchymalattenuation normal. No abnormal enhancement or enhancing lesions. Major vascular structures intact. Skullbase and calvaria intact. Mastoid air cells and paranasal sinuses grossly clear. Impression: Unremarkable. - Dictated By: aGrett Saavedra D.O. Electronically Signed By: Garett Saavedra D.O. Date Signed: 04/11/08 SDM Eric Gracia MD CT ORDERABLES Final Result * (ABNORMAL) POC CREATININE (04/10/2008 2:28 PM CDT) CREATININE POC 0.5(L) 0.7 - 1.2 mg/dL [facility] Capillary blood specimen (specimen) 04/10/2008 2:28 PM CDT 04/11/2008 3:50 PM CDT us Eric Gracia MD POINT OF CARE TESTING Final Re sult INTERFACE SYSTEM Refer to clinic/hospital department [facility] CLIA# [id number] [address] [place] [address] * (ABNORMAL) POC GLUCOSE (04/10/2008 2:17 PM CDT) GLUCOSE POC 106(H) 60 - 100 mg/dL [facility] Venous blood specimen (specimen) 04/10/2008 2:17 PM CDT 04/15/2008 7:30 AM CDT us Eric Gracia MD POINT OF CARE TESTING Final Re sult INTERFACE SYSTEM Refer to clinic/hospital department [facility] CLIA# [id number] [address] [place] [address] * PET TUMOR IMG W CT SKL BSE MID THG (04/10/2008 2:10 PM CDT) Anatomical Region Laterality Modality Other 04/10/2008 2:10 PM CDT Narrative 04/10/2008 4:56 PM CDT Radionuclide PET Metabolic Tumor Imaging with CT Attenuation Correction and Anatomic Localization from Skull Base to Mid Thigh: Radiopharmaceutical: [id number] Dose: 11.9 mCi Reason for Consultation: 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
--- OUTSIDE RECORDS SUMMARY | 2025-02-25 16:08 | XMS_ITS | Encounter Summary ---
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
--- OUTSIDE RECORDS SUMMARY | 2025-02-25 16:08 | XMS_ITS | Encounter Summary ---
Author Organization [facility] Address [address] [place] [address] Care Team Providers Care Electrical Power Engineer Name Role Phone Willie Mahmood MD Primary Care Provider +1 -[phone] Encounter Details Date Type Department Care Team (Late st Contact Info) Description 12/26/2006 Outpatient Historical [facility] Dermatology- 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
--- OUTSIDE RECORDS SUMMARY | 2025-02-25 16:08 | XMS_ITS | Encounter Summary ---
Author Organization [facility] Address [address] [place] [address] Care Team Providers Care Senior Living Sales Counselor Name Role Phone Willie Mahmood MD Primary Care Provider +1 -[phone] Encounter Details Date Type Department Care Team (Latest Contact Info) Description 08/30/2006 Outpatient Historical [facility] Medicine [place] [address] [address] Martin Dumont DO NO ADDRESS ON FILE Other and Unspecified Hyperlipidemia (Primary Dx); Unspecified Hypothyroidism Social History Tobacco Use Types Packs/Day Years Used Date Smoking Tobacco: Never Assessed Comments Unknown Sex and Gender Information Value Date Recorded Sex Assigned at Not on file Legal Sex Female 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
--- OUTSIDE RECORDS SUMMARY | 2025-02-25 16:08 | XMS_ITS | Encounter Summary ---
Author Organization [facility] Address [address] [place] [address] Care Team Providers Care Summer Counselor Name Role Phone Willie Mahmood MD Primary Care Provider +1 -[phone] Encounter Details Date Type Department Care Team (Latest Contact Info) Description 02/23/2006 Outpatient Historical [facility] General Surgery [place] [address] [facility] [address] [place] [address] Giuseppe Martinez MD [facility], [address] [place], [place] [address] Neoplasm of Uncertain Behavior of Skin (Primary Dx) Social History Tobacco Use Types Packs/Day Years Used Date Smoking Tobacco: Never Assessed Comments Unknown Sex and Gender Information Value Date Recorded Sex Assigned at Not on file Legal Sex Female 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
--- OUTSIDE RECORDS SUMMARY | 2025-02-25 16:08 | XMS_ITS | Encounter Summary ---
Author Organization [facility] Address [address] [place] [address] Care Team Providers Care Corporate Quality Manager Name Role Phone Willie Mahmood MD Primary Care Provider +1 -[phone] Encounter Details Date Type Department Care Team (Late st Contact Info) Description 08/04/2004 Outpatient Historical [facility] FY Pradeep Kramer MD [address] [facility] [address] [place] [address] Social History Tobacco Use Types Packs/Day Years Used Date Smoking Tobacco: Never Assessed Comments Unknown Sex and Gender Information Value Date Recorded Sex Assigned at Not on file Legal Sex Female 3:09 AM PLATEN BUILDER UP Gender Identity Not on file Sexual Orientation Not on file documented as of this encounter Plan of Treatment Not on file documented as of this encounter Visit Diagnoses Not on filedocumented in this encounter Care Teams Corporate Quality Manager Relationship Specialty Start Date End Date Willie Mahmood MD [address] [place] [address] PCP - General Family Practice 10/06/17 documented as of this encounter
--- OUTSIDE RECORDS SUMMARY | 2025-02-25 16:08 | XMS_ITS | Encounter Summary ---
Author Organization [facility] Address [address] [place] [address] Care Team Providers Care Monotype Setter Name Role Phone Willie Mahmood MD Primary Care Provider +1 [phone] Reason for Visit * Reason Onset Date Comments Results 02/25/2025 Encounter Details Date Type Department Care Team ([facility] st Contact Info) Description 02/25/2025 Results Follow-Up [facility] [place] [address] [address] Ana Awan, [facility] [address] [address] POC URINALYSIS DIPSTICK AUTOMATED, URINE CULTURE Social History Tobacco Use Types Packs/Day Years [...] often do you attend chur ch or holiness services? Never 06/09/2020 Do you belong to any clubs o r organizations such as synagogue groups, unions, fraternal or athletic groups, or [...] on file Legal Sex Female 5:37 AM FORMULATION CHEMIST Gender Identity Not on file Sexual Orientation Not on file documented as of this encounter Miscellaneous Notes * Telephone Encounter - Steph Coker RN - 02/25/2025 1:53 PM CDT 02/25/2025 1:53 PM Called and notified patient of results. Voiced understanding. Steph RN * Telephone Encounter - Steph Coker RN - 02/25/2025 1:52 PM CDT ----- Message from Ana Awan sent at 02/25/2025 1:36 PM CDT ----- Urine did show a UTI, but it is resistant to the abx chosen. Changed to Augmentin which it is sensitive to. ----- Message ----- From: Ashely Liu LPN Sent: 02/21/2025 3:30 PM CDT To: FATIMAH Tanner documented in this encounter Plan of Treatment Upcoming Encounters Date Type Department Care Team (Late st Contact Info) Description 02/26/2025 2:15 PM CDT Office Visit [facility] [address] [phone] Esthela Arenas NP [address] [facility] [address] [place] [address] 03/14/2025 9:00 AM CDT Office Visit [facility] [place] [address] [address] Willie Mahmood MD [address] [address] 04/16/2025 9:00 AM CDT Appointment [facility] CT Scan [place] [address] [phone] Brandi Kim NP [address] [place] [address] 08/29/2025 10:15 AM FORMULATION CHEMIST Appointment [facility] Neurology [facility] [place] [address] [facility] [address] [place] [phone] Gadiel Shearer MD [address] [place] [address] documented as of this encounter Visit Diagnoses Not on filedocumented in this encounter Care Teams Monotype Setter Relationship Specialty Start Date End Date Willie Mahmood MD [address] [place] [address] PCP - General Family Practice 10/06/17 documented as of this encounter
--- OUTSIDE RECORDS SUMMARY | 2025-02-25 16:08 | XMS_ITS | Encounter Summary ---
Author Organization [facility] Address [address] [place] [address] Care Team Providers Care Cleaning Supervisor Name Role Phone Willie Mahmood MD Primary Care Provider +1 [phone] Encounter Details Date Type Department Care Team (Latest Contact Info) Description 03/08/2006 Outpatient Historical [facility] General Surgery [place] [address] [address] [address] [place] [address] Giuseppe Martinez MD [address] [place] [address], [address] [place] [address] Follow-Up Examination, Following Unspecified Surgery (Primary Dx) Social History Tobacco Use Types Packs/Day Years Used Date Smoking Tobacco: Never Assessed Comments Unknown Sex and Gender Information Value Date Recorded Sex Assigned at Not on file Legal Sex Female 3: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
--- OUTSIDE RECORDS SUMMARY | 2025-02-25 16:08 | XMS_ITS | Encounter Summary ---
Author Organization [facility] Address [address] [place] [address] Care Team Providers Care Rental Counter Clerk Name Role Phone Willie Mahmood MD Primary Care Provider [phone] [phone] Encounter Details Date Type Department Care Team (Late st Contact Info) Description 09/04/2007 Outpatient Historical [facility] Medicine [place] [address] [place] [address] Martin Dumont DO NO ADDRESS ON FILE Social History Tobacco Use Types Packs/Day Years Used Date Smoking Tobacco: Never Assessed Comments Unknown Sex and Gender Information Value Date Recorded Sex Assigned at Not on file Legal Sex Female 3:09 AM DIRECTOR OF 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 Steel. NEUROMUSCULAR: [...] with the patient about referring to a state tested nursing assistant. She is concerned about body odor. The patient has seen Colin Garcia M.D. in the past. If she has any chest pain, the patient does need to go to ER for further evaluation and treatment. The patient should follow up in two months or on an as-needed basis. Martin Dumont D.O. [facility] Electronically Signed by Martin Dumont D.O. 09/08/2007 15:40 , Pjimmie Document #: [id number] cc: CTOR OF MANUFACTURING OPERATIONS documented in this encounter Plan of Treatment Not on file documented as of this encounter Visit Diagnoses Not on filedocumented in this encounter Care Teams Rental Counter Clerk Relationship Specialty Start Date End Date Willie Mahmood MD [address] [address] PCP - General Family Practice 10/06/17 documented as of this encounter
--- OUTSIDE RECORDS SUMMARY | 2025-02-25 16:08 | XMS_ITS | Encounter Summary ---
Author Organization [facility] Address [address] [place] [address] Care Team Providers Care Vp Strategy Name Role Phone Willie Mahmood MD Primary Care Provider [phone] [phone] Encounter Details Date Type Department Care Team (Late st Contact Info) Description 01/25/2006 Outpatient Historical [facility] Giuseppe Martinez MD [address] [facility], [address] [place] [address] Social History Tobacco Use Types Packs/Day Years Used Date Smoking Tobacco: Never Assessed Comments Unknown Sex and Gender Information Value Date Recorded Sex Assigned at Not on file Legal Sex Female 3:09 AM DENTURE PACKER Gender Identity Not on file Sexual Orientation [...] on filedocumented in this encounter Care Teams Vp Strategy Relationship Specialty Start Date End Date Willie Mahmood MD [address] [phone] PCP - General Family Practice 10/06/17 documented as of this encounter
--- OUTSIDE RECORDS SUMMARY | 2025-02-25 16:08 | XMS_ITS | Encounter Summary ---
Author Organization [facility] Address [address] [facility] Attn: [place] [address] Care Team Providers Care Oil Rig Driller Name Role Phone Willie Mahmood MD Primary Care Provider [phone] [phone] Encounter Details Date Type Department Care Team (Late st Contact Info) Description 02/20/2008 Outpatient Historical Martin Dumont DO NO ADDRESS ON FILE Social History Tobacco Use Types Packs/Day Years Used Date Smoking Tobacco: Never Assessed Comments Unknown Sex and Gender Information Value Date Recorded Sex Assigned at Not on file Legal Sex 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 Gender Identity Not on file Sexual Orientation Not on file documented as of this encounter Plan of Treatment Not on file documented as of this encounter Procedures Procedure Name Priority Date/Time Associated Diagnosis Comments PATHOLOGY Routine 02/20/2008 6:42 AM CDT documented in this encounter Results * PATHOLOGY (02/20/2008 6:42 AM CDT) PATHOLOGY/CY JOVANIOGY REPORT [facility] Anatomic Pathology Dept [address] [place] [address] Patient: ZOYA BROWER Accn No: [id number] Collected: 02/20/2008 6:42:00 AM CYTOLOGY DAILY RELEASE AND DUPE PRINTER FINAL REPORT - - LINE CREW SUPERVISOR PAP History Specimen Source: vaginal Hysterectomy Last Pap Date: 2003 Specimen Adequacy Satisfactory for interpretation. The smear lacks endocervical or metaplastic cells, consistent with the patient's clinical history. Diagnosis NEGATIVE FOR INTRAEPITHELIAL LESION OR MALIGNANCY. (Previously noted as Within Normal Limits) Saddle And Harness Maker NICHELLE 02/22/08 Completed by: MASOUD HUFFMAN BSCT [...] on filedocumented in this encounter Care Teams Oil Rig Driller Relationship Specialty Start Date End Date Willie Mahmood MD [address] [address] PCP - General Family Practice 10/06/17 documented as of this encounter
--- OUTSIDE RECORDS SUMMARY | 2025-02-25 16:08 | XMS_ITS | Encounter Summary ---
Author Organization [facility] Address [address] [place] [address] Care Team Providers Care Wrap Yarn Sorter Name Role Phone Willie Mahmood MD Primary Care Provider +1 [phone] Encounter Details Date Type Department Care Team (Latest Contact Info) Description 03/23/2005 Outpatient Historical [facility] Medicine [place] [address] [address] Martin Dumont DO NO ADDRESS ON FILE HYPOTHYROIDISM NOS (Primary Dx) Social History Tobacco Use Types Packs/Day Years Used Date Smoking Tobacco: Never Assessed Comments Unknown Sex and Gender Information Value Date Recorded Sex Assigned at Not on file 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
--- OUTSIDE RECORDS SUMMARY | 2025-02-25 16:08 | XMS_ITS | Encounter Summary ---
Author Organization [facility] Address [address] [place] [address] Care Team Providers Care Financial Services Associate Name Role Phone Willie Mahmood MD Primary Care Provider [phone] [phone] Encounter Details Date Type Department Care Team (Late st Contact Info) Description 04/24/2008 Outpatient Historical [facility] [address] [place] [address] Sachin Torres II, MD [address] [place] [address] Social History Tobacco Use Types Packs/Day Years Used Date Smoking Tobacco: Never Assessed Comments Unknown Sex and Gender Information Value Date Recorded Sex Assigned at Not on file Legal 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 Blood specimen (specimen) 04/24/2008 2:45 PM CDT 04/24/2008 2:51 PM CDT Sachin Torres II, MD BLOOD BANK ORDERABLES Fin al Result Performing Organization Address City/[facility] de Phone Number INTERFACE SYSTEM Refer to clinic/hospital department [facility] CLIA# [id number] [address] [place] [address] * ABORH TYPING (04/24/2008 2:45 PM CDT) ABO/RH TYPE A Positive [facility] Blood specimen (specimen) 04/24/2008 2:45 PM CDT 04/24/2008 2:51 PM CDT Sachin Torres II, MD BLOOD BANK ORDERABLES Fin al Result Performing Organization Address [facility] de Phone Number INTERFACE SYSTEM Refer to clinic/hospital department [facility] CLIA# [id number] [address] [place] [address] documented in this encounter Visit Diagnoses Not on filedocumented in this encounter Care Teams Financial Services Associate Relationship Specialty Start Date End Date Willie Mahmood MD [address] [address] PCP - General Family Practice 10/06/17 documented as of this encounter
--- OUTSIDE RECORDS SUMMARY | 2025-02-25 16:08 | XMS_ITS | Encounter Summary ---
Author Organization [facility] Address [address] [place] [address] Care Team Providers Care Assistant Plant Manager Name Role Phone Willie Mahmood MD Primary Care Provider +1 -[phone] Encounter Details Date Type Department Care Team (Late st Contact Info) Description 02/25/2004 Outpatient Historical 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
--- OUTSIDE RECORDS SUMMARY | 2025-02-25 16:08 | XMS_ITS | Encounter Summary ---
Author Organization [facility] Address [address] [place] [address] Care Team Providers Care Vp Of Product Name Role Phone Willie Mahmood MD Primary Care Provider [phone] [phone] Encounter Details Date Type Department Care Team (Latest Contact Info) Description 02/13/2001 Outpatient Historical [facility] Medicine [place] [address] [address] Martin Dumont DO NO ADDRESS ON FILE Gynecologic examination (Primary Dx); Pain in joint, lower leg; Unspecified hypothyroidism; Unspecified essential hypertension Social History Tobacco Use Types Packs/Day Years Used Date Smoking Tobacco: Never Assessed Comments Unknown Sex and Gender Information Value Date Recorded Sex Assigned at Not on file 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
--- OUTSIDE RECORDS SUMMARY | 2025-02-25 16:08 | XMS_ITS | Encounter Summary ---
Author Organization [facility] Address [address] [place] [address] Care Team Providers Care Crm Architect Name Role Phone Willie Mahmood MD Primary Care Provider +1 [phone] Encounter Details Date Type Department Care Team (Latest Contact Info) Description 02/25/2004 Outpatient Historical [facility] [address] [address] Martin Dumont DO NO ADDRESS ON FILE CARDIAC DYSRHYTHMIA NOS (Primary Dx); LUMP OR MASS IN BREAST; Gynecologic examination; SCREENING MAL NEOP-RECTUM Social History Tobacco Use Types Packs/Day Years Used Date Smoking Tobacco: Never Assessed Comments Unknown Sex and Gender Information Value Date Recorded Sex Assigned at Not on file Legal 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
--- OUTSIDE RECORDS SUMMARY | 2025-02-25 16:08 | XMS_ITS | Encounter Summary ---
Author Organization [facility] Address [address] [place] [address] Care Team Providers Care Securities Attorney Name Role Phone Willie Mahmood MD Primary Care Provider [phone] [phone] Encounter Details Date Type Department Care Team (Late st Contact Info) Description 05/01/2004 Outpatient Historical [facility] FY06 Martin Dumont, NO ADDRESS ON FILE Social History Tobacco Use Types Packs/Day Years Used Date Smoking Tobacco: Never Assessed Comments Unknown Sex and Gender Information Value Date Recorded Sex Assigned at Not on file Legal 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
--- OUTSIDE RECORDS SUMMARY | 2025-02-25 16:08 | XMS_ITS | Encounter Summary ---
Author Organization [facility] Address [address] [place] [address] Care Team Providers Care Maintenance Plumber Name Role Phone Willie Mahmood MD Primary Care Provider +1 -[phone] Encounter Details Date Type Department Care Team (Latest Contact Info) Description 10/15/2002 Outpatient Historical [facility] Medicine [place] [address] [address] Martin Dumont DO NO ADDRESS ON FILE ALLERGIC RHINITIS NOS (Primary Dx); Gynecologic examination; HYPOTHYROIDISM NOS; SCREENING MAL NEOP-RECTUM Social History Tobacco Use Types Packs/Day Years Used Date Smoking Tobacco: Never Assessed Comments Unknown Sex and Gender Information Value Date Recorded Sex Assigned at Not on file Legal Sex Female 3: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
--- NOTE | 2025-02-25 16:09 | MRR_ITS ---
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 Exam focused on the internal auditory canals. COMPARISON: CT head wo con* [id number] 02/25/2025 12:18 PM FINDINGS: Brain: Age-appropriate parenchymal volume loss. Mild periventricular and subcortical white matter FLAIR hyperintensities compatible with chronic microvascular ischemic change. No restricted diffusion. No acute intracranial hemorrhage, mass effect or midline shift. The cerebral pontine angles are within normal limits. No mass lesion identified. Cerebral ventricles: No ventriculomegaly. Mastoid air cells: Unremarkable. No effusions. Internal auditory canals: No mass lesion identified. 7th and 8th cranial nerves are unremarkable. No abnormal masses. The internal ear structures are unremarkable. Bones: Unremarkable. MR/MR head wo/w con [id number] IMPRESSION: 1. No acute intracranial findings. 2. No abnormal enhancement, mass effect or midline shift.
--- NOTE | 2025-02-25 16:20 | W.ED.EYEPROB ---
HPI - Eye Problem General: Chief complaint: Eye Problems Stated complaint: blood work for eye center Time Seen by Provider: 02/25/25 16:09 History of Present Illness: 75-year-old female presents to the emergency room with complaint of double vision. We have seen her earlier and referred her to ophthalmology had discussed with them and discharged her directly to their clinic. Dr. Chatman called back he was concerned she may actually have a 3rd nerve palsy. Reviewing the literature there is concern of aneurysm causing this or ischemia. Patient still has lateral deviation of her right eye. Her exam is otherwise unchanged pupil is spared. Repeat testing of her iris for double vision resolves when either eye is covered. She has difficulty with extraocular movements particularly adduction of the right eye. Associated symptoms: Denies fever(s) or neck pain Related Data Home Medications ?Medication ?Instructions ?Recorded ?Confirmed ascorbic acid (vitamin C) 1,000 mg 1,000 mg PO DAILY 07/11/19 02/25/25 tablet cyanocobalamin (vitamin B-12) 2,500 mcg PO DAILY 07/11/19 02/25/25 2,500 mcg tablet ferrous sulfate 324 mg (65 mg 324 mg PO DAILY 07/11/19 02/25/25 iron) tablet,delayed release Held on 08/01/24. Instructions: Resume on 08/07/24. oxygen-air delivery systems ##1 11/14/19 02/25/25 ozeavllskc-oysiipsvirwbm-qjjmwjut 1 tab PO Q4H PRN migraine 10/21/20 02/25/25 50 mg-325 mg-40 mg tablet cholecalciferol (vitamin D3) 250 250 mcg PO DAILY 01/07/21 02/25/25 mcg (10,000 unit) capsule acyclovir 800 mg tablet 400 mg PO DAILY 08/25/23 02/25/25 levothyroxine 300 mcg tablet 300 mcg PO DAILY 05/17/24 02/25/25 naproxen 500 mg tablet 500 mg PO DAILY 07/30/24 02/25/25 oxycodone-acetaminophen 10 mg-325 1 tab PO Q4H PRN Pain 07/30/24 02/25/25 mg tablet buprenorphine 20 mcg/hour weekly 1 patch transdermal Q7D 02/25/25 02/25/25 transdermal patch (Butrans) digoxin 125 mcg (0.125 mg) tablet See Rx Instructions .Route .COMPLEX 02/25/25 02/25/25 nitrofurantoin 100 mg PO BID 02/25/25 02/25/25 monohydrate/macrocrystals 100 mg capsule Previous Rx's ?Medication ?Instructions ?Recorded apixaban 5 mg tablet (Eliquis) 5 mg PO BID #180 tabs 08/27/24 simvastatin 40 mg tablet 40 mg PO QPM #90 tabs 08/27/24 celecoxib 200 mg capsule (Celebrex) 200 mg PO BID #180 caps 09/25/24 omeprazole 40 mg capsule,delayed 40 mg PO DAILY #90 caps 09/25/24 release pregabalin 150 mg capsule (Lyrica) 150 mg PO BID #180 caps 09/25/24 donepezil 10 mg tablet See Rx Instructions .Route 12/13/24 .COMPLEX #90 tabs duloxetine 60 mg capsule,delayed See Rx Instructions .Route BID 90 12/13/24 release days #180 caps eszopiclone 3 mg tablet (Lunesta) 3 mg PO BEDTIME PRN insomnia #30 12/13/24 tabs lamotrigine 200 mg tablet See Rx Instructions .Route 12/13/24 .COMPLEX #180 tabs lorazepam 1 mg tablet 1 - 2 mg (1 - 2 x 1 mg) PO BID PRN 12/13/24 anxiety and insomnia 30 days #90 tabs memantine 28 mg capsule See Rx Instructions .Route 12/13/24 sprinkle,extended release 24hr .COMPLEX #90 caps prazosin 1 mg capsule 1 mg PO .at bedtime PRN nightmares 12/13/24 #90 caps sulfasalazine 500 mg tablet See Rx Instructions .Route 12/13/24 .COMPLEX #360 tabs prednisone 5 mg tablet 5 mg PO DAILY joint pain #90 tabs 12/24/24 Allergies Allergy/AdvReac Type Severity Reaction Status Date / Time Tetanus Vaccines and Toxoid AdvReac Severe FEVER,MITRAL Verified 02/25/25 10:22 VALVE PROLAPSE Review of Systems Const: Reports: fatigue; Denies: fever(s) or chills Eyes: Reports: change in vision and other (Diplopia) Card: Denies: chest pain Resp: Denies: dyspnea GI: Denies: abdominal pain : Denies: dysuria, urinary frequency or urinary urgency Musc: Denies: neck pain or back pain Skin/Breast: Denies: rash PFSH ED PFSH: Medical History Chronic use of benzodiazepine for therapeutic purpose Fracture of fifth metatarsal bone of right foot Psychiatric care Generalized anxiety disorder Insomnia Aortic valve stenosis COPD (chronic obstructive pulmonary disease) Chronic steroid use Immunization counseling Adenocarcinoma of right lung, 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, status post right middle and upper lobectomy in April 2008, -treated with adjuvant chemotherapy, four cycles of carboplatin and Taxol completed in August 2008 High risk medication use Encounter for immunization Seronegative rheumatoid arthritis of both hands Near syncope Dementia in other diseases classified elsewhere without behavioral disturbance Bipolar 2 disorder Pulmonary fibrosis COPD (chronic obstructive pulmonary disease) Osteoarthritis of knees, bilateral Greater trochanteric bursitis of both hips Inflammatory arthritis Atrial fibrillation Anticoagulated with apixaban Hyperlipemia Valvular heart disease Mitral valve disease Arrhythmia Hypertension Peripheral neuropathy Fibromyalgia Surgical History History of lung surgery H/O: hysterectomy H/O breast biopsy Family History Mother CAD (coronary artery disease) Cancer Stroke Sister Diabetes Father Lung disease Denies family history of Clotting disorder Dementia Chronic kidney disease (CKD) Suicide Anesthesia complication Bleeding disorder Social History Smoking and tobacco/nicotine status: former use of tobacco/nicotine Quit status (tobacco/nicotine): has quit using Year quit tobacco: 2003 Alcohol intake: never Substance/Drug Use: never Physical Exam Const: COMMON NORMALS: no acute distress GENERAL APPEARANCE: cooperative and comfortable ORIENTATION/CONSCIOUSNESS: Yes awake, Yes oriented to person, Yes oriented to place and Yes oriented to time HENMT: COMMON NORMALS: normocephalic, atraumatic and hearing grossly normal bilaterally HEAD & SCALP: normocephalic and atraumatic Eye: OTHER: Pupil reactive in the right eye. Exotropic strabismus with slight downward gaze as well. Sclera and conjunctiva clear Resp: COMMON NORMALS: normal respiratory effort, No retractions, No use of accessory muscles and clear to auscultation bilaterally AUSCULTATION: clear to auscultation bilaterally Cardio: COMMON NORMALS: regular rate, regular rhythm and No murmurs present (Cardio) RATE: regular rate RHYTHM: regular rhythm Extremity: COMMON NORMALS: normal to inspection, capillary refill normal, no clubbing, cyanosis or edema, no calf tenderness and no pedal edema Neuro: SENSORIUM/ORIENTATION: Yes oriented to person, Yes oriented to place and Yes oriented to time Skin: COMMON NORMALS: no rashes or lesions noted GENERAL SKIN EXAM: no rashes or lesions noted Course Vital Signs: Vital signs: Vital Signs Temperature 98.4 F 02/25/25 16:05 Pulse Rate 75 02/25/25 16:05 Respiratory Rate 17 02/25/25 16:05 Blood Pressure 156/81 02/25/25 16:05 Pulse Oximetry 98 02/25/25 16:05 Oxygen Delivery Me thod Nasal Cannula 02/25/25 16:05 Oxygen Flow Rate 2 02/25/25 16:05 MDM - Eye Problem Medical Decision Making Discussed with Dr. Starks prior to imaging he recommended MRI with and without in the setting of the patient's current symptoms. MRI is unremarkable. Discussed with Dr. Johansen she will see her later this week. There is no signs of ischemia on the MRI with and without. Discussed with Dr. Johansen after the MRI is resulted she did not recommend any further treatment this time. Continue eye patching. Medical Records I reviewed the patient's medical records. Lab Data I reviewed the patient's lab results. Radiology Impressions Head MRI 02/25/25 16:09 IMPRESSION: 1. No acute intracranial findings. 2. No abnormal enhancement, mass effect or midline shift. Laboratory Results ESR 14 mm/hr (0-15) 02/25/25 10:53 C-Reactive Protein 6.3 mg/L (0.0-4.9) H 02/25/25 10:53 All radiology interpretation(s) finalized by discharge Discharge Plan Discharge Patient Disposition: Home Clinical Impression: Cranial nerve III palsy Condition: Stable Prescriptions: No Action cyanocobalamin (vitamin B-12) 2,500 mcg tablet 2,500 mcg PO DAILY ferrous sulfate 324 mg (65 mg iron) tablet,delayed release (DR/EC) 324 mg PO DAILY ascorbic acid (vitamin C) 1,000 mg tablet 1,000 mg PO DAILY (DME) oxygen-air delivery systems Device See Rx Instructions .ROUTE .MEDSUPPLY Qty: 1 Rx Instructions: As directed 3 liters yhsxzhrckg-suabhgsirwxgo-jcqn 50-325-40 mg tablet 1 tab PO Q4H PRN (Reason: migraine) cholecalciferol (vitamin D3) 250 mcg (10,000 unit) capsule 250 mcg PO DAILY celecoxib [Celebrex] 200 mg capsule 200 mg PO BID Qty: 180 1RF omeprazole 40 mg capsule,delayed release(DR/EC) 40 mg PO DAILY Qty: 90 1RF pregabalin [Lyrica] 150 mg capsule 150 mg PO BID Qty: 180 1RF donepezil 10 mg tablet See Rx Instructions .ROUTE .COMPLEX Qty: 90 1RF Dose Instruction: TAKE 1 TABLET BY MOUTH DAILY AT BEDTIME Rx Instructions: TAKE 1 TABLET BY MOUTH DAILY AT BEDTIME duloxetine 60 mg capsule,delayed release(DR/EC) See Rx Instructions .ROUTE BID 90 Days Qty: 180 1RF Dose Instruction: TAKE 1 CAPSULE BY MOUTH EVERY MORNING Rx Instructions: TAKE 1 CAPSULE BY MOUTH twice a day; eszopiclone [Lunesta] 3 mg tablet 3 mg PO BEDTIME PRN (Reason: insomnia) Qty: 30 5RF lamotrigine 200 mg tablet See Rx Instructions .ROUTE .COMPLEX Qty: 180 1RF Dose Instruction: TAKE 1 TABLET BY MOUTH TWICE DAILY Rx Instructions: TAKE 1 TABLET BY MOUTH TWICE DAILY lorazepam 1 mg tablet 1 - 2 mg PO BID PRN (Reason: anxiety and insomnia) 30 Days Qty: 90 5RF memantine 28 mg capsule,sprinkle,ER 24hr See Rx Instructions .ROUTE .COMPLEX Qty: 90 1RF Dose Instruction: TAKE 1 CAPSULE BY MOUTH DAILY Rx Instructions: TAKE 1 CAPSULE BY MOUTH DAILY prazosin 1 mg capsule 1 mg PO .at bedtime PRN (Reason: nightmares) Qty: 90 1RF acyclovir 800 mg tablet 400 mg PO DAILY levothyroxine 300 mcg tablet 300 mcg PO DAILY Eliquis 5 mg tablet 5 mg PO BID Qty: 180 3RF simvastatin 40 mg tablet 40 mg PO QPM Qty: 90 3RF sulfasalazine 500 mg tablet See Rx Instructions .ROUTE .COMPLEX Qty: 360 0RF Dose Instruction: TAKE 2 TABLETS BY MOUTH TWICE DAILY Rx Instructions: TAKE 2 TABLETS BY MOUTH TWICE DAILY prednisone 5 mg tablet 5 mg PO DAILY Qty: 90 1RF oxycodone-acetaminophen 10-325 mg tablet 1 tab PO Q4H PRN (Reason: Pain) Rx Instructions: do not exceed 6 tabs daily naproxen 500 mg tablet 500 mg PO DAILY buprenorphine [Butrans] 20 mcg/hour Patch Weekly 1 patch TRANSDERMAL Q7D nitrofurantoin monohyd/m-cryst 100 mg capsule 100 mg PO BID digoxin 125 mcg (0.125 mg) tablet See Rx Instructions .ROUTE .COMPLEX Rx Instructions: Take 2 tabs daily on Mon, Wed, Fri; take 1 tab daily all other days Discharge Orders: Discharge ED (Routine); Ordered 02/25/25 Ordered By: Jd Chandler Referrals: Willie Mahmood [Primary Care Provider, Family Practice] Patient Instructions: Opioid Safety, Pain Management, Patient Portal & Loree Instructions Activity Restrictions/Additional Instructions: [facility]. It is very important that you follow up as instructed or that you return to the Emergency Department should you have concerns or if your condition changes or worsens in any way. Dr. Mckoy had been concerned about complications from a 3rd cranial nerve palsy. He had asked that we have you get MRI emergently. The MRI with and without contrast was negative. Discussed your case with Dr. Johansen she will contact you to have you follow-up with her in the office. Does not require any further treatment at this time. Print Language: Burmese Coding Level of Care Code ED Filter Changer for Sofy Meng
[2025-02-25] MEDS: gadobenate dimeglumine 20 mL vial IV (17:02)
== END 2025-02-25 19:05 | disposition home or self-care (01) ==
PROVIDERS: Emergency Provider Family Medicine; PCP Family Medicine
DX: H49.01 Third [oculomotor] nerve palsy, right eye (principal)
CPT/HCPCS: 70553; 85651; 86140; 99284

== ENCOUNTER → 2025-02-27 14:31 | Outpatient (BNVA) | payer MEDICARE, OTHER, SELFPAY | PROVIDERS: PCP Family Medicine; Visit Provider Specialist | DX: H49.01 Third [oculomotor] nerve palsy, right eye (principal); I48.91 Unspecified atrial fibrillation; M79.7 Fibromyalgia | CPT/HCPCS: 99205 ==

== ENCOUNTER → 2025-03-06 11:15 | Outpatient (BNVA) | payer MEDICARE, OTHER, SELFPAY | PROVIDERS: PCP Family Medicine; Visit Provider Internal Medicine Cardiovascular Disease | DX: I48.91 Unspecified atrial fibrillation (principal); Z79.01 Long term (current) use of anticoagulants; I11.0 Hypertensive heart disease with heart failure; I50.9 Heart failure, unspecified; I35.0 Nonrheumatic aortic (valve) stenosis; I05.9 Rheumatic mitral valve disease, unspecified; E78.5 Hyperlipidemia, unspecified; Z87.891 Personal history of nicotine dependence; R06.09 Other forms of dyspnea | CPT/HCPCS: 99214 ==

== ENCOUNTER 2025-04-04 14:39 | Outpatient (CLI) | payer MEDICARE, OTHER, SELFPAY ==
--- NOTE | 2025-04-04 15:00 | USCV_ITS ---
Zoya Cunningham Age: 75 Gender: F : 1950 Exam Date: 04/04/2025 15:05 Ordering Phys: Jericho Steel MD ([email or web address]) Technologist: JOSE ROBERTO [place] [facility] [place]: /SoB BP: 136 / 74 HR: 81 Rhythm: Sinus Technical Quality: Adequate MEASUREMENTS (Male / Female) Normal Values 2D ECHO LV Diastolic Diameter PLAX 4.3 cm 4.2 - 5.9 / 3.9 - 5.3 cm IVS Diastolic Thickness 0.8 cm 0.6 - 1.0 / 0.6 - 0.9 cm IVS Systolic Thickness 1.6 cm LVPW Diastolic Thickness 1.8 cm 0.6 - 1.0 / 0.6 - 0.9 cm LVPW Systolic Thickness 2.0 cm LVOT Diameter 2.0 cm LV Ejection Fraction 2D Teich 54.1 % LV Ejection Fraction MOD 4C 54.6 % LV Ejection Fraction MOD 2C 59.2 % LV Ejection Fraction 2C AL 61.6 % LA Diameter 4.8 cm RA Systolic Volume 4C AL 35.5 ml RA Systolic Volume 4C MOD 32.5 ml LA Sys Volume AL 76.3 cm cubed LA Sys Volume Index AL 39.4 cm cubed/m squared Aorta at Sinotubular Diameter 2.3 cm IVC Diameter 1.2 cm M-MODE LA Ao Ratio MM 1.5 AV Cusp Separation MM 1.1 cm DOPPLER AV Peak Velocity 356.0 cm/s LVOT Peak Velocity 82.0 cm/s AV Area Cont Eq vti 0.8 cm squared AV Area Cont Eq pk 0.7 cm squared MV Peak Velocity 121.0 cm/s TV Peak Velocity 116.5 cm/s TR Peak Velocity 147.0 cm/s TR Peak Gradient 8.6 mmHg TV Peak E Velocity 102.0 cm/s PV Peak Velocity 106.0 cm/s FINDINGS Left Ventricle Normal left ventricular size and systolic function, EF 61% . Mild left ventricular hypertrophy. No regional wall motion abnormalities. Right Ventricle Normal right ventricular size and systolic function. Right Atrium Normal right atrial size. Left Atrium Mildly increased left atrial size. IA Septum Normal appearance of the interatrial septum. Mitral Valve Trace to mild mitral valve regurgitation. Aortic Valve Severe low gradient aortic valve stenosis, mean gradient 28 mmHg, HORTENSIA 0.79 cm squared. Peak velocity of 3.62 m/s with a peak gradient of 52 mmHg. Tricuspid Valve No gross abnormalities noted Pulmonic Valve Pulmonic valve not well visualized. Pericardium No pericardial effusion. Aorta Normal diameter of the aortic root and ascending thoracic aorta. IVC Normal inferior vena cava. CONCLUSIONS Normal left ventricular size and systolic function, EF 61% . Mild left ventricular hypertrophy. No regional wall motion abnormalities. Severe low gradient, possibly normal flow aortic valve stenosis, mean gradient 28 mmHg, HORTENSIA 0.79 cm squared. Peak velocity of 3.62 m/s with a peak gradient of 52 mmHg. There is no pericardial effusion. Technically difficult study because of the poor ultrasonic window. Compared to the study from 12/05/2023, there is worsening of the aortic valve stenosis Dr Jericho Steel MD FAC (Electronically Signed) Final Date: 06 April 2025 20:04 S
== END 2025-04-04 14:40 | disposition home or self-care (01) ==
LOC: RAD 14:40
PROVIDERS: PCP Family Medicine; Visit Provider Internal Medicine Cardiovascular Disease
DX: R06.09 Other forms of dyspnea (principal); I42.2 Other hypertrophic cardiomyopathy
CPT/HCPCS: 93306

== ENCOUNTER → 2025-04-08 10:07 | Outpatient (BNVA) | payer MEDICARE, OTHER, SELFPAY | PROVIDERS: PCP Family Medicine; Visit Provider Internal Medicine Cardiovascular Disease | DX: I50.9 Heart failure, unspecified (principal) | CPT/HCPCS: 80162 ==

== ENCOUNTER 2025-05-24 06:00 | Oncology outpatient (recurring) (ONCR) | payer MEDICARE, OTHER, SELFPAY ==
--- NOTE | 2025-05-20 14:01 | N.ONRAD NP_ITS ---
Radiation Oncology New Patient Visit Patient: Zoya Cunningham MR#: [id number] : 1950 Age: 75 Sex: Female Dictated by: Leonard Chambers DO/DONNIE/TONY Date of Service: 05/20/2025 Referring Physician(s) : Dr. Dale Diagnosis: C34.12 - malignant neoplasm of upper lobe, left bronchus or lung, Diagnosed 05/06/2025 (active), C34.2 - malignant neoplasm of middle lobe, bronchus or lung, Diagnosed 07/04/2020 (active), C34.11 - malignant neoplasm of upper lobe, right bronchus or lung, Diagnosed 07/04/2020 (active) and 162.8 - malignant neoplasm of other parts of bronchus or lung, Diagnosed 07/10/2012 (active). 2008 BILOBECTOMY(RUL/RML)-WELL DIFF ADENOCARCINOMA, ADJ CARBO/TAXOL X 9, SERIAL IMAGING ??? TILL 2020- CT GUIDED BX 06/23 ??? SCAR MATERIAL, CT 07/2024 NOTED NEW NODULE SCOTT (2 X 2.3CM) RECENT SMALL INCREASE SIZE SCOTT APEX PLEURAL BASED, PET/CT 04/24/2025 2.4 X 1.8CM(2.76), PET 2020 1.2 X 0.4CM (1.72), CT CHEST 04/16/2025 2X1.6CM SIMILAR TO 07/28 BUT SIGNIFICANT CHANGE SINCE 05/09/2020, DIAMOND BRONCH (05/06/2025 SCOTT NODULE ABUTTING ANT/LAT PLEURAL SURACE 2X2.3CM NOTING ADENOCARCINOA, RT LUNG LAVAGE STREP PNEU), O2 DEPENDENT- NASAL O2 X 7 YRS WITH FLAT AMBULATION TO SOB 50 FT/ 7 STEPS, 36 PYSH QUIT 10/06/2003, ALESSANDRO GARCIA SAME TIME FRAME, MRI BRAIN 05/23/2025, DESIRES TO NOT HAVE SBRT TILL AFTER THANKSGIVING. STAGE: I-[id number] ICD-10: C34.12, C34.11, C34.20 Radiotherapy to date: Summary > No prior radiation therapy. Chief Complaint: TO DISCUSSS FURTHER TREATMENT FOR STG I SCOTT ADENOCARCINOMA History of Present Illness: This is a pleasant female with known adenocarcinoma of the lung dating back to 2007. She underwent bilobectomy of the RUL/RML in April 2008. This returned well-differentiated adenocarcinoma. She underwent 9 cycles of Taxol carbo and completed this in August 2008. Patient underwent serial CTs from that time forward and was noted to have abnormal CT in 2000. She underwent biopsy by Dr. Pearce and that was found to be negative for carcinoma. CT scan of the chest in July 2024 noted an emerging nodule in the left SCOTT. PET/CT in 2020 showed a 1.2 x 0.4 cm SCOTT nodule (1.72). CT CAP chest in July 2024 showed a 2 x 2.3 cm pulmonary nodule in SCOTT. Repeat CT chest on 04/16/2025 showed a SCOTT apical nodule measuring 2 x 1.6 cm with no substantial change compared to July CT. It however had significant increase since 05/09/2020. Repeat PET/CT on 04/24/2025 showed a 2.4 x 1.8 cm (2.76) SCOTT nodule suspicious for neoplasm Navigational bronc: 05/06/2025 of SCOTT nodule was noted to abut the anterior and lateral pleural surfaces measuring 2 x 2.3 cm. There was biopsy positive for adenocarcinoma. Right lung lavage showed strep pneumonia. She is not a surgical candidate due to continuous nasal O2 therapy for the last 7 years. She can walk 50 feet on a flat surface before shortness of breath and gets short of breath going up approximately 7 steps. Patient was a prior smoker of 36 pack years quitting on 10/06/2003. She also drank routinely margaritas during that same period of time and quit at the same time. Current Medications: acyclovir 400 mg PO DAILY apixaban (Eliquis) 5 mg PO BID ascorbic acid (vitamin C) 1,000 mg PO DAILY buprenorphine 20 mcg/hour (Butrans) 1 patch transdermal Q7D cholecalciferol (vitamin D3) 250 mcg PO DAILY cyanocobalamin (vitamin B-12) 2,500 mcg PO DAILY donepezil TAKE 1 TABLET BY MOUTH DAILY AT BEDTIME duloxetine TAKE 1 CAPSULE BY MOUTH twice a day; 90 days eszopiclone (Lunesta) 3 mg PO BEDTIME PRN ferrous sulfate 324 mg PO DAILY Held on 08/01/24. Instructions: Resume on 08/07/24. ipratropium bromide 2.5 mL inhalation Q6H PRN ipratropium-albuterol 0.5 mg-3 mg(2.5 mg base)/3 mL 3 mL inhalation Q6H PRN lamotrigine TAKE 1 TABLET BY MOUTH TWICE DAILY levothyroxine 300 mcg PO DAILY lorazepam 1 - 2 mg (1 - 2 x 1 mg) PO BID PRN 30 days memantine TAKE 1 CAPSULE BY MOUTH DAILY omeprazole 40 mg PO DAILY oxycodone-acetaminophen 10-325 mg 1 tab PO Q4H PRN oxygen-air delivery systems As directed 3 liters prazosin 1 mg PO .at bedtime PRN simvastatin 40 mg PO QPM sulfasalazine TAKE 2 TABLETS BY MOUTH TWICE DAILY Allergies: Tetanus Vaccines and Toxoid Adverse Reaction (Severe, Verified 05/20/25 09:43) FEVER,MITRAL VALVE PROLAPSE Medical History: Chronic use of benzodiazepine for therapeutic purpose Fracture of fifth metatarsal bone of right foot Psychiatric care Generalized anxiety disorder Insomnia Aortic valve stenosis COPD (chronic obstructive pulmonary disease) Chronic steroid use Immunization counseling Adenocarcinoma of right lung, 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, status post right middle and upper lobectomy in April 2008, -treated with adjuvant chemotherapy, 9 cycles of carboplatin and Taxol completed in August 2008 High risk medication use Encounter for immunization Seronegative rheumatoid arthritis of both hands Near syncope Dementia in other diseases classified elsewhere without behavioral disturbance Bipolar 2 disorder Pulmonary fibrosis COPD (chronic obstructive pulmonary disease) Osteoarthritis of knees, bilateral Greater trochanteric bursitis of both hips Inflammatory arthritis Atrial fibrillation Anticoagulated with apixaban Hyperlipemia Valvular heart disease Mitral valve disease Arrhythmia Hypertension Peripheral neuropathy Fibromyalgia Surgical History: History of lung surgery H/O: hysterectomy H/O breast biopsy Family History: Mother CAD (coronary artery disease) Cancer Stroke Sister Diabetes Father Lung disease Denies family history of Clotting disorder Dementia Chronic kidney disease (CKD) Suicide Anesthesia complication Bleeding disorder Social History: Smoking and tobacco/nicotine status: former use of tobacco/nicotine Quit status (tobacco/nicotine): has quit using Year quit tobacco: 2003 , 36 pysh Alcohol intake: Nathalie???s quit at same time as smoking Substance/Drug Use: never Dietary Habits Caffeine: Yes Current Complaints / Review of Systems: .As Above Vital Signs: Performed on 05/20/2025 10:28 AM BMI - 24.176 kg/m2 (high), Height - 68 in, Weight - 159 lbs, Temperature - 97.7 f, Pulse - 94 /min, Respiration - 15 /min, O2 Sat - 96 %, Pain - 4, Fatigue - 0 and BP - 115/ 79 mm(hg). Physical Exam: General: Alert and oriented x 3. No acute distress. HEENT: Normocephalic, atraumatic. Extraocular Movements Intact: Pupils Equal, Round, Reactive to Light and Accommodation: Sclerae anicteric. Oral cavity is clear without lesions, masses or ulcers. NECK: Supple without supraclavicular or jugular lymphadenopathy. LUNGS: Clear to auscultation bilaterally without rales, rhonchi or wheeze. No intercostal retraction HEART: Regular rate and rhythm, normal S1 and S2 without murmur, gallop or rub. MUSCULOSKELETAL: No tenderness or percussion pain over the axial skeleton, scapulae or pelvis. ABDOMEN: Soft, nontender, nondistended without masses or organomegaly. Bowell sounds are present. EXTREMITIES: No peripheral edema is identified. Limited motor and sensory examination are grossly intact and symmetric bilaterally. Performance Status: KPS 70 Pathology: Primary, c34.12 - malignant neoplasm of upper lobe, left bronchus or lung, Diagnosed 05/06/2025 (active) , Primary, c34.2 - malignant neoplasm of middle lobe, bronchus or lung, Diagnosed 07/04/2020 (active) , Primary, c34.11 - malignant neoplasm of upper lobe, right bronchus or lung, Diagnosed 07/04/2020 (active) , Primary, 162.8 - malignant neoplasm of other parts of bronchus or lung, Diagnosed 07/10/2012 (active) , Secondary, 311 - depressive disorder, not elsewhere classified, Diagnosed 07/04/1799 (active) , Secondary, 424.0 - mitral valve disorders, Diagnosed 07/04/1799 (active) , Secondary, 272.4 - other and unspecified hyperlipidemia, Diagnosed 07/04/1799 (active) , Secondary, 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 Lab: Imaging: See HPI Impression: : C34.12 - malignant neoplasm of upper lobe, left bronchus or lung, Diagnosed 05/06/2025 (active), C34.2 - malignant neoplasm of middle lobe, bronchus or lung, Diagnosed 07/04/2020 (active), C34.11 - malignant neoplasm of upper lobe, right bronchus or lung, Diagnosed 07/04/2020 (active) and 162.8 - malignant neoplasm of other parts of bronchus or lung, Diagnosed 07/10/2012 (active). 2008 BILOBECTOMY(RUL/RML)-WELL DIFF ADENOCARCINOMA, ADJ CARBO/TAXOL X 9, SERIAL IMAGING ??? TILL 2020- CT GUIDED BX 06/23 ??? SCAR MATERIAL, CT 07/2024 NOTED NEW NODULE SCOTT (2 X 2.3CM) RECENT SMALL INCREASE SIZE SCOTT APEX PLEURAL BASED, PET/CT 04/24/2025 2.4 X 1.8CM(2.76), PET 2020 1.2 X 0.4CM (1.72), CT CHEST 04/16/2025 2X1.6CM SIMILAR TO 07/28 BUT SIGNIFICANT CHANGE SINCE 05/09/2020, DIAMOND BRONCH (05/06/2025 SCOTT NODULE ABUTTING ANT/LAT PLEURAL SURACE 2X2.3CM NOTING ADENOCARCINOA, RT LUNG LAVAGE STREP PNEU), O2 DEPENDENT-NASAL O2 X 7 YRS WITH FLAT AMBULATION TO SOB 50 FT/ 7 STEPS, 36 PYSH QUIT 10/06/2003, ALESSANDRO GARCIA SAME TIME FRAME, MRI BRAIN 05/23/2025, DESIRES TO NOT HAVE SBRT TILL AFTER THANKSGIVING. STAGE: I-[id number] ICD-10: C34.12, C34.11, C34.20 Plan: Options were discussed with the patient and . All questions answered to their satisfaction. Patient wishes to undergo SBRT. Recommend 5000 cGy in 5 fractions to commence after thanks given at their request. CT SIM is scheduled for 05/23/2025 at 0930 hrs. MRI of the brain scheduled for 0 800 on 05/23/2025. Signed by: 05/20/2025 1:58:56 PM <<Signature on File>> Time spent with patient//review of records/preparation of document: 90 minutes CPT Code: CPT Code:
--- NOTE | 2025-05-23 07:44 | MR_ITS ---
WS: [id number] MRI BRAIN WITH AND WITHOUT CONTRAST HISTORY: PRIMARY LUNG ADENOCARCINOMA COMPARISON: 02/25/2025 TECHNIQUE: Multiplanar imaging performed through the brain with MultiHance 15 ml's IV. Normal diffusion imaging. No acute ischemia. Mild bilateral symmetric atrophy and volume loss. T2 and FLAIR signal hyperintensities in the supratentorial white matter are minimal. No progression since the prior study. No infarcts. There is mild bilateral hippocampal atrophy but greatest on the RIGHT. No susceptibility artifacts or prior lacunar infarcts. Ventricles and extra-axial spaces are normal. Clivus and pituitary gland are normal. Visualized posterior fossa and brainstem are also normal. Postcontrast images are negative for masses or vascular malformations. Dural venous sinuses are normal. Paranasal sinuses: Well aerated with no significant disease. Mastoid air cells: Normal. Calvarium and scalp: Normal. MR/MR head wo/w con [id number] IMPRESSION: 1. No evidence for metastatic disease to the brain. 2. No evidence for an acute infarct. 3. Minimal small vessel disease. 4. Mild bilateral hippocampal atrophy.
[2025-05-23] MEDS: gadobenate dimeglumine 20 mL vial 15 ML IV (09:15)
== END 2025-06-02 23:59 | disposition home or self-care (01) ==
LOC: ONCMED 05-28 14:16
PROVIDERS: PCP Family Medicine; Visit Provider Radiology Radiation Oncology
DX: Z51.0 Encounter for antineoplastic radiation therapy (principal); C34.12 Malignant neoplasm of upper lobe, left bronchus or lung; C34.2 Malignant neoplasm of middle lobe, bronchus or lung; C34.11 Malignant neoplasm of upper lobe, right bronchus or lung
CPT/HCPCS: 70553; 77300; 77301; 77334; 77338; 77470; 99205; A9577

== ENCOUNTER 2025-06-14 08:32 | Oncology outpatient (recurring) (ONCR) | payer MEDICARE, OTHER, SELFPAY ==
--- NOTE | 2025-06-12 09:47 | ONCRAD TMN_ITS ---
Radiation Oncology Weekly Treatment Management Patient: Zoya Cunningham MR#: [id number] : 1950 Attending Physician: Dr. Nhung Burgess Date of Service: 06/12/2025 Referring Physician(s) : Dr Dale Diagnosis: C34.12 - Malignant neoplasm of upper lobe, left bronchus or lung, Diagnosed 05/06/2025 (Active) C34.2 - Malignant neoplasm of middle lobe, bronchus or lung, Diagnosed 07/04/2020 (Active) C34.11 - Malignant neoplasm of upper lobe, right bronchus or lung, Diagnosed 07/04/2020 (Active) 162.8 - Malignant neoplasm of other parts of bronchus or lung, Diagnosed 07/10/2012 (Active) Radiotherapy to date: Course: Lung SBRT 2024, Treatment Site: [facility] SBRT, Ref. ID: [id number], Energy: 6X, Dose/Fx (cGy): 1,000, #Fx: 4 / 5, Dose Correction (cGy): 0, Total Dose Delivered (cGy): 4,000, Start Date: 06/04/2025, End Date: 06/12/2025, Elapsed Days: 8 Reason for visit: The patient is being seen today as part of their regularly scheduled weekly on treatment visits to assess for acute toxicities from radiotherapy. Review of Systems: Pt has noticed no changes. Vital Signs: Performed on 06/12/2025 8:59 AM BMI - 25.575 kg/m2 (high), Height - 68 in, Weight - 168.2 lbs, Temperature - 97.8 f, Pulse - 79 /min, Respiration - 18 /min, O2 Sat - 92 % (low), Pain - 5, Fatigue - 0 and BP - 119/ 81 mm(hg). Physical Exam: No changes on exam Imaging: Radiation therapy imaging related to accurate target localization (i.e. KV, MV and CBCT) was reviewed. Appropriate changes, if any, were made to ensure treatment accuracy. Plan: continue treatment as planned. Signed by: Dr. Nhung Burgess 06/12/2025 9:46:31 AM
== END 2025-06-14 23:59 | disposition home or self-care (01) ==
PROVIDERS: PCP Family Medicine; Visit Provider Radiology Radiation Oncology
DX: Z51.0 Encounter for antineoplastic radiation therapy (principal); C34.12 Malignant neoplasm of upper lobe, left bronchus or lung; C34.11 Malignant neoplasm of upper lobe, right bronchus or lung
CPT/HCPCS: 17000; 17110; 77336; 77373; 99024; 99205; 99213